=== PATIENT | male | born 1950 | race Caucasian/White ===

== ENCOUNTER 2018-07-01 09:25 | Inpatient (IN) | payer OTHER, SELFPAY ==
[2018-07-01] VITALS (8 sets, daily range): BP systolic 112–159; BP diastolic 58–98; PULSE 52–82; RESP 4–20; TEMP 36.4–38.1; O2SAT 89–98
--- NOTE | 2018-07-01 09:55 | W.ED.GENAD ---
Discharge Plan Disposition Patient Disposition: [facility] INPATIENT Condition: Stable Discharge Details Chief Complaint: Orthopedic Clinical Impression: Closed intertrochanteric fracture of right hip Reason For Visit: HIP FRACTURE Admit Date/Time: 07/01/18 13:22 Admit Provider: Rina Albrecht Attending Provider: Rina Albrecht Primary Care Provider: [facility] Provider: Lupe Barnett Discharge Data Discharge Date/Time-TO BE ENTERED AT DEPARTURE: 07/01/18 13:16 Medical Decision Making 67-year-old male with history of anxiety and depression, COPD, hyperlipidemia PTSD who presents with right hip pain status post slip and fall on ice and right aid parking lot prior to arrival. Patient ate at 7 AM Denies head injury or any other injuries. Blood pressure mildly hypertensive. Right leg shortening and external rotation. Neurovascularly intact. Will send for right hip and pelvis x-ray. Will give a dose of morphine. 1030 -- xray noted r hip fracture. Will obtain screening labs and cxr. 1045 -- discussed with orthopedics -will likely take to surgery tomorrow morning, but will consider this afternoon. Will discuss with anesthesia. 1050 -- discussed with hospitalist - accepts pt for admission. 1055 -- d/w ortho - pt can eat today - will go to [place] 8am tomorrow morning. Medical Records Medical records reviewed: Yes I reviewed the patient's medical records. Imaging Data Radiologic Study: Radiologist's impression: XR Right Hip with Pelvis when Performed, 2 or 3 Views FINDINGS: Bones/joints: Osteopenia Displaced intertrochanteric right hip fracture with fractured greater trochanter. Osteopenia Soft tissues: Normal. IMPRESSION: Displaced intertrochanteric right hip fracture with fractured greater trochanter. XR Chest, 1 View FINDINGS: Lungs: Unremarkable. No consolidation. Pleural space: Unremarkable. No pleural effusion. No pneumothorax. Heart/Mediastinum: Unremarkable. No cardiomegaly. Bones/joints: Unremarkable. IMPRESSION: No acute findings. Lab Data Lab results reviewed: Yes I reviewed the patient's lab results. HPI General Mode of arrival: ambulatory. Date/Time Provider Initiated Documentation: 07/01/18 09:45. Limitations to Documentation: no limitations. Information obtained by: patient. HPI Narrative: Patient is a 67-year-old male with a history of anxiety, depression, COPD, hyperlipidemia, PTSD who presents with right hip pain status post slip and fall on ice. Patient states he was walking and right a parking lot when he slipped and fell onto his right hip. Patient denies head injury, chest injury, abdominal injury, neck or back pain. He denies any other extremity injury. Patient had refused any pain meds per EMS but states he would like some pain medication now. Patient has a history of lumbar spine disc surgery in 1990 but denies any history of hip surgery. Related Data Home Medications Medication Instructions Recorded Confirmed aspirin 325 mg PO PRN 03/15/14 07/01/18 aspirin [Aspirin Low-Strength] 81 mg PO DAILY AM 03/15/14 08/01/17 atorvastatin [Lipitor] 10 mg PO DAILY AM 03/15/14 07/01/18 cyclobenzaprine 10 mg PO PRN PRN 03/15/14 07/01/18 fluticasone [Flonase] 1 spray INTRANASAL PRN PRN 03/15/14 07/01/18 omeprazole 20 mg PO DAILY AM 03/15/14 07/01/18 sertraline [Zoloft] 50 mg PO DAILY 03/15/14 07/01/18 Spiriva with HandiHaler 1 puff INHALATION DAILY 11/16/14 07/01/18 coenzyme Q10 [CoQ-10] 100 mg PO DAILY 11/16/14 07/01/18 nicotine 21 mg TRANSDERMAL DAILY PRN PRN 12/07/16 07/01/18 patch pantoprazole [Protonix] 40 mg PO DAILY #30 tablet. 08/01/17 07/01/18 Previous Rx's Medication Instructions Recorded nicotine 21 mg TRANSDERMAL DAILY PRN PRN 12/07/16 patch pantoprazole [Protonix] 40 mg PO DAILY #30 tablet. 08/01/17 Allergies Allergy/AdvReac Type Severity Reaction Status Date / Time No Known Allergies Allergy Unverified 08/01/17 11:30 General Stated Complaint: Orthopedic MARYAN: 3 Review of Systems Review of Systems All systems reviewed & are unremarkable except as noted in HPI and below Constitutional Reports as per HPI, Denies chills and Denies fever(s) Eyes Denies blurry vision ENT Denies dizziness, Denies sore throat and Denies throat swelling Cardiovascular Denies chest pain and Denies dyspnea Respiratory Denies cough and Denies dyspnea Gastrointestinal Denies abdominal pain, Denies diarrhea and Denies vomiting Genitourinary Denies hematuria and Denies dysuria Musculoskeletal Denies back pain and Denies numbness Integumentary/Breasts Denies lesions and Denies rash Neurologic Denies dizziness, Denies focal weakness and Denies numbness Allergic/Immunologic Denies throat swelling COUNTS INCLUDE 234 BEDS AT THE [facility] Medical History Hyperlipemia (Acute) PTSD (post-traumatic stress disorder) (Acute) Anxiety (Chronic) Depression (Chronic) Surgical History History of back surgery (Acute) Social History Smoking/Tobacco Use Status: Current every day alcohol intake: never substance use type: does not use Exam Const General: cooperative, healthy appearing and no acute distress HENMT Head: normal to inspection Face and sinus: normal facial exam Eyes General: appearance normal, both eyes and all related structures EOM: EOM intact bilaterally Neck Neck: normal visual inspection and No submandibular swelling Lymphatic: no lymphadenopathy noted Chest Chest: normal inspection of the chest and no tenderness Resp Effort & Inspection: normal respiratory effort and able to speak in complete sentences Auscultation: clear to auscultation bilaterally Cardio Rate: regular rate Rhythm: regular rhythm GI Inspection: normal to inspection Palpation: soft, not firm, not rigid and nontender Auscultation: normal bowel sounds Male General Exam: Yes normal external exam Scrotum: scrotum normal Testes: normal Back/Spine/Pelvis Cervical Spine: No cervical spinal tenderness Skin General skin exam: no rashes or lesions noted Neuro General: alert, awake and oriented x3 Cognition: normal cognition Speech: speech normal Motor: muscle tone normal throughout Sensory Exam: no sensory deficits noted Extrem Right upper extremity: full ROM Left upper extremity: full ROM Other: Right lower extremity shortened and externally rotated. No tenderness to palpation of bilateral hips. Normal range of motion and no pain left lower extremity. Bilateral DP/PT pulses intact. Psych Appearance: grossly normal Mental Status: mental status grossly normal Speech and Movement: speech and movement normal Affect: normal affect Course Vital Signs Temperature 98.1 F 07/01/18 09:32 Pulse 58 L 07/01/18 09:32 Respiratory Rate 20 07/01/18 09:32 Blood Pressure 159/84 H 07/01/18 09:32 Pulse Oximetry 98 07/01/18 09:32 Temperature 98.1 F 07/01/18 09:32 Temperature Source Temporal Artery Scan 07/01/18 09:32 Pulse 58 L 07/01/18 09:32 Respiratory Rate 20 07/01/18 09:32 Respiratory Effort 07/01/18 09:37 Blood Pressure 159/84 H 07/01/18 09:32 Blood Pressure Position Supine 07/01/18 09:32 Pulse Oximetry 98 07/01/18 09:32 Oxygen Delivery Method Room Air 07/01/18 09:32 Oxygen Flow Rate 0 07/01/18 09:32 Pain Level 5 07/01/18 09:32
[2018-07-01] MEDS: MORPHine 10 MG/ML VIAL 4 MG IVP (10:05)
[2018-07-01] MEDS: Normal Saline Flush 10 ML SYR IVP ×2 (10:07→13:28)
--- NOTE | 2018-07-01 10:38 | DI.RAD_ITS ---
SYMPTOM/DIAGNOSIS: HIP FRACTURE, R/O ACUTE DISEASE, PRE OP AP SUPINE CHEST: Comparison is made with 01 August 2017. The heart size is normal. The aorta shows some calcification, normal in diameter. The lungs are well inflated and clear. No infiltrate, effusion, pneumothorax or rib fractures seen. IMPRESSION: Negative chest x-ray
--- NOTE | 2018-07-01 10:45 | DI.RAD_ITS ---
SYMPTOM/DIAGNOSIS: S/P SLIP AND FALL, R/O ACUTE FX PELVIS AND LEFT HIP: There is an intertrochanteric fracture of the left femur. There is mild varus angulation, mild displacement. No additional fractures are seen. The hip joint space is well maintained. IMPRESSION: Intertrochanteric fracture of the right femur.
--- NOTE | 2018-07-01 10:51 | DI.VRAD_ITS ---
EXAM: XR Right Hip with Pelvis when Performed, 2 or 3 Views EXAM DATE/TIME: 07/01/2018 9:55 AM CLINICAL HISTORY: 67 years old, male; Pain; Hip pain; Right hip; Patient HX: Fall on ice today. Right hip pain. TECHNIQUE: XR Right hip with pelvis when performed, 2 or 3 views COMPARISON: No relevant prior studies available. FINDINGS: Bones/joints: Osteopenia Displaced intertrochanteric right hip fracture with fractured greater trochanter. Osteopenia Soft tissues: Normal. IMPRESSION: Displaced intertrochanteric right hip fracture with fractured greater trochanter. Dictated and Authenticated by: Emory Means MD. Ordering:GIULIANA Andrade MD
--- NOTE | 2018-07-01 10:52 | DI.VRAD_ITS ---
EXAM: XR Chest, 1 View EXAM DATE/TIME: 07/01/2018 10:38 AM CLINICAL HISTORY: 67 years old, male; Signs and symptoms; Other: Trauma patient TECHNIQUE: XR of the chest, 1 view. COMPARISON: CR CHEST 2 VIEWS PA,LAT 08/01/2017 11:30 AM FINDINGS: Lungs: Unremarkable. No consolidation. Pleural space: Unremarkable. No pleural effusion. No pneumothorax. Heart/Mediastinum: Unremarkable. No cardiomegaly. Bones/joints: Unremarkable. IMPRESSION: No acute findings. Dictated and Authenticated by: Emory Means MD. Ordering:GIULIANA Andrade MD
[2018-07-01 12:50] LABS: Abs Immature Grans 0.02 k/cumm (0.0-0.09); Absolute Basophil Count 0.01 k/cumm (0.0-0.2); Absolute Eosinophil Count 0.02 k/cumm (0.0-0.7); Absolute Lymphocyte Count 1.17 k/cumm (1.2-3.4); Absolute Monocyte Count 0.45 k/cumm (0.11-0.7); Absolute Neutrophil Count 6.58 k/cumm (1.2-6.7); Basophils % 0.1; Eosinophils % 0.2; HCT 38.7 % (40.0-50.0); HGB 13.4 g/dL (13.5-17.5); Immature Grans % 0.2; Lymphocytes % 14.2; Mean Corp. HGB Concentration 34.6 g/dL (32.0-36.0); Mean Corpuscular Hemoglobin 32.6 pg (27.0-33.0); Mean Corpuscular Volume 94.2 fL (80-95); Monocytes % 5.5; Neutrophils % 79.8; Platelet Count 236 x1000/uL (130-400); RBC 4.11 m/cumm (4.50-6.00); RBC Distribution Width 12.2 % (11.8-14.1); White Blood Cell Count 8.25 k/cumm (4.4-10.8)
[2018-07-01 13:08] LABS: ALT 28 U/L (12-78); AST 29 U/L (15-37); Albumin 3.4 g/dL (3.4-5.0); Alkaline Phosphatase 76 U/L (46-116); Anion Gap 7.5 mmol/L (3-11); BUN 7 mg/dL (7-18); Bilirubin, Total 0.3 mg/dL (0.2-1.0); CO2 28.5 mmol/L (21.0-32.0); CREATININE 0.84 mg/dL (0.70-1.30); Calcium 8.7 mg/dL (8.5-10.1); Chloride 100 mmol/L (98-107); Glucose 102 mg/dL (70-100); Magnesium 1.5 mg/dL (1.8-2.4); Sodium 136 mmol/L (136-145); Total Protein 6.7 g/dL (6.4-8.2); Troponin I < 0.02 ng/mL (0.00-0.06)
--- NOTE | 2018-07-01 13:14 | W.PM.HP.N ---
Date of service: 07/01/18 Time of Service: 13:15 Assessment and Plan (1) Hip fracture, right: Start date: 07/01/18 Start time: 13:47 Current visit: Yes Status: Acute Ortho met with patient plan on surgery either this evening or tomorrow morning. (2) COPD (chronic obstructive pulmonary disease): Start date: 07/01/18 Start time: 13:47 Current visit: Yes Status: Chronic Not exacerbated at this time, pt takes albuterol,and sprivia at home will continue current home treatment. (3) Tobacco abuse: Start date: 07/01/18 Start time: 13:48 Current visit: Yes Status: Acute counseled on smoking cessation, not interested at this time. Will continue to assess readiness to quite. I have ordered nicoderm 21 mg patch if patient decides he wants it (4) Hyperlipidemia: Start date: 07/01/18 Start time: 13:49 Current visit: Yes Status: Acute currently taking atorvastatin, will continue his home regimen (5) DVT prophylaxis: Start date: 07/01/18 Start time: 13:50 Current visit: Yes Status: Acute At this time while waiting surgery SCDs and TEDs for prophylaxis. (6) GERD (gastroesophageal reflux disease): Start date: 07/01/18 Start time: 13:50 Current visit: Yes Status: Chronic Currently taking protonix po daily, I have ordered that as IVP while NPO (7) Discharge planning issues: Start date: 07/01/18 Start time: 13:51 Current visit: Yes Status: Acute Possible home with PT/OT or rehab, will start to evaluate after surgery and when patient works with PT/OT for where appropriate placement will be. History of Present Illness Chief Complaint: Hip Fracture Narrative: Mr. Tom is a 67 y.o M who was at [employer] this am and fell in the parking lot on ice. After falling he proceded to get up and could not so he called [address] Emergency Department. He has hx of COPD and 2 pack per day smoker, hx of positional vertigo, gastric ulcers, various skin cancers, PTSD and hyperlipidemia. He has been seen by ortho for a right hip fracture, plan for possible surgery tonight, if not tonight then in the morning. He will be admitted to m/s for hip surgery and medical managment. We will plan on PT/OT working with him post operatively. Teds and SCD for anticoagulation until after surgery. Bedrest until after surgery, NPO until after surgery. IVF and morphine for pain managment. Protonix IV while NPO, I will start his home regimen for COPD . He expresses no desire to quit smoking at this time. He states he only smokes half the cigarette because that is what a doctor told him to do because all the bad stuff is in the end of the cigarette. I have ordered nicoderm patches if he needs them, though he states he wants to do this without anything. Review of Systems Review of Systems All systems reviewed & are unremarkable except as noted in HPI and below Constitutional Reports system reviewed and no additional complaints, except as docu Eyes Reports system reviewed and no additional complaints, except as docu ENT Reports system reviewed and no additional complaints, except as docu Cardiovascular Reports system reviewed and no additional complaints, except as docu Respiratory Reports system reviewed and no additional complaints, except as docu Gastrointestinal Reports system reviewed and no additional complaints, except as docu Genitourinary Reports system reviewed and no additional complaints, except as docu Musculoskeletal Comments: pain to right leg when touched Integumentary/Breasts Reports system reviewed and no additional complaints, except as docu Neurologic Reports system reviewed and no additional complaints, except as docu Psychiatric Reports as per HPI [facility] Medical History Hyperlipemia (Acute) PTSD (post-traumatic stress disorder) (Acute) Anxiety (Chronic) Depression (Chronic) Surgical History History of back surgery (Acute) Social History Smoking/Tobacco Use Status: Current every day alcohol intake: never substance use type: does not use Meds Home Medications Medication Instructions Recorded Confirmed Type aspirin 325 mg PO PRN 03/15/14 08/01/17 History aspirin [Aspirin Low-Strength] 81 mg PO DAILY AM 03/15/14 08/01/17 History atorvastatin [Lipitor] 10 mg PO DAILY AM 03/15/14 08/01/17 History cyclobenzaprine 10 mg PO PRN PRN 03/15/14 08/01/17 History fluticasone [Flonase] 1 spray INTRANASAL PRN PRN 03/15/14 08/01/17 History omeprazole 20 mg PO DAILY AM 03/15/14 08/01/17 History sertraline [Zoloft] 50 mg PO DAILY 03/15/14 08/01/17 History coenzyme Q10 [CoQ-10] 100 mg PO DAILY 11/16/14 08/01/17 History tiotropium bromide [Spiriva with 1 puff INHALATION DAILY 11/16/14 08/01/17 History HandiHaler] nicotine 21 mg TRANSDERMAL DAILY PRN PRN 12/07/16 08/01/17 Rx patch pantoprazole [Protonix] 40 mg PO DAILY #30 tablet. 08/01/17 Rx Allergies Allergy/AdvReac Type Severity Reaction Status Date / Time No Known Allergies Allergy Unverified 08/01/17 11:30 Exam Narrative Exam Narrative: Male sitting on stretcher calm and pleasant Const General: cooperative, healthy appearing and no acute distress HENMT Head: normal to inspection Eyes General: appearance normal, both eyes and all related structures Neck Lymphatic: no lymphadenopathy noted and no lymphedema noted Chest Chest: normal inspection of the chest Resp Effort & Inspection: normal respiratory effort and able to speak in complete sentences Cardio Rate: regular rate Rhythm: regular rhythm Heart Sounds: S1 normal and S2 normal GI Inspection: normal to inspection Skin General skin exam: no rashes or lesions noted Neuro General: alert, awake and oriented x3 Extrem Other: RLE is shortened and externally rotated Results Labs : 07/01/18 12:39 07/01/18 12:39 Laboratory Results - last 24 hr 07/01/18 07/01/18 07/01/18 12:39 12:39 12:39 WBC 8.25 RBC 4.11 L Hgb 13.4 L Hct 38.7 L MCV 94.2 MCH 32.6 MCHC 34.6 RDW 12.2 Plt Count 236 MPV 9.0 Immature Gran % 0.2 Neutrophils % 79.8 Lymphocytes % 14.2 Monocytes % 5.5 Eosinophils % 0.2 Basophils % 0.1 Absolute Neutrophils 6.58 Absolute Lymphocytes 1.17 L Absolute Monocytes 0.45 Absolute Eosinophils 0.02 Absolute Basophils 0.01 Sodium 136 Potassium 4.0 Chloride 100 Carbon Dioxide 28.5 Anion Gap 7.5 BUN 7 Creatinine 0.84 Estimated GFR/1.73 m2 >= 60.00 Glucose 102 H Calcium 8.7 Magnesium 1.5 L Total Bilirubin 0.3 AST 29 ALT 28 Alkaline Phosphatase 76 Troponin I < 0.02 Total Protein 6.7 Albumin 3.4 Patient ABO/Rh A Positive Last Vital Signs Temp 36.4 C L 07/01/18 11:49 Pulse 58 L 07/01/18 12:08 Resp 18 07/01/18 12:08 BP 119/61 07/01/18 12:08 Pulse Ox 89 L 07/01/18 12:08
[2018-07-01] MEDS: Normal Saline 1,000 ML 125 ML IV ×2 (14:46→22:24)
[2018-07-01] MEDS: MAGNESIUM SULFATE 2 GM/50 ML BAG IV ×2 (18:42→21:53)
--- NOTE | 2018-07-01 19:43 | W.ORTHOCONSU ---
Date of service: 07/01/18 Time of Service: 14:43 History of Present Illness Chief Complaint: Right Hip Pain Narrative: Felipe is a 67-year-old who prior to arrival in the emergency department fell in the parking lot. He was walking and slipped on some ice landing on the right side. He tried to get up but was unable to. He called the emergency services and was brought to the [facility] ED. He was diagnosed with a hip fracture on the right side. He reports pain about the right hip. No pain in the knee. No premorbid hip pain. No numbness or tingling. He has otherwise been in the normal state of health. No head trauma, loss of consciousness, chest pain, palpitation, shortness of breath. Consult Reason Right hip fracture Assessment and Plan (1) Hip fracture, right: Start date: 07/01/18 Start time: 08:00 Current visit: Yes Status: Acute Felipe is a 67-year-old with a right intertrochanteric hip fracture which is displaced. I had a long discussion with Felipe about treatment options and he agrees to operative fixation. I treated his for hip fracture a year or 2 ago and she has done quite well. I reviewed the difficulties nonoperative treatment and recommended intervention nail fixation due to the comminution of the greater trochanter. He did eat this morning. Therefore, we will plan to do the case first thing tomorrow morning. I reviewed the risk of the procedure to include bleeding, infection, pain, stiffness, damage to nerves and vessels, damage to muscle tendons, hardware prominence, heart failure, malunion, nonunion, leg length inequality. There is also risk of blood clot. Despite these risks, he elects to proceed. Qualifiers: Encounter type: initial encounter Fracture type: closed Qualified Code(s): S72.001A - Fracture of unspecified part of neck of right femur, initial encounter for closed fracture Review of Systems Review of Systems All systems reviewed & are unremarkable except as noted in HPI and below [facility] Medical History Hyperlipemia (Acute) PTSD (post-traumatic stress disorder) (Acute) Anxiety (Chronic) Depression (Chronic) Surgical History History of back surgery (Acute) Social History Smoking/Tobacco Use Status: Current every day alcohol intake: never substance use type: does not use Exam Narrative Exam Narrative: Felipe is resting comfortably in the hospital bed. Head is normocephalic and atraumatic. His right leg is shortened and externally rotated. He is in no acute distress. He is alert oriented x3. He has intact ankle dorsiflexion, plantarflexion, EHL, FHL. Sensation intact light touch of the deep and superficial peroneal nerve and tibial nerve. The foot is warm and well perfused with a palpable DP and PT pulse. Results Last Vital Signs Temp 38.1 C H 07/01/18 15:52 Pulse 78 07/01/18 15:52 Resp 20 07/01/18 15:52 BP 117/58 L 07/01/18 15:52 Pulse Ox 93 L 07/01/18 15:52 Labs : 07/01/18 12:39 07/01/18 12:39 Laboratory Results - last 24 hr 07/01/18 07/01/18 07/01/18 12:39 12:39 12:39 WBC 8.25 RBC 4.11 L Hgb 13.4 L Hct 38.7 L MCV 94.2 MCH 32.6 MCHC 34.6 RDW 12.2 Plt Count 236 MPV 9.0 Immature Gran % 0.2 Neutrophils % 79.8 Lymphocytes % 14.2 Monocytes % 5.5 Eosinophils % 0.2 Basophils % 0.1 Absolute Neutrophils 6.58 Absolute Lymphocytes 1.17 L Absolute Monocytes 0.45 Absolute Eosinophils 0.02 Absolute Basophils 0.01 Sodium 136 Potassium 4.0 Chloride 100 Carbon Dioxide 28.5 Anion Gap 7.5 BUN 7 Creatinine 0.84 Estimated GFR/1.73 m2 >= 60.00 Glucose 102 H Calcium 8.7 Magnesium 1.5 L Total Bilirubin 0.3 AST 29 ALT 28 Alkaline Phosphatase 76 Troponin I < 0.02 Total Protein 6.7 Albumin 3.4 Patient ABO/Rh A Positive Antibody Screen Negative Imaging Imaging Studies: X-ray of the right hip and pelvis demonstrates an intertrochanteric hip fracture. There is some mild comminution of the greater trochanter and there is also displacement of the fracture with shortening and external rotation of the distal component. No significant arthritis.
--- NOTE | 2018-07-01 19:49 | OCONE_ITS ---
Date of service: 07/01/18 Time of Service: 14:43 History of Present Illness Chief Complaint: Right Hip Pain Narrative: Felipe is a 67-year-old who prior to arrival in the emergency department fell in the parking lot. He was walking and slipped on some ice landing on the right side. He tried to get up but was unable to. He called the emergency services and was brought to the [facility] ED. He was diagnosed with a hip fracture on the right side. He reports pain about the right hip. No pain in the knee. No premorbid hip pain. No numbness or tingling. He has otherwise been in the normal state of health. No head trauma, loss of consciousness, chest pain, palpitation, shortness of breath. Consult Reason Right hip fracture Assessment and Plan (1) Hip fracture, right: Start date: 07/01/18 Start time: 08:00 Current visit: Yes Status: Acute Felipe is a 67-year-old with a right intertrochanteric hip fracture which is displaced. I had a long discussion with Felipe about treatment options and he agrees to operative fixation. I treated his for hip fracture a year or 2 ago and she has done quite well. I reviewed the difficulties nonoperative treatment and recommended intervention nail fixation due to the comminution of the greater trochanter. He did eat this morning. Therefore, we will plan to do the case first thing tomorrow morning. I reviewed the risk of the procedure to include bleeding, infection, pain, stiffness, damage to nerves and vessels, dam age to muscle tendons, hardware prominence, heart failure, malunion, nonunion, leg length inequality. There is also risk of blood clot. Despite these risks, he elects to proceed. Qualifiers: Encounter type: initial encounter Fracture type: closed Qualified Co de(s): S72.001A - Fracture of unspecified part of neck of right femur, initial encounter for closed fracture Review of Systems Review of Systems All systems reviewed & are unremarkable except as noted in HPI and below PFSH Medical History Hyperlipemia (Acute) PTSD (post-traumatic stress disorder) (Acute) Anxiety (Chronic) Depression (Chronic) Surgical History History of back surgery (Acute) Social History Smoking/Tobacco Use Status: Current every day alcohol intake: never substance use type: does not use Exam Narrative Exam Narrative: Felipe is resting comfortably in the hospital bed. Head is normocephalic and atraumatic. His right leg is shortened and externally rotated. He is in no acute distress. He is alert oriented x3. He has intact ankle dorsiflexion, plantarflexion, EHL, FHL. Sensation intact light touch of the deep and superficial peroneal nerve and tibial nerve. The foot is warm and well perfused with a palpable DP and PT pulse. Results Last Vital Signs Temp 38.1 C H 07/01/18 15:52 Pulse 78 07/01/18 15:52 Resp 20 07/01/18 15:52 BP 117/58 L 07/01/18 15:52 Pulse Ox 93 L 07/01/18 15:52 Labs : 07/01/18 12:39 07/01/18 12:39 Laboratory Results - last 24 hr 07/01/18 07/01/18 07/01/18 12:39 12:39 12:39 WBC 8.25 RBC 4.11 L Hgb 13.4 L Hct 38.7 L MCV 94.2 MCH 32.6 MCHC 34.6 RDW 12.2 Plt Count 236 MPV 9.0 Immature Gran % 0.2 Neutrophils % 79.8 Lymphocytes % 14.2 Monocytes % 5.5 Eosinophils % 0.2 Basophils % 0.1 Absolute Neutrophils 6.58 Absolute Lymphocytes 1.17 L Absolute Monocytes 0.45 Absolute Eosinophils 0.02 Absolute Basophils 0.01 Sodium 136 Potassium 4.0 Chloride 100 Carbon Dioxide 28.5 Anion Gap 7.5 BUN 7 Creatinine 0.84 Estimated GFR/1.73 m2 >= 60.00 Glucose 102 H Calcium 8.7 Magnesium 1.5 L Total Bilirubin 0.3 AST 29 ALT 28 Alkaline Phosphatase 76 Troponin I < 0.02 Total Protein 6.7 Albumin 3.4 Patient ABO/Rh A Positive Antibody Screen Negative Imaging Imaging Studies: X-ray of the right hip and pelvis demonstrates an intertrochanteric hip fracture. There is some mild comminution of the greater trochanter and there is also displacement of the fracture with shortening and external rotation of the distal component. No significant arthritis.
[2018-07-01] MEDS: Albuterol/Ipratropium 3 ML UPD VIAL UPD (20:23)
[2018-07-01] MEDS: Atorvastatin 10 MG TAB PO (20:24)
[2018-07-01] MEDS: Acetaminophen 325 MG TAB 650 MG PO (20:24)
[2018-07-01] MEDS: Heparin 5,000 UNITS/ML VIAL 5000 UNITS SC (21:36)
[2018-07-02] VITALS (10 sets, daily range): BP systolic 103–152; BP diastolic 61–94; PULSE 60–94; RESP 4–22; TEMP 35.4–37; O2SAT 92–96
[2018-07-02] MEDS: Normal Saline 1,000 ML 125 ML IV ×3 (04:46→18:18)
--- NOTE | 2018-07-02 07:09 | W.PM.PROGNOT ---
Date of Service Date of service: 07/02/18 Time of Service: 07:09 Assessment and Plan (1) Hip fracture, right: Current visit: Yes Status: Acute Felipe is a 67-year-old with a right hip fracture. This intertrochanteric hip fracture is planned for intramedullary nail fixation today due to trochanteric comminution. I once again reviewed the technical details with Felipe. I reviewed the risk of the surgery to include bleeding, infection, pain, stiffness, damage to nerves and vessels, damage to muscle tendons, malunion, nonunion, hardware failure, hardware prominence, blood clot. Despite these risks, he desires to proceed. A consent was signed the patient in the right side, hip, was marked as the correct side. Qualifiers: Encounter type: initial encounter Fracture type: closed Open fracture type: Fracture healing: Qualified Code(s): S72.001A - Fracture of unspecified part of neck of right femur, initial encounter for closed fracture Subjective Patient reports: no new complaints Interval history since last seen: Felipe has been relatively comfortable overnight and less he tries to move. His pain is over the right hip. He denies any chest pain, shortness of breath, fever, chills. He denies any new numbness or tingling. All labs were performed yesterday without any significant abnormality. Hospitalist has given clearance to proceed with surgery. Exam Narrative Exam Narrative: No acute distress. Alert and oriented x3. Resting in a semi-seated position within the bed. Right leg is externally rotated and shortened. No overlying skin changes, abrasions, lacerations, and no ecchymosis. Intact ankle dorsiflexion, ankle plantarflexion, EHL, FHL. The foot is warm well perfused with minimal edema. Objective Objective Clinical Data: Abnormal lab results 07/01/18 07/01/18 Range/Units 12:39 12:39 RBC 4.11 L (4.50-6.00) m/cumm Hgb 13.4 L (13.5-17.5) g/dL Hct 38.7 L (40.0-50.0) % Absolute Lymphocytes 1.17 L (1.2-3.4) k/cumm Glucose 102 H (70-100) mg/dL Magnesium 1.5 L (1.8-2.4) mg/dL Vital Signs Temperature 36.6 C 07/02/18 03:19 Temperature Source Skin 07/02/18 03:19 Pulse 60 07/02/18 03:19 Pulse Rhythm Regular 07/01/18 23:55 Respiratory Rate 16 07/02/18 03:19 Respiratory Effort Non-Labored 07/01/18 23:55 Respiratory Depth Normal 07/01/18 23:55 Respiratory Pattern Normal 07/01/18 23:55 Blood Pressure 139/70 07/02/18 03:19 Blood Pressure Position Supine 07/01/18 09:32 Pulse Oximetry 92 L 07/02/18 03:19 Oxygen Delivery Method Nasal Cannula 07/02/18 03:19 Oxygen Flow Rate 2 07/02/18 03:19 Pain Level 5 07/02/18 03:00 Comment 07/02/18 03:19 Intake & Output 07/01/18 07/01/18 07/02/18 11:59 23:59 11:59 Intake Total 993.959 / 993.959 945 / 945 Output Total 300 / 300 1300 / 1300 Balance 693.959 / 693.959 -355 / -355 Weight 83.915 kg 83.915 kg 84.5 kg Intake: IV 993.959 / 993.959 945 / 945 Output: Urine 300 / 300 1300 / 1300 Other: Urine Color Yellow Yellow Urine Appearance Clear Urine Odor Normal Voiding Methods Urinal Urinal Laboratory Results WBC 8.25 k/cumm (4.4-10.8) 07/01/18 12:39 RBC 4.11 m/cumm (4.50-6.00) L 07/01/18 12:39 Hgb 13.4 g/dL (13.5-17.5) L 07/01/18 12:39 Hct 38.7 % (40.0-50.0) L 07/01/18 12:39 MCV 94.2 fL (80-95) 07/01/18 12:39 MCH 32.6 pg (27.0-33.0) 07/01/18 12:39 MCHC 34.6 g/dL (32.0-36.0) 07/01/18 12:39 RDW 12.2 % (11.8-14.1) 07/01/18 12:39 Plt Count 236 x1000/uL (130-400) 07/01/18 12:39 MPV 9.0 fL (8.0-11.0) 07/01/18 12:39 Immature Gran % 0.2 07/01/18 12:39 Neutrophils % 79.8 07/01/18 12:39 Lymphocytes % 14.2 07/01/18 12:39 Monocytes % 5.5 07/01/18 12:39 Eosinophils % 0.2 07/01/18 12:39 Basophils % 0.1 07/01/18 12:39 Absolute Neutrophils 6.58 k/cumm (1.2-6.7) 07/01/18 12:39 Absolute Lymphocytes 1.17 k/cumm (1.2-3.4) L 07/01/18 12:39 Absolute Monocytes 0.45 k/cumm (0.11-0.7) 07/01/18 12:39 Absolute Eosinophils 0.02 k/cumm (0.0-0.7) 07/01/18 12:39 Absolute Basophils 0.01 k/cumm (0.0-0.2) 07/01/18 12:39 Sodium 136 mmol/L (136-145) 07/01/18 12:39 Potassium 4.0 mmol/L (3.5-5.1) 07/01/18 12:39 Chloride 100 mmol/L (98-107) 07/01/18 12:39 Carbon Dioxide 28.5 mmol/L (21.0-32.0) 07/01/18 12:39 Anion Gap 7.5 mmol/L (3-11) 07/01/18 12:39 BUN 7 mg/dL (7-18) 07/01/18 12:39 Creatinine 0.84 mg/dL (0.70-1.30) 07/01/18 12:39 Estimated GFR/1.73 m2 >= 60.00 (mL/min/1.73m2) 07/01/18 12:39 Glucose 102 mg/dL (70-100) H 07/01/18 12:39 Calcium 8.7 mg/dL (8.5-10.1) 07/01/18 12:39 Magnesium 1.5 mg/dL (1.8-2.4) L 07/01/18 12:39 Total Bilirubin 0.3 mg/dL (0.2-1.0) 07/01/18 12:39 AST 29 U/L (15-37) 07/01/18 12:39 ALT 28 U/L (12-78) 07/01/18 12:39 Alkaline Phosphatase 76 U/L (46-116) 07/01/18 12:39 Troponin I < 0.02 ng/mL (0.00-0.06) 07/01/18 12:39 Total Protein 6.7 g/dL (6.4-8.2) 07/01/18 12:39 Albumin 3.4 g/dL (3.4-5.0) 07/01/18 12:39 Patient ABO/Rh A Positive 07/01/18 12:39 Antibody Screen Negative 07/01/18 12:39
--- NOTE | 2018-07-02 07:13 | DI.RAD_ITS ---
SYMPTOM/DIAGNOSIS: FRACTURED RIGHT HIP C-ARM FLUOROSCOPY RIGHT HIP: Fluoroscopy Time: 52.9 SEC Fluoroscopy was provided in the O.R. for Dr. Hooper. Hard copy images show placement of an intramedullary krystian and compression screw in the femur for fixation of the previously noted intertrochanteric fracture. The alignment appears anatomic.
[2018-07-02 07:14] LABS: HCT 36.4 % (40.0-50.0); HGB 12.3 g/dL (13.5-17.5); Mean Corp. HGB Concentration 33.8 g/dL (32.0-36.0); Mean Corpuscular Hemoglobin 32.3 pg (27.0-33.0); Mean Corpuscular Volume 95.5 fL (80-95); Mean Platelet Volume 9.3 fL (8.0-11.0); Platelet Count 217 x1000/uL (130-400); RBC 3.81 m/cumm (4.50-6.00); RBC Distribution Width 12.5 % (11.8-14.1); White Blood Cell Count 6.86 k/cumm (4.4-10.8)
[2018-07-02] MEDS: Normal Saline Flush 10 ML SYR IVP ×3 (07:18→20:11)
[2018-07-02 07:27] LABS: INR 1.1 (0.9-1.1); Prothrombin Time 10.7 sec (9.3-11.0)
[2018-07-02 07:31] LABS: Anion Gap 5.3 mmol/L (3-11); BUN 12 mg/dL (7-18); CO2 28.7 mmol/L (21.0-32.0); CREATININE 0.93 mg/dL (0.70-1.30); Calcium 8.4 mg/dL (8.5-10.1); Chloride 103 mmol/L (98-107); Glucose 98 mg/dL (70-100); Potassium 4.2 mmol/L (3.5-5.1); Sodium 137 mmol/L (136-145)
[2018-07-02] MEDS: Bupivacaine LIPOSOME/PF 133 MG/10 ML VIAL IJ (09:05)
[2018-07-02] MEDS: Bupivacaine 0.25% Pres-Free 30 ML VIAL (09:05)
[2018-07-02] MEDS: Pantoprazole 40 MG VIAL IVP (10:15)
--- NOTE | 2018-07-02 11:18 | PHARADMIT ---
Addendum entered by Sallie Chaudhari 07/04/18 16:10: Pharmacy Note Subjective pt calvin had a BM yet per morning report; has bm meds ordered Objective VS-okay mag-1.5 Assessment IV mag replacement ordered morphine discontinued Plan discharge when cleared by ortho Original Note: Admission Pharmacy Clinical Review HIP FRACTURE Code Status Full Code Current Weight Wgt- 84.5 kg Renally Cleared and Narrow Therapeutic Index Meds CrCl~70 mL/min Meds-OK QTc Value / Action Taken none current BP Control, Fever BP- 130/733 Tmax- 37.6C Electrolytes reviewed Na- 137 K+4.2 Mag-2.0 DVT Prophylaxis Lovenox Opiate Usage / Scheduled Bowel Regimen Ordered Yes Yes Plt/SCr for Heparin / Enoxaparin Plts-217 SCr-0.93 INR for Warfarin inr-1.1 H/H stable, WBC/Bands H&H- 12.3/36.4 WBC-6.86 Antibiotic appropriateness Ancef Cultures and Sensitivities na Surgical ABX d/c within 24 hr Yes DM control / Insulin Dosing BG- 98 Heart Failure (Check EF%) (AGUSTINA's, B-Block, Diuretics) none IV to PO Switch No Home Meds Reviewed Yes Home Meds Not Ordered ASA, CoEnzymeQ, Flexeril, Flonase Comments
--- NOTE | 2018-07-02 11:34 | PDOC.CMIN ---
- If Service Date Differs Date of service: 07/02/18 Time of Service: 11:34 Care Management Initial Assess REASON FOR HOSPITALIZATION:: Right hip fracture related to fall. Repaired 07/02/18 PAST MEDICAL HISTORY/PAST SURGICAL HISTORY:: GERD, Tobacco use, hyperlipidemia, COPD, PTSD, skin cancer PREVIOUS FUNCTIONAL STATUS/SOCIAL/FAMILY SUPPORTS:: Patient is a 66 year old male who lives with his , Charlette in [facility]. They have a total of 5 children. 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 Independent at baseline and does not use any assistive equipment. Patient walks around town and considers himself physically active. CURRENT FUNCTIONAL STATUS:: Felipe is lying in bed, he is engaged with CM during assessment. He states he fell in front of [place] aid in [facility] on the ice. He states he will be going home at time of discharge she has a supportive spouse. He will need to work on stairs he has a couple to get into his apartment. ADVANCE DIRECTIVES:: On file at [facility] Has patient been provided with information about the portal?: Yes Did the patient sign up for the portal?: No CODE STATUS:: Full Code INSURANCE COVERAGE / FINANCIAL ISSUES:: [place] Felipe is 30% service connected through the [place] CURRENT HOME/COMMUNITY SERVICES/EQUIPMENT:: Felipe has a walker, no other services at this time. PRIMARY CARE PHYSICIAN:: [facility] and [place]. POTENTIAL DISCHARGE NEEDS:: Follow-up appointment with primary care provider, orthopedic provider, home health versus outpatient PT. PATIENT/FAMILY EDUCATION NEEDS:: Discharge education, limitations, follow-up plan of care, self-management and asked me 3. ANTICIPATED BARRIERS TO DISCHARGE:: None identified at this time. TRANSPORTATION:: Via spouse private car at time of discharge. PLAN:: Felipe is postop, he will remain acute until ready for discharge per provider. Anticipate he will be discharged home possibly with home health services for PT. He has his own walker. CM to continue to provide support discharge planning and disposition.
--- NOTE | 2018-07-02 11:46 | INITIAL_ITS ---
- If Service Date Differs Date of service: 07/02/18 Time of Service: 11:34 Care Management Initial Assess REASON FOR HOSPITALIZATION:: Right hip fracture related to fall. Repaired 07/02/18 PAST MEDICAL HISTORY/PAST SURGICAL HISTORY:: GERD, Tobacco use, hyperlipidemia, COPD, PTSD, skin cancer PREVIOUS FUNCTIONAL STATUS/SOCIAL/FAMILY SUPPORTS:: Patient is a 66 year old male who lives with his , Charlette in [facility]. They have a total of 5 children. 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 Independent at baseline and does not use any assistive equipment. Patient walks around town and considers himself physically active. CURRENT FUNCTIONAL STATUS:: Felipe is lying in bed, he is engaged with CM during assessment. He states he fell in front of right aid in [facility] on the ice. He states he will be going home at time of discharge she has a supportive spouse. He will need to work on stairs he has a couple to get into his apartment. ADVANCE DIRECTIVES:: On file at [facility] Has patient been provided with information about the portal?: Yes Did the patient sign up for the portal?: No CODE STATUS:: Full Code INSURANCE COVERAGE / FINANCIAL ISSUES:: [place], [place] Felipe is 30% service connected through the [place] CURRENT HOME/COMMUNITY SERVICES/EQUIPMENT:: Felipe has a walker, no other services at this time. PRIMARY CARE PHYSICIAN:: [facility] and [place]. POTENTIAL DISCHARGE NEEDS:: Follow-up appointment with primary care provider, orthopedic provider, home health versus outpatient PT. PATIENT/FAMILY EDUCATION NEEDS:: Discharge education, limitations, follow-up plan of care, self-management and asked me 3. ANTICIPATED BARRIERS TO DISCHARGE:: None identified at this time. TRANSPORTATION:: Via spouse private car at time of discharge. PLAN:: Felipe is postop, he will remain acute until ready for discharge per provider. Anticipate he will be discharged home possibly with home health services for PT. He has his own walker. CM to continue to provide support discharge planning and disposition.
--- NOTE | 2018-07-02 12:03 | PT.INIE ---
Date of service: 07/02/18 Time of Service: 11:30 PT Notes Inpatient Physical Therapy Evaluation Date: 07/02/18 Referring Doctor: Andrez Hooper MD PT Orders: PT CONSULT: S/P IMN of R IT hip frx, WBAT with assistive device Precautions: WBAT R LE Patient Profile/Admitting Diagnosis: Patient fell on ice in [employer] parking lot, 07/01/18, suffering displaced R intertrochanteric hip fracture. Received surgical intervention of IMN of R IT this morning, and is now WBAT. PMHX: Anxiety, depression, PTSD, COPD, hyperlipidemia, smoker Social History/Home Situation: Lives in a private home with his . 5 steps, with two rails, to enter. Otherwise, house is on one level. Has a step over tub, low toilet. Retired. Premorbid level of function: I, WNL Current Functional Limitations: CG with bed mobility and transfers, dependent on walker, unable to tolerate household distance ambulation. Will be dependent on others for some self care, driving, ADL's. Equipment Owned/DME: Walker Subjective: No pain, just appreciates some stiffness in the groin and anterior hip with attempt of movement. Reports his R toe always turned out, due to an old knee injury. Overall, feel very good - better then presurgical state. Objective: General Observation: Recline in HOB, at 45* angle. IV. NC of 2L02. Good color. Pleasant man. Bleeding R superior incision, with RN managing. Mental Status: A & O x 3 Pain: 1/10, post transfer. Otherwise, 0/10 prior to start. Vital Signs: BP 116/70, HR 107, O2 sat 91 on 2L. ROM: Right Upper Extremity: WNl Left Upper Extremity: WNL Right Lower Extremity: Knee, ankle WNL. Oberve at least 90* hip flex, and active ability to rotate at least 40 degrees ER, 10 degrees IR in hooklying and standing. Left Lower Extremity: WNL Strength: Right Upper Extremity: Grossly WNL Left Upper Extremity: Grossly WNL Right Lower Extremity: Grossly 4/5 R knee flexion and extension, being cautious not to provice too much resistance. Ankl grossly 5/5. Hip flexion 4/5, no pain. Otherwise, didn't further assess hip. B EHL 5/5 Left Lower Extremity: Grossly WNL Sensation: Intact B LE's Bed Mobility/Transfers: Bed mobility - SBA Reclined to sit at EOB - SBA Sit to stand, at walker - CG Stand to sit, Min A - due to unsteadiness. Gait: 5 steps with walker, WBAT R LE. Balance: Static Sitting: Good Dynamic Sitting: Good Static Standing: Fair Dynamic Standing: Fair Special Tests: Mobility Limitations Standardized Measure [facility] AM-PAC 6 clicks Basic Mobility Inpatient Short Form: Raw Score: 21 Standardized Score: CMS Score: 29% disability CMS Modifier: Informed Consent/Education: Patient instructed in purpose of PT consult and plan of care. Assessment: Patient is a 67 year old male referred to physical therapy services with the diagnosis of S/P R IT hip fracture ORIF 07/01/18. Patient presents with clinical signs and symptoms consistent with post op condition, as demonstrated by the following impairment level findings: Limited R hip ROM, gross LE strength deficits, poor weight bearing tolerance . Impairments are contributing to the following functional limitations: Need for superivison and CG assist with transfers, poor tolerance to lengthy weightberaing, and dependance on walker. AMPA score 29% disabiltiy. Requires skilled inpatient care to imporve tolerance to transfers and higher distance ambulation, stair management, and imporved confidence on impaired R LE with functional activities for safe return home, and transfer to oupatient rehabilitation as appropriate. Patient is assessed as a xLow 04023 Moderate 40821 High 54212 complexity based on the following: History: See comorbidities Examination: See above impairments and functional limitations Presentation: Stable and predictable Decision Making: Easy Goals: Goals X1 week 1. Supine-Sit I 2. Sit-Supine I 3. Sit-Stand I 4. Stand-Sit I 5. Bed-Chair I 6. Chair-Bed I 7. Gait 50 ft, RW, close supervision 8. Stairs 5, with bilateral rails, close supervision 9. Independent with home exercise program I 10. Balance Good with standing activities Plan of Care/Treatment Plan: 1-2x/day, 7 days/week x 1 week. Plan of care has been reviewed with the COUNTY COMMISSIONER providing the service under Physical Therapy direction. Initiate Physical Therapy intervention for strengthening, bed mobility, transfers, gait, stairs, balance training, use of assistive device. DISCHARGE RECOMMENDATIONS: Home with , outpatient rehabilitation if appropriate per ortho recommendations. TREATMENT CODE/TIME: 30 minutes, [id number]
--- NOTE | 2018-07-02 12:07 | IN_ITS ---
Date of service: 07/02/18 Time of Service: 11:30 PT Notes Inpatient Physical Therapy Evaluation Date: 07/02/18 Referring Doctor: Andrez Hooper MD PT Orders: PT CONSULT: S/P IMN of R IT hip frx, WBAT with assistive device Precautions: WBAT R LE Patient Profile/Admitting Diagnosis: Patient fell on ice in [employer] parking lot, 07/01/18, suffering displaced R intertrochanteric hip fracture. Received surgical intervention of IMN of R IT this morning, and is now WBAT. PMHX: Anxiety, depression, PTSD, COPD, hyperlipidemia, smoker Social History/Home Situation: Lives in a private home with his . 5 steps, with two rails, to enter. Otherwise, house is on one level. Has a step over tub, low toilet. Retired. Premorbid level of function: I, WNL Current Functional Limitations: CG with bed mobility and transfers, dependent on walker, unable to tolerate household distance ambulation. Will be dependent on others for some self care, driving, ADL's. Equipment Owned/DME: Walker Subjective: No pain, just appreciates some stiffness in the groin and anterior hip with attempt of movement. Reports his R toe always turned out, due to an old knee injury. Overall, feel very good - better then presurgical state. Objective: General Observation: Recline in HOB, at 45* angle. IV. NC of 2L02. Good color. Pleasant man. Bleeding R superior incision, with RN managing. Mental Status: A & O x 3 Pain: 1/10, post transfer. Otherwise, 0/10 prior to start. Vital Signs: BP 116/70, HR 107, O2 sat 91 on 2L. ROM: Right Upper Extremity: WNl Left Upper Extremity: WNL Right Lower Extremity: Knee, ankle WNL. Oberve at least 90* hip flex, and active ability to rotate at least 40 degrees ER, 10 degrees IR in hooklying and standing. Left Lower Extremity: WNL Strength: Right Upper Extremity: Grossly WNL Left Upper Extremity: Grossly WNL Right Lower Extremity: Grossly 4/5 R knee flexion and extension, being cautious not to provice too much resistance. Ankl grossly 5/5. Hip flexion 4/5, no pain. Otherwise, didn't further assess hip. B EHL 5/5 Left Lower Extremity: Grossly WNL Sensation: Intact B LE's Bed Mobility/Transfers: Bed mobility - SBA Reclined to sit at EOB - SBA Sit to stand, at walker - CG Stand to sit, Min A - due to unsteadiness. Gait: 5 steps with walker, WBAT R LE. Balance: Static Sitting: Good Dynamic Sitting: Good Static Standing: Fair Dynamic Standing: Fair Special Tests: Mobility Limitations Standardized Measure [facility] AM-PAC 6 clicks Basic Mobility Inpatient Short Form: Raw Score: 21 Standardized Score: CMS Score: 29% disability CMS Modifier: Informed Consent/Education: Patient instructed in purpose of PT consult and plan of care. Assessment: Patient is a 67 year old male referred to physical therapy services with the diagnosis of S/P R IT hip fracture ORIF 07/01/18. Patient presents with clinical signs and symptoms consistent with post op condition, as demonstrated by the following impairment level findings: Limited R hip ROM, gross LE strength deficits, poor weight bearing tolerance . Impairments are contributing to the following functional limitations: Need for superivison and CG assist with transfers, poor tolerance to lengthy weightberaing, and dependance on walker. AMPA score 29% disabiltiy. Requires skilled inpatient care to imporve tolerance to transfers and higher distance ambulation, stair management, and imporved confidence on impaired R LE with functional activities for safe return home, and transfer to oupatient rehabilitation as appropriate. Patient is assessed as a xLow 54197 Moderate 95366 High 87094 complexity based on the following: History: See comorbidities Examination: See above impairments and functional limitations Presentation: Stable and predictable Decision Making: Easy Goals: Goals X1 week 1. Supine-Sit I 2. Sit-Supine I 3. Sit-Stand I 4. Stand-Sit I 5. Bed-Chair I 6. Chair-Bed I 7. Gait 50 ft, RW, close supervision 8. Stairs 5, with bilateral rails, close supervision 9. Independent with home exercise program I 10. Balance Good with standing activities Plan of Care/Treatment Plan: 1-2x/day, 7 days/week x 1 week. Plan of care has been reviewed with the GEOSPATIAL TECHNOLOGIST providing the service under Physical Therapy direction. Initiate Physical Therapy intervention for strengthening, bed mobility, transfers, gait, stairs, balance training, use of assistive device. DISCHARGE RECOMMENDATIONS: Home with , outpatient rehabilitation if appro priate per ortho recommendations. TREATMENT CODE/TIME: 30 minutes, [id number]
[2018-07-02] MEDS: Ketorolac 15 MG/ML VIAL IVP ×2 (13:14→20:08)
--- NOTE | 2018-07-02 14:39 | W.PM.PROGNOT ---
Documented by User: Rina Albrecht NP 07/02/18 15:03 Date of Service Date of service: 07/02/18 Time of Service: 14:50 Assessment and Plan (1) Hip fracture, right: Start date: 07/02/18 Start time: 14:39 Current visit: Yes Status: Acute Surgery this am, recovering well. States right leg feels better, he can move it. PT/OT today, discussed hip precautions with patient. Qualifiers: Encounter type: initial encounter Fracture healing: Fracture type: closed Open fracture type: Qualified Code(s): S72.001A - Fracture of unspecified part of neck of right femur, initial encounter for closed fracture (2) COPD (chronic obstructive pulmonary disease): Start date: 07/02/18 Start time: 14:40 Current visit: Yes Status: Chronic Not exacerbated at this time, ICS given, home regimen started on admission (3) Tobacco abuse: Start date: 07/02/18 Start time: 14:41 Current visit: Yes Status: Acute not interested at this time, will continue to school counsellor (4) Hyperlipidemia: Start date: 07/02/18 Start time: 14:41 Current visit: Yes Status: Acute currently taking atorvastatin, will continue his home regimen (5) DVT prophylaxis: Start date: 07/02/18 Start time: 14:46 Current visit: Yes Status: Acute SCDs and TEDs Will start lovenox 40 mg in am. (6) GERD (gastroesophageal reflux disease): Start date: 07/02/18 Start time: 14:46 Current visit: Yes Status: Chronic Currently taking protonix po daily, (7) Discharge planning issues: Current visit: Yes Status: Acute PT recommends d/c home with outpatient rehabilitation with ortho recommendation Subjective Patient reports: no new complaints and feels better Interval history since last seen: 67 y.o Male that fell at [employer] yesterday and fractured right hip. S/P ORIF this am. Doing well. Pain is minimal. He states I feel great, I can move my leg. Oozing to dressing site, pressure bandage applied to site by nursing will monitor H/H. Tolerating PO intake, Denies, NV, CP, SOB, dizziness, numbness and tingling. Breathing is better per patient then when he arrived. Continue home regimen for COPD. Exam Const General: cooperative, healthy appearing and no acute distress HENMT Head: normal to inspection Eyes General: appearance normal, both eyes and all related structures Neck Lymphatic: no lymphadenopathy noted and no lymphedema noted Chest Chest: normal inspection of the chest Resp Effort & Inspection: normal respiratory effort and able to speak in complete sentences Cardio Rate: regular rate Rhythm: regular rhythm Heart Sounds: S1 normal and S2 normal GI Inspection: normal to inspection Skin Other: surgical wound to right hip with 2 dressings Neuro General: alert, awake and oriented x3 Extrem Right lower extremity: hip/thigh (wound s/p surgery to R Hip) Objective Objective Clinical Data: Abnormal lab results 07/02/18 07/02/18 Range/Units 06:40 06:40 RBC 3.81 L (4.50-6.00) m/cumm Hgb 12.3 L (13.5-17.5) g/dL Hct 36.4 L (40.0-50.0) % MCV 95.5 H (80-95) fL Calcium 8.4 L (8.5-10.1) mg/dL Vital Signs Temperature 36.7 C 07/02/18 12:06 Temperature Source Tympanic 07/02/18 12:06 Pulse 94 H 07/02/18 12:06 Pulse Rhythm Regular 07/02/18 07:38 Respiratory Rate 16 07/02/18 12:06 Respiratory Effort Non-Labored 07/02/18 07:38 Respiratory Depth Normal 07/02/18 07:38 Respiratory Pattern Normal 07/02/18 07:38 Blood Pressure 115/73 07/02/18 12:06 Blood Pressure Position Supine 07/01/18 09:32 Pulse Oximetry 95 07/02/18 12:06 Respiratory End-tidal CO2 39 07/02/18 09:43 Oxygen Delivery Method Nasal Cannula 07/02/18 12:06 Oxygen Flow Rate 2 07/02/18 12:06 Pain Level 1 07/02/18 13:14 Comment 07/02/18 03:19 Intake & Output 07/01/18 07/02/18 07/02/18 23:59 11:59 23:59 Intake Total 993.959 / 078.390 7431.5 / 1722.5 240 / 1722.5 Output Total 300 / 300 1620 / 1620 Balance 693.959 / 693.959 -137.5 / 102.5 240 / 102.5 Weight 83.915 kg 84.5 kg Intake: IV 993.959 / 155.679 1183.5 / 1482.5 Oral 240 / 240 Output: Urine 300 / 300 1600 / 1600 Estimated Blood Loss Other: Urine Color Yellow Pale Urine Appearance Sediment Urine Odor Normal Voiding Methods Urinal Urinal Laboratory Results WBC 6.86 k/cumm (4.4-10.8) 07/02/18 06:40 RBC 3.81 m/cumm (4.50-6.00) L 07/02/18 06:40 Hgb 12.3 g/dL (13.5-17.5) L 07/02/18 06:40 Hct 36.4 % (40.0-50.0) L 07/02/18 06:40 MCV 95.5 fL (80-95) H 07/02/18 06:40 MCH 32.3 pg (27.0-33.0) 07/02/18 06:40 MCHC 33.8 g/dL (32.0-36.0) 07/02/18 06:40 RDW 12.5 % (11.8-14.1) 07/02/18 06:40 Plt Count 217 x1000/uL (130-400) 07/02/18 06:40 MPV 9.3 fL (8.0-11.0) 07/02/18 06:40 Immature Gran % 0.2 07/01/18 12:39 Neutrophils % 79.8 07/01/18 12:39 Lymphocytes % 14.2 07/01/18 12:39 Monocytes % 5.5 07/01/18 12:39 Eosinophils % 0.2 07/01/18 12:39 Basophils % 0.1 07/01/18 12:39 Absolute Neutrophils 6.58 k/cumm (1.2-6.7) 07/01/18 12:39 Absolute Lymphocytes 1.17 k/cumm (1.2-3.4) L 07/01/18 12:39 Absolute Monocytes 0.45 k/cumm (0.11-0.7) 07/01/18 12:39 Absolute Eosinophils 0.02 k/cumm (0.0-0.7) 07/01/18 12:39 Absolute Basophils 0.01 k/cumm (0.0-0.2) 07/01/18 12:39 PT 10.7 sec (9.3-11.0) 07/02/18 06:40 INR 1.1 (0.9-1.1) 07/02/18 06:40 Sodium 137 mmol/L (136-145) 07/02/18 06:40 Potassium 4.2 mmol/L (3.5-5.1) 07/02/18 06:40 Chloride 103 mmol/L (98-107) 07/02/18 06:40 Carbon Dioxide 28.7 mmol/L (21.0-32.0) 07/02/18 06:40 Anion Gap 5.3 mmol/L (3-11) 07/02/18 06:40 BUN 12 mg/dL (7-18) 07/02/18 06:40 Creatinine 0.93 mg/dL (0.70-1.30) 07/02/18 06:40 Estimated GFR/1.73 m2 >= 60.00 (mL/min/1.73m2) 07/02/18 06:40 Glucose 98 mg/dL (70-100) 07/02/18 06:40 Calcium 8.4 mg/dL (8.5-10.1) L 07/02/18 06:40 Magnesium 2.0 mg/dL (1.8-2.4) 07/02/18 06:40 Total Bilirubin 0.3 mg/dL (0.2-1.0) 07/01/18 12:39 AST 29 U/L (15-37) 07/01/18 12:39 ALT 28 U/L (12-78) 07/01/18 12:39 Alkaline Phosphatase 76 U/L (46-116) 07/01/18 12:39 Troponin I < 0.02 ng/mL (0.00-0.06) 07/01/18 12:39 Total Protein 6.7 g/dL (6.4-8.2) 07/01/18 12:39 Albumin 3.4 g/dL (3.4-5.0) 07/01/18 12:39 Patient ABO/Rh A Positive 07/01/18 12:39 Antibody Screen Negative 07/01/18 12:39 Documented by User: Fanny Cummings MD 07/03/18 15:15
--- NOTE | 2018-07-02 19:20 | NUR.NOTE ---
Nursing Note: Report received from off going nurse, patient is currently in stable condition, currently resting in bed, reports pain 0/10 at this time, bed is in the low and locked position, side rails up x2, call light within reach.
[2018-07-02] MEDS: Atorvastatin 10 MG TAB PO (20:08)
[2018-07-02] MEDS: Albuterol/Ipratropium 3 ML UPD VIAL UPD (20:14)
[2018-07-03] MEDS: Ketorolac 15 MG/ML VIAL IVP ×4 (01:32→19:24)
[2018-07-03] MEDS: oxyCODONE 5 MG TAB PO ×2 (01:32→11:18)
[2018-07-03] MEDS: Normal Saline 1,000 ML 125 ML IV (01:35)
[2018-07-03 07:15] LABS: HCT 30.5 % (40.0-50.0); HGB 10.1 g/dL (13.5-17.5); Mean Corp. HGB Concentration 33.1 g/dL (32.0-36.0); Mean Corpuscular Hemoglobin 32.1 pg (27.0-33.0); Mean Corpuscular Volume 96.8 fL (80-95); Mean Platelet Volume 9.4 fL (8.0-11.0); Platelet Count 168 x1000/uL (130-400); RBC 3.15 m/cumm (4.50-6.00); RBC Distribution Width 12.3 % (11.8-14.1); White Blood Cell Count 6.15 k/cumm (4.4-10.8)
[2018-07-03 07:23] LABS: INR 1.1 (0.9-1.1); Prothrombin Time 10.8 sec (9.3-11.0)
[2018-07-03 07:25] LABS: Anion Gap 7.4 mmol/L (3-11); BUN 13 mg/dL (7-18); CO2 25.6 mmol/L (21.0-32.0); CREATININE 0.93 mg/dL (0.70-1.30); Calcium 7.8 mg/dL (8.5-10.1); Chloride 106 mmol/L (98-107); Glucose 98 mg/dL (70-100); Magnesium 1.7 mg/dL (1.8-2.4); Potassium 4.3 mmol/L (3.5-5.1); Sodium 139 mmol/L (136-145)
[2018-07-03 07:40] VITALS: BP 146/70; PULSE 56; RESP 20; TEMP 35.7; O2SAT 94
[2018-07-03] MEDS: Pantoprazole 40 MG TABCR PO (07:43)
[2018-07-03] MEDS: Enoxaparin 40 MG/0.4 ML SYR SC (07:43)
[2018-07-03 08:10] VITALS: O2SAT 94
--- NOTE | 2018-07-03 09:50 | ROE_ITS ---
REPORT OF OPERATIVE PROCEDURE DATE OF SURGERY July 02, 2018 PREOPERATIVE DIAGNOSIS Right intertrochanteric hip fracture POSTOPERATIVE DIAGNOSIS Right intertrochanteric hip fracture SURGERY Intramedullary nail fixation of right hip fracture. SURGEON Andrez Hooper M.D. ROUTE VENDING MACHINE SERVICER Tameka Moctezuma PA-C FINDINGS There was a displaced intertrochanteric hip fracture of the right hip, which was reduced with closed means and transfixed with intramedullary nail. ANESTHESIA Spinal with fascia iliaca block. ESTIMATED BLOOD LOSS 50 cc COMPLICATIONS None. DISPOSITION The patient was awakened from anesthesia and taken to the PACU in stable condition. INDICATIONS FOR PROCEDURE Felipe is a 67-year-old, who slipped and fell Tuesday. He had direct trauma to the right hip. He had immediate pain and was unable to bear weight. He was diagnosed with an intertrochanteric hip fracture of the right side. I was consulted for management. He had notable shortening internal rotation. Give n this fracture pattern, I did recommend fixation. I reviewed the technical details with him. I revie wed the risks of the procedure to include bleeding, infection, pain, stiffness, damage to nerves and vessels, damage to muscles and tendons, malunion, nonunion, need for repeat procedures, blood clot, l eg length inequality, leg malrotation. Despite these risks, he elected to procedure. PROCEDURE DESCRIPTION Sami was greeted in the preoperative holding area. His identity was confirmed, the correct site was i dentified and marked on the floor, as was the consent reviewed and signed on the floor prior to arriv al in the Operating Room. The history and physical was updated. He was taken back to the PACU where a fascia iliaca block was performed. After successful delivery of the fascia iliaca regional anestheti c, he was brought back to the Operating Room and placed in the side lying position and given a spinal anesthetic. After the administration of the spinal, he was transferred to the fracture table in the supine position. The right arm was placed across the chest and well padded. All bony prominences wer e well padded. A Farfan catheter was placed. He was slid down to the perineal post. The nonoperative s iain, left leg, was wrapped within a pillow against the boom. The right leg was placed in the traction boot and it was well padded. A closed reduction was performed of traction, elevation, and internal r otation of the foot. X-ray was brought in to confirm appropriate positioning, which showed anatomic r eduction of the fracture site. The right leg was then prepped with ChloraPrep and draped in a standar d fashion. Prophylactic antibiotics in the form of cefazolin were given. A timeout was performed for safe surgery. Using fluoroscopy, a starting point was incised just proximal to the tip of the great trochanter. Thi s was taken down sharply through the skin, the gluteus fascia and abductor muscles. The muscles were bluntly and a guide pin was placed through the musculature on the tip of the greater trocha nter. This was just medial to the tip of the greater trochanter. It was advanced into the proximal fe mur. The tissue protector slid down on top of this and the opening reamer was inserted into the proxi mal femur. Once this was placed, a ball-tipped guidewire was fit down into the femur down to the dist al aspect. X-ray was used to confirmed appropriate location and a 400-mm nail was selected. The 11 x 400 - mm nail was then brought to the back table. I reamed the canal starting with an 11-mm reamer up to a 13-mm reamer. I then advanced the 11 x 300 mm [employer] TFNA nail down into the right femu r. This was done with light mallet blows. Once it was in appropriate position the skin was incised in the lateral aspect of the femur for the helical blade insertion. The Triple C was inserted all the w ay down to the lateral border of the femur. Guidewire was placed through the lateral femur into the f emoral head. This was thinner on the femoral head. A lateral was also taken, which showed that it was in the central portion of the femoral head. This was measured as a size 105-mm helical blade. The la teral cortex was opened and the tapered reamer was used for the length of the helical blade. The 105- mm helical blade was then inserted with light mallet blows. The flexible screwdriver was used to tigh ten the sliding bolt down, but allow for some sliding mechanism. The screwdriver was removed. Final x -rays were taken of both the hip and the knee both AP and lateral to make sure the nail was in approp riate position and the fracture was still reduced. There was some minor gapping on the lateral view a nteriorly, but otherwise well reduced. Nearly anatomic on the AP and the tip of the screw was well w ithin the 25 millimeters on both the AP and lateral. The targeting jig was removed. The wounds were t horoughly irrigated. The distal screw was not placed given the stable nature of the fracture. The wo unds were thoroughly irrigated. The deep tissues were closed with #0- Vicryl. The subcutaneous layers were closed with #2-0 Vicryl. The skin was closed with abida. The wounds were injected with a mixt ure of 10 cc of Exparel with 30 cc of 0.25% bupivacaine. At the end of the case all counts were corre ct. He was awakened from his light sedation and taken back to the PACU in stable condition.
--- NOTE | 2018-07-03 10:02 | OT.INIE ---
Occupational Therapy Notes Inpatient Occupational Therapy Evaluation Date: 07/03/18 Referring Doctor: Rina Albrecht NP OT Orders: hip surgery Precautions: WBAT (R) LE PATIENT PROFILE/ADMITTING DIAGNOSIS: Pt is a 67 year old male who was admitted through the ER on 07/01 s/p a slip and fall in the [employer] parking lot. He underwent surgery performed by Dr. Hooper for a R IT hip fracture ORIF 07/01/18. Past Medical History: Anxiety, depression, PTSD, COPD, hyperlipidemia, smoker Social History/Home Situation: Lives in a private home with his . 5 steps, with two rails to enter. Otherwise, house is on one level. Has a step over tub, low toilet and would like a raised toilet seat to increase (I) in ADLs/IADLs. He refers to himself as retired. he was previously (I) with all ADLs/IADLs. Equipment owned/DME: Shower chair, grab bars in bathroom, removable shower head. SUBJECTIVE: Pt was sitting in bed when OT arrived. Pt transferred to chair via PT assist. He was agreeable to OT consult. OBJECTIVE: General Observation: Farfan, IV (L) UE Mental Status: A&Ox3 Pain: no c/o pain ROM: RUE AROM WNL L UE AROM WNL STRENGTH: RUE 5/5 throughout LUE 5/5 throughout FUNCTIONAL MOBILITY/ADLS: BATHING Sitting in chair with assist for set up. Bathing UE (I), max (A) back Bathing LE (I) (B) LE with min vc DRESSING In sitting position Dressing UE (I) [facility] gown., Dressing LE Max (A) (B) socks at todays session GROOMING Denies at todays session. TOILETING Farfan still in place EATING (I) BALANCE: Static sitting Normal Dynamic Sitting Normal SPECIAL TESTS: Daily Activity Limitations Standardized Measure [facility] AM -PAC ?6 clicks? Daily Activity Inpatient Short Form: Raw score: 21 Standardized score: 44.27 CMS score: 32.79% CMS modifier: CJ INFORMED CONSENT/EDUCATION: Pt instructed in purpose of OT Consult and plan of care. ASSESSMENT: Patient is a 67-year-old male referred to occupational therapy services with diagnosis of s/p R IT hip fracture ORIF 07/01/18. Patient presents with clinical signs and symptoms consistent with dx, as demonstrated by the following impairment level findings: decreased (I) in ADL/IADL routine, decreased LE functional activity tolerance, decreased functional (I), decreased (R) LE strength, use of FWW for functional mobility for functional activities. Impairments are contributing to the following functional limitations: Decreased ability to perform functional activities in standing position without FWW at this time, decreased (I) in functional mobility, decreased (I) in functional ADLs. Pt would benefit from skilled OT services for progression of (I) in ADLs/IADLs to return to premorbid level of function. Recommends that pt get a raised toilet seat to increase (I) in ADL routine and to return home when medically cleared per MD. AMPAC score 21, CMS score 32.79% Patient is assessed as a Low 90178 complexity based on the following: History: See Above Examination: See Above Presentation: Evolving Decision Making: AMPAC score 21, CMS score 32.79% GOALS Goals x1 week in hospital setting 1. Transfers S, FWW 2. Dressing- In sitting position pt will be able to don and doff (B) LE socks and LE dressing (I). 3. Bathing- Pt will be (I) in showering routine sitting in shower. 4. Toileting- Pt will be (I) in toileting routine on toilet PLAN OF CARE/TREATMENT PLAN: 1x/day, 5 days/ week x 1week Initiate Occupational Therapy Services for bathing, dressing, grooming, toileting, eating, transfer training. DISCHARGE RECOMMENDATIONS Home when medically cleared per MD OT recommends that pt have a raised toilet seat to increase (I) in toileting routine. TREATMENT TIME/MINUTES/CODES 54817, [id number] (45 minutes) G Codes in the area of self- : washing oneself, toileting, dressing, eating and drinking, current status GO [id number] CJ projected status GO [id number]. Discharge status (if discharging) GO [id number] Noemi De OTR/L [facility]
--- NOTE | 2018-07-03 10:19 | OTIE_ITS ---
Occupational Therapy Notes Inpatient Occupational Therapy Evaluation Date: 07/03/18 Referring Doctor: Rina Albrecht NP OT Orders: hip surgery Precautions: WBAT (R) LE PATIENT PROFILE/ADMITTING DIAGNOSIS: Pt is a 67 year old male who was admitted through the ER on 07/01 s/p a slip and fall in the [employer] parking lot. He underwent surgery performed by Dr. Hooper for a R IT hip fracture ORIF 07/01/18. Past Medical History: Anxiety, depression, PTSD, COPD, hyperlipidemia, smoker Social History/Home Situation: Lives in a private home with his . 5 steps, with two rails to enter. Otherwise, house is on one level. Has a step over tub, low toilet and would like a raised toilet seat to increase (I) in ADLs/IADLs. He refers to himself as retired. he was previously (I) with all ADLs/IADLs. Equipment owned/DME: Shower chair, grab bars in bathroom, removable shower head. SUBJECTIVE: Pt was sitting in bed when OT arrived. Pt transferred to chair via PT assist. He was agreeable to OT consult. OBJECTIVE: General Observation: Farfan, IV (L) UE Mental Status: A&Ox3 Pain: no c/o pain ROM: RUE AROM WNL L UE AROM WNL STRENGTH: RUE 5/5 throughout LUE 5/5 throughout FUNCTIONAL MOBILITY/ADLS: BATHING Sitting in chair with assist for set up. Bathing UE (I), max (A) back Bathing LE (I) (B) LE with min vc DRESSING In sitting position Dressing UE (I) [facility] gown., Dressing LE Max (A) (B) socks at todays session GROOMING Denies at todays session. TOILETING Farfan still in place EATING (I) BALANCE: Static sitting Normal Dynamic Sitting Normal SPECIAL TESTS: Daily Activity Limitations Standardized Measure [facility] AM -PAC ?6 clicks? Daily Activity Inpatient Short Form: Raw score: 21 Standardized score: 44.27 CMS score: 32.79% CMS modifier: CJ INFORMED CONSENT/EDUCATION: Pt instructed in purpose of OT Consult and plan of care. ASSESSMENT: Patient is a 67-year-old male referred to occupational therapy services with diagnosis of s/p R IT hip fracture ORIF 07/01/18. Patient presents with clinical signs and symptoms consistent with dx, as demonstrated by the following impairment level findings: decreased (I) in ADL/IADL routine, decreased LE functional activity tolerance, decreased functional (I), decreased (R) LE strength, use of FWW for functional mobility for functional activities. Impairments are contributing to the following functional limitations: Decreased ability to perform functional activities in standing position without FWW at this time, decreased (I) in functional mobility, decreased (I) in functional ADLs. Pt would benefit from skilled OT services for progression of (I) in ADLs/IADLs to return to premorbid level of function. Recommends that pt get a raised toilet seat to increase (I) in ADL routine and to return home when medically cleared per MD. AMPAC score 21, CMS score 32.79% Patient is assessed as a Low 08576 complexity based on the following: History: See Above Examination: See Above Presentation: Evolving Decision Making: AMPAC score 21, CMS score 32.79% GOALS Goals x1 week in hospital setting 1. Transfers S, FWW 2. Dressing- In sitting position pt will be able to don and doff (B) LE socks and LE dressing (I). 3. Bathing- Pt will be (I) in showering routine sitting in shower. 4. Toileting- Pt will be (I) in toileting routine on toilet PLAN OF CARE/TREATMENT PLAN: 1x/day, 5 days/ week x 1week Initiate Occupational Therapy Services for bathing, dressing, grooming, toileting, eating, transfer training. DISCHARGE RECOMMENDATIONS Home when medically cleared per MD OT recommends that pt have a raised toilet seat to increase (I) in toileting routine. TREATMENT TIME/MINUTES/CODES 19552, [id number] (45 minutes) G Codes in the area of self- : washing oneself, toileting, dressing, eating and drinking, current status GO [id number] CJ projected status GO [id number]. Discharge status (if discharging) GO [id number] Noemi De OTR/L [facility]
[2018-07-03] MEDS: MAGNESIUM SULFATE 2 GM/50 ML BAG IVPB (10:43)
[2018-07-03] MEDS: Budesonide/Formoterol 160/4.5 6 GM 60 PUFF INH IH ×2 (11:09→19:23)
--- NOTE | 2018-07-03 11:38 | PDOC.CMPRO ---
- If Service Date Differs Date of service: 07/03/18 Time of Service: 11:38 Care Management Progress Note S/O: Felipe is sitting up in the chair his spouse Charlette is present during CM assessment. He states that his pain is well managed. He would like home health PT and OT he will need a face to face completed for services. Felipe has SAS in the community and will work with [employer] to obtain a raised toilet seat, he has FWW at home. CM contacted home health to notify of referral anticipate he will discharged home in the next 48 hours A: Felipe is a 67 year old male admitted for a fx right hip that was repaired on 07/02/18 P: Felipe is postop day 1, he will remain acute until ready for discharge per provider. Anticipate he will be discharged home with home health services for PT and OT. He has his own FWW and will obtain a raised toilet seat through [facility]. to continue to provide support discharge planning and disposition.
[2018-07-03 11:41] VITALS: BP 125/71; PULSE 67; RESP 20; TEMP 36.7; O2SAT 95
--- NOTE | 2018-07-03 11:46 | CMPROGNOTE_ITS ---
- If Service Date Differs Date of service: 07/03/18 Time of Service: 11:38 Care Management Progress Note S/O: Felipe is sitting up in the chair his spouse Charlette is present during CM assessment. He states that his pain is well managed. He would like home health PT and OT he will need a face to face completed for services. Felipe has SAS in the community and will work with [employer] to obtain a raised toilet seat, he has FWW at home. CM contacted home health to notify of referral anticipate he will discharged home in the next 48 hours A: Felipe is a 67 year old male admitted for a fx right hip that was repaired on 07/02/18 P: Felipe is postop day 1, he will remain acute until ready for discharge per provider. Anticipate he will be discharged home with home health services for PT and OT. He has his own FWW and will obtain a raised toilet seat through [facility]. to continue to provide support discharge planning and disposition.
[2018-07-03] MEDS: Normal Saline Flush 10 ML SYR IVP ×2 (13:50→19:27)
--- NOTE | 2018-07-03 15:08 | PT.INTREAT ---
Date of service: 07/03/18 Time of Service: 15:08 PT Notes Inpatient Physical Therapy Treatment Note [facility] Date: 07/03/18 PRECAUTIONS: WBAT R SUBJECTIVE: Felipe is agreeable to participating in PT. Felipe states that it feels good to get up and move, as he was starting to feel little stiff in right lower extremity. OBJECTIVE: PAIN: Patient complained of pain in R LE with transfers and weight bearing BED MOBILITY/TRANSFERS: Completed leg insole cementer training for improved ability to perform sit<> supine. Supine-sit: SBA Sit-supine: Min A of R LE with HOB flat with use of leg insole cementer Sit-stand: SBA Stand-sit: Min A of R LE GAIT Assistive Device: FWW Weight bearing: WBAT R Assist: CGA Distance: 25' in a.m.; 40' in p.m. Deviation: Cueing for technique in both a.m. and p.m. THEREX: Patient completed a lower extremity strengthening and stabilization program, in both seated and standing positions, as per flow sheet. STAIRS: Up/down 3x4 and 2x6 using B rails and a step to pattern with SBA ASSESSMENT: Patient tolerated sessions with complaints of right lower extremity pain with weight bearing and transfers. Patient was able to tolerate a slight progression in his gait distance with FWW support. Patient requires cueing for gait sequence as well as FWW mechanics for safety. He would benefit from continued gait and transfer training for improved mobility and ability to perform daily functional tasks. PLAN: Continue with PTs POC TREATMENT CODE/TIME: Session 1: 30 minutes; 41411, 56331 Session 2: 30 minutes; 38972 x2
--- NOTE | 2018-07-03 15:12 | PTTR_ITS ---
Date of service: 07/03/18 Time of Service: 15:08 PT Notes Inpatient Physical Therapy Treatment Note [facility] Date: 07/03/18 PRECAUTIONS: WBAT R SUBJECTIVE: Felipe is agreeable to participating in PT. Felipe states that it feels good to get up and move, as he was starting to feel little stiff in right lower extremity. OBJECTIVE: PAIN: Patient complained of pain in R LE with transfers and weight bearing BED MOBILITY/TRANSFERS: Completed leg tennis professional training for improved ability to perform sit<> supine. Supine-sit: SBA Sit-supine: Min A of R LE with HOB flat with use of leg tennis professional Sit-stand: SBA Stand-sit: Min A of R LE GAIT Assistive Device: FWW Weight bearing: WBAT R Assist: CGA Distance: 25' in a.m.; 40' in p.m. Deviation: Cueing for technique in both a.m. and p.m. THEREX: Patient completed a lower extremity strengthening and stabilization program, in both seated and standing positions, as per flow sheet. STAIRS: Up/down 3x4 and 2x6 using B rails and a step to pattern with SBA ASSESSMENT: Patient tolerated sessions with complaints of right lower extremity pain with weight bearing and transfers. Patient was able to tolerate a slight progression in his gait distance with FWW support. Patient requires cueing for gait sequence as well as FWW mechanics for safety. He would benefit from continued gait and transfer training for improved mobility and ability to perform daily functional tasks. PLAN: Continue with PTs POC TREATMENT CODE/TIME: Session 1: 30 minutes; 36644, 99446 Session 2: 30 minutes; 04113 x2
--- NOTE | 2018-07-03 15:17 | PGE_ITS ---
Date of Service Date of service: 07/03/18 Time of Service: 15:16 Assessment and Plan (1) Hip fracture, right: Current visit: Yes Status: Acute s/p IM nail on 07/02/[address] oHoper - doing well. Farfan d/c'ed - voiding trial today. Pain control with PO meds - d/c morphine tomorrow if not used. Intensify bowel regimen. Encourage IS. Qualifiers: Encounter type: initial encounter Fracture type: closed Open fracture type: Fracture healing: Qualified Code(s): S72.001A - Fracture of unspecified part of neck of right femur, initial encounter for closed fracture (2) COPD (chronic obstructive pulmonary disease): Current visit: Yes Status: Chronic AT baseline. Not requiring O2. Home symbicort ordered. (3) GERD (gastroesophageal reflux disease): Current visit: Yes Status: Chronic Continue PPI (4) Hyperlipidemia: Current visit: Yes Status: Acute Continue statin (5) Tobacco abuse: Current visit: Yes Status: Acute Smoking cessation advised (6) Constipation: Current visit: Yes Status: Acute Intensify bowel regimen (7) Discharge planning issues: Current visit: Yes Status: Acute Full code Awaiting clearance from PT/Orthopedic stand point for d/c planning - suspect will happen in the next 48 hours. (8) DVT prophylaxis: Current visit: Yes Status: Acute Lovenox Subjective Interval history since last seen: Complains of 5/10 muscular pain in his right hip. Denies dizziness, chest pain, shortness of breath (my breathing is great today!), nausea, vomiting. Does report constipation - it's been 3 days since his last BM. Willing to accept medications to help him go. Farfan catheter d/c'ed today - undergoing voiding trial. Worked with PT - able to walk up to 40 feet Exam Narrative Exam Narrative: General: A&Ox3, NAD, sitting comfortably in a chair HEENT: EOMI, MMM Heart: RRR, no m/r/g Lungs: CTAB GI: abdomen is soft, nontender, nondistended Extremities: R hip wound is dressed - c/d/i; no edema, clubbing or cyanosis of B LE's Objective Objective Clinical Data: Abnormal lab results 07/03/18 07/03/18 Range/Units 06:30 06:30 RBC 3.15 L (4.50-6.00) m/cumm Hgb 10.1 L D (13.5-17.5) g/dL Hct 30.5 L (40.0-50.0) % MCV 96.8 H (80-95) fL Calcium 7.8 L (8.5-10.1) mg/dL Magnesium 1.7 L (1.8-2.4) mg/dL Vital Signs Temperature 36.7 C 07/03/18 11:41 Temperature Source Tympanic 07/03/18 11:41 Pulse 67 07/03/18 11:41 Pulse Rhythm Regular 07/03/18 09:41 Respiratory Rate 20 07/03/18 11:41 Respiratory Effort Non-Labored 07/03/18 09:41 Respiratory Depth Normal 07/03/18 09:41 Respiratory Pattern Normal 07/03/18 09:41 Blood Pressure 125/71 07/03/18 11:41 Blood Pressure Position Supine 07/01/18 09:32 Pulse Oximetry 95 07/03/18 11:41 Respiratory End-tidal CO2 39 07/02/18 09:43 Oxygen Delivery Method Room Air 07/03/18 11:41 Oxygen Flow Rate 0 07/03/18 11:41 Pain Level 4 07/03/18 13:51 Comment 07/03/18 08:10 Intake & Output 07/02/18 07/03/18 07/03/18 23:59 11:59 23:59 Intake Total 1680.000 / 3162.500 2250.417 / 2490.417 240 / 2490.417 Output Total 280 / 1900 500 / 700 200 / 700 Balance 1400.000 / 0026.009 2626.417 / 1790.417 40 / 1790.417 Weight 89.1 kg Intake: IV 1200.000 / 2682.500 2010.417 / 2010.417 Oral 480 / 480 240 / 480 240 / 480 Output: Urine 280 / 1880 500 / 700 200 / 700 Other: Urine Color Light Mariia Yellow Yellow Urine Appearance Clear Clear Clear Voiding Methods Urinal Laboratory Results WBC 6.15 k/cumm (4.4-10.8) 07/03/18 06:30 RBC 3.15 m/cumm (4.50-6.00) L 07/03/18 06:30 Hgb 10.1 g/dL (13.5-17.5) L D 07/03/18 06:30 Hct 30.5 % (40.0-50.0) L 07/03/18 06:30 MCV 96.8 fL (80-95) H 07/03/18 06:30 MCH 32.1 pg (27.0-33.0) 07/03/18 06:30 MCHC 33.1 g/dL (32.0-36.0) 07/03/18 06:30 RDW 12.3 % (11.8-14.1) 07/03/18 06:30 Plt Count 168 x1000/uL (130-400) 07/03/18 06:30 MPV 9.4 fL (8.0-11.0) 07/03/18 06:30 Immature Gran % 0.2 07/01/18 12:39 Neutrophils % 79.8 07/01/18 12:39 Lymphocytes % 14.2 07/01/18 12:39 Monocytes % 5.5 07/01/18 12:39 Eosinophils % 0.2 07/01/18 12:39 Basophils % 0.1 07/01/18 12:39 Absolute Neutrophils 6.58 k/cumm (1.2-6.7) 07/01/18 12:39 Absolute Lymphocytes 1.17 k/cumm (1.2-3.4) L 07/01/18 12:39 Absolute Monocytes 0.45 k/cumm (0.11-0.7) 07/01/18 12:39 Absolute Eosinophils 0.02 k/cumm (0.0-0.7) 07/01/18 12:39 Absolute Basophils 0.01 k/cumm (0.0-0.2) 07/01/18 12:39 PT 10.8 sec (9.3-11.0) 07/03/18 06:30 INR 1.1 (0.9-1.1) 07/03/18 06:30 Sodium 139 mmol/L (136-145) 07/03/18 06:30 Potassium 4.3 mmol/L (3.5-5.1) 07/03/18 06:30 Chloride 106 mmol/L (98-107) 07/03/18 06:30 Carbon Dioxide 25.6 mmol/L (21.0-32.0) 07/03/18 06:30 Anion Gap 7.4 mmol/L (3-11) 07/03/18 06:30 BUN 13 mg/dL (7-18) 07/03/18 06:30 Creatinine 0.93 mg/dL (0.70-1.30) 07/03/18 06:30 Estimated GFR/1.73 m2 >= 60.00 (mL/min/1.73m2) 07/03/18 06:30 Glucose 98 mg/dL (70-100) 07/03/18 06:30 Calcium 7.8 mg/dL (8.5-10.1) L 07/03/18 06:30 Magnesium 1.7 mg/dL (1.8-2.4) L 07/03/18 06:30 Total Bilirubin 0.3 mg/dL (0.2-1.0) 07/01/18 12:39 AST 29 U/L (15-37) 07/01/18 12:39 ALT 28 U/L (12-78) 07/01/18 12:39 Alkaline Phosphatase 76 U/L (46-116) 07/01/18 12:39 Troponin I < 0.02 ng/mL (0.00-0.06) 07/01/18 12:39 Total Protein 6.7 g/dL (6.4-8.2) 07/01/18 12:39 Albumin 3.4 g/dL (3.4-5.0) 07/01/18 12:39 Patient ABO/Rh A Positive 07/01/18 12:39 Antibody Screen Negative 07/01/18 12:39
[2018-07-03] MEDS: Bisacodyl 5 MG TABEC PO (15:32)
[2018-07-03] MEDS: Docusate Sodium 100 MG CAP PO ×2 (15:32→19:24)
[2018-07-03] MEDS: Senna TAB 1 TAB PO ×2 (15:32→19:24)
[2018-07-03 15:47] VITALS: BP 114/64; PULSE 70; RESP 18; TEMP 36; O2SAT 94
--- NOTE | 2018-07-03 18:13 | W.PM.PROGNOT ---
Date of Service Date of service: 07/03/18 Time of Service: 08:13 Assessment and Plan (1) Hip fracture, right: Current visit: Yes Status: Acute Felipe is making good progress. His pain is relatively well controlled. He has no major complaints. He was able to get out of the bed yesterday. He will continue work with physical therapy, weightbearing as tolerated with assistive devices. His hemoglobin did have a drop as to be expected, acute postoperative blood loss anemia. We will start anti-correlation with Lovenox today. Qualifiers: Encounter type: initial encounter Fracture type: closed Open fracture type: Fracture healing: Qualified Code(s): S72.001A - Fracture of unspecified part of neck of right femur, initial encounter for closed fracture Subjective Interval history since last seen: Felipe reports be doing well. He does have some soreness about the right leg but the sharp pain is much better. He was able to sit up in a chair last night. He denies any chest pain or shortness of breath. No fevers or chills or lightheadedness. Exam Narrative Exam Narrative: No acute distress. Alert and oriented x3. Evaluation the right leg shows some swelling. No significant ecchymosis. No breakthrough drainage on the reinforce pressure dressings. He tolerates some internal and external rotation of the hip without difficulty. He has intact ankle dorsiflexion, plantarflexion, EHL, FHL. Sensation intact light touch over the deep insufficient peroneal nerve and tibial nerve. Objective Objective Clinical Data: Abnormal lab results 07/03/18 07/03/18 Range/Units 06:30 06:30 RBC 3.15 L (4.50-6.00) m/cumm Hgb 10.1 L D (13.5-17.5) g/dL Hct 30.5 L (40.0-50.0) % MCV 96.8 H (80-95) fL Calcium 7.8 L (8.5-10.1) mg/dL Magnesium 1.7 L (1.8-2.4) mg/dL Vital Signs Temperature 36 C L 07/03/18 15:47 Temperature Source Temporal Artery Scan 07/03/18 15:47 Pulse 70 07/03/18 15:47 Pulse Rhythm Regular 07/03/18 09:41 Respiratory Rate 18 07/03/18 15:47 Respiratory Effort Non-Labored 07/03/18 09:41 Respiratory Depth Normal 07/03/18 09:41 Respiratory Pattern Normal 07/03/18 09:41 Blood Pressure 114/64 07/03/18 15:47 Blood Pressure Position Supine 07/01/18 09:32 Pulse Oximetry 94 L 07/03/18 15:47 Respiratory End-tidal CO2 39 07/02/18 09:43 Oxygen Delivery Method Room Air 07/03/18 15:47 Oxygen Flow Rate 0 07/03/18 15:47 Pain Level 0 07/03/18 15:47 Comment 07/03/18 08:10 Intake & Output 07/02/18 07/03/18 07/03/18 23:59 11:59 23:59 Intake Total 1680.000 / 3162.500 2250.417 / 2490.417 240 / 2490.417 Output Total 280 / 1900 500 / 800 300 / 800 Balance 1400.000 / 5520.340 5365.417 / 1690.417 -60 / 1690.417 Weight 89.1 kg Intake: IV 1200.000 / 2682.500 2010.417 / 2010.417 Oral 480 / 480 240 / 480 240 / 480 Output: Urine 280 / 1880 500 / 800 300 / 800 Other: Urine Color Light Mariia Yellow Yellow Urine Appearance Clear Clear Clear Comment no issues Voiding Methods Urinal Laboratory Results WBC 6.15 k/cumm (4.4-10.8) 07/03/18 06:30 RBC 3.15 m/cumm (4.50-6.00) L 07/03/18 06:30 Hgb 10.1 g/dL (13.5-17.5) L D 07/03/18 06:30 Hct 30.5 % (40.0-50.0) L 07/03/18 06:30 MCV 96.8 fL (80-95) H 07/03/18 06:30 MCH 32.1 pg (27.0-33.0) 07/03/18 06:30 MCHC 33.1 g/dL (32.0-36.0) 07/03/18 06:30 RDW 12.3 % (11.8-14.1) 07/03/18 06:30 Plt Count 168 x1000/uL (130-400) 07/03/18 06:30 MPV 9.4 fL (8.0-11.0) 07/03/18 06:30 Immature Gran % 0.2 07/01/18 12:39 Neutrophils % 79.8 07/01/18 12:39 Lymphocytes % 14.2 07/01/18 12:39 Monocytes % 5.5 07/01/18 12:39 Eosinophils % 0.2 07/01/18 12:39 Basophils % 0.1 07/01/18 12:39 Absolute Neutrophils 6.58 k/cumm (1.2-6.7) 07/01/18 12:39 Absolute Lymphocytes 1.17 k/cumm (1.2-3.4) L 07/01/18 12:39 Absolute Monocytes 0.45 k/cumm (0.11-0.7) 07/01/18 12:39 Absolute Eosinophils 0.02 k/cumm (0.0-0.7) 07/01/18 12:39 Absolute Basophils 0.01 k/cumm (0.0-0.2) 07/01/18 12:39 PT 10.8 sec (9.3-11.0) 07/03/18 06:30 INR 1.1 (0.9-1.1) 07/03/18 06:30 Sodium 139 mmol/L (136-145) 07/03/18 06:30 Potassium 4.3 mmol/L (3.5-5.1) 07/03/18 06:30 Chloride 106 mmol/L (98-107) 07/03/18 06:30 Carbon Dioxide 25.6 mmol/L (21.0-32.0) 07/03/18 06:30 Anion Gap 7.4 mmol/L (3-11) 07/03/18 06:30 BUN 13 mg/dL (7-18) 07/03/18 06:30 Creatinine 0.93 mg/dL (0.70-1.30) 07/03/18 06:30 Estimated GFR/1.73 m2 >= 60.00 (mL/min/1.73m2) 07/03/18 06:30 Glucose 98 mg/dL (70-100) 07/03/18 06:30 Calcium 7.8 mg/dL (8.5-10.1) L 07/03/18 06:30 Magnesium 1.7 mg/dL (1.8-2.4) L 07/03/18 06:30 Total Bilirubin 0.3 mg/dL (0.2-1.0) 07/01/18 12:39 AST 29 U/L (15-37) 07/01/18 12:39 ALT 28 U/L (12-78) 07/01/18 12:39 Alkaline Phosphatase 76 U/L (46-116) 07/01/18 12:39 Troponin I < 0.02 ng/mL (0.00-0.06) 07/01/18 12:39 Total Protein 6.7 g/dL (6.4-8.2) 07/01/18 12:39 Albumin 3.4 g/dL (3.4-5.0) 07/01/18 12:39 Patient ABO/Rh A Positive 07/01/18 12:39 Antibody Screen Negative 07/01/18 12:39
[2018-07-03] MEDS: Atorvastatin 10 MG TAB PO (19:24)
--- NOTE | 2018-07-03 19:50 | NUR.NOTE ---
Nursing Note: Report received from HORTENCIA Sapp. Patient is currently in stable condition, resting in bed with no report of pain or discomfort at this time, the bed is in the low and locked position, side rails up x2, call light within reach.
[2018-07-04] MEDS: oxyCODONE 5 MG TAB PO ×2 (00:11→17:11)
[2018-07-04] MEDS: Ketorolac 15 MG/ML VIAL IVP ×4 (01:43→19:06)
[2018-07-04 02:00] VITALS: BP 118/68; PULSE 68; RESP 18; TEMP 36.5; O2SAT 96
[2018-07-04] MEDS: Pantoprazole 40 MG TABCR PO (06:38)
[2018-07-04 07:20] LABS: HCT 31.3 % (40.0-50.0); HGB 10.5 g/dL (13.5-17.5); Mean Corp. HGB Concentration 33.5 g/dL (32.0-36.0); Mean Corpuscular Volume 95.4 fL (80-95); Mean Platelet Volume 9.6 fL (8.0-11.0); Platelet Count 201 x1000/uL (130-400); RBC 3.28 m/cumm (4.50-6.00); RBC Distribution Width 12.2 % (11.8-14.1); White Blood Cell Count 7.02 k/cumm (4.4-10.8)
[2018-07-04 07:45] LABS: Anion Gap 7.6 mmol/L (3-11); BUN 14 mg/dL (7-18); CO2 26.4 mmol/L (21.0-32.0); CREATININE 0.89 mg/dL (0.70-1.30); Calcium 8.3 mg/dL (8.5-10.1); Chloride 104 mmol/L (98-107); Glucose 96 mg/dL (70-100); Magnesium 1.5 mg/dL (1.8-2.4); Potassium 4.2 mmol/L (3.5-5.1); Sodium 138 mmol/L (136-145)
[2018-07-04 08:00] VITALS: BP 128/67; PULSE 63; RESP 19; TEMP 36.6; O2SAT 89
[2018-07-04] MEDS: Enoxaparin 40 MG/0.4 ML SYR SC (08:37)
[2018-07-04] MEDS: Magnesium Oxide 400 MG TAB PO (08:37)
[2018-07-04] MEDS: Docusate Sodium 100 MG CAP PO ×2 (08:37→19:07)
[2018-07-04] MEDS: Normal Saline Flush 10 ML SYR IVP ×3 (08:37→19:06)
[2018-07-04] MEDS: Senna TAB 1 TAB PO ×2 (08:37→19:07)
[2018-07-04] MEDS: Sertraline 50 MG TAB PO (08:55)
[2018-07-04] MEDS: Budesonide/Formoterol 160/4.5 6 GM 60 PUFF INH IH ×2 (09:17→19:06)
[2018-07-04] MEDS: MAGNESIUM SULFATE 4 GM/100 ML BAG IVPB (11:12)
--- NOTE | 2018-07-04 11:12 | OT.INTREAT ---
Date of service: 07/04/18 Time of Service: 09:50 Occupational Therapy Notes Occupational Therapy Inpatient Treatment Note Date: 07/04/18 PRECAUTIONS: WBAT (R) LE SUBJECTIVE: Pt was sitting in chair when OT arrived. Pt was agreeable to OT session he had just started washing up per FLIGHT DISPATCHER. OBJECTIVE: PAIN:no c/o pain FUNCTIONAL MOBILITY Sit-stand: S, FWW Stand-sit: S, FWW BATHING: Sitting in chair with (A) with set up Upper Body: (I) washing face, (B) UE, abdomen Lower Body: (I) LE (B) legs, pt did not want to wash (B) feet at todays session. DRESSING: Sitting in chair Upper Extremity: (I) [facility] Lower Extremity: max (A) (B) socks which pts was performing, pt denies putting on socks (I) at this time. GROOMING: Sitting in chair (I) brushing dentures TOILETING:Pt reports that he is currently utilizing the urinal. ASSESSMENT: Pt is demonstrating increased (I) in ADLs at this time. He is able to (I) perform functional activities but is limited with walking depending on how much walking he has done previously. Pt would benefit from skilled OT intervention for progression of (I) of dressing with street clothes. PLAN: Progression of (I) in dressing routine with street clothing TREATMENT CODES/TIME: 28207, 10 minutes [facility]
--- NOTE | 2018-07-04 11:19 | OTTR_ITS ---
Date of service: 07/04/18 Time of Service: 09:50 Occupational Therapy Notes Occupational Therapy Inpatient Treatment Note Date: 07/04/18 PRECAUTIONS: WBAT (R) LE SUBJECTIVE: Pt was sitting in chair when OT arrived. Pt was agreeable to OT session he had just started washing up per MANDATE RETAIL SERVICE MERCHANDISER. OBJECTIVE: PAIN:no c/o pain FUNCTIONAL MOBILITY Sit-stand: S, FWW Stand-sit: S, FWW BATHING: Sitting in chair with (A) with set up Upper Body: (I) washing face, (B) UE, abdomen Lower Body: (I) LE (B) legs, pt did not want to wash (B) feet at todays session. DRESSING: Sitting in chair Upper Extremity: (I) [facility] Lower Extremity: max (A) (B) socks which pts was performing, pt denies putting on socks (I) at this time. GROOMING: Sitting in chair (I) brushing dentures TOILETING:Pt reports that he is currently utilizing the urinal. ASSESSMENT: Pt is demonstrating increased (I) in ADLs at this time. He is able to (I) perform functional activities but is limited with walking depending on how much walking he has done previously. Pt would benefit from skilled OT intervention for progression of (I) of dressing with street clothes. PLAN: Progression of (I) in dressing routine with street clothing TREATMENT CODES/TIME: 34511, 10 minutes [facility]
--- NOTE | 2018-07-04 12:03 | W.PM.PROGNOT ---
Date of Service Date of service: 07/04/18 Time of Service: 12:03 Assessment and Plan (1) Hip fracture, right: Current visit: Yes Status: Acute s/p IM nail on 07/02/[address] Hooper - doing well postoperatively. Farfan was discontinued yesterday, he is voiding well. His pain is well controlled with oral pain medication. Morphine discontinued. Will discharge home when cleared by orthopedics. Qualifiers: Encounter type: initial encounter Fracture type: closed Open fracture type: Fracture healing: Qualified Code(s): S72.001A - Fracture of unspecified part of neck of right femur, initial encounter for closed fracture (2) COPD (chronic obstructive pulmonary disease): Current visit: Yes Status: Chronic Appears quiescent. Continue home symbicort. (3) GERD (gastroesophageal reflux disease): Current visit: Yes Status: Chronic Continue PPI. (4) Hyperlipidemia: Current visit: Yes Status: Acute Continue statin. (5) Tobacco abuse: Current visit: Yes Status: Acute Continue to encourage smoking cessation. As needed nicotine patch ordered. (6) Constipation: Current visit: Yes Status: Acute Continue bowel regimen, intensify as needed. Continue to encourage ambulation and oral hydration. (7) DVT prophylaxis: Current visit: Yes Status: Acute Subcutaneous Lovenox. (8) Discharge planning issues: Current visit: Yes Status: Acute He is a full code. We will discharge home when cleared by orthopedics, potentially in the next 24 hours. He will likely need home health physical therapy. Care management is working on disposition. This case was discussed with Dr. Cummings who is in agreement. Subjective Interval history since last seen: Felipe Tom is a 67-year-old man with a past medical history significant for COPD, tobacco abuse, GERD, hyperlipidemia who fell and suffered a traumatic hip fracture. He went on to have an ORIF by Dr. Hooper on 07/02/2018. Is doing well postoperatively. He reports his pain is 4/10, the pain is primarily muscular, in his right thigh. He also reports some numbness to the anterior aspect of his right thigh, he reported this to or so. The patient states that Ortho suggested that this is related to the block and advised him to give it some time. He has been working with physical therapy. He has not yet had a bowel movement, however, he feels that he will today. He does have mild shortness of breath with exertion, this is baseline for him. He does not feel wheezy, no coughing, no chest pain/pressure, palpitations, he is eating and drinking, no nausea or vomiting. Exam Narrative Exam Narrative: General: He is A&Ox3, sitting up in the chair in NAD. HEENT: pupils equal and round, EOMI, MMM Heart: Heart has regular rate and rhythm, no murmur appreciated. Lungs: Respirations even and unlabored, few scattered wheezes noted on left, otherwise clear. GI: normoactive bowel sounds throughout, abdomen is soft, nontender on palpation, nondistended Extremities: R hip wound is dressed - changed this morning by Ortho; scant bloody drainage on distal dressing. No significant edema, clubbing or cyanosis of BLE's. Bilateral pedal pulses faint but palpable. Objective Objective Clinical Data: Abnormal lab results 07/04/18 07/04/18 Range/Units 06:45 06:45 RBC 3.28 L (4.50-6.00) m/cumm Hgb 10.5 L (13.5-17.5) g/dL Hct 31.3 L (40.0-50.0) % MCV 95.4 H (80-95) fL Calcium 8.3 L (8.5-10.1) mg/dL Magnesium 1.5 L (1.8-2.4) mg/dL Vital Signs Temperature 36.6 C 07/04/18 08:00 Temperature Source Tympanic 07/04/18 08:00 Pulse 63 07/04/18 08:00 Pulse Rhythm Regular 07/04/18 09:11 Respiratory Rate 19 07/04/18 08:00 Respiratory Effort Non-Labored 07/04/18 09:11 Respiratory Depth Normal 07/04/18 09:11 Respiratory Pattern Normal 07/04/18 09:11 Blood Pressure 128/67 07/04/18 08:00 Blood Pressure Position Supine 07/01/18 09:32 Pulse Oximetry 89 L 07/04/18 08:00 Respiratory End-tidal CO2 39 07/02/18 09:43 Oxygen Delivery Method Room Air 07/04/18 08:00 Oxygen Flow Rate 0 07/04/18 08:00 Pain Level 1 07/04/18 08:36 Comment 07/04/18 08:00 Intake & Output 07/03/18 07/04/18 07/04/18 23:59 11:59 23:59 Intake Total 490 / 2740.417 120 / 120 Output Total 300 / 800 900 / 900 Balance 190 / 1940.417 -780 / -780 Weight 89.2 kg Intake: Oral 490 / 730 120 / 120 Output: Urine 300 / 800 900 / 900 Other: Urine Color Yellow Yellow Urine Appearance Clear Clear Urine Odor None Comment no issues Voiding Methods Urinal Urinal Laboratory Results WBC 7.02 k/cumm (4.4-10.8) 07/04/18 06:45 RBC 3.28 m/cumm (4.50-6.00) L 07/04/18 06:45 Hgb 10.5 g/dL (13.5-17.5) L 07/04/18 06:45 Hct 31.3 % (40.0-50.0) L 07/04/18 06:45 MCV 95.4 fL (80-95) H 07/04/18 06:45 MCH 32.0 pg (27.0-33.0) 07/04/18 06:45 MCHC 33.5 g/dL (32.0-36.0) 07/04/18 06:45 RDW 12.2 % (11.8-14.1) 07/04/18 06:45 Plt Count 201 x1000/uL (130-400) 07/04/18 06:45 MPV 9.6 fL (8.0-11.0) 07/04/18 06:45 Immature Gran % 0.2 07/01/18 12:39 Neutrophils % 79.8 07/01/18 12:39 Lymphocytes % 14.2 07/01/18 12:39 Monocytes % 5.5 07/01/18 12:39 Eosinophils % 0.2 07/01/18 12:39 Basophils % 0.1 07/01/18 12:39 Absolute Neutrophils 6.58 k/cumm (1.2-6.7) 07/01/18 12:39 Absolute Lymphocytes 1.17 k/cumm (1.2-3.4) L 07/01/18 12:39 Absolute Monocytes 0.45 k/cumm (0.11-0.7) 07/01/18 12:39 Absolute Eosinophils 0.02 k/cumm (0.0-0.7) 07/01/18 12:39 Absolute Basophils 0.01 k/cumm (0.0-0.2) 07/01/18 12:39 PT 10.8 sec (9.3-11.0) 07/03/18 06:30 INR 1.1 (0.9-1.1) 07/03/18 06:30 Sodium 138 mmol/L (136-145) 07/04/18 06:45 Potassium 4.2 mmol/L (3.5-5.1) 07/04/18 06:45 Chloride 104 mmol/L (98-107) 07/04/18 06:45 Carbon Dioxide 26.4 mmol/L (21.0-32.0) 07/04/18 06:45 Anion Gap 7.6 mmol/L (3-11) 07/04/18 06:45 BUN 14 mg/dL (7-18) 07/04/18 06:45 Creatinine 0.89 mg/dL (0.70-1.30) 07/04/18 06:45 Estimated GFR/1.73 m2 >= 60.00 (mL/min/1.73m2) 07/04/18 06:45 Glucose 96 mg/dL (70-100) 07/04/18 06:45 Calcium 8.3 mg/dL (8.5-10.1) L 07/04/18 06:45 Magnesium 1.5 mg/dL (1.8-2.4) L 07/04/18 06:45 Total Bilirubin 0.3 mg/dL (0.2-1.0) 07/01/18 12:39 AST 29 U/L (15-37) 07/01/18 12:39 ALT 28 U/L (12-78) 07/01/18 12:39 Alkaline Phosphatase 76 U/L (46-116) 07/01/18 12:39 Troponin I < 0.02 ng/mL (0.00-0.06) 07/01/18 12:39 Total Protein 6.7 g/dL (6.4-8.2) 07/01/18 12:39 Albumin 3.4 g/dL (3.4-5.0) 07/01/18 12:39 Patient ABO/Rh A Positive 07/01/18 12:39 Antibody Screen Negative 07/01/18 12:39
--- NOTE | 2018-07-04 12:25 | PT.INTREAT ---
Date of service: 07/04/18 Time of Service: 12:29 PT Notes Inpatient Physical Therapy Treatment Note [facility] Date: 07/04/18 PRECAUTIONS: WBAT on R LE SUBJECTIVE: Felipe states that he is feeling much better today, that he got good rest last night. OBJECTIVE: PAIN: Patient c/o R LE discomfort with weight bearing specifically throughout lateral thigh. BED MOBILITY/TRANSFERS Supine-sit: S with leg plant facilities technician Sit-supine: S with leg plant facilities technician Sit-stand: SBA Stand-sit: SBA GAIT Assistive Device: FWW Weight bearing: WBAT on R Assist: SBA Distance: 30' x2 in a.m.; 50' x2 in p.m. Deviation: Minimal cueing in a.m. for gait pattern; step-through pattern utilized in p.m. THEREX: Patient completed a LE strengthening and stabilization program in a supine position in a.m. and standing position in p.m., as per flow sheet. He was able to tolerate a slight progression in ther ex today, modification made to reps are noted on flow sheet. STAIRS: Up/down 3x4 and 2x6 using B rails and a step-to pattern with SBA ASSESSMENT: Patient tolerated session well with minimal c/o discomfort in R LE. He was able to tolerate a progression in gait training with FWW support, as well as a progression in ther ex. He demonstrates a steadier gait today, versus yesterday, requiring less cueing for technique. PLAN: Continue with PT's POC TREATMENT CODE/TIME: Session 1: 30 minutes; 70235, 07884 Session 2: 30 minutes; [id number], [id number]
--- NOTE | 2018-07-04 12:33 | PTTR_ITS ---
Date of service: 07/04/18 Time of Service: 12:29 PT Notes Inpatient Physical Therapy Treatment Note [facility] Date: 07/04/18 PRECAUTIONS: WBAT on R LE SUBJECTIVE: Felipe states that he is feeling much better today, that he got good rest last night. OBJECTIVE: PAIN: Patient c/o R LE discomfort with weight bearing specifically throughout lateral thigh. BED MOBILITY/TRANSFERS Supine-sit: S with leg armoured car escort Sit-supine: S with leg armoured car escort Sit-stand: SBA Stand-sit: SBA GAIT Assistive Device: FWW Weight bearing: WBAT on R Assist: SBA Distance: 30' x2 in a.m.; 50' x2 in p.m. Deviation: Minimal cueing in a.m. for gait pattern; step-through pattern utilized in p.m. THEREX: Patient completed a LE strengthening and stabilization program in a supine position in a.m. and standing position in p.m., as per flow sheet. He was able to tolerate a slight progression in ther ex today, modification made to reps are noted on flow sheet. STAIRS: Up/down 3x4 and 2x6 using B rails and a step-to pattern with SBA ASSESSMENT: Patient tolerated session well with minimal c/o discomfort in R LE. He was able to tolerate a progression in gait training with FWW support, as well as a progression in ther ex. He demonstrates a steadier gait today, versus yesterday, requiring less cueing for technique. PLAN: Continue with PT's POC TREATMENT CODE/TIME: Session 1: 30 minutes; 56413, 24398 Session 2: 30 minutes; 00088, 47786
[2018-07-04 12:47] VITALS: PULSE 63; O2SAT 95
--- NOTE | 2018-07-04 18:55 | NUR.NOTE ---
Nursing Note: Report received from HORTENCIA Sapp. Patient is in stable condition, currently resting in bed with family at bedside, no report of pain or discomfort at this time, the bed is in the low and locked position side rails up x2, call light within reach.
--- NOTE | 2018-07-04 18:55 | PDOC.CMPRO ---
- If Service Date Differs Date of service: 07/04/18 Time of Service: 18:55 Care Management Progress Note S/O: Felipe is doing well today is sitting up in the chair, PT reports that he is working on the stairs and is making good progress. Anticipate he will be discharged home on Tuesday. [facility] to provide a raised toilet seat. Spouse to transport home at time of discharge. Felipe will have new home health services PT and OT and will need a [id number]. A: Felipe is a 67 year old male admitted for a fx right hip that was repaired on 07/02/18 P: Felipe is postop day 1, he will remain acute until ready for discharge per provider. Anticipate he will be discharged home with home health services for PT and OT. He has his own FWW and will obtain a raised toilet seat through [facility]. to continue to provide support discharge planning and disposition.
[2018-07-04] MEDS: Atorvastatin 10 MG TAB PO (19:06)
[2018-07-04 23:50] VITALS: BP 126/65; PULSE 68; RESP 18; TEMP 36.8; O2SAT 90
[2018-07-05] MEDS: Ketorolac 15 MG/ML VIAL IVP ×2 (01:23→08:02)
[2018-07-05 04:00] VITALS: BP 168/74; PULSE 93; RESP 18; TEMP 37.3; O2SAT 87
[2018-07-05 04:29] VITALS: BP 132/64; PULSE 70; RESP 18; TEMP 36.8; O2SAT 90
--- NOTE | 2018-07-05 04:30 | NUR.NOTE ---
Nursing Note: Called to bedside by HARRY, patient O2 saturation reading at 87% on RA. I rechecked this and also got readings in the mid 80s. Patient placed on 2L O2 NC and immediately came up to 90-92%. Patient reporting no discomfort at this time. Will notify clinical coordinator and continue to monitor patient.
--- NOTE | 2018-07-05 05:57 | NUR.NOTE ---
Nursing Note: Dressing to right hip incision changed due to saturation.
[2018-07-05 07:50] VITALS: BP 146/70; PULSE 65; RESP 20; TEMP 37.2; O2SAT 89
[2018-07-05] MEDS: Normal Saline Flush 10 ML SYR IVP (08:00)
[2018-07-05] MEDS: Enoxaparin 40 MG/0.4 ML SYR SC (08:01)
[2018-07-05] MEDS: Magnesium Oxide 400 MG TAB PO (08:02)
[2018-07-05] MEDS: Sertraline 50 MG TAB PO (08:02)
[2018-07-05] MEDS: Pantoprazole 40 MG TABCR PO (08:02)
[2018-07-05] MEDS: Senna TAB 1 TAB PO (08:03)
[2018-07-05] MEDS: Docusate Sodium 100 MG CAP PO (08:03)
[2018-07-05] MEDS: oxyCODONE 5 MG TAB PO ×2 (08:04→14:18)
[2018-07-05] MEDS: Budesonide/Formoterol 160/4.5 6 GM 60 PUFF INH IH (09:51)
--- NOTE | 2018-07-05 10:13 | OT.INDS ---
Date of service: 07/05/18 Time of Service: 08:35 Occupational Therapy Notes Occupational Therapy Inpatient Discharge Summary Dates of Service: 07/03/18-07/05/18 Date: 07/05/18 Referring Doctor: Rina Albrecht NP OT Orders: hip surgery Precautions: WBAT (R) LE PATIENT PROFILE/ADMITTING DIAGNOSIS: Pt is a 67 year old male who was admitted through the ER on 07/01 s/p a slip and fall in the [place] parking lot. He underwent surgery performed by Dr. Hooper for a R IT hip fracture ORIF 07/01/18. Past Medical History: Anxiety, depression, PTSD, COPD, hyperlipidemia, smoker Social History/Home Situation: Lives in a private home with his . 5 steps, with two rails to enter. Otherwise, house is on one level. Has a step over tub, low toilet and would like a raised toilet seat to increase (I) in ADLs/IADLs. He refers to himself as retired. he was previously (I) with all ADLs/IADLs. Equipment owned/DME: Shower chair, grab bars in bathroom, removable shower head. SUBJECTIVE: Pt was sitting in chair he reports that he thinks he is returning home today. OBJECTIVE: General Observation: IV (L) UE not connected Mental Status: A&Ox3 Pain: no c/o pain ROM: RUE AROM WNL L UE AROM WNL STRENGTH: RUE 5/5 throughout LUE 5/5 throughout FUNCTIONAL MOBILITY/ADLS: BATHING Sitting in chair Bathing UE (I), max (A) back Bathing LE (I) with min vc DRESSING In sitting position Dressing UE (I) [facility] gown, (I) don street clothing Dressing LE Max (A) (B) socks pt reports that his will (A) with this, (I) don pants with ideal technique. GROOMING (I) brushing teeth in the sitting position. TOILETING Per pt report he is performing this on toilet (I). EATING (I) BALANCE: Static sitting Normal Dynamic Sitting Normal SPECIAL TESTS: Daily Activity Limitations Standardized Measure [facility] AM -PAC ?6 clicks? Daily Activity Inpatient Short Form: Raw score: 21 Standardized score: 44.27 CMS score: 32.79% CMS modifier: CJ INFORMED CONSENT/EDUCATION: Pt instructed in purpose of OT Consult and plan of care. ASSESSMENT: Patient is a 67-year-old male referred to occupational therapy services with diagnosis of s/p R IT hip fracture ORIF 07/01/18. Patient presents with clinical signs and symptoms consistent with dx. Pt was seen for 3 OT sessions over 3 days. He has presented with increased (I) in ADLs at this time. He is able to (I) don and doff street clothes and his is there to assist as needed. OT recommends that pt return home with home OT services. distribution warehouse manager reports that they are getting pt a raised toilet seat. Patient is assessed as a Low 72055 complexity based on the following: History: See Above Examination: See Above Presentation: Evolving Decision Making: AMPAC score 21, CMS score 32.79% GOALS Goals x1 week in hospital setting 1. Transfers S, FWW (MET) 2. Dressing- In sitting position pt will be able to don and doff (B) LE socks and LE dressing (I). (PARTIALLY MET) 3. Bathing- Pt will be (I) in showering routine sitting in shower. (NOT MET) 4. Toileting- Pt will be (I) in toileting routine on toilet (MET) PLAN OF CARE/TREATMENT PLAN: Discharge from skilled OT services at this time. DISCHARGE RECOMMENDATIONS Home when medically cleared per MD with home OT. TREATMENT TIME/MINUTES/CODES 85057, 13 minutes (08:35) G Codes in the area of self- : washing oneself, toileting, dressing, eating and drinking, current status GO [id number] projected status GO [id number]. Discharge status (if discharging) GO [id number] Noemi De OTR/L [facility]
--- NOTE | 2018-07-05 10:21 | OTDS_ITS ---
Date of service: 07/05/18 Time of Service: 08:35 Occupational Therapy Notes Occupational Therapy Inpatient Discharge Summary Dates of Service: 07/03/18-07/05/18 Date: 07/05/18 Referring Doctor: Rina Albrecht NP OT Orders: hip surgery Precautions: WBAT (R) LE PATIENT PROFILE/ADMITTING DIAGNOSIS: Pt is a 67 year old male who was admitted through the ER on 07/01 s/p a slip and fall in the [employer] parking lot. He underwent surgery performed by Dr. Hooper for a R IT hip fracture ORIF 07/01/18. Past Medical History: Anxiety, depression, PTSD, COPD, hyperlipidemia, smoker Social History/Home Situation: Lives in a private home with his . 5 steps, with two rails to enter. Otherwise, house is on one level. Has a step over tub, low toilet and would like a raised toilet seat to increase (I) in ADLs/IADLs. He refers to himself as retired. he was previously (I) with all ADLs/IADLs. Equipment owned/DME: Shower chair, grab bars in bathroom, removable shower head. SUBJECTIVE: Pt was sitting in chair he reports that he thinks he is returning home today. OBJECTIVE: General Observation: IV (L) UE not connected Mental Status: A&Ox3 Pain: no c/o pain ROM: RUE AROM WNL L UE AROM WNL STRENGTH: RUE 5/5 throughout LUE 5/5 throughout FUNCTIONAL MOBILITY/ADLS: BATHING Sitting in chair Bathing UE (I), max (A) back Bathing LE (I) with min vc DRESSING In sitting position Dressing UE (I) [facility] gown, (I) don street clothing Dressing LE Max (A) (B) socks pt reports that his will (A) with this, (I) don pants with ideal technique. GROOMING (I) brushing teeth in the sitting position. TOILETING Per pt report he is performing this on toilet (I). EATING (I) BALANCE: Static sitting Normal Dynamic Sitting Normal SPECIAL TESTS: Daily Activity Limitations Standardized Measure [facility] AM -PAC ?6 clicks? Daily Activity Inpatient Short Form: Raw score: 21 Standardized score: 44.27 CMS score: 32.79% CMS modifier: CJ INFORMED CONSENT/EDUCATION: Pt instructed in purpose of OT Consult and plan of care. ASSESSMENT: Patient is a 67-year-old male referred to occupational therapy services with diagnosis of s/p R IT hip fracture ORIF 07/01/18. Patient presents with clinical signs and symptoms consistent with dx. Pt was seen for 3 OT sessions over 3 days. He has presented with increased (I) in ADLs at this time. He is able to (I) don and doff street clothes and his is there to assist as needed. OT recommends that pt return home with home OT services. clubhouse manager reports that they are getting pt a raised toilet seat. Patient is assessed as a Low 73204 complexity based on the following: History: See Above Examination: See Above Presentation: Evolving Decision Making: AMPAC score 21, CMS score 32.79% GOALS Goals x1 week in hospital setting 1. Transfers S, FWW (MET) 2. Dressing- In sitting position pt will be able to don and doff (B) LE socks and LE dressing (I). (PARTIALLY MET) 3. Bathing- Pt will be (I) in showering routine sitting in shower. (NOT MET) 4. Toileting- Pt will be (I) in toileting routine on toilet (MET) PLAN OF CARE/TREATMENT PLAN: Discharge from skilled OT services at this time. DISCHARGE RECOMMENDATIONS Home when medically cleared per MD with home OT. TREATMENT TIME/MINUTES/CODES 13755, 13 minutes (08:35) G Codes in the area of self- : washing oneself, toileting, dressing, eating and drinking, current status GO [id number] projected status GO [id number]. Discharge status (if discharging) GO [id number] Noemi De OTR/L [facility]
--- NOTE | 2018-07-05 10:21 | W.PM.PROGNOT ---
Date of Service Date of service: 07/05/18 Time of Service: 10:21 Assessment and Plan (1) Hip fracture, right: Current visit: Yes Status: Acute Felipe is a 67-year-old status post intramedullary fixation of a right intratrochanteric fracture. He is making good progress he does have maximal swelling today which is to be expected. I do not see any negative concerns for bleeding. His hemoglobin has been stable. He should continue to ambulate as tolerated. I think he will be ready for discharge home either later today or tomorrow. He did request that his Symbicort and Spiriva be administered earlier as he does at home, I made a change those orders. He should continue to be weightbearing as tolerated with assistive device. He will continue Lovenox here in house but may be switched over to aspirin on discharge, minimum of 81 mg twice daily. I will see him back in 2 weeks of discharge. Qualifiers: Encounter type: initial encounter Fracture type: closed Open fracture type: Fracture healing: Qualified Code(s): S72.001A - Fracture of unspecified part of neck of right femur, initial encounter for closed fracture Subjective Interval history since last seen: Felipe reports be doing well. He feels like he is more tight, full, and sore this morning. He did ambulate a lot yesterday ending up some stairs. He denies any chest pain or shortness of breath. The faint numbness of the medial thigh seems to be improving. He does have some fullness about the right thigh which also caused some bleeding onto his dressings yesterday. He has been able to ambulate and is currently sitting in a chair. Exam Narrative Exam Narrative: Felipe is in no acute distress. Alert and oriented 3. Sitting in a chair. Evaluation of the right thigh shows significant swelling and ecchymosis about the right thigh. There is some mild serosanguineous drainage on the dressings. There is no active bleeding. He tolerates internal rotation, external rotation, and flexion of the hip without any significant pain. He is able to extend the knee. He has intact ankle dorsiflexion, plantarflexion, EHL, FHL. Sensation intact light touch of the femoral and sciatic nerve distributions. Objective Objective Clinical Data: Vital Signs Temperature 37.2 C 07/05/18 07:50 Temperature Source Tympanic 07/05/18 07:50 Pulse 65 07/05/18 07:50 Pulse Rhythm Regular 07/05/18 08:13 Respiratory Rate 20 07/05/18 07:50 Respiratory Effort 07/05/18 08:13 Respiratory Depth Normal 07/05/18 08:13 Respiratory Pattern Normal 07/05/18 08:13 Blood Pressure 146/70 H 07/05/18 07:50 Blood Pressure Position Supine 07/01/18 09:32 Pulse Oximetry 89 L 07/05/18 07:50 Respiratory End-tidal CO2 39 07/02/18 09:43 Oxygen Delivery Method Nasal Cannula 07/05/18 07:50 Oxygen Flow Rate 0 07/05/18 07:50 Pain Level 7 07/05/18 08:04 Comment 07/05/18 04:00 Intake & Output 07/04/18 07/04/18 07/05/18 11:59 23:59 11:59 Intake Total 120 / 610 490 / 610 500 / 500 Output Total 900 / 1200 300 / 1200 250 / 250 Balance -780 / -590 190 / -590 250 / 250 Weight 89.2 kg 90 kg Intake: Oral 120 / 610 490 / 610 500 / 500 Output: Urine 900 / 1200 300 / 1200 250 / 250 Other: Urine Color Yellow Yellow Yellow Urine Appearance Clear Clear Clear Urine Odor None Normal Stool Size Moderate Moderate Stool Characteristics Formed Soft Brown Formed Brown Voiding Methods Urinal Urinal Urinal Laboratory Results WBC 7.02 k/cumm (4.4-10.8) 07/04/18 06:45 RBC 3.28 m/cumm (4.50-6.00) L 07/04/18 06:45 Hgb 10.5 g/dL (13.5-17.5) L 07/04/18 06:45 Hct 31.3 % (40.0-50.0) L 07/04/18 06:45 MCV 95.4 fL (80-95) H 07/04/18 06:45 MCH 32.0 pg (27.0-33.0) 07/04/18 06:45 MCHC 33.5 g/dL (32.0-36.0) 07/04/18 06:45 RDW 12.2 % (11.8-14.1) 07/04/18 06:45 Plt Count 201 x1000/uL (130-400) 07/04/18 06:45 MPV 9.6 fL (8.0-11.0) 07/04/18 06:45 Immature Gran % 0.2 07/01/18 12:39 Neutrophils % 79.8 07/01/18 12:39 Lymphocytes % 14.2 07/01/18 12:39 Monocytes % 5.5 07/01/18 12:39 Eosinophils % 0.2 07/01/18 12:39 Basophils % 0.1 07/01/18 12:39 Absolute Neutrophils 6.58 k/cumm (1.2-6.7) 07/01/18 12:39 Absolute Lymphocytes 1.17 k/cumm (1.2-3.4) L 07/01/18 12:39 Absolute Monocytes 0.45 k/cumm (0.11-0.7) 07/01/18 12:39 Absolute Eosinophils 0.02 k/cumm (0.0-0.7) 07/01/18 12:39 Absolute Basophils 0.01 k/cumm (0.0-0.2) 07/01/18 12:39 PT 10.8 sec (9.3-11.0) 07/03/18 06:30 INR 1.1 (0.9-1.1) 07/03/18 06:30 Sodium 138 mmol/L (136-145) 07/04/18 06:45 Potassium 4.2 mmol/L (3.5-5.1) 07/04/18 06:45 Chloride 104 mmol/L (98-107) 07/04/18 06:45 Carbon Dioxide 26.4 mmol/L (21.0-32.0) 07/04/18 06:45 Anion Gap 7.6 mmol/L (3-11) 07/04/18 06:45 BUN 14 mg/dL (7-18) 07/04/18 06:45 Creatinine 0.89 mg/dL (0.70-1.30) 07/04/18 06:45 Estimated GFR/1.73 m2 >= 60.00 (mL/min/1.73m2) 07/04/18 06:45 Glucose 96 mg/dL (70-100) 07/04/18 06:45 Calcium 8.3 mg/dL (8.5-10.1) L 07/04/18 06:45 Magnesium 1.5 mg/dL (1.8-2.4) L 07/04/18 06:45 Total Bilirubin 0.3 mg/dL (0.2-1.0) 07/01/18 12:39 AST 29 U/L (15-37) 07/01/18 12:39 ALT 28 U/L (12-78) 07/01/18 12:39 Alkaline Phosphatase 76 U/L (46-116) 07/01/18 12:39 Troponin I < 0.02 ng/mL (0.00-0.06) 07/01/18 12:39 Total Protein 6.7 g/dL (6.4-8.2) 07/01/18 12:39 Albumin 3.4 g/dL (3.4-5.0) 07/01/18 12:39 Patient ABO/Rh A Positive 07/01/18 12:39 Antibody Screen Negative 07/01/18 12:39
[2018-07-05 11:31] LABS: Magnesium 1.9 mg/dL (1.8-2.4)
--- NOTE | 2018-07-05 12:35 | DSE_ITS ---
Date of service: 07/05/18 Time of Service: 12:34 DS: Diagnosis Discharge Diagnosis (1) Hip fracture, right: Status: Acute Discharge Plan Disposition Patient Disposition: HOME W/HOME HEALTH SERVICE Condition: Stable Discharge Details Reason For Visit: HIP FRACTURE Admit Date/Time: 07/01/18 12:02 Admit Provider: Rina Albrecht Attending Provider: Rina Albrecht Primary Care Provider: [facility] Hospital Course Hospital Course: Mr. Tom is a pleasant 67 year old man with a past medical history significant for GERD, PTSD, hyperlipidemia, COPD, current smoker who fell on the ice in a store parking lot on 07/01/18 and was unable to get up. He was transported to the ED by EMS. In the ED he had an x-ray of his right hip which showed an intertrochanteric fracture of the right femur. He was seen by ortho. Dr. Hooper who took him to the OR on 07/02/18 for intramedullary fixation of a right intratrochanteric fracture. He has done well postoperatively. He has been working with PT. His pain has been well controlled with oral pain medication. He has been cleared by Dr. Hooper for discharge. He will be discharged home with home health services to include Physical therapy and occupational therapy. He will transition to aspirin 81 mg BID for DVT prophylaxis. He was noted to have oxygen saturations in the low 90s and upper 80s at times. He is a chronic smoker, 2 ppd, and has COPD. He denies shortness of breath, coughing, wheezing. He had a few scattered wheezes throughout his lungs, no rales or rhonchi. He is encouraged to continue to use his IS at home as well as ambulate frequently. He will follow up with Orhtopedics in 2 weeks. He will follow up with his PCP as scheduled. Smoking cessation was encouraged, he is not currently interested in quitting smoking. Home Meds and New Rx's Prescriptions: New acetaminophen [Tylenol] 325 mg Tablet 650 mg PO Q4H PRN PRNQty: 0 RF: 0 docusate sodium [Colace] 100 mg Capsule 100 mg PO BID Qty: 60 RF: 0 oxycodone 5 mg Tablet 5 mg PO Q6H PRN PRNQty: 10 RF: 0 sennosides [Senokot] 8.6 mg Tablet 1 tab PO BID Qty: 60 RF: 0 aspirin 81 mg tablet,chewable 81 mg PO DAILY Qty: 60 RF: 0 Continued cyclobenzaprine 10 MG tablet 10 mg PO PRN PRNRF: 0 atorvastatin [Lipitor] 20 MG tablet 10 mg PO DAILY AM RF: 0 sertraline [Zoloft] 25 MG tablet 50 mg PO DAILY RF: 0 fluticasone [Flonase] 16 GM spray,suspension 1 spray Intranasal PRN PRNRF: 0 coenzyme Q10 [CoQ-10] 100 MG capsule 100 mg PO DAILY RF: 0 Spiriva with HandiHaler 1 PUFF capsule, w/inhalation device 1 puff Inhalation DAILY RF: 0 pantoprazole [Protonix] 40 MG tablet,delayed release (DR/EC) 40 mg PO DAILY Qty: 30 RF: 0 magnesium 250 mg Tablet 500 mg PO DAILY RF: 0 albuterol sulfate 90 mcg/actuation Hfa Aerosol Inhaler 2 mcg Inhalation PRN PRNRF: 0 Symbicort 160-4.5 mcg/actuation Hfa Aerosol Inhaler 2 mcg Inhalation BID RF: 0 nicotine 21 MG/24 HR patch 24 hour 21 mg Transdermal DAILY PRN PRNRF: 0 Discontinued aspirin 325 MG tablet 325 mg PO PRN RF: 0 omeprazole 20 MG capsule,delayed release(DR/EC) 20 mg PO DAILY AM RF: 0 aspirin [Aspirin Low-Strength] 81 MG tablet,chewable 81 mg PO DAILY AM RF: 0 Discharge Instructions Instructions: ORIF of Hip Fracture (DC) Additional Instructions: Take Aspirin 81mg two times daily for 30 days. Follow up with Dr. Hooper and your PCP as scheduled. Take pain medicine only as needed. Continue to take stool softeners as needed while taking pain medications. You should have a sleep study as an outpatient. Continue to use Incentive Spirometer. Continue to work on quitting smoking. Take care! Care Plan Goals: Discharge home with new home health services for PT and OT, will need a [id number]. Stand Alone Forms: Nursing Discharge Form Referrals: Andrez Hooper MD [ [facility] STAFF PHYSICIAN] - 07/19/18 2:30 pm Alvarez Alvarez [ NON-[facility] STAFF PHYSICIAN] - 07/18/18 11:00 am Activity:: Activity as Tolerated Equipment/Supplies:: No Equipment Needed Diet:: As Tolerated Discharge Orders Discharge Orders: Discharge Order (Routine); Ordered 07/05/18 Ordered By: Shonad Collado Other Ambulatory Orders: Complete Blood Count No Diff (Routine) Timeframe: 1 Week Facility: [facility] - Location: Laboratory Outpatient Ordered By: Shonda Collado Exam Narrative Exam Narrative: General: He is A&Ox3, sitting up in the chair in NAD. HEENT: pupils equal and round, EOMI, MMM Heart: Heart has regular rate and rhythm, no murmur appreciated. Lungs: Respirations even and unlabored, few scattered wheezes noted on left, otherwise clear. GI: normoactive bowel sounds throughout, abdomen is soft, nontender on palpation, nondistended Extremities: R hip wound is dressed - Proximal dressing saturated with serosang drainage, scant bloody drainage to distal dressing. Edema noted to right thigh. No clubbing or cyanosis of BLE's. Bilateral pedal pulses faint but palpable. DS: Data Vitals/I&O Vitals and I&O: Vital Signs Temperature 37.2 C 07/05/18 07:50 Temperature Source Tympanic 07/05/18 07:50 Pulse 65 07/05/18 07:50 Pulse Rhythm Regular 07/05/18 08:13 Respiratory Rate 20 07/05/18 07:50 Respiratory Effort 07/05/18 08:13 Respiratory Depth Normal 07/05/18 08:13 Respiratory Pattern Normal 07/05/18 08:13 Blood Pressure 146/70 H 07/05/18 07:50 Blood Pressure Position Supine 07/01/18 09:32 Pulse Oximetry 89 L 07/05/18 07:50 Respiratory End-tidal CO2 39 07/02/18 09:43 Oxygen Delivery Method Nasal Cannula 07/05/18 07:50 Oxygen Flow Rate 0 07/05/18 07:50 Pain Level 7 07/05/18 08:04 Comment 07/05/18 04:00 Intake & Output 07/04/18 07/05/18 07/05/18 23:59 11:59 23:59 Intake Total 490 / 610 860 / 860 Output Total 300 / 1200 250 / 250 Balance 190 / -590 610 / 610 Weight 90 kg Intake: Oral 490 / 610 860 / 860 Output: Urine 300 / 1200 250 / 250 Other: Urine Color Yellow Yellow Urine Appearance Clear Clear Urine Odor Normal Comment voiding w/o difficulty Stool Size Moderate Moderate Stool Characteristics Formed Soft Brown Formed Brown Voiding Methods Urinal Urinal Completed studies during hospitalization [Text1]: 07/01/2018: AP SUPINE CHEST: Comparison is made with 01 August 2017. The heart size is normal. The aorta shows some calcification, normal in diameter. The lungs are well inflated and clear. No infiltrate, effusion, pneumothorax or rib fractures seen. IMPRESSION: Negative chest x-ray PELVIS AND RIGHT HIP: There is an intertrochanteric fracture of the RIGHT femur. There is mild varus angulation, mild displacement. No additional fractures are seen. The hip joint space is well maintained. IMPRESSION: Intertrochanteric fracture of the right femur. Labs on day of discharge: Labs from last 24 hours 07/05/18 11:13 Magnesium 1.9 [facility] Medical History GERD (gastroesophageal reflux disease) (Chronic) COPD (chronic obstructive pulmonary disease) (Chronic) Hyperlipemia (Acute) PTSD (post-traumatic stress disorder) (Acute) Anxiety (Chronic) Depression (Chronic) Surgical History History of back surgery (Acute) Social History Smoking/Tobacco Use Status: Current every day alcohol intake: never substance use type: does not use
--- NOTE | 2018-07-05 13:20 | PDOC.HHF2F ---
1. Encounter Date and Reason I certify that LYLE FERNÁNDEZ was seen by Shonda Collado on 07/05/18 and that I had a [id number] encounter with this patient that meets the physician face to face encounter requirements. 2. Clinical Findings Supporting Skilled Need and Homebound Status I certify that home health services are medically necessary, include either intermittent nursing home and/or physical/speech therapy, and that this patient is homebound in that absences from the home require considerable and taxing effort and are infrequent or of short duration, or are attributable to the need to receive medical care. [X] (a) Attached documentation from encounter provides clinical findings supporting skilled need and homebound status (including what assistance patient requires to leave the home). The encounter with the patient was in whole, or in part, for the following medical condition, which is the primary reason for home health care: HIP FRACTURE Jail: Physical Therapy: Needed to continue working on strength and endurance after hospitalization for right hip fracture with repair. OT: Needed to evaluate/assess home environment and make recommendations as needed. Speech Therapy: Homebound: Unable to leave home without assistance. 3. Certification and Authentication I certify that I composed the above information based on my clinical judgement relating to this patient's medical condition and, if applicable, clinical findings communicated to me by the NPP or inpatient physician who performed the Home Health Referral. All [facility] through [facility] - PCP)
--- NOTE | 2018-07-05 13:53 | INDS_ITS ---
Date of service: 07/05/18 Time of Service: 10:00 PT Notes PHYSICAL THERAPY DISCHARGE SUMMARY Date: 07/05/18 Referring Doctor: Andrez Hooper MD PT Orders: PT CONSULT: S/P IMN of R IT hip frx, WBAT with assistive device Precautions: WBAT R LE Treatment Dates: 07/02/18 - 07/05/18 Patient Profile/Admitting Diagnosis: Patient fell on ice in [employer] parking lot, 07/01/18, suffering displaced R intertrochanteric hip fracture. Received surgical intervention of IMN of R IT 07/02/18. He is participated in PT in tervention 1-2 times per day for the past 4 days, with a total of 6 sessions during that time. PMHX: Anxiety, depression, PTSD, COPD, hyperlipidemia, smoker Social History/Home Situation: Lives in a private home with his . 5 steps, with two rails, to enter. Otherwise, house is on one level. Has a step over tub, low toilet. Retired. Premorbid level of function: I, WNL Current Functional Limitations: CG with bed mobility and transfers, dependent on walker, unable to tolerate household distance ambulation. Will be dependent on others for some self care, driving, ADL's. Equipment Owned/DME: Walker Subjective: Felipe states that he is feeling well. He had some soreness this morning, although has been icing his hip and taking pain medication; states that he is feeling much better at this time. He is hoping to go home today, and has questions about what exercises to perform. Objective: General Observation: Sitting in chair at initiation of session, no lines. Mental Status: A & O x 3 Bed Mobility/Transfers: Bed mobility: Supervision with a leg finished goods stock clerk Sit to stand: SBA Stand to sit: SBA Gait: Patient ambulates 75 feet x2 with FW W, WBAT right lower extremity, SBA. During ambulation he desaturates to 88% on room air, although quickly desaturated to the 90s with pursed lip breathing. Stairs: Patient is able to ascend and descend therapeutic stairs (4 inches x3, 6 inches x2) with bilateral rails and supervision only Balance: Static Sitting: Normal Dynamic Sitting: Normal Static Standing: Fair Dynamic Standing: Fair Treatment: Today's session consisted of reevaluation, followed by instruction in a therapeutic exercise program, as noted on flowsheet. Patient was instructed in a home exercise program, consisting of glutes sets, L AQ, standing hip PREs (right only), and ankle pumps. He also received gait training activities, and reviewed stair technique, with patient demonstrate an excellent carryover. Assessment: Patient is a 67 year old male referred to physical therapy services with the diagnosis of S/P R IT hip fracture ORIF 07/01/18. He has participated in 6 PT sessions over the past 4 days, with significant improvements in mobility and activity tolerance. At this point all rehab goals have been met, and patient is appropriate for transfer home with continued assistance from his . Goals: Goals X1 week 1. Supine-Sit I (MET) 2. Sit-Supine I (MET) 3. Sit-Stand I (MET) 4. Stand-Sit I (MET) 5. Bed-Chair I (MET) 6. Chair-Bed I (MET) 7. Gait 50 ft, RW, close supervision (MET) 8. Stairs 5, with bilateral rails, close supervision (MET) 9. Independent with home exercise program I (MET) 10. Balance Good with standing activities (Progressing toward, with continued need for UE support to WW during standing activities) Plan of Care/Treatment Plan: Discharge from PT in acute care setting DISCHARGE RECOMMENDATIONS: Home TREATMENT CODE/TIME: 30 minutes (89000, [id number])
[2018-07-05] MEDS: Acetaminophen 325 MG TAB 650 MG PO (14:18)
--- NOTE | 2018-07-05 18:02 | CMDISCH_ITS ---
- If Service Date Differs Date of service: 07/05/18 Time of Service: 18:00 LACE Index Scoring Tool - Questions: Length of Stay (in days): 4 - 6 Acuity (Admit via E.D.?): Yes Comorbidities: Chronic Pulmonary Disease E.D. Visits: 3 - Answers: Total Score: 12 Risk of Readmission: High Risk Care Management Discharge Reason for Hospitalization: Right hip fracture related to fall. Repaired 07/02/18 Discharge Plan: Felipe is being discharged home today, CM coordinated home health services, contacted his the rehabilitation institute coordinator. [facility] coordinator to obtain a raised toilet seat and delivered to the home in the morning. Patient and his spouse have been in contact with the rehabilitation institute coordinator and she will do a home visit. Home health PT and OT notified of discharge and [id number] was completed. No other services at time of discharge Felipe feels ready to return home. Spouse to transport at time of discharge. Patient/Family Education Needs: Discharge education, follow-up plan of care, limitations ask me 3 and self-management. Services Needed at Discharge: Home Health Care Services, Occupational Therapy, Physical Therapy
== END 2018-07-05 14:46 | disposition home health service (06) | DRG 482 ==
LOC: ER 12:38 → MS 13:27
PROVIDERS: Nurse Practitioner; Student in an Organized Health Care Education/Training Program; Admitting Provider Nurse Practitioner Family; Emergency Provider Physician Assistant; Visit Provider Internal Medicine
PROC: 0QS606Z Reposition Right Upper Femur with Intramedullary Internal Fixation Device, Open Approach (ICD-10-PCS; CPT 27245; principal; 2018-07-02 08:00)
DX: S72.141A Displaced intertrochanteric fracture of right femur, initial encounter for closed fracture (principal); W00.0XXA Fall on same level due to ice and snow, initial encounter; Y92.481 Parking lot as the place of occurrence of the external cause; R09.02 Hypoxemia; K21.9 Gastro-esophageal reflux disease without esophagitis; F43.10 Post-traumatic stress disorder, unspecified; E78.5 Hyperlipidemia, unspecified; J44.9 Chronic obstructive pulmonary disease, unspecified; F17.210 Nicotine dependence, cigarettes, uncomplicated; F41.8 Other specified anxiety disorders
CPT/HCPCS: 27245; 36415; 76942; 80048; 80053; 85027; 86850; 86900; 86901; 94640; 96374; 97110; 97161; 97165; 97530; 97535; 99223; 99232; 99233; 99239; 99253; 99285; J1650; NC; 71045; 73501; 73502; 83735; 84484; 85025; 85610; J1644; J1885; J2250; J2270; J3475; J7620

== ENCOUNTER 2018-07-17 09:47 | Outpatient (CLI) | payer OTHER, SELFPAY ==
[2018-07-17 10:34] LABS: HCT 35.7 % (40.0-50.0); HGB 11.5 g/dL (13.5-17.5); Mean Corp. HGB Concentration 32.2 g/dL (32.0-36.0); Mean Corpuscular Hemoglobin 31.9 pg (27.0-33.0); Mean Corpuscular Volume 99.2 fL (80-95); Mean Platelet Volume 8.7 fL (8.0-11.0); Platelet Count 587 x1000/uL (130-400); RBC Distribution Width 13.9 % (11.8-14.1); White Blood Cell Count 6.42 k/cumm (4.4-10.8)
== END 2018-07-17 10:07 ==
PROVIDERS: Visit Provider Nurse Practitioner
DX: S72.001A Fracture of unspecified part of neck of right femur, initial encounter for closed fracture (principal)
CPT/HCPCS: 36415; 85027

== ENCOUNTER 2018-07-19 15:01 | Outpatient (CLI) | payer SELFPAY ==
--- NOTE | 2018-07-19 14:48 | DI.RAD_ITS ---
SYMPTOM/DIAGNOSIS: S/O INTRAMEDULLARY FIXATION, F/U RIGHT FEMUR: Four views. Comparison is made with 07/02/18. There is again seen an intramedullary krystian transfixing the proximal right femoral fracture. The orthopedic hardware appears stable. No evidence of hardware failure is seen. The fracture appears stable in alignment. No new fractures or dislocations are present.
== END 2018-07-19 15:21 ==
PROVIDERS: Visit Provider Physician Assistant
DX: S72.141D Displaced intertrochanteric fracture of right femur, subsequent encounter for closed fracture with routine healing (principal)
CPT/HCPCS: 73552

== ENCOUNTER 2018-08-16 11:01 | Outpatient (CLI) | payer OTHER, SELFPAY ==
--- NOTE | 2018-08-16 10:52 | DI.RAD_ITS ---
SYMPTOMS/DIAGNOSIS: INTERTROCHANTERIC FRACTURE RT HIP RIGHT FEMUR: Multiple views. Comparison 07/19/18. There is again seen an intramedullary krystian and nail transfixing the intertrochanteric fracture of the proximal right femur. No change in alignment of the orthopedic hardware or fracture components is seen. The soft tissues are unremarkable.
== END 2018-08-16 11:21 ==
PROVIDERS: Visit Provider Physician Assistant
DX: S72.141D Displaced intertrochanteric fracture of right femur, subsequent encounter for closed fracture with routine healing (principal)
CPT/HCPCS: 73552

== ENCOUNTER 2019-03-12 16:16 | Emergency (ER) | payer OTHER, SELFPAY ==
[2019-03-12 16:22] VITALS: BP 163/86; PULSE 70; RESP 16; TEMP 36.7; O2SAT 93
--- NOTE | 2019-03-12 16:38 | W.ED.GENAD ---
Discharge Plan Disposition Patient Disposition: HOME Condition: Good Discharge Details Chief Complaint: AnimalBite Clinical Impression: Cat scratch Primary Care Provider: [facility],[place] ED Provider: Abbi Cavazos Home Meds and New Rx's Prescriptions: New amoxicillin-pot clavulanate [Augmentin] 875-125 mg tablet 1 tab PO BID Qty: 14 RF: 0 Continued cyclobenzaprine 10 MG tablet 10 mg PO PRN PRNRF: 0 atorvastatin [Lipitor] 20 MG tablet 10 mg PO DAILY AM RF: 0 sertraline [Zoloft] 25 MG tablet 50 mg PO DAILY RF: 0 fluticasone propionate [Flonase] 16 GM spray,suspension 1 spray Intranasal PRN PRNRF: 0 coenzyme Q10 [CoQ-10] 100 MG capsule 100 mg PO DAILY RF: 0 Spiriva with HandiHaler 1 PUFF capsule, w/inhalation device 1 puff Inhalation DAILY RF: 0 pantoprazole [Protonix] 40 MG tablet,delayed release (DR/EC) 40 mg PO DAILY Qty: 30 RF: 0 magnesium 250 mg Tablet 500 mg PO DAILY RF: 0 albuterol sulfate 90 mcg/actuation Hfa Aerosol Inhaler 2 mcg Inhalation PRN PRNRF: 0 Symbicort 160-4.5 mcg/actuation Hfa Aerosol Inhaler 2 mcg Inhalation BID RF: 0 acetaminophen [Tylenol] 325 mg Tablet 650 mg PO Q4H PRN PRNQty: 0 RF: 0 docusate sodium [Colace] 100 mg Capsule 100 mg PO BID Qty: 60 RF: 0 oxycodone 5 mg Tablet 5 mg PO Q6H PRN PRNQty: 10 RF: 0 sennosides [Senokot] 8.6 mg Tablet 1 tab PO BID Qty: 60 RF: 0 aspirin 81 mg tablet,chewable 81 mg PO BID Qty: 60 RF: 0 nicotine 21 MG/24 HR patch 24 hour 21 mg Transdermal DAILY PRN PRNRF: 0 Discharge Instructions Instructions: Animal Bite (ED) Additional Instructions: Monitor wound for signs of infection including redness, warmth, drainage, increased pain. If you develop these or other new/worsening symptoms please seek care urgently once again. [facility] recommends monitoring the cat for the next 10 days. No rabies vaccines are necessary unless the cat develops neurologic symptoms or dyes. They advised that this is appropriate to wait 10 days. Please take the Augmentin as prescribed to help prevent infection. Please follow-up with your primary care this week for reevaluation. [facility] - Discharge Data Discharge Date/Time-TO BE ENTERED AT DEPARTURE: 03/12/19 17:39 Medical Decision Making Patient is a [id number] 68-year-old male presents today with chief complaint of cat scratch. He reports he is been taking care of a stray cat but he estimates to be 1-year-old and states has been neutered, on his deck. States that the cat got angry with another animal and scratched his hand. It was not bitten by the cat. Has a cat scratch to the dorsal right hand. Reports that he is not up-to-date on tetanus. 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 Patient has superficial abrasions irregularly-shaped on the dorsal aspect of the right hand consistent with his history. Patient will need antibiotics is 1 of them it does appear to be a puncture wound. However, I am unclear as to what will need to occur for rabies prophylaxis as he has had this historically. We will contact [facility] for guidance. I was able to consult with a physician through the [facility]. They advised that in a patient who has had previous vaccination series, only 3 shots are necessary and that no immunoglobulin is needed. However, they advised this patient is incredibly low risk as this is a known cat and it was only a scratch. They advised monitoring the cat for 10 days instead. The patient does have a cat and a cat carrier. Advised monitoring for neurologic symptoms or . If this is occurs, the patient will need to undergo the 3 shot series. I discussed this recommendation with the patient. He agrees with watchful waiting and monitoring the cat. We will update his tetanus. Patient will prophylactically placed on Augmentin. He was given strict return precautions. We discussed how to monitor the cat. I advised that he follow-up with his primary care this week for reevaluation. The wound is fairly superficial does not require any closure. He does not have one area of superficial flap that appears more to be a skin tear. We will leave this in place with the bandage. I advised this likely nonviable and will come off the time. He reports he said multiple would like this historically. All of his questions and concerns were addressed and he is in agreement with this plan. HPI General Mode of arrival: ambulatory. Date/Time Provider Initiated Documentation: 03/12/19 16:38. Limitations to Documentation: no limitations. Information obtained by: patient and RN notes reviewed. History of Present Illness 68 year old M presents to the emergency department with the chief complaint of cat scratch, described as mild (no pain at this time), and is localized to the right and upper extremity (hand). Patient reports no radiation. Patient started experiencing this minute(s) Patient notes no other symptoms.. Patient did receive the following treatments prior to arrival, other (washed wound) Related Data Home Medications Medication Instructions Recorded Confirmed atorvastatin [Lipitor] 10 mg PO DAILY AM 03/15/14 03/12/19 cyclobenzaprine 10 mg PO PRN PRN 03/15/14 03/12/19 fluticasone propionate [Flonase] 1 spray INTRANASAL PRN PRN 03/15/14 03/12/19 sertraline [Zoloft] 50 mg PO DAILY 03/15/14 03/12/19 Spiriva with HandiHaler 1 puff INHALATION DAILY 11/16/14 03/12/19 coenzyme Q10 [CoQ-10] 100 mg PO DAILY 11/16/14 03/12/19 nicotine 21 mg TRANSDERMAL DAILY PRN PRN 12/07/16 03/12/19 patch pantoprazole [Protonix] 40 mg PO DAILY #30 tablet. 08/01/17 03/12/19 Symbicort 2 mcg INHALATION BID 07/03/18 03/12/19 albuterol sulfate 2 mcg INHALATION PRN PRN 07/03/18 03/12/19 magnesium 500 mg PO DAILY 07/03/18 03/12/19 acetaminophen [Tylenol] 650 mg PO Q4H PRN PRN #0 tab 07/05/18 03/12/19 aspirin 81 mg PO BID #60 tab 07/05/18 03/12/19 docusate sodium [Colace] 100 mg PO BID #60 cap 07/05/18 03/12/19 oxycodone 5 mg PO Q6H PRN PRN #10 tab 07/05/18 03/12/19 sennosides [Senokot] 1 tab PO BID #60 tab 07/05/18 03/12/19 amoxicillin-pot clavulanate 1 tab PO BID #14 tab 03/12/19 [Augmentin] Previous Rx's Medication Instructions Recorded nicotine 21 mg TRANSDERMAL DAILY PRN PRN 12/07/16 patch pantoprazole [Protonix] 40 mg PO DAILY #30 tablet. 08/01/17 acetaminophen [Tylenol] 650 mg PO Q4H PRN PRN #0 tab 07/05/18 aspirin 81 mg PO BID #60 tab 07/05/18 docusate sodium [Colace] 100 mg PO BID #60 cap 07/05/18 oxycodone 5 mg PO Q6H PRN PRN #10 tab 07/05/18 sennosides [Senokot] 1 tab PO BID #60 tab 07/05/18 amoxicillin-pot clavulanate 1 tab PO BID #14 tab 03/12/19 [Augmentin] Allergies Allergy/AdvReac Type Severity Reaction Status Date / Time No Known Allergies Allergy Unverified 03/12/19 16:23 General Stated Complaint: AnimalBite MARYAN: 4 Review of Systems Constitutional Constitutional: Reports as per HPI, Denies chills and Denies fever(s) Musculoskeletal Musculoskeletal: Reports as per HPI Integumentary/Breasts Skin/Breast: Reports as per HPI Neurologic Neurologic: Reports as per HPI, Denies sensory deficit and Denies paresthesias [facility] Medical History Anxiety (Chronic) COPD (chronic obstructive pulmonary disease) (Chronic) Depression (Chronic) GERD (gastroesophageal reflux disease) (Chronic) Hyperlipemia (Acute) PTSD (post-traumatic stress disorder) (Acute) Surgical History History of back surgery (Acute) Social History Smoking/Tobacco Use Status: Current every day Alcohol Intake: never Drug use: Never Substance use type: does not use Do you feel safe in your relationship?: Yes Exam Const General: cooperative, healthy appearing, comfortable, no acute distress and well developed Nutritional Appearance: average body habitus and well nourished Orientation: alert and awake Resp Effort & Inspection: normal respiratory effort, able to speak in complete sentences and no respiratory distress Cardio Rate: regular rate Rhythm: regular rhythm Skin Trauma: laceration (superficial irregular dorsal right hand) Neuro General: alert and awake Cognition: normal cognition Speech: speech normal Gait: normal gait Sensory Exam: no sensory deficits noted Extrem Right upper extremity: full ROM, normal capillary refill, no joint enlargement and hand Details: normal capillary refill, neuromotor exam normal, neurosensory exam normal, normal ROM of fingers, laceration and puncture wound (one stand alone puncture wound 4mm in length); abnormal to inspection (scratches as above), no tenderness, no ecchymosis and no crepitus; abnormal to inspection (superficial abrasion with skin tear dorsal hand) Psych Appearance: grossly normal and well kempt Mental Status: mental status grossly normal Speech and Movement: speech and movement normal Course Vital Signs Vital signs: Vital Signs Temperature 36.7 C 03/12/19 16:22 Pulse 70 03/12/19 16:22 Respiratory Rate 16 03/12/19 16:22 Blood Pressure 163/86 H 03/12/19 16:22 Pulse Oximetry 93 L 03/12/19 16:22 Temperature 36.7 C 03/12/19 16:22 Temperature Source Skin 03/12/19 16:22 Pulse 70 03/12/19 16:22 Respiratory Rate 16 03/12/19 16:22 Respiratory Effort Non-Labored 03/12/19 16:22 Blood Pressure 163/86 H 03/12/19 16:22 Blood Pressure Position Sitting 03/12/19 16:22 Pulse Oximetry 93 L 03/12/19 16:22 Oxygen Delivery Method Room Air 03/12/19 16:22 Oxygen Flow Rate 0 03/12/19 16:22 Pain Level 0 03/12/19 16:22
--- NOTE | 2019-03-12 17:36 | NUR.NOTE ---
Addendum entered by Umu Bridges 03/13/19 13:15: Spoke with Santana Taveras, today. He is aware of the animal bite report and will be following up with the patient. Umu Bridges. Original Note: Nursing Note: Animal Bite report form faxed to [facility] dispatch for follow up by Santana Taveras who is the health officer. Umu Bridges. Fax [phone].
[2019-03-12] MEDS: Amoxicillin 875/Clav. 125 TAB PO (17:38)
== END 2019-03-12 17:39 | disposition home or self-care (01) ==
PROVIDERS: Emergency Provider Physician Assistant
DX: S61.431A Puncture wound without foreign body of right hand, initial encounter (principal); W55.03XA Scratched by cat, initial encounter; J44.9 Chronic obstructive pulmonary disease, unspecified; F17.210 Nicotine dependence, cigarettes, uncomplicated
CPT/HCPCS: 90471; 99283

== ENCOUNTER 2021-01-13 03:36 | Emergency (ER) | payer OTHER, SELFPAY ==
[2021-01-13] VITALS (28 sets, daily range): BP systolic 119–167; BP diastolic 58–112; PULSE 65–96; RESP 4–26; TEMP 36.5; O2SAT 86–98
--- NOTE | 2021-01-13 03:30 | DI.RAD_ITS ---
Exam(s) XR PORTABLE CHEST AP EXAM: XR PORTABLE CHEST AP CLINICAL HISTORY: chest pain. TECHNIQUE: 2D digital imaging was performed. COMPARISON: CR XR CHEST 1V IN DI DEPT from 07/01/2018 FINDINGS: LUNGS: Clear. No pleural abnormality seen. HEART: Normal. MEDIASTINUM: Normal. OTHER FINDINGS: None. IMPRESSION: No acute pulmonary findings. DATA REPOSITORY: RADIATION DOSE DELIVERED: Total DLP
--- NOTE | 2021-01-13 03:30 | RT.EKG_ITS ---
APPROVED REPORT Exam: Resting ECG Reason for Exam: chest pain Patient Location: E HR:78 bpm ECG Measurements Heart Rate 78 AXIS IA 190 P 75 QRSd 117 QRS -85 QT 382 T 61 QTc 435 Conclusion Sinus rhythm...normal P axis, V-rate 60- 99 Multiform ventricular premature complexes...short R-R, variable morphology Left anterior fascicular block...axis(240,-40), init forces inf Physician: Rate 78, sinus rhythm, multiform ventricular premature complexes, no significant ST elevat ion or depression. No STEMI.
--- NOTE | 2021-01-13 03:41 | ED.GENADUL_ITS ---
Discharge Plan Disposition Patient Disposition: HOME Condition: Good Discharge Details Clinical Impression: COPD (chronic obstructive pulmonary disease), Chest pain Primary Care Provider: [facility] ED Provider: James Lee Home Meds and New Rx's Prescriptions: New prednisone 50 MG tablet 50 mg PO DAILY Qty: 5 RF: 0 Continued atorvastatin [Lipitor] 20 MG tablet 10 mg PO DAILY AM RF: 0 sertraline [Zoloft] 25 MG tablet 50 mg PO DAILY RF: 0 fluticasone propionate [Flonase] 16 GM spray,suspension 1 spray Intranasal PRN PRNRF: 0 coenzyme Q10 [CoQ-10] 100 MG capsule 100 mg PO DAILY RF: 0 Spiriva with HandiHaler 1 PUFF capsule, w/inhalation device 1 puff Inhalation DAILY RF: 0 pantoprazole [Protonix] 40 MG tablet,delayed release (DR/EC) 40 mg PO DAILY Qty: 30 RF: 0 magnesium 250 mg Tablet 500 mg PO DAILY RF: 0 albuterol sulfate 90 mcg/actuation Hfa Aerosol Inhaler 2 mcg Inhalation PRN PRNRF: 0 budesonide-formoterol [Symbicort] 160-4.5 mcg/actuation Hfa Aerosol Inhaler 2 mcg Inhalation BID RF: 0 acetaminophen [Tylenol] 325 mg Tablet 650 mg PO Q4H PRN PRNQty: 0 RF: 0 garlic 500 mg Tablet 500 mg PO DAILY RF: 0 omega-3 fatty acids-vitamin E 1,000 mg Capsule 1 cap PO DAILY RF: 0 aspirin 81 mg tablet,chewable 81 mg PO DAILY RF: 0 Discharge Instructions Instructions: Chest Pain (ED), COPD (Chronic Obstructive Pulmonary Disease) (ED) Additional Instructions: At this time your work-up shows no evidence of heart attack, pneumonia, rib fracture, large blood clot. I do feel that a component of your symptoms are secondary to your COPD being exacerbated. Please continue to use your home inhaler, albuterol 2 puffs every 4-6 hours for the next few days. A steroid prescription has been sent to your local pharmacy on file, please take this as directed. If you notice any worsening of your symptoms, or any new symptoms such as vomiting, diarrhea, fever, chills, shortness of breath, chest pain, numbness, weakness, or fainting , please return immediately to the emergency department for reevaluation. Please follow up with your primary care provider as soon as possible for reassessment and reevaluation. As always, it was a pleasure participating in your medical care today. [facility] - Medical Decision Making 70-year-old male with a past medical history of COPD, anxiety, GERD, high cholesterol, PTSD, who presents today for evaluation of chest pain. Patient states that he has had a mild cough for the last few days, tonight while he was coughing after a notably pronounced episode of coughing he had sudden onset left-sided chest pain that went from the front straight to the back. He denies any tearing or ripping sensation. He denies any nausea or vomiting. Pain is made worse with breathing and cough. Improved by nothing. He did take aspirin prior to arrival and this did not change his symptoms. He denies any blood in his sputum. He denies any numbness or tingling. No other complaints at this time. Symptoms are made worse with movement and palpation of the left chest. Improved by nothing. Physical exam demonstrates wheezes in the lungs, mildly reduced breath sounds throughout. No evidence of trauma. EKG shows notable PVCs, no evidence of STEMI. Differential includes cardiac etiology, less likely pneumothorax especially in the setting of an ultrasound showing normal lung slide which was present on exam. Pneumonia, intercostal spasm. Pulses equal throughout, no evidence of neurovascular compromise. Dissection is on the differential but less likely. We'll monitor the patient closely, evaluate for life-threatening etiologies and reassess. 5:45 AM Patient's imaging studies including CTA study demonstrates no acute process, no significant pneumonia, rib fracture, pulmonary embolism or dissection. Laboratory work-up shows no white count, bandemia. Electrolytes normal, renal function normal, troponin normal, proBNP is normal suggesting no evidence of right heart strain at this time. Covid test is negative. Patient feels much better, symptoms nearly completely resolved. I did speak with his and discussed the case with her. At this time will perform repeat troponin, and if this is normal I feel the patient is safe for discharge. Symptoms appear more consistent with mild acute COPD exacerbation. Inconsistent with ACS at this time. 7 AM Repeat troponin and EKG are unchanged and stable. No evidence of significant abnormality. Symptoms at this time are clinically consistent with COPD exacerbation, and subsequently he likely developed an intercostal strain from the cough. Recommended steroids continue to albuterol. Lidoderm patch was notably beneficial to the patient for the pain. Discussed red flags which to return. I have extensively reviewed the treatment plan and discharge instructions with the patient. I have addressed all patient concerns at this time. The patient was made aware of what symptoms to monitor for that would warrant a return to the emergency department. Discussed the plan with the patient, they demonstrate verbal understanding and agreement with our assessment and plan at this time. The documentation in this chart was dictated using [employer] dictation software. Please excuse any dictation errors. EKG 3: 40 Rate 78, sinus rhythm, multiform ventricular premature complexes, no significant ST elevation or depression. No STEMI. FINDINGS: Lungs: Unremarkable. No consolidation. Pleural spaces: Unremarkable. No pleural effusion. No pneumothorax. Heart/Mediastinum: Unremarkable. No cardiomegaly. Bones/joints: Unremarkable. IMPRESSION: No acute findings. Thank you for allowing us to participate in the care of your patient. Dictated and Authenticated by: Alvarez Martinez MD 01/13/2021 4:47 AM Eastern Time ([place]) FINDINGS: Pulmonary arteries: Normal. No pulmonary emboli. Aorta: Unremarkable. No aortic aneurysm. No aortic dissection. Lungs: Centrilobular pulmonary emphysema. No acute pulmonary infiltrate. Minimal left lower lobe parenchymal opacity felt to likely represent post infectious/inflammatory scarring. Pleural spaces: Unremarkable. No pneumothorax. No pleural effusion. Heart: Unremarkable. No cardiomegaly. No pericardial effusion. Lymph nodes: Unremarkable. No enlarged lymph nodes. Bones/joints: Unremarkable. No acute fracture. Soft tissues: Unremarkable. IMPRESSION: No acute finding. Thank you for allowing us to participate in the care of your patient. Dictated and Authenticated by: Alvarez Martinez MD 01/13/2021 5:23 AM Eastern Time ([place] & [place]) HPI General Date/Time Provider Initiated Documentation: 01/13/21 03:40 . HPI Narrative: 70-year-old male with a past medical history of COPD, anxiety, GERD, high cholesterol, PTSD, who presents today for evaluation of chest pain. Patient states that he has had a mild cough for the last few days, tonight while he was coughing after a notably pronounced episode of coughing he had sudden onset left-sided chest pain that went from the front straight to the back. He denies any tearing or ripping sensation. He denies any nausea or vomiting. Pain is made worse with breathing and cough. Improved by nothing. He did take aspirin prior to arrival and this did not change his symptoms. He denies any blood in his sputum. He denies any numbness or tingling. No other complaints at this time. Symptoms are made worse with movement and palpation of the left chest. Improved by nothing. Related Data Home Medications Medication Instructions Recorded Confirmed atorvastatin [Lipitor] 10 mg PO DAILY AM 03/15/14 01/13/21 fluticasone propionate [Flonase] 1 spray INTRANASAL PRN PRN 03/15/14 01/13/21 sertraline [Zoloft] 50 mg PO DAILY 03/15/14 01/13/21 Spiriva with HandiHaler 1 puff INHALATION DAILY 11/16/14 01/13/21 coenzyme Q10 [CoQ-10] 100 mg PO DAILY 11/16/14 01/13/21 pantoprazole [Protonix] 40 mg PO DAILY #30 tablet. 08/01/17 01/13/21 albuterol sulfate 2 mcg INHALATION PRN PRN 07/03/18 01/13/21 budesonide-formoterol [Symbicort] 2 mcg INHALATION BID 07/03/18 01/13/21 magnesium 500 mg PO DAILY 07/03/18 01/13/21 acetaminophen [Tylenol] 650 mg PO Q4H PRN PRN #0 tab 07/05/18 03/12/19 aspirin 81 mg PO DAILY 01/13/21 garlic 500 mg PO DAILY 01/13/21 01/13/21 omega-3 fatty acids-vitamin E 1 cap PO DAILY 01/13/21 01/13/21 prednisone 50 mg PO DAILY #5 tab 01/13/21 Previous Rx's Medication Instructions Recorded pantoprazole [Protonix] 40 mg PO DAILY #30 tablet. 08/01/17 acetaminophen [Tylenol] 650 mg PO Q4H PRN PRN #0 tab 07/05/18 prednisone 50 mg PO DAILY #5 tab 01/13/21 Allergies Allergy/AdvReac Type Severity Reaction Status Date / Time No Known Allergies Allergy Unverified 01/13/21 03:47 General MARYAN: 4 Review of Systems All systems reviewed & are unremarkable except as noted in HPI and below [facility] Medical History (Updated 01/13/21 @ 05:48 by James Lee DO) Anxiety COPD (chronic obstructive pulmonary disease) Depression GERD (gastroesophageal reflux disease) Hyperlipemia PTSD (post-traumatic stress disorder) Surgical History History of back surgery Social History Smoking/Tobacco Use Status: Current every day Smoking risk assessment performed?: Yes Alcohol Intake: never Drug use: Never Substance use type: does not use Do you feel safe at home: Yes Do you feel safe in your relationship?: Yes Exam Narrative Exam Narrative: 1.Const: Well-nourished, Well-developed, appearing stated age 2.Eyes: PERRL, no conjunctival injection, and symmetrical lids. 3.ENT: Atraumatic external nose and ears. Moist MM. Neck: Symmetric, trachea midline, No thyromegaly. 4.CVS: +S1/S2, No murmurs or gallops. Peripheral pulses 2+ and equal in all extremities. Brisk capillary refill in all extremities. 5.RESP: Unlabored respiratory effort. Wheezes throughout, no rhonchi. No rales. Slightly diminished breath sounds throughout, but no asymmetry bedside ult rasound shows good lung sliding bilaterally. No reproducible chest.. 6.GI: Soft, Nontender/Nondistended, No hepatosplenomegaly. No guarding or rebound. 7.MSK: Normocephalic/Atraumatic, Extremities w/o deformity or ttp No cyanosis or clubbing, Normal movement of all extremities 8.Skin: Warm, Dry. No rashes or lesions. 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 Sensation grossly intact, no focal n eurologic deficits. 10.Psych: (AAO) x3. Appropriate mood and affect
[2021-01-13 03:55] LABS: Abs Immature Grans 0.04 10^3/uL (0.0-0.06); Absolute Basophil Count 0.04 10^3/uL (0.0-0.2); Absolute Eosinophil Count 0.06 10^3/uL (0.0-0.7); Absolute Lymphocyte Count 1.19 10^3/uL (1.2-3.4); Absolute Monocyte Count 0.98 10^3/uL (0.1-0.8); Absolute Neutrophil Count 8.44 10^3/uL (1.2-6.7); Basophils % 0.4; Eosinophils % 0.6; HGB 13.4 g/dL (13.5-17.5); Immature Grans % 0.4; Lymphocytes % 11.1; MCH 31.2 pg (27.0-33.0); MCHC 32.7 % (32.0-36.0); MCV 95.3 fL (80-95); MPV 8.7 fL (8.0-11.0); Monocytes % 9.1; Neutrophils % 78.4; Nucleated RBC 0 %; Platelet Count 267 10^3/uL (130-400); RDW 12.3 % (11.8-14.1); RDW-SD 43.1 fL; WBC 10.75 10^3/uL (4.4-10.8)
[2021-01-13] MEDS: Albuterol/Ipratropium 3 ML UPD VIAL 9 ML UPD (03:56)
[2021-01-13] MEDS: methylPREDNISolone SUCC 125 MG VIAL IVP (03:56)
[2021-01-13] MEDS: MORPHine 4 MG/ML SYR IVP (03:56)
--- NOTE | 2021-01-13 04:00 | DI.CT_ITS ---
Exam(s) CT THORAX CTA EXAM: CT THORAX CTA CLINICAL HISTORY: ripping chest pain. TECHNIQUE: Imaging Protocol: Axial CT angiography was performed with multi-slice acquisition and mu lti-planar and/or 3D reconstructions. CONTRAST MATERIAL: Intravenous: Omnipaque 350 Contrast volume:structured data in ml COMPARISON: CR XR CHEST 1V IN DI DEPT from 07/01/2018 CR,XR XR PORTABLE CHEST AP from 01/13/2021 CR,XR XR PORTABLE CHEST AP from 01/13/2021 FINDINGS: CT angiography of the chest was performed with intravenous infusion of 100 cc of Omnipaque 350. There is severe central lobular pulmonary emphysema. There are areas of linear scarring in the lung bases. Additionally there is a peripheral area of pulmonary opacity which has a somewhat consolidati ve or masslike appearance seen peripherally in the left lung base. Possibility of pneumonia or neopl astic disease not excluded.. No pleural effusion. Tracheobronchial tree appears intact. No evidence of pulmonary embolic disease. Thoracic aorta is mildly ectatic at 40 millimeters, no thor acic aortic aneurysm or dissection, major branch vessels appear intact. No mediastinal or hilar adenopathy. Images obtained through the upper abdomen show unremarkable appearance of the visualized portions of the liver, spleen, pancreas, adrenals, and kidneys, with an incidental right renal cyst noted.. IMPRESSION: Left peripheral basilar radiodensities, consolidation or mass may be present. Please correlate regar ding possibility of pneumonitis. Follow-up chest CT recommended in 3-4 weeks, these findings were no t evident on today's chest radiograph. No evidence of pulmonary embolic disease. RADIATION DOSE DELIVERED: 482.38mGy.cm Total DLP 482.38mGy.cm Total DLP 11.46mGy CTDIvol DATA REPOSITORY: All CT scans at this facility are submitted to the National Radiology Data Registry (NRDR) Dose Index Registry (DIR) with the [employer] (ACR). RADIATION OPTIMIZATION: All CT scans at this facility use at least one of these dose optimization te chniques: automated exposure control; mA and/or kV adjustment per patient size (includes targeted exa ms where dose is matched to clinical indication); or iterative reconstruction.
[2021-01-13 04:16] LABS: ALT 23 U/L (16-63); AST 15 U/L (15-37); Albumin 3.6 g/dL (3.4-5.0); Alkaline Phosphatase 80 U/L (46-116); Anion Gap 5.7 mmol/L (3-11); BUN 9 mg/dL (7-18); Bilirubin, Total 0.6 mg/dL (0.2-1.0); CO2 30.3 mmol/L (21.0-32.0); CREATININE 0.8 mg/dL (0.70-1.30); Chloride 100 mmol/L (98-107); Glucose 104 mg/dL (74-106); Lipase 74 U/L (73-393); NT-proBNP 186 pg/mL (<300); Potassium 4.3 mmol/L (3.5-5.1); Sodium 136 mmol/L (136-145); Total Protein 7.3 g/dL (6.4-8.2); Troponin I < 0.05 ng/mL (<0.06)
--- NOTE | 2021-01-13 04:47 | DI.VRAD_ITS ---
PROCEDURE INFORMATION: Exam: XR Chest Exam date and time: 01/13/2021 3:39 AM Age: 70 years old Clinical indication: Radiating; Patient HX: Chest pain TECHNIQUE: Imaging protocol: XR of the chest. Views: 1 view. COMPARISON: SC XR CHEST 1V IN DI DEPT 07/01/2018 10:39 AM FINDINGS: Lungs: Unremarkable. No consolidation. Pleural spaces: Unremarkable. No pleural effusion. No pneumothorax. Heart/Mediastinum: Unremarkable. No cardiomegaly. Bones/joints: Unremarkable. IMPRESSION: No acute findings. Dictated and Authenticated by: Alvarez Martinez MD. Ordering:ADRIAN Ramirez MD
[2021-01-13 04:50] LABS: COVID-19 PCR Negative (Negative)
[2021-01-13] MEDS: Omnipaque 350 MG/ML 100 ML BTL IJ (05:15)
[2021-01-13] MEDS: Normal Saline - Diluent 50 ML VIAL IV (05:16)
[2021-01-13] MEDS: Normal Saline Flush 10 ML SYR IVP (05:17)
--- NOTE | 2021-01-13 05:24 | DI.VRAD_ITS ---
PROCEDURE INFORMATION: Exam: CTA Chest With Contrast Exam date and time: 01/13/2021 4:12 AM Age: 70 years old Clinical indication: Other: Ripping chest pain TECHNIQUE: Imaging protocol: Computed tomographic angiography of the chest with contrast. 3D rendering (Not supervised by radiologist): MIP and/or 3D reconstructed images were created by the technologist. Radiation optimization: All CT scans at this facility use at least one of these dose optimization techniques: automated exposure control; mA and/or kV adjustment per patient size (includes targeted exams where dose is matched to clinical indication); or iterative reconstruction. Contrast material: OMNIPAQUE 350; Contrast volume: 100 ml; Contrast route: INTRAVENOUS (IV); COMPARISON: CR XR PORTABLE CHEST AP 01/13/2021 3:41 AM FINDINGS: Pulmonary arteries: Normal. No pulmonary emboli. Aorta: Unremarkable. No aortic aneurysm. No aortic dissection. Lungs: Centrilobular pulmonary emphysema. No acute pulmonary infiltrate. Minimal left lower lobe parenchymal opacity felt to likely represent post infectious/inflammatory scarring. Pleural spaces: Unremarkable. No pneumothorax. No pleural effusion. Heart: Unremarkable. No cardiomegaly. No pericardial effusion. Lymph nodes: Unremarkable. No enlarged lymph nodes. Bones/joints: Unremarkable. No acute fracture. Soft tissues: Unremarkable. IMPRESSION: No acute finding. Dictated and Authenticated by: Alvarez Martinez MD. Ordering:ADRIAN Ramirez MD
[2021-01-13] MEDS: Lidocaine 5% Patch 1 PATCH TP (06:22)
--- NOTE | 2021-01-13 06:30 | RT.EKG_ITS ---
APPROVED REPORT Exam: Resting ECG Reason for Exam: chest pain Patient Location: E HR:73 bpm ECG Measurements Heart Rate 73 AXIS MN 193 P 63 QRSd 117 QRS -87 QT 415 T 32 QTc 459 Conclusion Sinus rhythm...normal P axis, V-rate 60- 99 Multiform ventricular premature complexes...short R-R, variable morphology Left anterior fascicular block...axis(240,-40), init forces inf Physician: no stemi, unchanged
[2021-01-13 06:57] LABS: Troponin I < 0.05 ng/mL (<0.06)
--- NOTE | 2021-01-13 08:33 | ED.FU.B_ITS ---
Follow Up Plan: Patient's ct showed a consolidation vs mass per Dr. Barron. I called and spoke with the patient. He is feeling significantly better and has no symptoms now. Discussed results with him and he feels fine and doesn't want to return to the ED. I did send a prescription to [facility] for levofloxacin 750mg daily for 7 days and he was advised he needs to see his pcp and have a folllow up cat scan in 4 weeks or so which he understood. Also advised to return to the ED if he worsens in any way
--- NOTE | 2021-01-13 08:38 | NUR.NOTE ---
Addendum entered by Umu Bridges 01/13/21 09:46: At the patient's request the prescription for prednisone and Levofloxacin was faxed to the [facility]. Umu Bridges Addendum entered by Umu Bridges 01/13/21 08:47: Referral faxed to [place], [place] for follow up of ?lung mass from CT of this visit, in 3 to 4 weeks. Also faxed to [place], [place] was the entire ED visit information for the follow up. Umu Bridges F [phone] Original Note: Nursing Note: Per Dr. Gatica, [facility], Levofloxacin, 750mg 1 a day for 7 days. Umu Bridges
== END 2021-01-13 07:13 | disposition home or self-care (01) ==
PROVIDERS: Emergency Provider Student in an Organized Health Care Education/Training Program
DX: R07.82 Intercostal pain (principal); J44.1 Chronic obstructive pulmonary disease with (acute) exacerbation; F17.210 Nicotine dependence, cigarettes, uncomplicated; Z20.822 Contact with and (suspected) exposure to COVID-19; Z03.818 Encounter for observation for suspected exposure to other biological agents ruled out
CPT/HCPCS: 36415; 71275; 80053; 83690; 87635; 93005; 94640; 96374; 96375; 99285; 71045; 83880; 84484; 85025; 93010; J2270; J2930; J3490; J7620

== ENCOUNTER 2021-02-01 22:50 | Emergency (ER) | payer OTHER, SELFPAY ==
--- NOTE | 2021-02-01 22:45 | DI.RAD_ITS ---
Exam(s) XR PORTABLE CHEST AP EXAM: XR PORTABLE CHEST AP CLINICAL HISTORY: cough, r/o pneumonia TECHNIQUE: 2D digital imaging was performed. COMPARISON: CT CT THORAX CTA from 01/13/2021 CR,XR XR PORTABLE CHEST AP from 01/13/2021 CR,XR XR PORTABLE CHEST AP from 01/13/2021 FINDINGS: LUNGS: Stable chronic interstitial changes. No pleural abnormality seen. HEART: Normal. MEDIASTINUM: Normal. BONES: Unremarkable for age.. IMPRESSION: No acute pulmonary findings. DATA REPOSITORY: RADIATION DOSE DELIVERED:
--- NOTE | 2021-02-01 22:50 | ED.GENADUL_ITS ---
Discharge Plan Disposition Patient Disposition: HOME Condition: Good Discharge Details Clinical Impression: COPD (chronic obstructive pulmonary disease), Post-nasal drip Primary Care Provider: [facility] ED Provider: James Lee Home Meds and New Rx's Prescriptions: New loratadine 10 mg capsule 10 mg PO DAILY Qty: 10 RF: 0 benzonatate [Tessalon Perles] 100 mg capsule 100 mg PO TID Qty: 30 RF: 0 prednisone 50 MG tablet 50 mg PO DAILY Qty: 5 RF: 0 Continued atorvastatin [Lipitor] 20 MG tablet 10 mg PO DAILY AM RF: 0 sertraline [Zoloft] 25 MG tablet 50 mg PO DAILY RF: 0 coenzyme Q10 [CoQ-10] 100 MG capsule 100 mg PO DAILY RF: 0 Spiriva with HandiHaler 1 PUFF capsule, w/inhalation device 1 puff Inhalation DAILY RF: 0 pantoprazole [Protonix] 40 MG tablet,delayed release (DR/EC) 40 mg PO DAILY Qty: 30 RF: 0 magnesium 250 mg Tablet 500 mg PO DAILY RF: 0 albuterol sulfate 90 mcg/actuation Hfa Aerosol Inhaler 2 mcg Inhalation PRN PRNRF: 0 budesonide-formoterol [Symbicort] 160-4.5 mcg/actuation Hfa Aerosol Inhaler 2 mcg Inhalation BID RF: 0 acetaminophen [Tylenol] 325 mg Tablet 650 mg PO Q4H PRN PRNQty: 0 RF: 0 garlic 500 mg Tablet 500 mg PO DAILY RF: 0 omega-3 fatty acids-vitamin E 1,000 mg Capsule 1 cap PO DAILY RF: 0 aspirin 81 mg tablet,chewable 81 mg PO DAILY RF: 0 Discharge Instructions Instructions: COPD (Chronic Obstructive Pulmonary Disease) (ED), Postnasal Drip (DC) Additional Instructions: At this time your chest x-ray shows no evidence of pneumonia. I suspect your symptoms are secondary to a mild COPD exacerbation as well as your postnasal drip that you are describing. Your Covid test was negative. Please take the Tessalon Perles as directed to help with cough. Please take the loratadine to help with your postnasal drip, and please take the prednisone to help with your COPD exacerbation. All 3 of these medications have been sent to your [facility] pharmacy on file. Please continue to use your breathing treatments at home, Please use your albuterol inhaler every 4-6 hours to help while you are taking the prednisone. Please follow-up closely with your doctor [facility] for reassessment and potential repeat imaging of your lungs after the small nodules were noted on your CAT scan during your last visit. If you notice any worsening of your symptoms, or any new symptoms such as vomiting, diarrhea, fever, chills, shortness of breath, chest pain, numbness, weakness, or fainting , please return immediately to the emergency department for reevaluation. Please follow up with your primary care provider as soon as possible for reassessment and reevaluation. As always, it was a pleasure participating in your medical care today. [facility]errals: [facility] [Primary Care Provider] - Medical Decision Making 70-year-old male with a past medical history of COPD, anxiety, GERD, high cholesterol, PTSD, presents today for evaluation of cough. Patient states that since he received his first Covid vaccine 3 weeks ago he developed a continued cough. He denies any chest pain, but does have a small amount of irritation when he coughs. He states that when he coughs he gets congestion in his nose and feels a continued tickle in the back of his throat. He admits to mild postnasal drip. He denies any history of PE or blood clots. He denies any long surgeries, long trips, recent procedures. He denies any hemoptysis. He did start Mucinex, and this has made his cough slightly more productive with clear sputum. He denies fever or chills. Of note he did have CT imaging a month and a half ago which did show questionable mass versus consolidation at that time, the patient otherwise felt well and did not need or want treatment at that time. Patient has no other complaints at this time. No other modifying factors. He does note that he has had difficulty sleeping because of his continued cough, and does state that this is one of the reasons for coming tonight as he cannot get any sleep with the cough. Of note the patient does state that he was taking breathing treatments at home with his inhaler, and these did help his symptoms. Physical exam demonstrates mild wheeze in the left lower lung field, no intercostal retractions or difficulty breathing otherwise. Oxygenation is around 94% stable. Patient shows no evidence of shortness of breath clinically at this time. Posterior oropharynx is unremarkable. With mild wheeze I do suspect that he has a mild COPD exacerbation, pneumonia is on the differential with a continued cough though. Symptoms appearing consistent with PE. No tachycardia, no history of clots. Symptoms are clinically inconsistent with cardiac ACS. Will give DuoNeb's, prednisone, get a chest x-ray, test for Covid, monitor closely and reassess. 12:55 AM Chest x-ray results are negative per virtual radiology with no evidence of pneumothorax, pneumonia, large lesions, or consolidation. Patient feeling much better after breathing treatments. Oxygenation remains stable. Covid test is negative. Prednisone was given here. Patient did have mild persistent cough but no hypoxemia associated with this. Nebulized lidocaine was given the patient had notable improvement with this. Tessalon Perle was also given and he had improvement with this. Patient will be discharged home with Tessalon Perles, prednisone, recommendations for continued inhaler use at home. With no clinical evidence of pneumonia with no fever, chills, and negative chest x-ray I do feel that the patient is stable for discharge and did not show indication for admission at this time or antibiotics. Will recommend that the patient does follow-up closely with his PCP [facility] for reassessment and potential reimaging and reCAT scan for reassessment of the small nodules noted before. Patient does have an established visit coming up already with his primary care provider and I have encouraged him to continue with this. Discussed red flags which to return. I have extensively reviewed the treatment plan and discharge instructions with the patient. I have addressed all patient concerns at this time. The patient was made aware of what symptoms to monitor for that would warrant a return to the emergency department. Discussed the plan with the patient, they demonstrate verbal understanding and agreement with our assessment and plan at this time. The documentation in this chart was dictated using [employer] dictation software. Please excuse any dictation errors. FINDINGS: Lungs: Mild diffuse interstitial prominence is unchanged. No focal airspace consolidation. Pleural spaces: Unremarkable. No pleural effusion. No pneumothorax. Heart/Mediastinum: Unremarkable. No cardiomegaly. Bones/joints: Unremarkable. IMPRESSION: No acute cardiopulmonary abnormality. Thank you for allowing us to participate in the care of your patient. Dictated and Authenticated by: Felipe Garcia MD 02/01/2021 11:20 PM Eastern Time ([place] & [place]) HPI General Date/Time Provider Initiated Documentation: 02/01/21 22:56 . HPI Narrative: 70-year-old male with a past medical history of COPD, anxiety, GERD, high cholesterol, PTSD, presents today for evaluation of cough. Patient states that since he received his first Covid vaccine 3 weeks ago he developed a continued cough. He denies any chest pain, but does have a small amount of irritation when he coughs. He states that when he coughs he gets congestion in his nose and feels a continued tickle in the back of his throat. He admits to mild postnasal drip. He denies any history of PE or blood clots. He denies any long surgeries, long trips, recent procedures. He denies any hemoptysis. He did start Mucinex, and this has made his cough slightly more productive with clear sputum. He denies fever or chills. Of note he did have CT imaging a month and a half ago which did show questionable mass versus consolidation at that time, the patient otherwise felt well and did not need or want treatment at that time. Patient has no other complaints at this time. No other modifying factors. He does note that he has had difficulty sleeping because of his continued cough, and does state that this is one of the reasons for coming tonight as he cannot get any sleep with the cough. Related Data Home Medications Medication Instructions Recorded Confirmed atorvastatin [Lipitor] 10 mg PO DAILY AM 03/15/14 02/01/21 sertraline [Zoloft] 50 mg PO DAILY 03/15/14 02/01/21 Spiriva with HandiHaler 1 puff INHALATION DAILY 11/16/14 02/01/21 coenzyme Q10 [CoQ-10] 100 mg PO DAILY 11/16/14 02/01/21 pantoprazole [Protonix] 40 mg PO DAILY #30 tablet. 08/01/17 02/01/21 albuterol sulfate 2 mcg INHALATION PRN PRN 07/03/18 02/01/21 budesonide-formoterol [Symbicort] 2 mcg INHALATION BID 07/03/18 02/01/21 magnesium 500 mg PO DAILY 07/03/18 02/01/21 acetaminophen [Tylenol] 650 mg PO Q4H PRN PRN #0 tab 07/05/18 02/01/21 aspirin 81 mg PO DAILY 01/13/21 02/01/21 garlic 500 mg PO DAILY 01/13/21 02/01/21 omega-3 fatty acids-vitamin E 1 cap PO DAILY 01/13/21 02/01/21 benzonatate [Tessalon Perles] 100 mg PO TID #30 cap 02/02/21 loratadine 10 mg PO DAILY #10 cap 02/02/21 prednisone 50 mg PO DAILY #5 tab 02/02/21 Previous Rx's Medication Instructions Recorded pantoprazole [Protonix] 40 mg PO DAILY #30 tablet. 08/01/17 acetaminophen [Tylenol] 650 mg PO Q4H PRN PRN #0 tab 07/05/18 benzonatate [Tessalon Perles] 100 mg PO TID #30 cap 02/02/21 loratadine 10 mg PO DAILY #10 cap 02/02/21 prednisone 50 mg PO DAILY #5 tab 02/02/21 Allergies Allergy/AdvReac Type Severity Reaction Status Date / Time No Known Allergies Allergy Unverified 02/01/21 23:10 General MARYAN: 2 Review of Systems All systems reviewed & are unremarkable except as noted in HPI and below PFSH Medical History (Updated 02/02/21 @ 00:57 by James Lee DO) Anxiety COPD (chronic obstructive pulmonary disease) Depression GERD (gastroesophageal reflux disease) Hyperlipemia PTSD (post-traumatic stress disorder) Surgical History History of back surgery Social History Smoking/Tobacco Use Status: Current every day Tobacco Type: cigarettes Smoking risk assessment performed?: Yes Alcohol Intake: never Drug use: Never Substance use type: does not use Do you feel safe at home: Yes Do you feel safe in your relationship?: Yes Exam Narrative Exam Narrative: 1.Const: Well-nourished, Well-developed, appearing stated age 2.Eyes: PERRL, no conjunctival injection, and symmetrical lids. 3.ENT: Atraumatic external nose and ears. Moist MM. Neck: Symmetric, trachea midline, No thyromegaly. 4.CVS: +S1/S2, No murmurs or gallops. Peripheral pulses 2+ and equal in all extremities. Brisk capillary refill in all extremities. 5.RESP: Unlabored respiratory effort. Minimal wheeze in the left lower lung mike. No rhonchi. No rales. No intercostal retractions. 6.GI: Soft, Nontender/Nondistended, No hepatosplenomegaly. No guarding or rebound. 7.MSK: Normocephalic/Atraumatic, Extremities w/o deformity or ttp No cyanosis or clubbing, Normal movement of all extremities 8.Skin: Warm, Dry. No rashes or lesions. 9.Neuro: support associate II-XII grossly intact. Sensation grossly intact, no focal neurologic deficits. 10.Psych: (AAO) x3. Appropriate mood and affect
[2021-02-01 23:00] VITALS: BP 127/75; PULSE 67; RESP 20; TEMP 36.5; O2SAT 93
[2021-02-01] MEDS: predniSONE 20 MG TAB 60 MG PO (23:16)
[2021-02-01] MEDS: Loratidine 10 MG TAB PO (23:17)
[2021-02-01 23:18] VITALS: PULSE 63; RESP 1; RESP 20; RESP 8; O2SAT 93
[2021-02-01] MEDS: Albuterol/Ipratropium 3 ML UPD VIAL 9 ML UPD (23:18)
--- NOTE | 2021-02-01 23:21 | DI.VRAD_ITS ---
PROCEDURE INFORMATION: Exam: XR Chest Exam date and time: 02/01/2021 10:50 PM Age: 70 years old Clinical indication: Patient HX: Cough, R/O pneumonia TECHNIQUE: Imaging protocol: XR of the chest. Views: 1 view. COMPARISON: CR XR PORTABLE CHEST AP 01/13/2021 3:41 AM FINDINGS: Lungs: Mild diffuse interstitial prominence is unchanged. No focal airspace consolidation. Pleural spaces: Unremarkable. No pleural effusion. No pneumothorax. Heart/Mediastinum: Unremarkable. No cardiomegaly. Bones/joints: Unremarkable. IMPRESSION: No acute cardiopulmonary abnormality. Dictated and Authenticated by: Felipe Garcia MD. Ordering:ADRIAN Ramirez MD
[2021-02-01 23:22] VITALS: RESP 20
[2021-02-01 23:30] VITALS: BP 117/66; PULSE 67; RESP 20; O2SAT 99
[2021-02-01 23:48] VITALS: RESP 1; RESP 8
[2021-02-02] VITALS: BP 122/82; PULSE 127; RESP 20; O2SAT 91
[2021-02-02 00:21] LABS: COVID-19 PCR Negative (Negative)
[2021-02-02 00:30] VITALS: BP 124/61; PULSE 105; RESP 20; O2SAT 94
[2021-02-02] MEDS: Benzonatate 100 MG CAP PO (00:52)
[2021-02-02] MEDS: Sodium Chloride 0.9% for Inhalation 15 ML VIAL (00:54)
[2021-02-02 01:00] VITALS: BP 124/72; PULSE 103; RESP 20; O2SAT 94
[2021-02-02] MEDS: Benzonatate 100 MG CAP 300 MG PO (01:34)
[2021-02-02] MEDS: predniSONE 20 MG TAB 60 MG PO (01:35)
== END 2021-02-02 01:28 | disposition home or self-care (01) ==
PROVIDERS: Emergency Provider Student in an Organized Health Care Education/Training Program
DX: J44.9 Chronic obstructive pulmonary disease, unspecified (principal); R09.82 Postnasal drip; F17.210 Nicotine dependence, cigarettes, uncomplicated; Z20.822 Contact with and (suspected) exposure to COVID-19; Z03.818 Encounter for observation for suspected exposure to other biological agents ruled out
CPT/HCPCS: 87635; 94640; 99283; 71045; 99284; J7512; J7620

== ENCOUNTER 2021-09-05 06:14 | Emergency (ER) | payer OTHER, SELFPAY ==
[2021-09-05 06:19] VITALS: BP 126/87; PULSE 85; RESP 18; TEMP 36.7; O2SAT 95
[2021-09-05] MEDS: Erythromycin Ophth Oint 3.5 GM TUBE (06:27)
[2021-09-05] MEDS: Fluorescein STRIPS 100/BOX 1 MG (06:28)
[2021-09-05] MEDS: Tetracaine 0.5% 4 ML BTL (06:28)
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
== END 2021-09-05 06:47 | disposition home or self-care (01) ==
PROVIDERS: Emergency Provider Student in an Organized Health Care Education/Training Program; PCP Internal Medicine
DX: S05.01XA Injury of conjunctiva and corneal abrasion without foreign body, right eye, initial encounter (principal); X58.XXXA Exposure to other specified factors, initial encounter
CPT/HCPCS: 99283

== ENCOUNTER 2021-10-02 07:43 | Inpatient (IN) | payer OTHER, SELFPAY ==
[2021-10-02] VITALS (47 sets, daily range): BP systolic 107–151; BP diastolic 56–127; PULSE 52–149; RESP 4–31; TEMP 36–36.5; O2SAT 86–97
--- NOTE | 2021-10-02 07:30 | RT.EKG_ITS ---
APPROVED REPORT Exam: Resting ECG Reason for Exam: SOB Patient Location: E HR:93 bpm ECG Measurements Heart Rate 93 AXIS IA 178 P 77 QRSd 122 QRS -98 QT 351 T 62 QTc 439 Conclusion Sinus rhythm. RBBB and LAFB. Nonspecific ST changes inferior
--- NOTE | 2021-10-02 07:30 | DI.RAD_ITS ---
Exam(s) XR PORTABLE CHEST AP EXAM: XR PORTABLE CHEST AP CLINICAL HISTORY: COPD, SOB. TECHNIQUE: 2D digital imaging was performed. COMPARISON: CR,XR XR PORTABLE CHEST AP from 02/01/2021 FINDINGS: Single AP portable view. Heart size is upper normal. The mediastinum is not widened. No obvious new infiltrates nor pleural effusions. No pulmonary edema. No pneumothorax. IMPRESSION: No new significant pulmonary findings on this single AP portable view of the chest. DATA REPOSITORY: RADIATION DOSE DELIVERED: All CT scans at this facility use at least one of these dose optimization techniques: automated exposure control; mA and/or kV adjustment per patient size (includes targeted e xams where dose is matched to clinical indication); or iterative reconstruction.
--- NOTE | 2021-10-02 08:05 | ED.GENADUL_ITS ---
Discharge Plan Disposition Patient Disposition: [facility] INPATIENT Condition: Improving Discharge Details Chief Complaint: SOB Clinical Impression: COVID-19, Acute exacerbation of chronic obstructive pulmonary disease Primary Care Provider: Alvarez Alvarez ED Provider: Rajan Still Home Meds and New Rx's Prescriptions: No Action atorvastatin [Lipitor] 20 MG tablet 10 mg PO DAILY AM 0RF sertraline [Zoloft] 25 MG tablet 50 mg PO DAILY 0RF coenzyme Q10 [CoQ-10] 100 MG capsule 100 mg PO DAILY 0RF Spiriva with HandiHaler 1 PUFF capsule, w/inhalation device 1 puff Inhalation DAILY 0RF pantoprazole [Protonix] 40 MG tablet,delayed release (DR/EC) 40 mg PO DAILY Qty: 30 0RF Rx Instructions: 1 po QD magnesium 250 mg Tablet 500 mg PO DAILY 0RF albuterol sulfate 90 mcg/actuation Hfa Aerosol Inhaler 2 mcg Inhalation PRN PRN0RF budesonide-formoterol [Symbicort] 160-4.5 mcg/actuation Hfa Aerosol Inhaler 2 mcg Inhalation BID 0RF acetaminophen [Tylenol] 325 mg Tablet 650 mg PO Q4H PRN PRNQty: 0 0RF ascorbic acid (vitamin C) [Vitamin C] 1,000 mg Tablet 1,000 mg PO DAILY 0RF Black Elderberry 1 tab PO DAILY 0RF garlic 500 mg Tablet 500 mg PO DAILY 0RF omega-3 fatty acids-vitamin E 1,000 mg Capsule 1 cap PO DAILY 0RF aspirin 81 mg tablet,chewable 81 mg PO DAILY 0RF loratadine 10 mg capsule 10 mg PO DAILY Qty: 10 0RF benzonatate [Tessalon Perles] 100 mg capsule 100 mg PO TID Qty: 30 0RF Medical Decision Making 71-year-old male with a history of COPD, continues to smoke. Reports 4 days of cough, congestion, shortness of breath and wheeze. The shortness of breath is worsened with exertion. He had a fever last night. Immunized against COVID. Evaluated by EMS with room air hypoxia to the mid 80s, placed on oxygen, given DuoNeb and transferred to ER where he arrives with approximately 86% sat on room air. He is pleasant alert and in no acute distress. His lung sounds are diminished throughout with end expiratory wheezes present. Differential diagnosis includes viral syndrome, pneumonia, bronchitis with bronchospasm. Patient IV access established, given parenteral steroids, acetaminophen, main tenance fluids initiated. He is referred for viral testing, portable chest x- ray, screening EKG and basic laboratories. Patient's chest x-ray is reassuring without evidence of focal infiltrate. See the formal report. Laboratories note unremarkable CBC, reassuring chemistries, magnesium that low at 1.6 and supplemented in the emergency department. Troponin was negative. SARS-CoV-2 PCR positive. Patient with ongoing mild hypoxemia and supplemental oxygen requirement. Dexamethasone and remdesivir started in the emergency department and patient to be admitted to the hospitalist service HPI General Mode of arrival: EMS . Date/Time Provider Initiated Documentation: 10/02/21 08:42 . Limitations to Documentation: no limitations . Information obtained by: patient and EMS . History of Present Illness 71 year old M presents to the emergency department with the chief complaint of 4 days of cough and shortness of breath, fever last night, described as moderate, and is localized to the chest. Patient reports no radiation. Patient started experiencing this day(s) and it has been intermittent. improves with No relieving factors improve symptom(s), Movement worsens symptoms . Patient notes cough, fever/chills and shortness of breath; denies chest pain and syncope. Patient did receive the following treatments prior to arrival, other (Beta agonist) Related Data Home Medications Medication Instructions Recorded Confirmed atorvastatin 20 mg tablet (Lipitor) 10 mg PO DAILY AM 03/15/14 10/02/21 sertraline 25 mg tablet (Zoloft) 50 mg PO DAILY 03/15/14 10/02/21 coenzyme Q10 100 mg capsule 100 mg PO DAILY 11/16/14 10/02/21 (CoQ-10) tiotropium bromide 18 mcg capsule 1 puff INHALATION DAILY 11/16/14 10/02/21 with inhalation device (Spiriva with HandiHaler) pantoprazole 40 mg tablet,delayed 40 mg PO DAILY #30 tablet. 08/01/17 10/02/21 release (Protonix) albuterol sulfate 90 mcg/actuation 2 mcg INHALATION PRN PRN 07/03/18 10/02/21 aerosol inhaler budesonide-formoterol HFA 160 2 mcg INHALATION BID 07/03/18 10/02/21 mcg-4.5 mcg/actuation aerosol inhaler (Symbicort) magnesium 250 mg tablet 500 mg PO DAILY 07/03/18 10/02/21 acetaminophen 325 mg tablet 650 mg PO Q4H PRN PRN #0 tab 07/05/18 10/02/21 (Tylenol) aspirin 81 mg chewable tablet 81 mg PO DAILY 01/13/21 10/02/21 garlic 500 mg tablet 500 mg PO DAILY 01/13/21 10/02/21 omega-3 fatty acids-vitamin E 1 cap PO DAILY 01/13/21 10/02/21 1,000 mg capsule benzonatate 100 mg capsule 100 mg PO TID #30 cap 02/02/21 10/02/21 (Kolton Yanes) loratadine 10 mg capsule 10 mg PO DAILY #10 cap 02/02/21 10/02/21 Black Elderberry 1 tab PO DAILY 10/02/21 ascorbic acid (vitamin C) 1,000 mg 1,000 mg PO DAILY 10/02/21 10/02/21 tablet (Vitamin C) Previous Rx's Medication Instructions Recorded pantoprazole 40 mg tablet,delayed 40 mg PO DAILY #30 tablet. 08/01/17 release (Protonix) acetaminophen 325 mg tablet 650 mg PO Q4H PRN PRN #0 tab 07/05/18 (Tylenol) benzonatate 100 mg capsule 100 mg PO TID #30 cap 02/02/21 (Jamisonon Joaquín) loratadine 10 mg capsule 10 mg PO DAILY #10 cap 02/02/21 Allergies Allergy/AdvReac Type Severity Reaction Status Date / Time No Known Allergies Allergy Unverified 10/02/21 07:54 General Stated Complaint: SOB MARYAN: 2 Review of Systems Narrative: Immunized against COVID-19, Pfizer x2. Worsening shortness of breath with ambulation particularly this morning. Persistent cough with production of white sputum. Denies to me chest pain. Notes fever last night, generalized body ache. 8 systems were reviewed and otherwise negative PFSH All Active Problems (Updated 10/02/21 @ 09:59 by Rajan Still MD) Chest pain (Acute) Post-nasal drip (Acute) Abrasion of cornea, right (Acute) COVID-19 (Acute) Acute exacerbation of chronic obstructive pulmonary disease (Acute) Intertrochanteric fracture of right hip (Acute) DOS: 07/01/18 Dr. Hooper Constipation (Acute) Discharge planning issues (Acute) GERD (gastroesophageal reflux disease) (Chronic) DVT prophylaxis (Acute) Hyperlipidemia (Acute) Tobacco abuse (Acute) COPD (chronic obstructive pulmonary disease) (Chronic) Medical History (Updated 10/02/21 @ 09:59 by Rajan Still MD) Anxiety Depression Hyperlipemia PTSD (post-traumatic stress disorder) Surgical History History of back surgery Social History Smoking/Tobacco Use Status: Current every day Tobacco Type: cigarettes Smoking risk assessment performed?: Yes Alcohol Intake: never Drug use: Never Substance use type: does not use Do you feel safe at home: Yes Do you feel safe in your relationship?: Yes Exam Narrative Exam Narrative: GEN: awake, alert, oriented 3. Pleasant, well groomed, interactive. HEAD: Normocephalic, atraumatic ENT: Mucous membranes moist, oropharynx unremarkable, External ear exam unremarkable EYES: PERRL, EOMI NECK: Full ROM, no GAVIN, no menigismus CHEST/RESP: Diminished throughout with end expiratory wheeze CARDIOVASCULAR: RRR, distant did not appreciate murmur. 2+ Rad pulse bilateral ABDOMEN: Soft, nontender, no mass. +Bowel sounds EXT: Full ROM, no edema, no rash Neuro: Grossly normal neurologic exam, conversant, interactive. Psych: Speech fluent, thoughts congruent, affect normal Course Vital Signs Vital signs: Vital Signs Temperature 36.5 C 10/02/21 07:44 Pulse 97 H 10/02/21 07:44 Respiratory Rate 26 H 10/02/21 07:44 Blood Pressure 133/80 10/02/21 07:44 Pulse Oximetry 86 L 10/02/21 07:44 Temperature 36.5 C 10/02/21 07:44 Temperature Source Temporal Artery Scan 10/02/21 07:44 Pulse 97 H 10/02/21 07:44 Respiratory Rate 26 H 10/02/21 07:44 Respiratory Effort 10/02/21 07:44 Blood Pressure 133/80 10/02/21 07:44 Blood Pressure Position Sitting 10/02/21 07:44 Pulse Oximetry 86 L 10/02/21 07:44 Oxygen Delivery Method Room Air 10/02/21 07:44 Oxygen Flow Rate 0 10/02/21 07:44 Pain Level 0 10/02/21 07:44
[2021-10-02 08:09] LABS: Abs Immature Grans 0.04 10^3/uL (0.0-0.06); Absolute Basophil Count 0.02 10^3/uL (0.0-0.2); Absolute Eosinophil Count 0.18 10^3/uL (0.0-0.7); Absolute Lymphocyte Count 0.67 10^3/uL (1.2-3.4); Absolute Monocyte Count 0.45 10^3/uL (0.1-0.8); Absolute Neutrophil Count 4.66 10^3/uL (1.2-6.7); Basophils % 0.3; HCT 44.6 % (40.0-50.0); HGB 14.6 g/dL (13.5-17.5); Immature Grans % 0.7; Lymphocytes % 11.1; MCH 31.4 pg (27.0-33.0); MCHC 32.7 % (32.0-36.0); MCV 96 fL (80-95); MPV 9.5 fL (8.0-11.0); Monocytes % 7.5; Neutrophils % 77.4; Platelet Count 153 10^3/uL (130-400); RBC 4.65 10^6/uL (4.36-5.78); RDW 12.6 % (11.8-14.1); RDW-SD 44.9 fL; WBC 6.02 10^3/uL (4.4-10.8)
[2021-10-02] MEDS: ACETAMINOPHEN 1,000 MG/100 ML BTL 400 MG IVPB (08:28)
[2021-10-02] MEDS: Normal Saline 1,000 ML 125 ML IV (08:29)
[2021-10-02] MEDS: Albuterol/Ipratropium 3 ML UPD VIAL UPD ×4 (08:29→21:08)
[2021-10-02] MEDS: methylPREDNISolone SUCC 125 MG VIAL IVP (08:29)
[2021-10-02 08:35] LABS: ALT 31 U/L (16-63); AST 28 U/L (15-37); Albumin 3.5 g/dL (3.4-5.0); Alkaline Phosphatase 77 U/L (46-116); Anion Gap 8.8 mmol/L (3-11); BUN 10 mg/dL (7-18); Bilirubin, Total 0.5 mg/dL (0.2-1.0); CO2 29.2 mmol/L (21.0-32.0); Calcium 8.3 mg/dL (8.5-10.1); Chloride 100 mmol/L (98-107); Glucose 99 mg/dL (74-106); Magnesium 1.6 mg/dL (1.8-2.4); NT-proBNP 276 pg/mL (<300); Sodium 138 mmol/L (136-145); Total Protein 7.2 g/dL (6.4-8.2); Troponin I < 50 ng/L (<or=60)
[2021-10-02] MEDS: MAGNESIUM SULFATE 2 GM/50 ML BAG IVPB (09:02)
[2021-10-02 09:12] LABS: Influenza A PCR Negative (Negative); Influenza B PCR Negative (Negative); RSV PCR Negative (Negative)
[2021-10-02 09:18] LABS: COVID-19 PCR Positive (Negative); Source Nasopharynx
[2021-10-02] MEDS: Dexamethasone 10 MG/ML VIAL IVP (09:57)
[2021-10-02] MEDS: REMDESIVIR 200 MG in Normal Saline 250 ML 250 MG IVPB (10:24)
[2021-10-02] MEDS: DOXYCYCLINE 100 MG in Normal Saline 100 ML IVPB ×2 (10:39→21:14)
[2021-10-02 11:54] LABS: C-Reactive Protein 8.28 mg/dL (0.0-0.3)
[2021-10-02 11:59] LABS: INR 1.1 (0.9-1.1); Prothrombin Time 11.1 sec (9.3-11.0)
[2021-10-02 12:00] LABS: Creatine Kinase 469 U/L (39-308); Troponin I < 50 ng/L (<or=60)
[2021-10-02 12:22] LABS: D-Dimer 1193 ng/mlFEU (<500); Procalcitonin 0.1 ng/mL
[2021-10-02] MEDS: Ascorbic Acid 500 MG TAB 1000 MG PO (12:24)
[2021-10-02] MEDS: Aspirin 81 MG CHEW PO (12:25)
[2021-10-02 12:26] LABS: Ferritin 182 ng/mL (26-388)
[2021-10-02] MEDS: cefTRIAXone 1 GM/50 ML BAG IVPB (12:26)
[2021-10-02] MEDS: Famotidine 20 MG TAB PO ×2 (12:27→21:07)
[2021-10-02] MEDS: Sertraline 50 MG TAB PO (12:28)
[2021-10-02] MEDS: Zinc Sulfate 220 MG TAB PO (12:28)
[2021-10-02] MEDS: Normal Saline Flush 10 ML SYR IVP (12:29)
[2021-10-02] MEDS: Enoxaparin 40 MG/0.4 ML SYR SC ×2 (12:29→17:05)
[2021-10-02 12:46] LABS: TSH (W/Ref FT4) 0.49 uIU/mL (0.36-3.74)
[2021-10-02] MEDS: Benzonatate 100 MG CAP PO ×2 (13:46→21:07)
--- NOTE | 2021-10-02 13:52 | W.PM.HP.N ---
Date of service: 10/02/21 Time of Service: 13:52 Assessment and Plan Assessment and plan (1) Acute exacerbation of chronic obstructive pulmonary disease: Status: Acute Assessment and plan: Treat COVID as below. Scheduled DuoNeb treatments along with his usual Spiriva and Symbicort. Rocephin and doxycycline empirically until we have a couple negative procalcitonin levels. I-S and Acapella for pulmonary toiletry. Early mobilization. Supplemental oxygen to maintain SPO2 greater than 90% (2) COVID-19: Status: Acute Assessment and plan: Remdesivir x5 days, baricitinib up to 14 days, Decadron x10 days or until discharged home. Vitamins C and D and zinc. Encourage cough and deep breathing and use of I-S acapella. Treat his COPD with bronchodilators. Supplemental oxygen per nasal cannula.Therapeutic dosing of Lovenox 1 mg/kg every 12 hours. Monitor daily inflammatory labs including ferritin LDH CK D-dimer CRP as well as CMP and CBC. (3) Tobacco abuse: Status: Acute Assessment and plan: Topical NicoDerm patch (4) DVT prophylaxis: Status: Acute Assessment and plan: Therapeutic Lovenox per NIH recommendations. (5) Discharge planning issues: Status: Acute Assessment and plan: Patient will be discharged home when medically stabilized from his COPD and his COVID-19. Patient is indicated that he has an advanced directive with the [facility] indicating that he is a DO NOT RESUSCITATE DO NOT INTUBATE. History of Present Illness History of Present Illness Chief Complaint: short of breath, cough, weak Narrative: 72 yr old male smoker, w/ COPD (not on oxygen), who is vaccinated against COVID-19, presents to the ED with 4 days of cough, congestion, shortness of breath and wheezing, dyspnea worse w/ exertion. this was preceded by symptoms of an URI w/ nasal congestion and drainage and stiffness in his upper back, neck, shoulders and arms. He had a fever last night. Workup in the ED included routine labs. PCR for SARS-COV2 which came back positive and CXR which did not show any infiltrates. He was mildly hypoxemic on arrival w/ SPO2 of 86% which corrected to 92% on 4 LPM NC. He was treated w/ iv fluids, given solumedrol then subsequently decadron upon learning that he has covid and was given remdesivir. He is admitted for COPD exacerbation and COVID-19 infection. Review of Systems Constitutional Constitutional: Reports body ache(s), Denies chills, Denies fever(s), Denies headache(s), Reports malaise and Reports weakness ENT Ears, Nose, Mouth, and Throat: Denies headache(s), Reports nasal congestion, Reports nasal discharge and Reports post nasal drip Cardiovascular Cardiovascular: Denies chest pain, Denies chest pain with activity, Denies syncope, Denies rapid heart rate, Denies leg edema, Reports dyspnea and Reports dyspnea on exertion Respiratory Respiratory: Denies change in phlegm color, Reports cough, Denies hemoptysis, Denies excessive phlegm production, Denies pain with cough, Reports dyspnea and Reports dyspnea on exertion Gastrointestinal Gastrointestinal: Reports system reviewed and no additional complaints, except as documented Genitourinary Genitourinary: Reports system reviewed and no additional complaints, except as documented Musculoskeletal Musculoskeletal: Reports muscle weakness and Reports stiffness Integumentary/Breasts Skin/Breast: Reports system reviewed and no additional complaints, except as documented Neurologic Neurologic: Denies confusion, Denies syncope, Denies headache(s) and Reports weakness Psychiatric Psychiatric: Denies confusion Endocrine Endocrine: Reports system reviewed and no additional complaints, except as documented Hematologic/Lymphatic Hematologic/Lymphatic: Reports system reviewed and no additional complaints, except as documented Allergic/Immunologic Allergic/Immunologic: Reports system reviewed and no additional complaints, except as documented PFSH All Active Problems (Updated 10/02/21 @ 19:24 by Nilo Kulkarni) COVID-19 (Acute) Acute exacerbation of chronic obstructive pulmonary disease (Acute) Intertrochanteric fracture of right hip (Acute) DOS: 07/01/18 Dr. Hooper Discharge planning issues (Acute) GERD (gastroesophageal reflux disease) (Chronic) DVT prophylaxis (Acute) Hyperlipidemia (Acute) Tobacco abuse (Acute) COPD (chronic obstructive pulmonary disease) (Chronic) Medical History (Updated 10/02/21 @ 19:24 by Nilo Kulkarni) Anxiety Depression Hyperlipemia PTSD (post-traumatic stress disorder) Surgical History (Updated 10/02/21 @ 19:01 by Nilo Kulkarni) H/O melanoma excision History of back surgery Lumbar discectomy Status post-operative repair of closed fracture of right hip Family History (Updated 10/02/21 @ 19:02 by Nilo Kulkarni) Mother , from an ID in her 70s Heart disease Social History (Updated 10/02/21 @ 19:03 by Nilo Kulkarni) Smoking/Tobacco Use Status: Current every day Tobacco Type: cigarettes Smoking packs per day: 0.5 Smoking cigarettes per day: 10.0 Tobacco: How many years used: 50 Smoking risk assessment performed?: Yes Alcohol Intake: never Drug use: Never Substance use type: does not use Household members: spouse and children Do you feel safe at home: Yes Do you feel safe in your relationship?: Yes Meds Allergies and Home Medications Allergies Allergy/AdvReac Type Severity Reaction Status Date / Time No Known Allergies Allergy Unverified 10/02/21 07:54 Home Medications Medication Instructions Recorded Confirmed Type atorvastatin 20 mg tablet (Lipitor) 10 mg PO DAILY AM 03/15/14 10/02/21 History sertraline 25 mg tablet (Zoloft) 50 mg PO DAILY 03/15/14 10/02/21 History coenzyme Q10 100 mg capsule 100 mg PO DAILY 11/16/14 10/02/21 History (CoQ-10) tiotropium bromide 18 mcg capsule 1 puff INHALATION DAILY 11/16/14 10/02/21 History with inhalation device (Spiriva with HandiHaler) pantoprazole 40 mg tablet,delayed 40 mg PO DAILY #30 tablet. 08/01/17 10/02/21 Rx release (Protonix) albuterol sulfate 90 mcg/actuation 2 mcg INHALATION PRN PRN 07/03/18 10/02/21 History aerosol inhaler budesonide-formoterol HFA 160 2 mcg INHALATION BID 07/03/18 10/02/21 History mcg-4.5 mcg/actuation aerosol inhaler (Symbicort) magnesium 250 mg tablet 500 mg PO DAILY 07/03/18 10/02/21 History acetaminophen 325 mg tablet 650 mg PO Q4H PRN PRN #0 tab 07/05/18 10/02/21 Rx (Tylenol) aspirin 81 mg chewable tablet 81 mg PO DAILY 01/13/21 10/02/21 History garlic 500 mg tablet 500 mg PO DAILY 01/13/21 10/02/21 History omega-3 fatty acids-vitamin E 1 cap PO DAILY 01/13/21 10/02/21 History 1,000 mg capsule benzonatate 100 mg capsule 100 mg PO TID #30 cap 02/02/21 10/02/21 Rx (Tessallauri Perlpravin) loratadine 10 mg capsule 10 mg PO DAILY #10 cap 02/02/21 10/02/21 Rx Black Elderberry 1 tab PO DAILY 10/02/21 History ascorbic acid (vitamin C) 1,000 mg 1,000 mg PO DAILY 10/02/21 10/02/21 History tablet (Vitamin C) Exam Const General: cooperative, healthy appearing, comfortable, no acute distress, well developed and well groomed Nutritional Appearance: average body habitus Orientation: alert, awake and oriented x3 HENMT Head: normal to inspection, no palpable skull fracture, normocephalic and atraumatic Ears: external ears normal General nose exam: external nose normal and nares normal Face and sinus: normal facial exam, sinuses nontender and face symmetric Mouth: oral mucosae normal, lip normal, tongue normal, oropharynx normal and moist mucous membranes Teeth and gingiva: dentures (Both upper and lower dentures present) Throat: posterior oropharynx normal and uvula midline Eyes General: appearance normal, both eyes and all related structures Alignment and Position: alignment normal and position normal Periorbital: periorbital findings normal Eyelids: eyelids normal Conjunctivae: conjunctivae normal Sclera: sclerae normal Cornea: corneas normal Pupils: PERRL EOM: EOM intact bilaterally Neck Neck: normal visual inspection, full ROM, no lymphadenopathy, trachea midline, supple and no JVD Thyroid: thyroid normal Carotids: normal carotid upstroke Lymphatic: no lymphadenopathy noted Chest Chest: normal inspection of the chest and other (Scar over right upper chest secondary to previous melanoma wide excision) Resp Effort & Inspection: normal respiratory effort, able to speak in complete sentences and prolonged expiratory phase Auscultation: clear to auscultation bilaterally Cardio Jugular venous pressure: no JVD Palpation: normal PMI Rate: regular rate Rhythm: regular rhythm Heart Sounds: S1 normal, S2 normal, normal, physiologic split S2, no gallops, no murmurs and no rubs Bruits: no abdominal aortic bruits and no carotid bruits Pulses: normal peripheral pulses GI Inspection: normal to inspection Palpation: soft, no hepatosplenomegaly and nontender Percussion: normal to percussion Auscultation: normal bowel sounds Rectal Exam: deferred General: No CVA tenderness Back/Spine/Pelvis Cervical Spine: normal cervical lordosis Thoracic/Lumbar Spine: thoraco-lumbar ROM limited (Secondary to previous lower back fusion) Skin General skin exam: no rashes or lesions noted, elasticity normal and turgor normal Neuro General: patient alert, patient awake, patient oriented x3, tone normal, moves all extremities, normal light touch, pain and propioception, no meningeal signs and no focal motor deficits Extrem General: normal to inspection, full ROM, capillary refill normal, no pedal edema and no calf tenderness Psych Appearance: grossly normal Mental Status: mental status grossly normal Speech and Movement: speech and movement normal Mood: congruent mood Affect: normal affect Attitude: cooperative Thought Process: normal Thought Content: normal Insight: insight good Judgment: judgment good Results Imaging Chest x-ray: report reviewed (FINDINGS: Single AP portable view. Heart size is upper normal. The mediastinum is not widened. No obvious new infiltrates nor pleural effusions. No pulmonary edema. No pneumothorax. IMPRESSION: No new significant pulmonary findings on this single AP portable view of the chest.) and image reviewed Labs Result diagrams: 10/02/21 07:50 10/02/21 07:50 Labs: Laboratory Results - last 24 hr 10/02/21 10/02/21 10/02/21 07:50 07:50 07:58 WBC 6.02 RBC 4.65 Hgb 14.6 Hct 44.6 MCV 96 H MCH 31.4 MCHC 32.7 RDW 12.6 Plt Count 153 MPV 9.5 Immature Gran % 0.7 Neutrophils % 77.4 Lymphocytes % 11.1 Monocytes % 7.5 Eosinophils % 3.0 Basophils % 0.3 Nucleated RBC % 0.0 Absolute Neutrophils 4.66 Absolute Lymphocytes 0.67 L Absolute Monocytes 0.45 Absolute Eosinophils 0.18 Absolute Basophils 0.02 PT INR D-Dimer Sodium 138 Potassium 4.0 Chloride 100 Carbon Dioxide 29.2 Anion Gap 8.8 BUN 10 Creatinine 1.0 Estimated GFR/1.73 m2 >= 60.00 Glucose 99 Calcium 8.3 L Magnesium 1.6 L Ferritin Total Bilirubin 0.5 AST 28 ALT 31 Alkaline Phosphatase 77 Creatine Kinase Troponin I < 50 C-Reactive Protein NT-Pro-B Natriuret Pep 276 Total Protein 7.2 Albumin 3.5 Procalcitonin TSH COVID-19 Source Nasopharynx SARS-CoV-2 (PCR) Positive A Influenza Type A (PCR) Negative Influenza Type B (PCR) Negative RSV (PCR) Negative Patient ABO/Rh 10/02/21 10/02/21 10/02/21 11:35 11:35 11:35 WBC RBC Hgb Hct MCV MCH MCHC RDW Plt Count MPV Immature Gran % Neutrophils % Lymphocytes % Monocytes % Eosinophils % Basophils % Nucleated RBC % Absolute Neutrophils Absolute Lymphocytes Absolute Monocytes Absolute Eosinophils Absolute Basophils PT INR D-Dimer Sodium Potassium Chloride Carbon Dioxide Anion Gap BUN Creatinine Estimated GFR/1.73 m2 Glucose Calcium Magnesium Ferritin 182 Total Bilirubin AST ALT Alkaline Phosphatase Creatine Kinase 469 H Troponin I < 50 C-Reactive Protein 8.28 H NT-Pro-B Natriuret Pep Total Protein Albumin Procalcitonin TSH COVID-19 Source SARS-CoV-2 (PCR) Influenza Type A (PCR) Influenza Type B (PCR) RSV (PCR) Patient ABO/Rh A Positive 10/02/21 10/02/21 10/02/21 11:35 11:35 11:35 WBC RBC Hgb Hct MCV MCH MCHC RDW Plt Count MPV Immature Gran % Neutrophils % Lymphocytes % Monocytes % Eosinophils % Basophils % Nucleated RBC % Absolute Neutrophils Absolute Lymphocytes Absolute Monocytes Absolute Eosinophils Absolute Basophils PT INR D-Dimer 1193 H Sodium Potassium Chloride Carbon Dioxide Anion Gap BUN Creatinine Estimated GFR/1.73 m2 Glucose Calcium Magnesium Ferritin Total Bilirubin AST ALT Alkaline Phosphatase Creatine Kinase Troponin I C-Reactive Protein NT-Pro-B Natriuret Pep Total Protein Albumin Procalcitonin 0.1 TSH 0.49 COVID-19 Source SARS-CoV-2 (PCR) Influenza Type A (PCR) Influenza Type B (PCR) RSV (PCR) Patient ABO/Rh 10/02/21 11:35 WBC RBC Hgb Hct MCV MCH MCHC RDW Plt Count MPV Immature Gran % Neutrophils % Lymphocytes % Monocytes % Eosinophils % Basophils % Nucleated RBC % Absolute Neutrophils Absolute Lymphocytes Absolute Monocytes Absolute Eosinophils Absolute Basophils PT 11.1 H INR 1.1 D-Dimer Sodium Potassium Chloride Carbon Dioxide Anion Gap BUN Creatinine Estimated GFR/1.73 m2 Glucose Calcium Magnesium Ferritin Total Bilirubin AST ALT Alkaline Phosphatase Creatine Kinase Troponin I C-Reactive Protein NT-Pro-B Natriuret Pep Total Protein Albumin Procalcitonin TSH COVID-19 Source SARS-CoV-2 (PCR) Influenza Type A (PCR) Influenza Type B (PCR) RSV (PCR) Patient ABO/Rh Last Vital Signs Temp 36.5 C 10/02/21 13:49 Pulse 57 L 10/02/21 13:49 Resp 18 10/02/21 13:49 BP 124/70 10/02/21 13:49 Pulse Ox 94 10/02/21 13:49
[2021-10-02 14:01] LABS: Bilirubin Negative (Negative); Blood Negative (Negative); Clarity Clear (Clear); Glucose Negative (Negative); Ketones Trace mg/dL (Negative); Leukocyte Esterase Negative (Negative); Nitrite Negative (Negative); Specific Gravity 1.015 (1.005-1.025); Urobilinogen 0.2 EU/dL (Up TO 0.2); pH 5.5 (5-8)
[2021-10-02 19:00] LABS: Troponin I < 50 ng/L (<or=60)
[2021-10-02] MEDS: Atorvastatin 40 MG TAB PO (21:07)
[2021-10-02] MEDS: Magnesium Oxide 400 MG TAB PO (21:07)
[2021-10-02] MEDS: Budesonide/Formoterol 160/4.5 6 GM 60 PUFF INH IH (21:14)
[2021-10-03] VITALS (12 sets, daily range): BP systolic 104–122; BP diastolic 62–66; PULSE 50–95; RESP 4–18; TEMP 35.6–36.2; O2SAT 91–95
[2021-10-03] MEDS: Enoxaparin 80 MG/0.8 ML SYR SC ×2 (04:16→15:30)
[2021-10-03 06:57] LABS: Abs Immature Grans 0.01 10^3/uL (0.0-0.06); Absolute Basophil Count 0.01 10^3/uL (0.0-0.2); Absolute Lymphocyte Count 0.74 10^3/uL (1.2-3.4); Absolute Neutrophil Count 5.18 10^3/uL (1.2-6.7); Basophils % 0.2; HCT 38.9 % (40.0-50.0); HGB 12.9 g/dL (13.5-17.5); Immature Grans % 0.2; Lymphocytes % 12.1; MCH 31.5 pg (27.0-33.0); MCHC 33.2 % (32.0-36.0); MCV 95 fL (80-95); MPV 10.8 fL (8.0-11.0); Monocytes % 3.3; Neutrophils % 84.2; Platelet Count 124 10^3/uL (130-400); RDW 12.4 % (11.8-14.1); RDW-SD 43.6 fL; WBC 6.14 10^3/uL (4.4-10.8)
[2021-10-03 07:06] LABS: ALT 27 U/L (16-63); AST 30 U/L (15-37); Albumin 2.8 g/dL (3.4-5.0); Alkaline Phosphatase 61 U/L (46-116); Anion Gap 8.1 mmol/L (3-11); BUN 19 mg/dL (7-18); Bilirubin, Total 0.3 mg/dL (0.2-1.0); C-Reactive Protein 12.74 mg/dL (0.0-0.3); CO2 26.9 mmol/L (21.0-32.0); CREATININE 0.9 mg/dL (0.70-1.30); Calcium 8.2 mg/dL (8.5-10.1); Chloride 103 mmol/L (98-107); Glucose 133 mg/dL (74-106); Magnesium 2.2 mg/dL (1.8-2.4); Potassium 3.9 mmol/L (3.5-5.1); Sodium 138 mmol/L (136-145); Total Protein 6.4 g/dL (6.4-8.2)
[2021-10-03 07:25] LABS: D-Dimer 754 ng/mlFEU (<500)
[2021-10-03 07:42] LABS: Ferritin 204 ng/mL (26-388)
[2021-10-03] MEDS: Albuterol/Ipratropium 3 ML UPD VIAL UPD ×4 (07:45→20:58)
[2021-10-03] MEDS: Aspirin 81 MG CHEW PO (07:47)
[2021-10-03] MEDS: Ascorbic Acid 500 MG TAB 1000 MG PO (07:47)
[2021-10-03] MEDS: Budesonide/Formoterol 160/4.5 6 GM 60 PUFF INH IH ×2 (07:49→20:57)
[2021-10-03] MEDS: Benzonatate 100 MG CAP PO ×3 (07:49→20:57)
[2021-10-03] MEDS: Dexamethasone 4 MG/ML VIAL 6 MG IVP (07:50)
[2021-10-03] MEDS: Cholecalciferol (Vitamin D3) 1,000 UNIT TAB 2000 UNITS PO (07:50)
[2021-10-03] MEDS: Famotidine 20 MG TAB PO ×2 (07:52→20:57)
[2021-10-03] MEDS: Loratidine 10 MG TAB PO (07:52)
[2021-10-03] MEDS: Magnesium Oxide 400 MG TAB PO ×2 (07:53→20:57)
[2021-10-03] MEDS: REMDESIVIR 100 MG in Normal Saline 250 ML 250 MG IVPB (07:53)
[2021-10-03] MEDS: Omega-3 Fatty Acids 1000 MG CAP PO (07:53)
[2021-10-03] MEDS: Zinc Sulfate 220 MG TAB PO (07:54)
[2021-10-03] MEDS: Sertraline 50 MG TAB PO (07:54)
[2021-10-03] MEDS: Tiotropium Bromide-Respimat 10 PUFF INH IH (07:54)
[2021-10-03] MEDS: Normal Saline Flush 10 ML SYR IVP (07:55)
[2021-10-03] MEDS: cefTRIAXone 1 GM/50 ML BAG IVPB (10:04)
[2021-10-03] MEDS: DOXYCYCLINE 100 MG in Normal Saline 100 ML IVPB (10:58)
--- NOTE | 2021-10-03 11:50 | PDOC.CMIN ---
- If Service Date Differs Date of service: 10/03/21 Time of Service: 11:51 Care Management Initial Assess REASON FOR HOSPITALIZATION:: Exacerbation of COPD, Covid PAST MEDICAL HISTORY/PAST SURGICAL HISTORY:: All Active Problems (Updated 10/02/21 @ 19:24 by Nilo Kulkarni). COVID-19 (Acute). Acute exacerbation of chronic obstructive pulmonary disease (Acute). Intertrochanteric fracture of right hip (Acute). DOS: 07/01/18. Dr. Hooper. Discharge planning issues (Acute). GERD (gastroesophageal reflux disease) (Chronic). DVT prophylaxis (Acute). Hyperlipidemia (Acute). Tobacco abuse (Acute). COPD (chronic obstructive pulmonary disease) (Chronic). Medical History (Updated 10/02/21 @ 19:24 by Nilo Kulkarni). Anxiety. Depression. Hyperlipemia. PTSD (post-traumatic stress disorder). Surgical History (Updated 10/02/21 @ 19:01 by Nilo Kulkarni). H/O melanoma excision. History of back surgery. Lumbar discectomy. Status post-operative repair of closed fracture of right hip PREVIOUS FUNCTIONAL STATUS/SOCIAL/FAMILY SUPPORTS:: Patient is a 66 year old male who lives with his , Charlette in [facility]. They have a total of 5 children. 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 Independent at baseline and does not use any assistive equipment. uri is a and [facility]. CURRENT FUNCTIONAL STATUS:: was unable to meet with Uri in person due to his Covid positive status, however was able to speak to his Charlette by phone. She indicated that she also has Covid as does their son who lives with them. Charlette shared that her son is a big help and does all of the housework and other chores and supports them as needed. Uri does not use oxygen at home but does have COPD and some difficulty breathing. Charlette stated that Uri used to be very active but has slowed down a lot due to his breathing. She also informed YAZ that he has vertigo and gets dizzy if he tries to sleep on his side or his back. ADVANCE DIRECTIVES:: none on file Has patient been provided with info about the portal/API?: Yes Did the patient sign up for the portal?: No CODE STATUS:: DNR/DNI INSURANCE COVERAGE / FINANCIAL ISSUES:: Medicare. [facility] CURRENT HOME/COMMUNITY SERVICES/EQUIPMENT:: none PRIMARY CARE PHYSICIAN:: Alvarez Alvarez POTENTIAL DISCHARGE NEEDS:: Follow up with PCP and [facility] providers PATIENT/FAMILY EDUCATION NEEDS:: Review of discharge instructions, limitations, follow up plan, activity, precautions, discuss [employer] TRANSPORTATION:: via private vehicle with family PLAN:: Anticipate Uri will discharge home with no new services. He will follow [facility] with [facility] providers [facility] the [facility] and transport with family. CM will follow and support Uri's discharge needs.
--- NOTE | 2021-10-03 17:36 | W.PM.PROGNOT ---
Date of Service Date of service: 10/03/21 Time of Service: 17:36 Assessment and Plan Assessment and plan (1) COVID-19: Status: Acute Assessment and plan: Continue remdesivir, dexamethasone, baricitinib. Supplement vitamins. Pulmonary toileting. Trial CPAP tonight. Encourage proning. (2) Acute exacerbation of chronic obstructive pulmonary disease: Status: Acute Assessment and plan: As above Ok to d/c abx given low procalcitonin. (3) Acute respiratory failure with hypoxia: Status: Acute Assessment and plan: Due to above - as above (4) Tobacco abuse: Status: Acute Assessment and plan: Continue nicotine replacement (5) DVT prophylaxis: Status: Acute Assessment and plan: Continue therapeutic lovenox (6) Discharge planning issues: Status: Acute Assessment and plan: DNR/DNI Subjective Subjective Interval history since last seen: Mr Tom states he is feeling much better today. He is down to 2L of O2 from 4L Of O2. He will try CPAP tonight. Cough nonproductive. Does have post-nasal drip. Exam Narrative Exam Narrative: General: Pleasant male who is sitting up in bed, A&Ox3, on 2L of O2, no dyspnea/tachypnea/cyanosis HEENT: EOMI, MMM Heart: RRR, no m/r/g Lungs: faint rhonchi on expiration B Abdomen: soft, nontender, nondistended Extremities: trace edema BLEs Objective Last Vital Signs Temp 36.2 C L 10/03/21 17:27 Pulse 81 10/03/21 17:27 Resp 12 10/03/21 17:27 BP 104/62 10/03/21 17:27 Pulse Ox 91 L 10/03/21 17:27 Laboratory Results - last 24 hr 10/02/21 10/02/21 10/03/21 13:22 14:40 05:37 WBC RBC Hgb Hct MCV MCH MCHC RDW Plt Count MPV Immature Gran % Neutrophils % Lymphocytes % Monocytes % Eosinophils % Basophils % Nucleated RBC % Absolute Neutrophils Absolute Lymphocytes Absolute Monocytes Absolute Eosinophils Absolute Basophils D-Dimer Sodium 138 Potassium 3.9 Chloride 103 Carbon Dioxide 26.9 Anion Gap 8.1 BUN 19 H Creatinine 0.9 Estimated GFR/1.73 m2 >= 60.00 Glucose 133 H Calcium 8.2 L Magnesium 2.2 Ferritin 204 Total Bilirubin 0.3 AST 30 ALT 27 Alkaline Phosphatase 61 Troponin I Cancelled < 50 C-Reactive Protein 12.74 H Total Protein 6.4 Albumin 2.8 L 10/03/21 10/03/21 05:37 05:37 WBC 6.14 RBC 4.10 L Hgb 12.9 L Hct 38.9 L MCV 95 MCH 31.5 MCHC 33.2 RDW 12.4 Plt Count 124 L MPV 10.8 Immature Gran % 0.2 Neutrophils % 84.2 Lymphocytes % 12.1 Monocytes % 3.3 Eosinophils % 0.0 Basophils % 0.2 Nucleated RBC % 0.0 Absolute Neutrophils 5.18 Absolute Lymphocytes 0.74 L Absolute Monocytes 0.20 Absolute Eosinophils 0.00 Absolute Basophils 0.01 D-Dimer 754 H Sodium Potassium Chloride Carbon Dioxide Anion Gap BUN Creatinine Estimated GFR/1.73 m2 Glucose Calcium Magnesium Ferritin Total Bilirubin AST ALT Alkaline Phosphatase Troponin I C-Reactive Protein Total Protein Albumin
[2021-10-03] MEDS: Atorvastatin 40 MG TAB PO (20:57)
[2021-10-04] VITALS (11 sets, daily range): BP systolic 119–142; BP diastolic 56–70; PULSE 59–101; RESP 2–21; TEMP 35.9–36.1; O2SAT 92–95
[2021-10-04] MEDS: Enoxaparin 80 MG/0.8 ML SYR SC ×2 (04:35→16:57)
[2021-10-04] MEDS: Albuterol/Ipratropium 3 ML UPD VIAL UPD ×4 (07:22→22:07)
[2021-10-04] MEDS: Tiotropium Bromide-Respimat 10 PUFF INH IH (07:23)
[2021-10-04 07:24] LABS: Abs Immature Grans 0.02 10^3/uL (0.0-0.06); Absolute Basophil Count 0.01 10^3/uL (0.0-0.2); Absolute Lymphocyte Count 0.67 10^3/uL (1.2-3.4); Absolute Monocyte Count 0.35 10^3/uL (0.1-0.8); Absolute Neutrophil Count 6.12 10^3/uL (1.2-6.7); Basophils % 0.1; HCT 37.7 % (40.0-50.0); HGB 12.6 g/dL (13.5-17.5); Immature Grans % 0.3; Lymphocytes % 9.3; MCH 31.5 pg (27.0-33.0); MCHC 33.4 % (32.0-36.0); MCV 94 fL (80-95); MPV 9.9 fL (8.0-11.0); Monocytes % 4.9; Neutrophils % 85.4; Platelet Count 141 10^3/uL (130-400); RDW 12.4 % (11.8-14.1); RDW-SD 43.1 fL; WBC 7.17 10^3/uL (4.4-10.8)
[2021-10-04] MEDS: Budesonide/Formoterol 160/4.5 6 GM 60 PUFF INH IH ×2 (07:24→22:00)
[2021-10-04 07:43] LABS: ALT 42 U/L (16-63); AST 60 U/L (15-37); Alkaline Phosphatase 61 U/L (46-116); Anion Gap 8.6 mmol/L (3-11); BUN 24 mg/dL (7-18); Bilirubin, Total 0.3 mg/dL (0.2-1.0); C-Reactive Protein 6.82 mg/dL (0.0-0.3); CO2 26.4 mmol/L (21.0-32.0); CREATININE 0.9 mg/dL (0.70-1.30); Calcium 8.5 mg/dL (8.5-10.1); Chloride 103 mmol/L (98-107); Glucose 105 mg/dL (74-106); Potassium 4.5 mmol/L (3.5-5.1); Sodium 138 mmol/L (136-145); Total Protein 6.5 g/dL (6.4-8.2)
[2021-10-04] MEDS: Ascorbic Acid 500 MG TAB 1000 MG PO (07:55)
[2021-10-04] MEDS: Famotidine 20 MG TAB PO ×2 (07:58→21:55)
[2021-10-04] MEDS: Magnesium Oxide 400 MG TAB PO ×2 (07:58→21:55)
[2021-10-04] MEDS: Benzonatate 100 MG CAP PO ×3 (07:58→21:55)
[2021-10-04] MEDS: Aspirin 81 MG CHEW PO (07:58)
[2021-10-04] MEDS: Cholecalciferol (Vitamin D3) 1,000 UNIT TAB 2000 UNITS PO (07:58)
[2021-10-04] MEDS: Loratidine 10 MG TAB PO (07:58)
[2021-10-04] MEDS: Omega-3 Fatty Acids 1000 MG CAP PO (07:59)
[2021-10-04] MEDS: Sertraline 50 MG TAB PO (08:00)
[2021-10-04] MEDS: Zinc Sulfate 220 MG TAB PO (08:00)
[2021-10-04] MEDS: REMDESIVIR 100 MG in Normal Saline 250 ML 250 MG IVPB (08:00)
[2021-10-04 08:07] LABS: Procalcitonin 0.1 ng/mL
[2021-10-04 08:08] LABS: D-Dimer 519 ng/mlFEU (<500)
[2021-10-04 08:12] LABS: Ferritin 273 ng/mL (26-388)
[2021-10-04] MEDS: Dexamethasone 4 MG/ML VIAL 6 MG IVP (08:50)
[2021-10-04] MEDS: Normal Saline Flush 10 ML SYR IVP ×2 (08:50→17:47)
[2021-10-04] MEDS: Furosemide 20 MG/2 ML VIAL IVP (17:48)
--- NOTE | 2021-10-04 18:56 | W.PM.PROGNOT ---
Date of Service Date of service: 10/04/21 Time of Service: 18:57 Assessment and Plan Assessment and plan (1) COVID-19: Status: Acute Assessment and plan: Continue remdesivir, dexamethasone, baricitinib. Will give 1 dose of lasix. Supplement vitamins. Pulmonary toileting. May require CPAP again tonight. Encourage proning. (2) Acute exacerbation of chronic obstructive pulmonary disease: Status: Acute Assessment and plan: As above (3) Acute respiratory failure with hypoxia: Status: Acute Assessment and plan: Due to above - as above Additionallyk, trial lasix for a fluid overload component (4) Tobacco abuse: Status: Acute Assessment and plan: Continue nicotine replacement (5) DVT prophylaxis: Status: Acute Assessment and plan: Continue therapeutic lovenox (6) Discharge planning issues: Status: Acute Assessment and plan: DNR/DNI Anticipate discharge home in 24-48 hrs. Subjective Subjective Interval history since last seen: Feels much better. Denies headache, muscle aches, shortness of breath, nausea, and energy level is better. Down to 1L of O2. Exam Narrative Exam Narrative: General: Pleasant male who is sitting up in bed, A&Ox3, on 2L of O2, no dyspnea/tachypnea/cyanosis HEENT: EOMI, MMM Heart: RRR, no m/r/g Lungs: faint rhonchi on expiration B with rales at B bases Abdomen: soft, nontender, nondistended Extremities: trace edema BLEs Objective Last Vital Signs Temp 36.1 C L 10/04/21 17:46 Pulse 73 10/04/21 17:46 Resp 20 10/04/21 17:46 BP 119/67 10/04/21 17:46 Pulse Ox 92 10/04/21 17:46 Laboratory Results - last 24 hr 10/04/21 10/04/21 10/04/21 06:55 06:55 06:55 WBC 7.17 RBC 4.00 L Hgb 12.6 L Hct 37.7 L MCV 94 MCH 31.5 MCHC 33.4 RDW 12.4 Plt Count 141 MPV 9.9 Immature Gran % 0.3 Neutrophils % 85.4 Lymphocytes % 9.3 Monocytes % 4.9 Eosinophils % 0.0 Basophils % 0.1 Nucleated RBC % 0.0 Absolute Neutrophils 6.12 Absolute Lymphocytes 0.67 L Absolute Monocytes 0.35 Absolute Eosinophils 0.00 Absolute Basophils 0.01 D-Dimer Sodium 138 Potassium 4.5 Chloride 103 Carbon Dioxide 26.4 Anion Gap 8.6 BUN 24 H Creatinine 0.9 Estimated GFR/1.73 m2 >= 60.00 Glucose 105 Calcium 8.5 Ferritin 273 Total Bilirubin 0.3 AST 60 H ALT 42 Alkaline Phosphatase 61 C-Reactive Protein 6.82 H Total Protein 6.5 Albumin 3.0 L Procalcitonin 0.1 10/04/21 06:55 WBC RBC Hgb Hct MCV MCH MCHC RDW Plt Count MPV Immature Gran % Neutrophils % Lymphocytes % Monocytes % Eosinophils % Basophils % Nucleated RBC % Absolute Neutrophils Absolute Lymphocytes Absolute Monocytes Absolute Eosinophils Absolute Basophils D-Dimer 519 H Sodium Potassium Chloride Carbon Dioxide Anion Gap BUN Creatinine Estimated GFR/1.73 m2 Glucose Calcium Ferritin Total Bilirubin AST ALT Alkaline Phosphatase C-Reactive Protein Total Protein Albumin Procalcitonin
[2021-10-04] MEDS: Atorvastatin 40 MG TAB PO (21:55)
[2021-10-05] VITALS (12 sets, daily range): BP systolic 131–154; BP diastolic 67–77; PULSE 53–107; RESP 1–20; TEMP 36–36.9; O2SAT 84–94
[2021-10-05] MEDS: Enoxaparin 80 MG/0.8 ML SYR SC ×2 (03:57→15:51)
[2021-10-05 06:41] LABS: HCT 36.3 % (40.0-50.0); HGB 12.2 g/dL (13.5-17.5); Lymphocytes % 10.1; MCH 31.4 pg (27.0-33.0); MCHC 33.6 % (32.0-36.0); MCV 93 fL (80-95); MPV 10.7 fL (8.0-11.0); Monocytes % 6.7; Neutrophils % 82.8; Platelet Count 158 10^3/uL (130-400); RBC 3.89 10^6/uL (4.36-5.78); RDW 12.3 % (11.8-14.1); RDW-SD 42.4 fL; WBC 5.24 10^3/uL (4.4-10.8)
[2021-10-05 06:42] LABS: Abs Immature Grans 0.02 10^3/uL (0.0-0.06); Absolute Lymphocyte Count 0.53 10^3/uL (1.2-3.4); Absolute Monocyte Count 0.35 10^3/uL (0.1-0.8); Absolute Neutrophil Count 4.34 10^3/uL (1.2-6.7); Immature Grans % 0.4
[2021-10-05 07:02] LABS: ALT 66 U/L (16-63); AST 72 U/L (15-37); Albumin 2.9 g/dL (3.4-5.0); Alkaline Phosphatase 58 U/L (46-116); Anion Gap 5.7 mmol/L (3-11); BUN 24 mg/dL (7-18); Bilirubin, Total 0.3 mg/dL (0.2-1.0); C-Reactive Protein 3.42 mg/dL (0.0-0.3); CO2 28.3 mmol/L (21.0-32.0); CREATININE 0.9 mg/dL (0.70-1.30); Calcium 8.3 mg/dL (8.5-10.1); Chloride 103 mmol/L (98-107); Glucose 112 mg/dL (74-106); Potassium 4.2 mmol/L (3.5-5.1); Sodium 137 mmol/L (136-145); Total Protein 6.3 g/dL (6.4-8.2)
[2021-10-05 07:17] LABS: D-Dimer 350 ng/mlFEU (<500)
[2021-10-05 07:27] LABS: Ferritin 252 ng/mL (26-388)
[2021-10-05] MEDS: Budesonide/Formoterol 160/4.5 6 GM 60 PUFF INH IH ×2 (07:30→21:40)
[2021-10-05] MEDS: Dexamethasone 4 MG/ML VIAL 6 MG IVP (07:52)
[2021-10-05] MEDS: Aspirin 81 MG CHEW PO (07:59)
[2021-10-05] MEDS: Loratidine 10 MG TAB PO (08:00)
[2021-10-05] MEDS: Cholecalciferol (Vitamin D3) 1,000 UNIT TAB 2000 UNITS PO (08:00)
[2021-10-05] MEDS: Famotidine 20 MG TAB PO ×2 (08:00→21:39)
[2021-10-05] MEDS: Zinc Sulfate 220 MG TAB PO (08:00)
[2021-10-05] MEDS: REMDESIVIR 100 MG in Normal Saline 250 ML 250 MG IVPB (08:01)
[2021-10-05] MEDS: Magnesium Oxide 400 MG TAB PO ×2 (08:01→21:39)
[2021-10-05] MEDS: Sertraline 50 MG TAB PO (08:01)
[2021-10-05] MEDS: Ascorbic Acid 500 MG TAB 1000 MG PO (08:01)
[2021-10-05] MEDS: Omega-3 Fatty Acids 1000 MG CAP PO (08:02)
[2021-10-05] MEDS: Benzonatate 100 MG CAP PO ×3 (08:02→21:40)
[2021-10-05] MEDS: Normal Saline Flush 10 ML SYR IVP ×2 (08:03→21:39)
--- NOTE | 2021-10-05 09:02 | CMPROGNOTE_ITS ---
- If Service Date Differs Date of service: 10/05/21 Time of Service: 09:02 Care Management Progress Note S/O: Felipe is feeling much better and his respiratory status is continuously improving. RT did an exercise oxymetry today and supplemental home O2 is recommended on discharge. CM [facility] and they need documentation from our [facility] Department. CM communicated need to RT and Jorge will fax her documentation when it's available this evening. Plan is for Felipe to discharge home tomorrow with supplemental O2 through the [facility], if his repeat exercise oxymetry tomorrow morning indicates he still needs supplemental O2. CM will follow up with RT in the morning. A: 71 year old male admitted to [facility] on 09/30/21 for Exacerbation of COPD, Covid P: Anticipate Felipe will discharge home with [place] O[facility]. He will follow up with [facility] providers [facility] and transport with family. CM will follow and support Felipe's discharge needs.
[2021-10-05] MEDS: Tiotropium Bromide-Respimat 10 PUFF INH IH (10:57)
[2021-10-05] MEDS: Albuterol/Ipratropium 3 ML UPD VIAL UPD ×3 (14:21→21:35)
--- NOTE | 2021-10-05 18:27 | W.PM.PROGNOT ---
Date of Service Date of service: 10/05/21 Time of Service: 17:30 Assessment and Plan Assessment and plan (1) COVID-19: Status: Acute Assessment and plan: Continue remdesivir, dexamethasone, baricitinib. Supplement vitamins. Pulmonary toileting. Encourage proning. Anticipate discharge home tomorrow, with or without o2. (2) Acute exacerbation of chronic obstructive pulmonary disease: Status: Acute Assessment and plan: As above (3) Acute respiratory failure with hypoxia: Status: Acute Assessment and plan: Due to above - as above Will recheck ambulatory pulse ox tomorrow. (4) Tobacco abuse: Status: Acute Assessment and plan: Continue nicotine replacement (5) DVT prophylaxis: Status: Acute Assessment and plan: Continue therapeutic lovenox (6) Discharge planning issues: Status: Acute Assessment and plan: DNR/DNI Anticipate discharge home tomorrow. Subjective Subjective Interval history since last seen: Mr Tom is on room air at rest but does need 2L with activity, per ambulatory pulse ox testing. He feels well. denies dizziness, chest pain, shortness of breath, nausea. He is open to going home with oxygen as long as the [place] pays for it, and we could not arrange oxygen via the [facility] today. Exam Narrative Exam Narrative: General: Pleasant male who is sitting up in bed, A&Ox3, on RA, no dyspnea/tachypnea/cyanosis HEENT: EOMI, MMM Heart: RRR, no m/r/g Lungs: faint rhonchi on expiration B, no rales today Abdomen: soft, nontender, nondistended Extremities: no edema BLEs Objective Last Vital Signs Temp 36.0 C L 10/05/21 14:39 Pulse 94 H 10/05/21 16:01 Resp 14 10/05/21 14:39 BP 131/77 10/05/21 14:39 Pulse Ox 94 10/05/21 14:39 Laboratory Results - last 24 hr 10/05/21 10/05/21 10/05/21 05:15 05:15 05:15 WBC 5.24 RBC 3.89 L Hgb 12.2 L Hct 36.3 L MCV 93 MCH 31.4 MCHC 33.6 RDW 12.3 Plt Count 158 MPV 10.7 Immature Gran % 0.4 Neutrophils % 82.8 Lymphocytes % 10.1 Monocytes % 6.7 Eosinophils % 0.0 Basophils % 0.0 Nucleated RBC % 0.0 Absolute Neutrophils 4.34 Absolute Lymphocytes 0.53 L Absolute Monocytes 0.35 Absolute Eosinophils 0.00 Absolute Basophils 0.00 D-Dimer 350 Sodium 137 Potassium 4.2 Chloride 103 Carbon Dioxide 28.3 Anion Gap 5.7 BUN 24 H Creatinine 0.9 Estimated GFR/1.73 m2 >= 60.00 Glucose 112 H Calcium 8.3 L Ferritin 252 Total Bilirubin 0.3 AST 72 H ALT 66 H Alkaline Phosphatase 58 C-Reactive Protein 3.42 H Total Protein 6.3 L Albumin 2.9 L
[2021-10-05] MEDS: Atorvastatin 40 MG TAB PO (21:40)
[2021-10-06] VITALS (11 sets, daily range): BP systolic 113–130; BP diastolic 68–79; PULSE 53–98; RESP 1–19; TEMP 35.9–36.7; O2SAT 91–97
[2021-10-06] MEDS: Enoxaparin 80 MG/0.8 ML SYR SC ×2 (05:21→16:26)
[2021-10-06] MEDS: Budesonide/Formoterol 160/4.5 6 GM 60 PUFF INH IH ×2 (06:39→20:52)
[2021-10-06] MEDS: Tiotropium Bromide-Respimat 10 PUFF INH IH (06:40)
[2021-10-06] MEDS: Albuterol/Ipratropium 3 ML UPD VIAL UPD ×4 (07:45→20:52)
[2021-10-06] MEDS: Cholecalciferol (Vitamin D3) 1,000 UNIT TAB 2000 UNITS PO (08:04)
[2021-10-06] MEDS: Famotidine 20 MG TAB PO ×2 (08:04→20:51)
[2021-10-06] MEDS: Aspirin 81 MG CHEW PO (08:04)
[2021-10-06] MEDS: Omega-3 Fatty Acids 1000 MG CAP PO (08:04)
[2021-10-06] MEDS: Benzonatate 100 MG CAP PO ×3 (08:05→20:51)
[2021-10-06] MEDS: Magnesium Oxide 400 MG TAB PO ×2 (08:05→20:51)
[2021-10-06] MEDS: Zinc Sulfate 220 MG TAB PO (08:05)
[2021-10-06] MEDS: Loratidine 10 MG TAB PO (08:05)
[2021-10-06] MEDS: Sertraline 50 MG TAB PO (08:05)
[2021-10-06] MEDS: Ascorbic Acid 500 MG TAB 1000 MG PO (08:05)
[2021-10-06] MEDS: Normal Saline Flush 10 ML SYR IVP ×3 (08:06→21:09)
[2021-10-06] MEDS: Normal Saline 500 ML 30 ML IV (08:07)
[2021-10-06] MEDS: REMDESIVIR 100 MG in Normal Saline 250 ML 250 MG IVPB (08:07)
[2021-10-06] MEDS: Dexamethasone 4 MG/ML VIAL 6 MG IVP (08:22)
--- NOTE | 2021-10-06 13:59 | RESPIRATORY ---
Performed ambulatory pulse ox study on patient and was found that the patient required oxygen with ambulation, but did not require oxygen while at rest. Study was sent to [facility] and [facility] Gomezcy was informed by [facility] respiratory that the patient did not qualify for oxygen due to that patient currently smoking and patient having adequate SpO2 at rest. Referral for ambulatory oxygen has been sent to [facility] and patient is currently waiting extension associate from either parties. Patient did state to RT that he was concerned with forte of oxygen. This was relayed to Care Management.
--- NOTE | 2021-10-06 17:22 | W.PM.PROGNOT ---
Date of Service Date of service: 10/06/21 Time of Service: 17:00 Assessment and Plan Assessment and plan (1) COVID-19: Status: Acute Assessment and plan: Continue remdesivir, dexamethasone, baricitinib while in the hospital Supplement vitamins. Pulmonary toileting. The patient wants to see if his O2 requirement on ambulation resolves and is willing to stay until tomorrow. (2) Acute exacerbation of chronic obstructive pulmonary disease: Status: Acute Assessment and plan: As above (3) Acute respiratory failure with hypoxia: Status: Acute Assessment and plan: Due to above - as above Desaturates to 84% while ambulating on RA, requires 2 L of O2 on ambulation. The VA's standards for supplemental oxygen differ from traditional standards and only pays for oxygen if the O2 sats are below 81% on ambulation. The patient is also a smoker, which disqualifies him from getting oxygen paid by the VA, per pulmonology. At this point, the patient is improving. We will recheck his O2 sats tomorrow - he states that he will go home tomorrow no matter what. (4) Tobacco abuse: Status: Acute Assessment and plan: Continue nicotine replacement Patient is motivated to stay quit. (5) DVT prophylaxis: Status: Acute Assessment and plan: Continue therapeutic lovenox (6) Discharge planning issues: Status: Acute Assessment and plan: DNR/DNI Anticipate discharge home tomorrow. Subjective Subjective Interval history since last seen: Mr Tom desaturates down to 84% while walking on RA. By the VA standards, the patient does not qualify for oxygen because his O2 sat is not lower than 81% and also because he is a smoker. (This is not the case by medicaid/medicare standards). The [facility], per Dr Moulton of pulmonology, even had an ethics meeting about Mr Tom who had requested oxygen in the past - and then, too, the VA's decision was not to provide oxygen. The patient is feeling better today overall, but is very upset by the fact that the VA is not providing him with oxygen and for free. The patient stated that the fact that the VA is not providing him with oxygen is making him feel like he wants to kill himself. He feels like he is being punished for something that 70% of the population does (smoking). Denies dizziness, chest pain, nausea, feels less short of breath. Says the nebs help. He was willing to stay until tomorrow to see if his O2 sats gets better with ambulation tomorrow. Exam Narrative Exam Narrative: General: male who is sitting up in bed, upset, expressing himself loudly about his frustration with the [facility], no evidence of respiratory distress while speaking loudly, A&Ox3, on RA, no dyspnea/tachypnea/cyanosis HEENT: EOMI, MMM Heart: RRR, no m/r/g Lungs: CTAB today Abdomen: soft, nontender, nondistended Extremities: no edema BLEs Objective Last Vital Signs Temp 36.7 C 10/06/21 12:41 Pulse 98 H 10/06/21 15:44 Resp 18 10/06/21 12:41 BP 124/70 10/06/21 12:41 Pulse Ox 94 10/06/21 12:41
--- NOTE | 2021-10-06 17:34 | CMPROGNOTE_ITS ---
- If Service Date Differs Date of service: 10/06/21 Time of Service: 17:34 Care Management Progress Note S/O: CM and RT have been trying to get Home O2 through the VA X 2 days. Per VA guidelines Felipe does not qualify for home O2, even though has has covid and hypoxia. VA provider's are aware that Felipe de-sats to 84% on RA with ambulation, however their guidelines state he needs to desat to 81% on RA and not have smoked a cigarette in [address] Cummings spoke with [facility] pulmonology, with no resolve. CM contacted [facility] and Yee Weston from RT, also with no resolve. Jorge from RT sent supplemental O2 orders to [facility] [employer]. No response from [facility], however [facility] advises that Felipe has no coverage through Medicare since he doesn't have part B and he although he has VA insurance he has no coverage because they are not approving his need for supplemental home O2 therefor his out of pocket expense would be $454.[address] Cummings spoke with Felipe and he is upset and frustrated at the VA. He shared with her that he dedicated his life to the [facility] now he needs home O2 and they wont cover it. In conversation with Dr. Cummings, Felipe verbalized wanting to kill himself and also communicating killing himself to a family member earlier in the day via phone. CM contacted Nimisha from [facility] for a mental health screening. CM also updated pts Sejal, who is very happy with our care and concern for her , she is disappointed with the [facility]. A: 71 year old male admitted to [facility] on 09/30/21 for Exacerbation of COPD, Covid P: Anticipate, Felipe will discharge home with [place] O2, when medically ready and transport via private vehicle with family. Per VA Guidelines, Felipe does not meet criteria for home O2, therefor they will not cover. Self pay through [place] will be $454.25. Felipe will follow up with his PCP and pulmonolgist through the [facility] following discharge. CM will follow and support Felipe's discharge needs.
--- NOTE | 2021-10-06 19:16 | PDOC.MHCN ---
Date of service: 10/06/21 Time of Service: 19:16 Mental Health Crisis Note Presenting Issue How did you arrive at the ED and why did you come: Pt arrived on 10.02.2021 due to breathing issues and was diagnosed with COVID. Precipitating Factors Pt is denying SI, HI and NSSI. He admitted that he stated to his and son that he was going to walk until he dropped and stated that this was out of frustration because he needs oxygen and no one is getting him what he needs because he is a smoker. He reported that he is an intelligent man and would not use the oxygen while he is smoking and so feels he is being punished. Disposition BEHAVIOR: Pt is cooperative and engaged. He is showing good insight and judgment. His thoughts are clear and goal directed to go home and be with his and kids with or without oxygen. EYE CONTACT: Pt made consistent and appropriate eye contact. MOOD: Pt's mood appeared normal with frustrations of a system that is letting him down. He stated everything was good until Tuesday. AFFECT: Affect is full range and appropriate. APPETITE: Pt admits that his appetite is lousy because his does not like to cook anymore so they eat a lot of process foods. SLEEP(trouble falling/staying asleep: Pt reported normal and good sleep. Plan At this time the Pt does not meet criteria for an involuntary hold. He is not interested in inpatient treatment and knows how to and has in the past accessed resources in the past when he has struggled. Pt was informed also of [facility] [place] and [facility]. Signature Clinician's Name/Title: Nimisha Casiano MS, [facility] Emergency Services Clinician, [facility] [place]
[2021-10-06] MEDS: Atorvastatin 40 MG TAB PO (20:52)
[2021-10-07] VITALS (9 sets, daily range): BP systolic 115–130; BP diastolic 68–75; PULSE 56–99; RESP 8–21; TEMP 36.4–36.6; O2SAT 89–94
[2021-10-07] MEDS: Enoxaparin 80 MG/0.8 ML SYR SC (03:21)
[2021-10-07] MEDS: Benzonatate 100 MG CAP PO (07:56)
[2021-10-07] MEDS: Omega-3 Fatty Acids 1000 MG CAP PO (07:56)
[2021-10-07] MEDS: Ascorbic Acid 500 MG TAB 1000 MG PO (07:56)
[2021-10-07] MEDS: Sertraline 50 MG TAB PO (07:56)
[2021-10-07] MEDS: Famotidine 20 MG TAB PO (07:56)
[2021-10-07] MEDS: Magnesium Oxide 400 MG TAB PO (07:56)
[2021-10-07] MEDS: Zinc Sulfate 220 MG TAB PO (07:56)
[2021-10-07] MEDS: Loratidine 10 MG TAB PO (07:57)
[2021-10-07] MEDS: Cholecalciferol (Vitamin D3) 1,000 UNIT TAB 2000 UNITS PO (07:57)
[2021-10-07] MEDS: Budesonide/Formoterol 160/4.5 6 GM 60 PUFF INH IH (07:57)
[2021-10-07] MEDS: Aspirin 81 MG CHEW PO (07:57)
[2021-10-07] MEDS: Tiotropium Bromide-Respimat 10 PUFF INH IH (07:57)
[2021-10-07] MEDS: Albuterol/Ipratropium 3 ML UPD VIAL UPD ×2 (08:39→12:33)
[2021-10-07] MEDS: REMDESIVIR 100 MG in Normal Saline 250 ML 250 MG IVPB (08:45)
--- NOTE | 2021-10-07 09:14 | CMPROGNOTE_ITS ---
- If Service Date Differs Date of service: 10/07/21 Time of Service: 09:14 Care Management Progress Note S/O: A: 71 year old male admitted to [facility] on 09/30/21 for Exacerbation of COPD, Covid P: Anticipate, Felipe will discharge home with [place] O2, when medically ready and transport via private vehicle with family. Per [place] Guidelines, Felipe does not meet criteria for home O2, therefor they will not cover. Self pay through [facility] will be $454.25. Felipe will follow up with his PCP and pulmonolgist through the [facility] following discharge. CM will follow and support Felipe's discharge needs.
--- NOTE | 2021-10-07 11:30 | DSE_ITS ---
Date of service: 10/07/21 Time of Service: 11:30 DS: Diagnosis Discharge Diagnosis (1) COVID-19: Status: Acute (2) Acute exacerbation of chronic obstructive pulmonary disease: Status: Acute (3) Acute respiratory failure with hypoxia: Status: Resolved (4) Tobacco abuse: Status: Chronic Discharge Plan Disposition Patient Disposition: HOME Condition: Improving Discharge Details Reason For Visit: COPD exacerbation,+Covid 19 Admit Date/Time: 10/02/21 09:38 Admit Provider: Nilo Kulkarni Attending Provider: Nilo Kulkarni Primary Care Provider: Alvarez Alvarez Hospital Course Hospital Course: Mr Tom is a 71 year old male with PMHx of non-oxygen dependent COPD, GERD, tobacco abuse, anxiety, depression, and PTSD, who is vaccinated against COVID-19 who was a patient on [facility] hospitalist service from 10/02/21 until 10/07/21 for acute exacerbation of COPD and acute hypoxic respiratory failure due to COVID- 19. For 4 days prior, the patient had had symptoms of cough, congestion, shortness of breath, and wheezing as well as a fever. He was hypoxic to mid-80s on RA by EMS and required 4L of O2 to saturate >90%. The patient was treated with remdesivir, dexamethasone, baricitinib, scheduled and prn nebs, CPAP intermittently, vitamin C and D, and zinc supplementation, as well as therapeutic anticoagulation, per NIH guidelines (no evidence of actual VTE on this admission). The patient made marked improvements daily with his oxygen requirement and is now on room air at rest and with activity (brief 88% while ambulating on room air, quickly improving to the 90s), while yesterday he was still desaturating to 84% on ambulation on room air. Because the patient became upset when he found out that [facility] not [facility] unless O2 sats are 81% or less (as well as because he is a smoker), he verbalized suicidal ideation, for which he was evaluated by mental health. Mental health cleared the patient, however, and he is ready for discharge home today. He will need to complete a steroid taper and follow up with pulmonology as outpatient as soon as possible. Care for patient as well as completion of his discharge summary on day of discharge took 45 minutes. Home Meds and New Rx's Prescriptions: New ipratropium-albuterol 0.5 mg-3 mg(2.5 mg base)/3 mL Solution For Nebulization 3 ml UPD Q4H PRN PRNQty: 180 0RF nicotine 21 mg/24 hr Patch 24 Hour 21 mg transdermal DAILY PRN PRNQty: 30 0RF prednisone 10 mg tablet See Rx Instructions .ROUTE .COMPLEX Qty: 27 0RF Rx Instructions: 40 mg PO daily x 2 days, then 30 mg PO daily x 3 days, then 20 mg PO daily x 3 days, then 10 mg PO daily x 3 days, then 5 mg PO daily x 2 days, then stop. zinc sulfate [Zinc-220] 50 mg zinc (220 mg) Capsule 220 mg PO DAILY Qty: 7 0RF cholecalciferol (vitamin D3) 25 mcg (1,000 unit) Tablet 2,000 units PO DAILY Qty: 14 0RF Continued atorvastatin [Lipitor] 20 MG tablet 10 mg PO DAILY AM 0RF sertraline [Zoloft] 25 MG tablet 50 mg PO DAILY 0RF coenzyme Q10 [CoQ-10] 100 MG capsule 100 mg PO DAILY 0RF Spiriva with HandiHaler 1 PUFF capsule, w/inhalation device 1 puff Inhalation DAILY 0RF pantoprazole [Protonix] 40 MG tablet,delayed release (DR/EC) 40 mg PO DAILY Qty: 30 0RF Rx Instructions: 1 po QD magnesium 250 mg Tablet 500 mg PO DAILY 0RF albuterol sulfate 90 mcg/actuation Hfa Aerosol Inhaler 2 mcg Inhalation PRN PRN0RF budesonide-formoterol [Symbicort] 160-4.5 mcg/actuation Hfa Aerosol Inhaler 2 mcg Inhalation BID 0RF acetaminophen [Tylenol] 325 mg Tablet 650 mg PO Q4H PRN PRNQty: 0 0RF ascorbic acid (vitamin C) [Vitamin C] 1,000 mg Tablet 1,000 mg PO DAILY 0RF Black Elderberry 1 tab PO DAILY 0RF garlic 500 mg Tablet 500 mg PO DAILY 0RF omega-3 fatty acids-vitamin E 1,000 mg Capsule 1 cap PO DAILY 0RF aspirin 81 mg tablet,chewable 81 mg PO DAILY 0RF loratadine 10 mg capsule 10 mg PO DAILY Qty: 10 0RF benzonatate [Tessalon Perles] 100 mg capsule 100 mg PO TID Qty: 30 0RF Discharge Instructions Instructions: Prednisone (By mouth), How to Stop Smoking (DC), Cigarette Smoking and Your Health (GEN), COVID-19 (Coronavirus Disease 2019) (DC) Additional Instructions: Finish your steroid taper as prescribed. return to the hospital with any fever, bleeding, chest pain, shortness of breath that's worse. Follow up with your PCP and with pulmonology. You must stop smoking! Stand Alone Forms: Nursing Discharge Form Referrals: Lili Tijerina MD [ [facility] STAFF PHYSICIAN] - (Please see PCP for referral for pulmonology) Alvarez Alvarez [Primary Care Provider] - 10/20/21 11:30 am Activity:: Activity as Tolerated Equipment/Supplies:: No Equipment Needed Diet:: As Tolerated Discharge Orders Discharge Orders: Discharge Order (Routine); Ordered 10/07/21 Ordered By: Fanny Cummings Discharge Data Discharge Date/Time-TO BE ENTERED AT DEPARTURE: 10/07/21 12:55 DS: Summary Summary Time spent discussing smoking cessation with patient: 3 to 10 minutes Time Spent with Patient providing and/or coordinating discharge services: Greater than 30 minutes Status at Discharge Functional status at discharge: independent ambulation Overall status at discharge: patient is progressing back to baseline Mental Status: mental status grossly normal Speech and Movement: speech and movement normal Mood: congruent mood Affect: normal affect Exam Narrative Exam Narrative: Patient seen through the window in his door as he was being discharged. Nonlabored breathing. No difficulty walking. A&O, following commands, 5/5 strength throughout. Psych Mental Status: mental status grossly normal Speech and Movement: speech and movement normal Mood: congruent mood Affect: normal affect DS: Data Vitals/I&O Vitals and I&O: Vital Signs Temperature 36.6 C 10/07/21 08:03 Temperature Source Tympanic 10/07/21 08:03 Pulse 64 10/07/21 08:03 Pulse Rhythm Regular 10/07/21 08:52 Pulse 60 10/02/21 12:10 Respiratory Rate 16 10/07/21 08:39 Respiratory Effort Non-Labored 10/07/21 08:52 Respiratory Depth Normal 10/07/21 08:52 Respiratory Pattern Normal 10/07/21 08:52 Blood Pressure 124/68 10/07/21 08:03 Blood Pressure Mean 69 10/02/21 10:46 Blood Pressure Position Sitting 10/02/21 07:44 Pulse Oximetry 94 10/07/21 08:03 Oxygen Delivery Method Room Air 10/07/21 08:39 Oxygen Flow Rate 0 10/07/21 08:39 Fraction of Inspired Oxygen (FIO2) 30 10/03/21 16:25 Pain Level 0 10/07/21 08:03 Intake & Output 10/06/21 10/06/21 10/07/21 11:59 23:59 11:59 Intake Total 291.5 / 291.5 800 / 800 Output Total 500 / 500 1800 / 1800 Balance 291.5 / -208.5 -500 / -208.5 -1000 / -1000 Weight 81 kg Intake: IV 291.5 / 291.5 250 / 250 Oral 550 / 550 Output: Urine 500 / 500 1800 / 1800 Other: Urine Color Yellow Yellow Urine Appearance Clear Clear Clear Urine Odor Normal Normal Comment multiple voids Voiding Methods Toilet Toilet Data Completed and Pending Completed studies during hospitalization [Text1]: CXR: No new significant pulmonary findings on this single AP portable view of the chest. PFSH All Active Problems (Updated 10/07/21 @ 11:30 by Fanny Cummings MD) COVID-19 (Acute) Acute exacerbation of chronic obstructive pulmonary disease (Acute) Intertrochanteric fracture of right hip (Acute) DOS: 07/01/18 Dr. Hooper Discharge planning issues (Acute) GERD (gastroesophageal reflux disease) (Chronic) DVT prophylaxis (Acute) Hyperlipidemia (Acute) Tobacco abuse (Chronic) COPD (chronic obstructive pulmonary disease) (Chronic) Medical History (Updated 10/07/21 @ 11:30 by Fanny Cummings MD) Anxiety Depression Hyperlipemia PTSD (post-traumatic stress disorder) Surgical History (Updated 10/02/21 @ 19:01 by Nilo Kulkarni) H/O melanoma excision History of back surgery Lumbar discectomy Status post-operative repair of closed fracture of right hip Family History (Updated 10/02/21 @ 19:02 by Nilo Kulkarni) Mother , from an [place] in her 70s Heart disease Social History (Updated 10/02/21 @ 19:03 by Nilo Kulkarni) Smoking/Tobacco Use Status: Current every day Tobacco Type: cigarettes Smoking packs per day: 0.5 Smoking cigarettes per day: 10.0 Tobacco: How many years used: 50 Smoking risk assessment performed?: Yes Alcohol Intake: never Drug use: Never Substance use type: does not use Household members: spouse and children Do you feel safe at home: Yes Do you feel safe in your relationship?: Yes
--- NOTE | 2021-10-07 11:34 | CMDISCH_ITS ---
- If Service Date Differs Date of service: 10/07/21 Time of Service: 11:34 LACE Index Scoring Tool - Questions: Length of Stay (in days): 4 - 6 Acuity (Admit via E.D.?): Yes Comorbidities: Chronic Pulmonary Disease, Metastatic Solid Tumor E.D. Visits: 4 - Answers: Total Score: 16 Risk of Readmission: High Risk Care Management Discharge Reason for Hospitalization: Exacerbation of COPD, Covid Discharge Plan: Felipe will discharge home via private vehicle with . No [facility] services or supplimental O2 is required on discharge. Felipe will follow up with his PCP and [facility] Operations Coord[facility] and discharge plan of care as prescribed. Patient/Family Education Needs: Review discharge instructions, limitations, medications and plan to follow up with [facility] providers. ask me three.
[2021-10-07] MEDS: Dexamethasone 4 MG/ML VIAL 6 MG IVP (12:51)
[2021-10-07] MEDS: Normal Saline Flush 10 ML SYR IVP (12:51)
== END 2021-10-07 12:55 | disposition home or self-care (01) | DRG 177 ==
LOC: ER 09:59 → MS 10:50
PROVIDERS: Admitting Provider Internal Medicine; Emergency Provider Emergency Medicine; PCP Internal Medicine; Visit Provider Internal Medicine
DX: U07.1 COVID-19 (principal); J96.01 Acute respiratory failure with hypoxia; J44.1 Chronic obstructive pulmonary disease with (acute) exacerbation; K21.9 Gastro-esophageal reflux disease without esophagitis; K59.00 Constipation, unspecified; E78.5 Hyperlipidemia, unspecified; F17.210 Nicotine dependence, cigarettes, uncomplicated; F41.9 Anxiety disorder, unspecified; F32.A Depression, unspecified; F43.10 Post-traumatic stress disorder, unspecified; Z66 Do not resuscitate
CPT/HCPCS: 36415; 80053; 82550; 84145; 86900; 86901; 87637; 93005; 94618; 94640; 96361; 96365; 96366; 96367; 96375; 99285; J1650; 71045; 81003; 82728; 83735; 83880; 84443; 84484; 85025; 85379; 85610; 86140; 93010; 94667; 99223; 99232; 99233; 99239; J0131; J0248; J0696; J1100; J1941; J2930; J7620

== ENCOUNTER 2022-02-05 05:51 | Inpatient (IN) | payer OTHER, SELFPAY ==
[2022-02-05] VITALS (24 sets, daily range): BP systolic 104–161; BP diastolic 53–83; PULSE 50–132; RESP 3–30; TEMP 36.1–37.4; O2SAT 91–99
--- NOTE | 2022-02-05 05:45 | RT.EKG_ITS ---
APPROVED REPORT Exam: Resting ECG Reason for Exam: cheswt pain Patient Location: E HR:108 bpm ECG Measurements Heart Rate 108 AXIS NJ 57 P 0 QRSd 148 QRS 247 QT 350 T 28 QTc 469 Conclusion Sinus tachycardia...rate> 99 ST elevation secondary to IVCD...Multiple VCG criteria Physician: no stemi, unchanged from prior ekg on 10/02/21
--- NOTE | 2022-02-05 05:45 | DI.RAD_ITS ---
Exam(s) XR PORTABLE CHEST AP EXAM: XR PORTABLE CHEST AP CLINICAL HISTORY: sob, cough, fever, r/o pneumonia TECHNIQUE: 2D digital imaging was performed of the chest. Two images were obtained. AP views were obtained. COMPARISON: CR,XR XR PORTABLE CHEST AP from 02/01/2021 CR XR PORTABLE CHEST AP from 10/02/2021 FINDINGS: MEDIASTINUM: Normal. HEART: Normal. PULMONARY VASCULATURE: Normal. LUNGS: There are chronic interstitial infiltrates bilaterally, right greater than left. There may be slight increase in conspicuity of the interstitial infiltrates on the right. While this may be due to technique, a superimposed process cannot be excluded. No focal consolidating infiltrates are seen . PLEURAL SPACE: No pleural effusion or pneumothorax. BONE:Within normal limits for the patient's age. OTHER FINDINGS:Normal. IMPRESSION: Diffuse bilateral chronic interstitial opacities. Question of slight increase in the interstitial di sease on the right. Technique versus superimposed edema or infection. Please correlate clinically. DATA REPOSITORY: RADIATION DOSE DELIVERED:
[2022-02-05 06:05] LABS: Abs Immature Grans 0.02 10^3/uL (0.0-0.06); Absolute Basophil Count 0.05 10^3/uL (0.0-0.2); Absolute Eosinophil Count 0.04 10^3/uL (0.0-0.7); Absolute Lymphocyte Count 0.99 10^3/uL (1.2-3.4); Absolute Monocyte Count 1.12 10^3/uL (0.1-0.8); Absolute Neutrophil Count 6.44 10^3/uL (1.2-6.7); BE (Venous) 4 mmol/L (-2-3); Basophils % 0.6; Eosinophils % 0.5; HCO3 (Venous) 29 mmol/L (23-28); HCT 40.8 % (40.0-50.0); HGB 13.6 g/dL (13.5-17.5); Immature Grans % 0.2; Lymphocytes % 11.4; MCH 31.6 pg (27.0-33.0); MCHC 33.3 % (32.0-36.0); MCV 95 fL (80-95); MPV 9.5 fL (8.0-11.0); Monocytes % 12.9; Neutrophils % 74.4; O2 Sat (Venous) 68 %; Platelet Count 230 10^3/uL (130-400); RBC 4.31 10^6/uL (4.36-5.78); RDW 11.9 % (11.8-14.1); RDW-SD 41.6 fL; TCO2 (Venous) 26 mmol/L (24-29); WBC 8.66 10^3/uL (4.4-10.8); pCO2 (Venous) 50 mmHg (41-51); pH (Venous) 7.37 (7.31-7.41); pO2 (Venous) 36 mmHg
--- NOTE | 2022-02-05 06:11 | W.ED.GENAD ---
Discharge Plan Disposition Patient Disposition: [facility] INPATIENT Condition: Improving Discharge Details Clinical Impression: Acute exacerbation of chronic obstructive pulmonary disease, Pneumonia Primary Care Provider: Alvarez Alvarez ED Provider: James Lee Home Meds and New Rx's Prescriptions: No Action atorvastatin [Lipitor] 20 MG tablet 10 mg PO DAILY AM sertraline [Zoloft] 25 MG tablet 50 mg PO DAILY coenzyme Q10 [CoQ-10] 100 MG capsule 100 mg PO DAILY Spiriva with HandiHaler 1 PUFF capsule, w/inhalation device 1 puff Inhalation DAILY pantoprazole [Protonix] 40 MG tablet,delayed release (DR/EC) 40 mg PO DAILY Qty: 30 0RF Rx Instructions: 1 po QD magnesium 250 mg Tablet 500 mg PO DAILY albuterol sulfate 90 mcg/actuation Hfa Aerosol Inhaler 2 mcg Inhalation PRN PRN acetaminophen [Tylenol] 325 mg Tablet 650 mg PO Q4H PRN PRNQty: 0 0RF ascorbic acid (vitamin C) [Vitamin C] 1,000 mg Tablet 1,000 mg PO DAILY Black Elderberry 1 tab PO DAILY ipratropium-albuterol 0.5 mg-3 mg(2.5 mg base)/3 mL Solution For Nebulization 3 ml UPD Q4H PRN PRNQty: 180 0RF zinc sulfate [Zinc-220] 50 mg zinc (220 mg) Capsule 220 mg PO DAILY Qty: 7 0RF cholecalciferol (vitamin D3) 25 mcg (1,000 unit) Tablet 2,000 units PO DAILY Qty: 14 0RF garlic 500 mg Tablet 500 mg PO DAILY omega-3 fatty acids-vitamin E 1,000 mg Capsule 1 cap PO DAILY aspirin 81 mg tablet,chewable 81 mg PO DAILY loratadine 10 mg capsule 10 mg PO DAILY Qty: 10 0RF fluticasone propion-salmeterol [Wixela Inhub] 100-50 mcg/dose Blister With Device 2 inh INHALATION BID Medical Decision Making This is a 71-year-old male with a past medical history of tobacco abuse, COPD, GERD, high cholesterol, PTSD, who presents today via EMS for evaluation of shortness of breath. Patient states that for the last 2-1/2 to 3 days he has had cough, increased wheeze, slightly improved by his inhalers. However today he has had right-sided rib pain associated with his cough. He denies any tearing or ripping sensation. He is not on home oxygen. Yesterday he states he had a fever of 102. He denies any history of cardiac disease. Cough is slightly productive with white sputum. The patient did take a home COVID test yesterday and it was negative. He did have COVID-19 in September 2021. He did have hospitalization because of that. Patient denies any other complaints at this time. No other modifying factors. Exam demonstrates a stable male, moderate wheeze on the left, diminished lung sounds on the right. Bedside ultrasound shows good lung sliding bilaterally. No significant reproducible chest wall tenderness. Oxygenation is in the low 90s. He is not normally oxygen dependent. Differential is highest for COPD and pneumonia. We will treat with duo nebs, steroids, will get a chest x-ray test for viral etiologies, monitor closely and reassess. Symptoms appear inconsistent with cardiac etiology. Screening EKG shows evidence of interventricular conduction delay which appears to be unchanged from prior EKGs. No evidence of STEMI. 7:12 AM Patient subjectively feels much better after the breathing treatments, unfortunately his oxygen need is still present. He is in the mid to low 90s on 3 L right now. He still has some mild right-sided chest pain on the ribs themselves. We will apply Lidoderm patch. Troponin is negative. Chest x-ray has not been read yet, but I see no evidence of pneumothorax. He does have evidence of infiltrate though on the chest x-ray. Flu/COVID/RSV testing is negative. At this time symptoms appear consistent with COPD exacerbation in conjunction with bacterial pneumonia. Ceftriaxone and azithromycin have been administered. With his continued oxygen demand I do feel that he would benefit from admission with his age risk factors and current presentation. We will contact the hospitalist for admission. 7:[address] Cummings accepts the patient for admission. I have extensively reviewed the treatment plan with the patient. I have addressed all patient concerns at this time. I have also discussed the plan with the admitting physician and they agree with the current assessment and plan and have agreed to assume responsibility for the patient. All parties demonstrate verbal understanding and agreement with our assessment and plan at this time. The documentation in this chart was dictated using [employer] dictation software. Please excuse any dictation errors. HPI General Date/Time Provider Initiated Documentation: 02/05/22 05:56. HPI Narrative: This is a 71-year-old male with a past medical history of tobacco abuse, COPD, GERD, high cholesterol, PTSD, who presents today via EMS for evaluation of shortness of breath. Patient states that for the last 2-1/2 to 3 days he has had cough, increased wheeze, slightly improved by his inhalers. However today he has had right-sided rib pain associated with his cough. He denies any tearing or ripping sensation. He is not on home oxygen. Yesterday he states he had a fever of 102. He denies any history of cardiac disease. Cough is slightly productive with white sputum. The patient did take a home COVID test yesterday and it was negative. He did have COVID-19 in September 2021. He did have hospitalization because of that. Patient denies any other complaints at this time. No other modifying factors. Related Data Home Medications Medication Instructions Recorded Confirmed atorvastatin 20 mg tablet (Lipitor) 10 mg PO DAILY AM 03/15/14 02/05/22 sertraline 25 mg tablet (Zoloft) 50 mg PO DAILY 03/15/14 02/05/22 coenzyme Q10 100 mg capsule 100 mg PO DAILY 11/16/14 02/05/22 (CoQ-10) tiotropium bromide 18 mcg capsule 1 puff inhalation DAILY 11/16/14 02/05/22 with inhalation device (Spiriva with HandiHaler) pantoprazole 40 mg tablet,delayed 40 mg PO DAILY ##30 08/01/17 02/05/22 release (Protonix) albuterol sulfate 90 mcg/actuation 2 mcg inhalation PRN PRN 07/03/18 02/05/22 aerosol inhaler magnesium 250 mg tablet 500 mg PO DAILY 07/03/18 02/05/22 acetaminophen 325 mg tablet 650 mg PO Q4H PRN PRN #0 tabs 07/05/18 02/05/22 (Tylenol) aspirin 81 mg chewable tablet 81 mg PO DAILY 01/13/21 02/05/22 garlic 500 mg tablet 500 mg PO DAILY 01/13/21 02/05/22 omega-3 fatty acids-vitamin E 1 cap PO DAILY 01/13/21 02/05/22 1,000 mg capsule loratadine 10 mg capsule 10 mg PO DAILY #10 caps 02/02/21 02/05/22 Black Elderberry 1 tab PO DAILY 10/02/21 02/05/22 ascorbic acid (vitamin C) 1,000 mg 1,000 mg PO DAILY 10/02/21 02/05/22 tablet (Vitamin C) cholecalciferol (vitamin D3) 25 2,000 units PO DAILY #14 tabs 10/07/21 02/05/22 mcg (1,000 unit) tablet ipratropium 0.5 mg-albuterol 3 mg 3 ml UPD Q4H PRN PRN #180 mL 10/07/21 02/05/22 (2.5 mg base)/3 mL nebulization soln zinc sulfate 50 mg zinc (220 mg) 220 mg PO DAILY #7 caps 10/07/21 02/05/22 capsule (Zinc-220) fluticasone 100 mcg-salmeterol 50 2 inh inhalation BID 02/05/22 02/05/22 mcg/dose blistr powdr for inhalation (Wixela Inhub) Previous Rx's Medication Instructions Recorded pantoprazole 40 mg tablet,delayed 40 mg PO DAILY ##30 08/01/17 release (Protonix) acetaminophen 325 mg tablet 650 mg PO Q4H PRN PRN #0 tabs 07/05/18 (Tylenol) loratadine 10 mg capsule 10 mg PO DAILY #10 caps 02/02/21 cholecalciferol (vitamin D3) 25 2,000 units PO DAILY #14 tabs 10/07/21 mcg (1,000 unit) tablet ipratropium 0.5 mg-albuterol 3 mg 3 ml UPD Q4H PRN PRN #180 mL 10/07/21 (2.5 mg base)/3 mL nebulization soln zinc sulfate 50 mg zinc (220 mg) 220 mg PO DAILY #7 caps 10/07/21 capsule (Zinc-220) Allergies Allergy/AdvReac Type Severity Reaction Status Date / Time No Known Allergies Allergy Unverified 02/05/22 06:35 General MARYAN: 2 Review of Systems All systems reviewed & are unremarkable except as noted in HPI and below PFSH All Active Problems (Updated 02/05/22 @ 07:15 by James Lee DO) Pneumonia (Acute) COVID-19 (Acute) Acute exacerbation of chronic obstructive pulmonary disease (Acute) Intertrochanteric fracture of right hip (Acute) DOS: 07/01/18 Dr. Hooper GERD (gastroesophageal reflux disease) (Chronic) Hyperlipidemia (Acute) Tobacco abuse (Chronic) COPD (chronic obstructive pulmonary disease) (Chronic) Medical History Anxiety Depression Hyperlipemia PTSD (post-traumatic stress disorder) Surgical History H/O melanoma excision History of back surgery Lumbar discectomy Status post-operative repair of closed fracture of right hip Family History Mother , from an [place] in her 70s Heart disease Social History Smoking/Tobacco Use Status: Former Tobacco Use Tobacco: How many years used: 50 Smoking risk assessment performed?: Yes Alcohol Intake: never Drug use: Never Substance use type: does not use Household members: spouse and children Do you feel safe at home: Yes Do you feel safe in your relationship?: Yes Exam Narrative Exam Narrative: 1.Const: Well-nourished, Well-developed, appearing stated age 2.Eyes: PERRL, no conjunctival injection, and symmetrical lids. 3.ENT: Atraumatic external nose and ears. Moist MM. Neck: Symmetric, trachea midline, No thyromegaly. 4.CVS: +S1/S2, No murmurs or gallops. Peripheral pulses 2+ and equal in all extremities. Brisk capillary refill in all extremities. 5.RESP: Notable wheeze on the left with mild crackles. Diminished breath sounds on the right throughout. Minimal wheeze auscultated. 6.GI: Soft, Nontender/Nondistended, No hepatosplenomegaly. No guarding or rebound. 7.MSK: Normocephalic/Atraumatic, Extremities w/o deformity or ttp No cyanosis or clubbing, Normal movement of all extremities 8.Skin: Warm, Dry. No rashes or lesions. 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 Sensation grossly intact, no focal neurologic deficits. 10.Psych: (AAO) x3. Appropriate mood and affect Course Lab/Test Results Lab/Test Results: 02/05/22 05:57 Blood Blood Culture - Pending 02/05/22 05:57 Blood Blood Culture - Pending Laboratory Tests Range/Units 02/05/22 02/05/22 06:00 06:00 WBC (4.4-10.8) 10^3/uL 8.66 RBC (4.36-5.78) 10^6/uL 4.31 L Hgb (13.5-17.5) g/dL 13.6 Hct (40.0-50.0) % 40.8 MCV (80-95) fL 95 MCH (27.0-33.0) pg 31.6 MCHC (32.0-36.0) % 33.3 RDW (11.8-14.1) % 11.9 Plt Count (130-400) 10^3/uL 230 MPV (8.0-11.0) fL 9.5 Immature Gran % 0.2 Neutrophils % 74.4 Lymphocytes % 11.4 Monocytes % 12.9 Eosinophils % 0.5 Basophils % 0.6 Nucleated RBC % (0.0-0.3) % 0.0 Absolute Neutrophils (1.2-6.7) 10^3/uL 6.44 Absolute Lymphocytes (1.2-3.4) 10^3/uL 0.99 L Absolute Monocytes (0.1-0.8) 10^3/uL 1.12 H Absolute Eosinophils (0.0-0.7) 10^3/uL 0.04 Absolute Basophils (0.0-0.2) 10^3/uL 0.05 VBG pH (7.31-7.41) 7.37 VBG pCO2 (41-51) mmHg 50 VBG pO2 mmHg 36 VBG HCO3 (23-28) mmol/L 29 H VBG Total CO2 (24-29) mmol/L 26 VBG O2 Saturation % 68 VBG Base Excess (-2-3) mmol/L 4 H
[2022-02-05] MEDS: methylPREDNISolone SUCC 125 MG VIAL IVP (06:15)
[2022-02-05 06:25] LABS: ALT 25 U/L (16-63); AST 25 U/L (15-37); Albumin 3.2 g/dL (3.4-5.0); Alkaline Phosphatase 84 U/L (46-116); Anion Gap 7.4 mmol/L (3-11); BUN 16 mg/dL (7-18); Bilirubin, Total 0.5 mg/dL (0.2-1.0); CO2 29.6 mmol/L (21.0-32.0); Chloride 100 mmol/L (98-107); Estimated GFR 79.47 (mL/min/1.73m2); Glucose 101 mg/dL (74-106); Sodium 137 mmol/L (136-145); Total Protein 7.5 g/dL (6.4-8.2); Troponin I < 50 ng/L (<or=60)
[2022-02-05] MEDS: Albuterol/Ipratropium 3 ML UPD VIAL 9 ML UPD (06:29)
[2022-02-05] MEDS: cefTRIAXone 2 GM/50 ML BAG IVPB (06:35)
[2022-02-05 06:49] LABS: COVID-19 PCR Negative (Negative); Influenza A PCR Negative (Negative); Influenza B PCR Negative (Negative); RSV PCR Negative (Negative)
[2022-02-05] MEDS: AZITHROMYCIN 500 MG in Normal Saline 250 ML 250 MG IVPB (07:17)
[2022-02-05] MEDS: Lidocaine 5% Patch 1 PATCH TP (07:17)
[2022-02-05 08:19] LABS: Lab Add On Test DONE
--- NOTE | 2022-02-05 08:28 | DI.VRAD_ITS ---
PROCEDURE INFORMATION: Exam: XR Chest Exam date and time: 02/05/2022 5:50 AM Age: 71 years old Clinical indication: Cough and fever and shortness of breath; Prior surgery; Surgery date: 6+ months; Additional info: Cough, fever, SOB TECHNIQUE: Imaging protocol: Radiologic exam of the chest. Views: 1 view. COMPARISON: CR XR PORTABLE CHEST AP 10/02/2021 8:00 AM FINDINGS: Lungs: There are coarse interstitial opacities throughout both lungs. No mass or consolidation. Pleural spaces: No pleural effusion. No pneumothorax. Heart/Mediastinum: Heart size is normal for technique. Bones/joints: No acute bone abnormality. IMPRESSION: Chronic interstitial opacities. Dictated and Authenticated by: Yuridia Chahal MD. Ordering:ADRIAN Ramirez MD
[2022-02-05] MEDS: Albuterol/Ipratropium 3 ML UPD VIAL UPD ×3 (08:29→19:33)
--- NOTE | 2022-02-05 08:31 | RESPIRATORY ---
Pt states that he normally does not wear any O2 at home, uses Wixela and Spiriva at home daily, and uses 2 nebulizer treatments a day.
[2022-02-05 09:14] LABS: Procalcitonin 0.2 ng/mL
[2022-02-05] MEDS: Enoxaparin 40 MG/0.4 ML SYR SC (09:25)
[2022-02-05 09:32] LABS: Troponin I < 50 ng/L (<or=60)
--- NOTE | 2022-02-05 10:41 | INITIAL_ITS ---
- If Service Date Differs Date of service: 02/05/22 Time of Service: 10:41 Care Management Initial Assess REASON FOR HOSPITALIZATION:: Acute Exacerbation of COPD, CAP, Hypoxia PAST MEDICAL HISTORY/PAST SURGICAL HISTORY:: Anxiety, COPD, Depression, GERD, Hyperlipidemia, PTSD, H/O of melanoma excision, hx of back surgery, s/p operative repair of closed fracture of right hip PREVIOUS FUNCTIONAL STATUS/SOCIAL/FAMILY SUPPORTS:: Felipe resides with his , Charlette in [facility]. They have a total of 5 children. 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 Independent at baseline and does not use any assistive equipment. Felipe is a and does [facility]. CURRENT FUNCTIONAL STATUS:: On past admission, [facility] refused to provide Oxygen as Felipe's oxygen needs met [facility] eligibility but not [facility] eligiblity for O2 to be provided, per MD. Has patient been provided with info about the portal/API?: Yes Did the patient sign up for the portal?: No CODE STATUS:: DNR/DNI INSURANCE COVERAGE / FINANCIAL ISSUES:: Medicare. [facility] PRIMARY CARE PHYSICIAN:: Alvarez Alvarez POTENTIAL DISCHARGE NEEDS:: Follow up with PCP and [facility] providers PATIENT/FAMILY EDUCATION NEEDS:: Review of discharge instructions, limitations, follow up plan, activity, precautions, discuss Ask Me Three ANTICIPATED BARRIERS TO DISCHARGE:: None identified. TRANSPORTATION:: via private vehicle with family PLAN:: Anticipate Felipe will discharge home with no new services. He will follow up with his providers at the [facility] and transport with family. CM will follow and support Felipe's discharge needs.
[2022-02-05] MEDS: Normal Saline Flush 10 ML SYR IVP (14:52)
[2022-02-05] MEDS: Benzonatate 200 MG CAP PO (14:52)
--- NOTE | 2022-02-05 15:08 | W.PM.HP.N ---
Date of service: 02/05/22 Time of Service: 15:08 Assessment and Plan Assessment and plan (1) Acute respiratory failure with hypoxia: Status: Resolved Assessment and plan: Hypoxic and tachycardic in the emergency department, SPO2 > 94% after arrival on 3 LPM. Heart rate now in the 70's. Respiratory rate ~ 16-18, SPO2 95% on 1 lpm NC Lungs - exp wheeze upper left lobe - both lungs distant; speaking in full sentences - no cough Acapella, IS, Prednisone, Azithromycin and Ceftriaxone, nebulizers Blood cx pending; Sputum cx pending Repeat CBC, CMP, Mag in am We will wait 48 hours prior to repeating procalcitonin if needed at that point; I doubt he will be here passed tomorrow. (2) Acute exacerbation of chronic obstructive pulmonary disease: Status: Acute Assessment and plan: As above (3) GERD (gastroesophageal reflux disease): Status: Chronic Assessment and plan: Denies symptoms; continue home med Protonix 40 mg daily; mylanta prn (4) Hyperlipidemia: Status: Acute Assessment and plan: Will continue home med - atorvastatin 10 mg daily (5) PTSD (post-traumatic stress disorder): Assessment and plan: Stable - will continue home med - Sertraline 50 mg daily (6) DVT prophylaxis: Status: Acute Assessment and plan: Enoxaparin 40 mg daily (7) Discharge planning issues: Status: Acute Assessment and plan: Perhaps home tomorrow; he will not require any services. History of Present Illness History of Present Illness Chief Complaint: Shortness of breath Narrative: This is a 71-year-old male with a past medical history of tobacco abuse, COPD, GERD, high cholesterol, Covid 19 and PTSD, who presents to the [facility] emergency department today via EMS for evaluation of shortness of breath. The patient states that for the last 2-1/2 to 3 days, he has had a cough, increased wheeze, which was slightly improved by his inhalers. However, today he has had right-sided rib pain associated with his cough. He denies any tearing or ripping sensation. He is not on home oxygen. Yesterday he stated he had a fever of 102. He denied any history of cardiac disease. The cough is slightly productive with white sputum. The patient took a home COVID test yesterday, which was negative. He did have COVID-19 in September 2021 and was hospitalized. The patient denied any other complaints and had no other modifying factors. His exam in the emergency department demonstrated a moderate wheeze on the left and diminished lung sounds on the right. Bedside ultrasound showed good lung sliding bilaterally?no significant reproducible chest wall tenderness. Oxygenation was in the low 90s. He is not usually oxygen dependent. Labs: WBC 8.66; Procalcitonin 0.2. His vital signs are stable, no tachycardia, normotensive, afebrile. He was treated with duo nebs and steroids, a chest x-ray was performed. Screening EKG showed evidence of interventricular conduction delay, which appears to be unchanged from prior EKGs. No evidence of STEMI. The patient subjectively felt much better after the breathing treatments; however, he still had an oxygen requirement at rest, and his SPO2 was in the mid to low the 90s on 3 L. A Lidoderm patch was placed on his right lateral chest for intercostal pain from coughing. Troponin is negative. No evidence of pneumothorax. Flu/COVID/RSV testing is negative. Ceftriaxone and azithromycin were administered in the emergency department in case of pneumonia. He was diagnosed with exacerbation of COPD and considering his continued oxygen demand; he was placed on observation status in the medical unit. He reports to me clear sputum looks like spit. He states he had fever for ~ 24 hours relieved by Aspirin. He reports quitting smoking in September 2021 after having Covid 19 - he has 83 pack years. Review of Systems All systems reviewed & are unremarkable except as noted in HPI and below PFSH All Active Problems (Updated 02/05/22 @ 16:30 by Lorri Worthy NP) DVT prophylaxis (Acute) Discharge planning issues (Acute) Pneumonia (Acute) COVID-19 (Acute) Acute exacerbation of chronic obstructive pulmonary disease (Acute) Intertrochanteric fracture of right hip (Acute) DOS: 07/01/18 Dr. Hooper GERD (gastroesophageal reflux disease) (Chronic) Hyperlipidemia (Acute) Tobacco abuse (Chronic) COPD (chronic obstructive pulmonary disease) (Chronic) Medical History Anxiety Depression Hyperlipemia PTSD (post-traumatic stress disorder) Surgical History H/O melanoma excision History of back surgery Lumbar discectomy Status post-operative repair of closed fracture of right hip Family History Mother , from an [place] in her 70s Heart disease Social History Smoking/Tobacco Use Status: Former Tobacco Use Tobacco: How many years used: 50 Smoking risk assessment performed?: Yes Alcohol Intake: never Drug use: Never Substance use type: does not use Household members: spouse and children Do you feel safe at home: Yes Do you feel safe in your relationship?: Yes Meds Allergies and Home Medications Allergies Allergy/AdvReac Type Severity Reaction Status Date / Time No Known Allergies Allergy Unverified 02/05/22 06:35 Home Medications Medication Instructions Recorded Confirmed Type atorvastatin 20 mg tablet (Lipitor) 10 mg PO DAILY AM 03/15/14 02/05/22 History sertraline 25 mg tablet (Zoloft) 50 mg PO DAILY 03/15/14 02/05/22 History coenzyme Q10 100 mg capsule 100 mg PO DAILY 11/16/14 02/05/22 History (CoQ-10) tiotropium bromide 18 mcg capsule 1 puff inhalation DAILY 11/16/14 02/05/22 History with inhalation device (Spiriva with HandiHaler) pantoprazole 40 mg tablet,delayed 40 mg PO DAILY ##30 08/01/17 02/05/22 Rx release (Protonix) albuterol sulfate 90 mcg/actuation 2 mcg inhalation PRN PRN 07/03/18 02/05/22 History aerosol inhaler magnesium 250 mg tablet 500 mg PO DAILY 07/03/18 02/05/22 History acetaminophen 325 mg tablet 650 mg PO Q4H PRN PRN #0 tabs 07/05/18 02/05/22 Rx (Tylenol) aspirin 81 mg chewable tablet 81 mg PO DAILY 01/13/21 02/05/22 History garlic 500 mg tablet 500 mg PO DAILY 01/13/21 02/05/22 History omega-3 fatty acids-vitamin E 1 cap PO DAILY 01/13/21 02/05/22 History 1,000 mg capsule loratadine 10 mg capsule 10 mg PO DAILY #10 caps 02/02/21 02/05/22 Rx Black Elderberry 1 tab PO DAILY 10/02/21 02/05/22 History ascorbic acid (vitamin C) 1,000 mg 1,000 mg PO DAILY 10/02/21 02/05/22 History tablet (Vitamin C) cholecalciferol (vitamin D3) 25 2,000 units PO DAILY #14 tabs 10/07/21 02/05/22 Rx mcg (1,000 unit) tablet ipratropium 0.5 mg-albuterol 3 mg 3 ml UPD Q4H PRN PRN #180 mL 10/07/21 02/05/22 Rx (2.5 mg base)/3 mL nebulization soln zinc sulfate 50 mg zinc (220 mg) 220 mg PO DAILY #7 caps 10/07/21 02/05/22 Rx capsule (Zinc-220) fluticasone 100 mcg-salmeterol 50 2 inh inhalation BID 02/05/22 02/05/22 History mcg/dose blistr powdr for inhalation (Wixela Inhub) Exam Narrative Exam Narrative: Const General: no acute distress, awake, alert conversant sitting semi-fowlers on the bed. Nutritional Appearance: average body habitus [facility] Head: normocephalic Ears: external ears normal and no periauricular adenopathy General nose exam: nasal mucous membranes and turbinates normal Face and sinus: sinuses nontender Mouth: oropharynx normal and moist mucous membranes Teeth and gingiva: dentition normal Eyes General: appearance normal, both eyes and all related structures Pupils: PERRL Neck Neck: normal visual inspection and no lymphadenopathy Chest Chest: normal inspection of the chest Resp Effort & Inspection: normal respiratory effort Auscultation: no rales, no rhonchi - expiratory wheeze upper left lung, bilateral lungs diminished throughout Cardio Rate: regular Rhythm: regular Heart Sounds: S1 normal, S2 normal and no murmurs Pulses: radial pulses present bilaterally GI Inspection: normal to inspection Palpation: soft Skin General skin exam: no rashes or lesions noted Neuro General: patient alert, patient awake and patient oriented x3 Extrem General: no clubbing, cyanosis or edema Psych Mental Status: mental status grossly normal Affect: normal affect Attitude: cooperative Results Labs Result diagrams: 02/05/22 06:00 02/05/22 06:00 Labs: Laboratory Results - last 24 hr 02/05/22 02/05/22 02/05/22 06:00 06:00 06:00 WBC 8.66 RBC 4.31 L Hgb 13.6 Hct 40.8 MCV 95 MCH 31.6 MCHC 33.3 RDW 11.9 Plt Count 230 MPV 9.5 Immature Gran % 0.2 Neutrophils % 74.4 Lymphocytes % 11.4 Monocytes % 12.9 Eosinophils % 0.5 Basophils % 0.6 Nucleated RBC % 0.0 Absolute Neutrophils 6.44 Absolute Lymphocytes 0.99 L Absolute Monocytes 1.12 H Absolute Eosinophils 0.04 Absolute Basophils 0.05 VBG pH 7.37 VBG pCO2 50 VBG pO2 36 VBG HCO3 29 H VBG Total CO2 26 VBG O2 Saturation 68 VBG Base Excess 4 H Sodium 137 Potassium 4.0 Chloride 100 Carbon Dioxide 29.6 Anion Gap 7.4 BUN 16 Creatinine 1.0 Est GFR (CKD-EPI 2020) 79.47 Glucose 101 Calcium 9.0 Total Bilirubin 0.5 AST 25 ALT 25 Alkaline Phosphatase 84 Troponin I < 50 Total Protein 7.5 Albumin 3.2 L Procalcitonin COVID-19 Source SARS-CoV-2 (PCR) Influenza Type A (PCR) Influenza Type B (PCR) RSV (PCR) Add-On Test Request 02/05/22 02/05/22 02/05/22 06:02 08:12 08:12 WBC RBC Hgb Hct MCV MCH MCHC RDW Plt Count MPV Immature Gran % Neutrophils % Lymphocytes % Monocytes % Eosinophils % Basophils % Nucleated RBC % Absolute Neutrophils Absolute Lymphocytes Absolute Monocytes Absolute Eosinophils Absolute Basophils VBG pH VBG pCO2 VBG pO2 VBG HCO3 VBG Total CO2 VBG O2 Saturation VBG Base Excess Sodium Potassium Chloride Carbon Dioxide Anion Gap BUN Creatinine Est GFR (CKD-EPI 2020) Glucose Calcium Total Bilirubin AST ALT Alkaline Phosphatase Troponin I < 50 Total Protein Albumin Procalcitonin COVID-19 Source Not Applicable SARS-CoV-2 (PCR) Negative Influenza Type A (PCR) Negative Influenza Type B (PCR) Negative RSV (PCR) Negative Add-On Test Request DONE 02/05/22 08:12 WBC RBC Hgb Hct MCV MCH MCHC RDW Plt Count MPV Immature Gran % Neutrophils % Lymphocytes % Monocytes % Eosinophils % Basophils % Nucleated RBC % Absolute Neutrophils Absolute Lymphocytes Absolute Monocytes Absolute Eosinophils Absolute Basophils VBG pH VBG pCO2 VBG pO2 VBG HCO3 VBG Total CO2 VBG O2 Saturation VBG Base Excess Sodium Potassium Chloride Carbon Dioxide Anion Gap BUN Creatinine Est GFR (CKD-EPI 2020) Glucose Calcium Total Bilirubin AST ALT Alkaline Phosphatase Troponin I Total Protein Albumin Procalcitonin 0.2 COVID-19 Source SARS-CoV-2 (PCR) Influenza Type A (PCR) Influenza Type B (PCR) RSV (PCR) Add-On Test Request Last Vital Signs Temp 36.6 C 02/05/22 08:08 Pulse 76 02/05/22 13:50 Resp 17 02/05/22 13:50 BP 105/83 02/05/22 08:08 Pulse Ox 95 02/05/22 13:50
[2022-02-05] MEDS: Acetaminophen 325 MG TAB PO (18:24)
[2022-02-05] MEDS: Benzonatate 100 MG CAP PO (19:33)
[2022-02-05] MEDS: Budesonide/Formoterol 80/4.5 6.9 GM 60 PUFF INH IH (19:34)
[2022-02-06] VITALS (16 sets, daily range): BP systolic 109–120; BP diastolic 57–71; PULSE 65–94; RESP 4–19; TEMP 35.7–36.6; O2SAT 89–94
[2022-02-06] MEDS: Albuterol/Ipratropium 3 ML UPD VIAL UPD ×4 (02:16→20:43)
[2022-02-06 06:54] LABS: Abs Immature Grans 0.02 10^3/uL (0.0-0.06); Absolute Basophil Count 0.01 10^3/uL (0.0-0.2); Absolute Lymphocyte Count 0.43 10^3/uL (1.2-3.4); Absolute Monocyte Count 0.38 10^3/uL (0.1-0.8); Absolute Neutrophil Count 6.79 10^3/uL (1.2-6.7); Basophils % 0.1; HCT 33.9 % (40.0-50.0); HGB 11.6 g/dL (13.5-17.5); Immature Grans % 0.3; Lymphocytes % 5.6; MCH 31.5 pg (27.0-33.0); MCHC 34.2 % (32.0-36.0); MCV 92 fL (80-95); MPV 10.1 fL (8.0-11.0); Platelet Count 220 10^3/uL (130-400); RBC 3.68 10^6/uL (4.36-5.78); RDW 11.4 % (11.8-14.1); RDW-SD 39.2 fL; WBC 7.63 10^3/uL (4.4-10.8)
[2022-02-06 07:12] LABS: Anion Gap 10.4 mmol/L (3-11); BUN 27 mg/dL (7-18); CO2 26.6 mmol/L (21.0-32.0); CREATININE 1.1 mg/dL (0.70-1.30); Calcium 8.8 mg/dL (8.5-10.1); Chloride 100 mmol/L (98-107); Estimated GFR 70.88 (mL/min/1.73m2); Glucose 126 mg/dL (74-106); Magnesium 1.7 mg/dL (1.8-2.4); Sodium 137 mmol/L (136-145)
[2022-02-06] MEDS: Tiotropium Bromide-Respimat 10 PUFF INH 2 PUFF IH (07:49)
[2022-02-06] MEDS: Budesonide/Formoterol 80/4.5 6.9 GM 60 PUFF INH IH ×2 (07:49→20:43)
[2022-02-06] MEDS: cefTRIAXone 2 GM/50 ML BAG IVPB (08:50)
[2022-02-06] MEDS: Normal Saline Flush 10 ML SYR IVP (08:50)
[2022-02-06] MEDS: Sertraline 25 MG TAB 50 MG PO (08:50)
[2022-02-06] MEDS: Enoxaparin 40 MG/0.4 ML SYR SC (08:50)
[2022-02-06] MEDS: Benzonatate 100 MG CAP PO ×3 (08:51→20:42)
[2022-02-06] MEDS: predniSONE 20 MG TAB 40 MG PO (08:51)
[2022-02-06] MEDS: Aspirin 81 MG CHEW PO (08:51)
[2022-02-06] MEDS: Magnesium Gluconate 500 MG TAB PO (08:51)
[2022-02-06] MEDS: Atorvastatin 20 MG TAB 10 MG PO (08:51)
[2022-02-06] MEDS: Pantoprazole 40 MG TABCR PO (08:51)
[2022-02-06] MEDS: AZITHROMYCIN 500 MG in Normal Saline 250 ML 250 MG IVPB (10:11)
[2022-02-06] MEDS: Acetaminophen 325 MG TAB PO (11:57)
--- NOTE | 2022-02-06 15:53 | W.PM.PROGNOT ---
Date of Service Date of service: 02/06/22 Time of Service: 15:54 Assessment and Plan Assessment and plan (1) Acute respiratory failure with hypoxia: Status: Acute Assessment and plan: responding to current treatment Acapella, IS, Prednisone, Azithromycin and Ceftriaxone, nebulizers day 2/5 Blood cx pending; Sputum cx pending down to 1 liter/nc, continue weaning oxygen (2) Acute exacerbation of chronic obstructive pulmonary disease: Status: Acute Assessment and plan: As above (3) GERD (gastroesophageal reflux disease): Status: Chronic Assessment and plan: Denies symptoms; continue home med Protonix 40 mg daily; mylanta prn (4) Hyperlipidemia: Status: Acute Assessment and plan: Will continue home med - atorvastatin 10 mg daily (5) PTSD (post-traumatic stress disorder): Assessment and plan: Stable - will continue home med - Sertraline 50 mg daily (6) DVT prophylaxis: Status: Acute Assessment and plan: Enoxaparin 40 mg daily (7) Discharge planning issues: Status: Acute Assessment and plan: anticipate a discharge tomorrow if off oxygen no services anticipated discussed with DR Ram. Subjective Subjective Patient reports: no new complaints, feels better, tolerating liquids well, tolerating a regular diet, voiding w/o difficulty and afebrile; denies shortness of breath Exam Const General: cooperative, healthy appearing, comfortable and no acute distress Nutritional Appearance: average body habitus Orientation: alert, awake and oriented x3 HENMT Head: normal to inspection, normocephalic and atraumatic Mouth: oral mucosae normal Chest Chest: normal inspection of the chest Resp Effort & Inspection: normal respiratory effort, cough Quality of cough: dry and no respiratory distress Auscultation: diminished lung sounds, no rhonchi and no wheezes Cardio Rate: regular rate Rhythm: regular rhythm GI Inspection: normal to inspection Palpation: soft and nontender Skin General skin exam: no rashes or lesions noted Neuro General: patient alert, patient awake and patient oriented x3 Extrem General: normal to inspection and no pedal edema Objective Last Vital Signs Temp 36.3 C L 02/06/22 15:03 Pulse 93 H 02/06/22 15:03 Resp 19 02/06/22 15:03 BP 119/62 02/06/22 15:03 Pulse Ox 92 02/06/22 15:03 Laboratory Results - last 24 hr 02/06/22 02/06/22 06:09 06:09 WBC 7.63 RBC 3.68 L Hgb 11.6 L D Hct 33.9 L MCV 92 MCH 31.5 MCHC 34.2 RDW 11.4 L Plt Count 220 MPV 10.1 Immature Gran % 0.3 Neutrophils % 89.0 Lymphocytes % 5.6 Monocytes % 5.0 Eosinophils % 0.0 Basophils % 0.1 Nucleated RBC % 0.0 Absolute Neutrophils 6.79 H Absolute Lymphocytes 0.43 L Absolute Monocytes 0.38 Absolute Eosinophils 0.00 Absolute Basophils 0.01 Sodium 137 Potassium 4.0 Chloride 100 Carbon Dioxide 26.6 Anion Gap 10.4 BUN 27 H Creatinine 1.1 Est GFR (CKD-EPI 2020) 70.88 Glucose 126 H Calcium 8.8 Magnesium 1.7 L
[2022-02-07] VITALS (14 sets, daily range): BP systolic 117–158; BP diastolic 68–79; PULSE 58–113; RESP 4–21; TEMP 36.1–36.5; O2SAT 84–97
[2022-02-07] MEDS: Albuterol/Ipratropium 3 ML UPD VIAL UPD ×4 (01:52→20:02)
[2022-02-07] MEDS: Tiotropium Bromide-Respimat 10 PUFF INH 2 PUFF IH (07:52)
[2022-02-07] MEDS: Budesonide/Formoterol 80/4.5 6.9 GM 60 PUFF INH IH ×2 (07:52→20:03)
[2022-02-07] MEDS: Aspirin 81 MG CHEW PO (08:14)
[2022-02-07] MEDS: Sertraline 25 MG TAB 50 MG PO (08:14)
[2022-02-07] MEDS: Benzonatate 100 MG CAP PO ×3 (08:14→20:03)
[2022-02-07] MEDS: Magnesium Gluconate 500 MG TAB PO (08:14)
[2022-02-07] MEDS: Pantoprazole 40 MG TABCR PO (08:15)
[2022-02-07] MEDS: Atorvastatin 20 MG TAB 10 MG PO (08:15)
[2022-02-07] MEDS: predniSONE 20 MG TAB 40 MG PO (08:15)
[2022-02-07] MEDS: cefTRIAXone 2 GM/50 ML BAG IVPB (08:16)
[2022-02-07] MEDS: Enoxaparin 40 MG/0.4 ML SYR SC (08:17)
[2022-02-07] MEDS: Normal Saline Flush 10 ML SYR IVP (08:17)
[2022-02-07] MEDS: AZITHROMYCIN 500 MG in Normal Saline 250 ML 250 MG IVPB (09:37)
--- NOTE | 2022-02-07 16:41 | W.PM.PROGNOT ---
Date of Service Date of service: 02/07/22 Time of Service: 16:41 Assessment and Plan Assessment and plan (1) Acute respiratory failure with hypoxia: Status: Acute Assessment and plan: responding to current treatment Acapella, IS, Prednisone, Azithromycin and Ceftriaxone, nebulizers day 3/5 Blood cx no growth 48h; Sputum cx normal chivo down to 1 liter/nc, continue weaning oxygen (2) Acute exacerbation of chronic obstructive pulmonary disease: Status: Acute Assessment and plan: As above (3) GERD (gastroesophageal reflux disease): Status: Chronic Assessment and plan: Denies symptoms; continue home med Protonix 40 mg daily; mylanta prn (4) Hyperlipidemia: Status: Acute Assessment and plan: Will continue home med - atorvastatin 10 mg daily (5) PTSD (post-traumatic stress disorder): Assessment and plan: Stable - will continue home med - Sertraline 50 mg daily (6) DVT prophylaxis: Status: Acute Assessment and plan: Enoxaparin 40 mg daily (7) Discharge planning issues: Status: Acute Assessment and plan: anticipate a discharge tomorrow 02/08 if off oxygen - if he continues to have an oxygen requirement he will go home with O2 through the [place]; [facility] is working on getting it and report it might not be until 02/09 no services anticipated discussed with Dr Ram. Subjective Subjective Patient reports: no new complaints, feels better, tolerating a regular diet and afebrile; denies diarrhea, nausea, vomiting or shortness of breath Interval history since last seen: Felipe states he is feeling better, breathing well. However his oxygen saturation went down to 84% with walking. It took time and 2 LPM to recover >90%. He has quit smoking now for 16 weeks. Exam Const General: cooperative, healthy appearing, comfortable and no acute distress Nutritional Appearance: average body habitus Orientation: alert, awake and oriented x3 HENMT Head: normal to inspection, normocephalic and atraumatic Mouth: oral mucosae normal Chest Chest: normal inspection of the chest Resp Effort & Inspection: normal respiratory effort, cough Quality of cough: dry and no respiratory distress Auscultation: diminished lung sounds, no rales, no rhonchi and no wheezes Other: C/O continued pain to right ribs s/t coughing, no longer splinting, improving; acetaminophen Cardio Rate: regular rate Rhythm: regular rhythm GI Inspection: normal to inspection Palpation: soft and nontender Skin General skin exam: no rashes or lesions noted Neuro General: patient alert, patient awake and patient oriented x3 Extrem General: normal to inspection and no pedal edema Psych Appearance: grossly normal Mental Status: mental status grossly normal Speech and Movement: speech and movement normal Mood: congruent mood Objective Last Vital Signs Temp 36.5 C 02/07/22 15:00 Pulse 69 02/07/22 15:00 Resp 17 02/07/22 15:00 BP 143/71 H 02/07/22 15:00 Pulse Ox 92 02/07/22 15:00 Reviewed Pertinent PMH: Yes
--- NOTE | 2022-02-07 19:36 | NUR.NOTE ---
Nursing Note: At approximately 1900 this TIRE TRUCKER entered patient room to check vital signs. Patient appears upset and states he is feeling depressed. Patient states I am never going to be able to go home again, [facility] all [facility]. Patient states he has been working with care management for home O2 if needed. Patient is supposed to repeat the exercise oximetry test tomorrow. Patient states he was told that the [place] will not cover his home O2 because he is a former smoker, though he has not smoked for 16 weeks. Patient states he has lost all his children and grandkids as they will no longer talk to him or see him. Patient states he told his if he can't get home O2 covered he will divorce and separate from her while he goes to live at a [place] us[facility] so he can get oxygen. THen his will never have to see him again and she will not have to worry about housing if they are not together. Attempted to provide patient with PFA, remind him he is still going to repeat his oximetry test tomorrow and talk more with care management to figure out a plan.
[2022-02-08] VITALS (14 sets, daily range): BP systolic 115–134; BP diastolic 59–68; PULSE 55–69; RESP 4–18; TEMP 36.4–36.8; O2SAT 91–96
[2022-02-08] MEDS: Albuterol/Ipratropium 3 ML UPD VIAL UPD ×4 (02:25→20:49)
[2022-02-08 06:35] LABS: Abs Immature Grans 0.07 10^3/uL (0.0-0.06); Absolute Basophil Count 0.02 10^3/uL (0.0-0.2); Absolute Lymphocyte Count 1.59 10^3/uL (1.2-3.4); Absolute Monocyte Count 0.96 10^3/uL (0.1-0.8); Absolute Neutrophil Count 8.07 10^3/uL (1.2-6.7); Basophils % 0.2; HCT 32.8 % (40.0-50.0); HGB 11.5 g/dL (13.5-17.5); Immature Grans % 0.7; Lymphocytes % 14.8; MCH 32.1 pg (27.0-33.0); MCHC 35.1 % (32.0-36.0); MCV 92 fL (80-95); MPV 9.8 fL (8.0-11.0); Neutrophils % 75.3; Platelet Count 276 10^3/uL (130-400); RBC 3.58 10^6/uL (4.36-5.78); RDW 12.1 % (11.8-14.1); RDW-SD 40.8 fL; WBC 10.71 10^3/uL (4.4-10.8)
[2022-02-08 06:48] LABS: Anion Gap 7.2 mmol/L (3-11); BUN 21 mg/dL (7-18); CO2 29.8 mmol/L (21.0-32.0); CREATININE 0.8 mg/dL (0.70-1.30); Calcium 8.7 mg/dL (8.5-10.1); Chloride 105 mmol/L (98-107); Estimated GFR 93.45 (mL/min/1.73m2); Glucose 101 mg/dL (74-106); Magnesium 1.7 mg/dL (1.8-2.4); Potassium 4.1 mmol/L (3.5-5.1); Sodium 142 mmol/L (136-145)
[2022-02-08] MEDS: Tiotropium Bromide-Respimat 10 PUFF INH 2 PUFF IH (07:47)
[2022-02-08] MEDS: Budesonide/Formoterol 80/4.5 6.9 GM 60 PUFF INH IH ×2 (07:48→21:05)
[2022-02-08] MEDS: Sertraline 25 MG TAB 50 MG PO (08:35)
[2022-02-08] MEDS: Benzonatate 100 MG CAP PO ×3 (08:35→20:48)
[2022-02-08] MEDS: Magnesium Gluconate 500 MG TAB PO (08:36)
[2022-02-08] MEDS: Pantoprazole 40 MG TABCR PO (08:36)
[2022-02-08] MEDS: Enoxaparin 40 MG/0.4 ML SYR SC (08:36)
[2022-02-08] MEDS: predniSONE 20 MG TAB 40 MG PO (08:36)
[2022-02-08] MEDS: Aspirin 81 MG CHEW PO (08:36)
[2022-02-08] MEDS: Normal Saline 500 ML 50 ML IV (08:37)
[2022-02-08] MEDS: Normal Saline Flush 10 ML SYR IVP (08:38)
[2022-02-08] MEDS: cefTRIAXone 2 GM/50 ML BAG IVPB (08:38)
[2022-02-08] MEDS: Atorvastatin 20 MG TAB 10 MG PO (08:39)
[2022-02-08] MEDS: AZITHROMYCIN 500 MG in Normal Saline 250 ML 250 MG IVPB (09:36)
--- NOTE | 2022-02-08 10:03 | CMPROGNOTE_ITS ---
- If Service Date Differs Date of service: 02/08/22 Time of Service: 10:03 Care Management Progress Note S/O: CM left VM for MARCELO Del Angel at the [place] at 1000 to inquire additional process information for completed new O2 orders for home oxygen upon discharge. RN YAZ Ovalles called back to review process. Respiratory and MD report Felipe may now be able to wean of oxygen which is a change in plan at this time. CM continues to follow. A: 71 year old admitted to [facility] 02/05/22 for acute exacerbation of COPD, CAP, Hypoxia P: Felipe will likely return home when ready per MD, he will follow up with his PCP and plan of care as prescribed and transport with family. CM will follow and support Felipe's discharge needs.
--- NOTE | 2022-02-08 15:46 | W.PM.PROGNOT ---
Date of Service Date of service: 02/08/22 Time of Service: 15:47 Assessment and Plan Assessment and plan (1) Acute respiratory failure with hypoxia: Status: Acute Assessment and plan: responding to current treatment Acapella, IS, Prednisone, Azithromycin and Ceftriaxone, nebulizers day 4/5 Blood cx no growth 48h; Sputum cx normal chivo down to 1 liter/nc, continue weaning oxygen (2) Acute exacerbation of chronic obstructive pulmonary disease: Status: Acute Assessment and plan: As above (3) GERD (gastroesophageal reflux disease): Status: Chronic Assessment and plan: Denies symptoms; continue home med Protonix 40 mg daily; mylanta prn (4) Hyperlipidemia: Status: Acute Assessment and plan: Will continue home med - atorvastatin 10 mg daily (5) PTSD (post-traumatic stress disorder): Assessment and plan: Stable - will continue home med - Sertraline 50 mg daily (6) DVT prophylaxis: Status: Acute Assessment and plan: Enoxaparin 40 mg daily (7) Discharge planning issues: Status: Acute Assessment and plan: will discharge to home when stable- if he continues to have an oxygen requirement he will go home with O2 through the [place]; Care mgt is following no services anticipated discussed with Dr Ram. Subjective Subjective Patient reports: no new complaints, feels better, tolerating liquids well, tolerating a regular diet, shortness of breath (improving) and afebrile Interval history since last seen: continues to slowly improve. still requiring oxygen with activity and ambulation Exam Const General: cooperative, healthy appearing, comfortable and no acute distress Nutritional Appearance: average body habitus Orientation: alert, awake and oriented x3 HENHI Head: normal to inspection, normocephalic and atraumatic Mouth: oral mucosae normal Chest Chest: normal inspection of the chest Resp Effort & Inspection: normal respiratory effort, cough Quality of cough: dry and no respiratory distress Auscultation: diminished lung sounds, no rales, no rhonchi and no wheezes Cardio Rate: regular rate Rhythm: regular rhythm GI Inspection: normal to inspection Palpation: soft and nontender Skin General skin exam: no rashes or lesions noted Neuro General: patient alert, patient awake and patient oriented x3 Extrem General: normal to inspection and no pedal edema Psych Appearance: grossly normal Mental Status: mental status grossly normal Speech and Movement: speech and movement normal Mood: congruent mood Objective Last Vital Signs Temp 36.4 C L 02/08/22 15:32 Pulse 62 02/08/22 15:32 Resp 12 02/08/22 15:32 BP 134/59 L 02/08/22 15:32 Pulse Ox 92 02/08/22 15:32 Laboratory Results - last 24 hr 02/08/22 02/08/22 06:10 06:10 WBC 10.71 RBC 3.58 L Hgb 11.5 L Hct 32.8 L MCV 92 MCH 32.1 MCHC 35.1 RDW 12.1 Plt Count 276 MPV 9.8 Immature Gran % 0.7 Neutrophils % 75.3 Lymphocytes % 14.8 Monocytes % 9.0 Eosinophils % 0.0 Basophils % 0.2 Nucleated RBC % 0.0 Absolute Neutrophils 8.07 H Absolute Lymphocytes 1.59 Absolute Monocytes 0.96 H Absolute Eosinophils 0.00 Absolute Basophils 0.02 Sodium 142 Potassium 4.1 Chloride 105 Carbon Dioxide 29.8 Anion Gap 7.2 BUN 21 H Creatinine 0.8 Est GFR (CKD-EPI 2020) 93.45 Glucose 101 Calcium 8.7 Magnesium 1.7 L
[2022-02-09] VITALS (8 sets, daily range): BP systolic 110–142; BP diastolic 55–83; PULSE 54–69; RESP 8–18; TEMP 35.8–36.9; O2SAT 89–94
[2022-02-09] MEDS: Normal Saline Flush 10 ML SYR IVP ×2 (06:19→08:26)
[2022-02-09] MEDS: cefTRIAXone 2 GM/50 ML BAG IVPB (08:25)
[2022-02-09] MEDS: Atorvastatin 20 MG TAB 10 MG PO (08:26)
[2022-02-09] MEDS: Benzonatate 100 MG CAP PO ×3 (08:26→20:04)
[2022-02-09] MEDS: Pantoprazole 40 MG TABCR PO (08:27)
[2022-02-09] MEDS: Enoxaparin 40 MG/0.4 ML SYR SC (08:27)
[2022-02-09] MEDS: predniSONE 20 MG TAB 40 MG PO (08:28)
[2022-02-09] MEDS: Sertraline 25 MG TAB 50 MG PO (08:28)
[2022-02-09] MEDS: Magnesium Gluconate 500 MG TAB PO (08:28)
[2022-02-09] MEDS: Aspirin 81 MG CHEW PO (08:28)
[2022-02-09] MEDS: Budesonide/Formoterol 80/4.5 6.9 GM 60 PUFF INH IH ×2 (08:33→20:12)
[2022-02-09] MEDS: Albuterol/Ipratropium 3 ML UPD VIAL UPD ×3 (08:34→20:04)
[2022-02-09] MEDS: Tiotropium Bromide-Respimat 10 PUFF INH 2 PUFF IH (08:34)
[2022-02-09] MEDS: AZITHROMYCIN 500 MG in Normal Saline 250 ML 250 MG IVPB (09:13)
--- NOTE | 2022-02-09 11:28 | CMPROGNOTE_ITS ---
- If Service Date Differs Date of service: 02/09/22 Time of Service: 11:28 Care Management Progress Note S/O: Felipe continues to be weaned off oxygen, he was sitting up in his chair and pleasant in interaction when CM met with him. 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 He also expressed struggles with smoking cessation stating he has not smoked in sixteen weeks, after sixty years and is hoping for support with cravings. CM provided positive affirmations for quitting smoking and completed referral to [facility] for smoking cessation. Reviewed treatment plan; Felipe verbalized understanding of discharge readiness once he is no longer requiring oxygen. CM continues to follow. A: 71 year old admitted to [facility] 02/05/22 for acute exacerbation of COPD, CAP, Hypoxia P: Felipe will likely return home when ready per MD, he will follow up with his PCP and plan of care as prescribed and transport with family. Smoking cessation referral to [facility] completed. Felipe will transport via private vehicle with his , Charlette.
--- NOTE | 2022-02-09 16:02 | W.PM.PROGNOT ---
Date of Service Date of service: 02/09/22 Time of Service: 16:03 Assessment and Plan Assessment and plan (1) Acute respiratory failure with hypoxia: Status: Acute Assessment and plan: responding to current treatment Acapella, IS, Prednisone, Azithromycin and Ceftriaxone, nebulizers day 5/5 Blood cx no growth 48h; Sputum cx normal chivo down to 1 liter/nc, continue weaning oxygen (2) Acute exacerbation of chronic obstructive pulmonary disease: Status: Acute Assessment and plan: As above (3) GERD (gastroesophageal reflux disease): Status: Chronic Assessment and plan: Denies symptoms; continue home med Protonix 40 mg daily; mylanta prn (4) Hyperlipidemia: Status: Acute Assessment and plan: Will continue home med - atorvastatin 10 mg daily (5) PTSD (post-traumatic stress disorder): Assessment and plan: Stable - will continue home med - Sertraline 50 mg daily (6) DVT prophylaxis: Status: Acute Assessment and plan: Enoxaparin 40 mg daily (7) Discharge planning issues: Status: Acute Assessment and plan: will discharge to home when stable- if he continues to have an oxygen requirement he will go home with O2 through the [place]; Care mgt is following no services anticipated discussed with Dr Ram. Subjective Subjective Patient reports: no new complaints, feels better, tolerating liquids well, tolerating a regular diet, shortness of breath (continues to improve) and afebrile Exam Const General: cooperative, healthy appearing, comfortable and no acute distress Nutritional Appearance: average body habitus Orientation: alert, awake and oriented x3 HENMT Head: normal to inspection, normocephalic and atraumatic Mouth: oral mucosae normal Chest Chest: normal inspection of the chest Resp Effort & Inspection: normal respiratory effort, cough Quality of cough: dry and no respiratory distress Auscultation: diminished lung sounds and no wheezes Cardio Rate: regular rate Rhythm: regular rhythm GI Inspection: normal to inspection Palpation: soft and nontender Skin General skin exam: no rashes or lesions noted Neuro General: patient alert, patient awake and patient oriented x3 Extrem General: normal to inspection and no pedal edema Psych Appearance: grossly normal Mental Status: mental status grossly normal Speech and Movement: speech and movement normal Mood: congruent mood Objective Last Vital Signs Temp 36.6 C 02/09/22 15:48 Pulse 54 L 02/09/22 15:48 Resp 17 02/09/22 15:48 BP 110/55 L 02/09/22 15:48 Pulse Ox 92 02/09/22 15:48
[2022-02-09] MEDS: Nystatin 500000 UNITS/5 ML SUSP 5ML CUP PO ×2 (17:45→21:43)
[2022-02-10] VITALS (10 sets, daily range): BP systolic 96–130; BP diastolic 59–72; PULSE 61–97; RESP 8–102; TEMP 36.1–36.8; O2SAT 84–94
[2022-02-10] MEDS: Pantoprazole 40 MG TABCR PO (06:44)
[2022-02-10] MEDS: Nystatin 500000 UNITS/5 ML SUSP 5ML CUP PO ×5 (06:45→19:59)
[2022-02-10] MEDS: Albuterol 2.5 MG/3 ML INH SOLN VIAL UPD (06:46)
[2022-02-10] MEDS: Enoxaparin 40 MG/0.4 ML SYR SC (08:36)
[2022-02-10] MEDS: Aspirin 81 MG CHEW PO (08:37)
[2022-02-10] MEDS: Benzonatate 100 MG CAP PO ×3 (08:37→20:00)
[2022-02-10] MEDS: Magnesium Gluconate 500 MG TAB PO (08:37)
[2022-02-10] MEDS: predniSONE 20 MG TAB 40 MG PO (08:37)
[2022-02-10] MEDS: Sertraline 25 MG TAB 50 MG PO (08:38)
[2022-02-10] MEDS: Atorvastatin 20 MG TAB 10 MG PO (08:38)
[2022-02-10] MEDS: Tiotropium Bromide-Respimat 10 PUFF INH 2 PUFF IH (09:05)
[2022-02-10] MEDS: Budesonide/Formoterol 80/4.5 6.9 GM 60 PUFF INH IH ×2 (09:05→19:59)
[2022-02-10] MEDS: Albuterol/Ipratropium 3 ML UPD VIAL UPD ×2 (14:05→19:59)
--- NOTE | 2022-02-10 17:51 | CMPROGNOTE_ITS ---
- If Service Date Differs Date of service: 02/10/22 Time of Service: 17:51 Care Management Progress Note S/O: Felipe was unable to be successfully weaned off oxygen, orders faxed to [place] this morning. Felipe was able to connect with Martha of [facility] who reviewed options and provided information for smoking cessation. CM continues to follow. A: 71 year old admitted to [facility] 02/05/22 for acute exacerbation of COPD, CAP, Hypoxia P: Felipe will likely return home when ready per MD, he will follow up with his PCP and plan of care as prescribed and transport with family. Anticipate oxygen orders will be filled through the [place]. Smoking cessation referral to [facility] completed. Felipe will transport via private vehicle with his , Charlette.
--- NOTE | 2022-02-10 17:51 | PDOC.CMPRO ---
- If Service Date Differs Date of service: 02/10/22 Time of Service: 17:51 Care Management Progress Note S/O: Felipe was unable to be successfully weaned off oxygen, orders faxed to [place] this morning. Felipe was able to connect with Martha of [facility] who reviewed options and provided information for smoking cessation. CM continues to follow. A: 71 year old admitted to [facility] 02/05/22 for acute exacerbation of COPD, CAP, Hypoxia P: Felipe will likely return home when ready per MD, he will follow up with his PCP and plan of care as prescribed and transport with family. Anticipate oxygen orders will be filled through the [place]. Smoking cessation referral to [facility] completed. Felipe will transport via private vehicle with his , Charlette.
[2022-02-11] VITALS (10 sets, daily range): BP systolic 114–134; BP diastolic 60–72; PULSE 57–102; RESP 7–20; TEMP 35.7–36.2; O2SAT 84–95
[2022-02-11] MEDS: Albuterol/Ipratropium 3 ML UPD VIAL UPD ×2 (01:58→08:12)
[2022-02-11] MEDS: Nystatin 500000 UNITS/5 ML SUSP 5ML CUP PO ×3 (06:13→13:59)
[2022-02-11] MEDS: Pantoprazole 40 MG TABCR PO (06:13)
[2022-02-11 07:16] LABS: Platelet Count 407 10^3/uL (130-400)
[2022-02-11] MEDS: Tiotropium Bromide-Respimat 10 PUFF INH 2 PUFF IH (08:12)
[2022-02-11] MEDS: Budesonide/Formoterol 80/4.5 6.9 GM 60 PUFF INH IH (08:12)
[2022-02-11] MEDS: Benzonatate 100 MG CAP PO ×2 (08:57→14:00)
[2022-02-11] MEDS: Magnesium Gluconate 500 MG TAB PO (08:58)
[2022-02-11] MEDS: Sertraline 25 MG TAB 50 MG PO (08:58)
[2022-02-11] MEDS: Aspirin 81 MG CHEW PO (08:59)
[2022-02-11] MEDS: predniSONE 20 MG TAB 40 MG PO (08:59)
[2022-02-11] MEDS: Enoxaparin 40 MG/0.4 ML SYR SC (08:59)
[2022-02-11] MEDS: Atorvastatin 20 MG TAB 10 MG PO (08:59)
[2022-02-11] MEDS: Normal Saline Flush 10 ML SYR IVP (09:00)
--- NOTE | 2022-02-11 09:24 | PDOC.CMPRO ---
- If Service Date Differs Date of service: 02/11/22 Time of Service: 09:24 Care Management Progress Note S/O: Felipe was unable to be successfully weaned off oxygen, orders faxed to [place] yesterday and was approved this morning. [place] will deliver O2 here prior to pts discharge. In addition, Felipe has connected with Martha of [facility] to review info and options for smoking cessation. continues to follow. A: 71 year old admitted to [facility] 02/05/22 for acute exacerbation of COPD, CAP, Hypoxia P: Felipe will likely return home when ready per MD, he will follow up with his PCP and plan of care as prescribed and transport with family. Anticipate oxygen orders will be filled through the [place]. Smoking cessation referral to [facility] completed. Felipe will transport via private vehicle with his , Charlette.
--- NOTE | 2022-02-11 10:18 | W.PM.PROGNOT ---
Date of Service Date of service: 02/10/22 Time of Service: 10:18 Assessment and Plan Assessment and plan (1) Acute respiratory failure with hypoxia: Status: Acute Assessment and plan: responding to current treatment Acapella, IS, Prednisone, nebulizers day; abx completed Blood cx no growth 72h; Sputum cx normal chivo down to 1 liter/nc, unable to wean oxygen; waiting for MD to approve home O2 (2) Acute exacerbation of chronic obstructive pulmonary disease: Status: Acute Assessment and plan: As above (3) GERD (gastroesophageal reflux disease): Status: Chronic Assessment and plan: Denies symptoms; continue home med Protonix 40 mg daily; mylanta prn (4) Hyperlipidemia: Status: Acute Assessment and plan: Will continue home med - atorvastatin 10 mg daily (5) PTSD (post-traumatic stress disorder): Assessment and plan: Stable - will continue home med - Sertraline 50 mg daily (6) DVT prophylaxis: Status: Acute Assessment and plan: Enoxaparin 40 mg daily (7) Discharge planning issues: Status: Acute Assessment and plan: will discharge to home when stable- continues to have an oxygen requirement he [facility]; Care mgt is following no services anticipated discussed with Dr Ram. Subjective Subjective Patient reports: no new complaints, tolerating a regular diet, shortness of breath (with exertion, recovers quickly) and afebrile; denies diarrhea or vomiting Exam Const General: cooperative, healthy appearing, comfortable and no acute distress Nutritional Appearance: average body habitus Orientation: alert, awake and oriented x3 HENMT Head: normal to inspection, normocephalic and atraumatic Mouth: oral mucosae normal Chest Chest: normal inspection of the chest Resp Effort & Inspection: normal respiratory effort, cough Quality of cough: dry and no respiratory distress Auscultation: diminished lung sounds and no wheezes Cardio Rate: regular rate Rhythm: regular rhythm GI Inspection: normal to inspection Palpation: soft and nontender Skin General skin exam: no rashes or lesions noted Neuro General: patient alert, patient awake and patient oriented x3 Extrem General: normal to inspection and no pedal edema Psych Appearance: grossly normal Mental Status: mental status grossly normal Speech and Movement: speech and movement normal Mood: congruent mood Objective Last Vital Signs Temp 35.7 C L 02/11/22 07:44 Pulse 62 02/11/22 08:13 Resp 18 02/11/22 08:13 BP 129/60 02/11/22 07:44 Pulse Ox 95 02/11/22 08:13 Laboratory Results - last 24 hr 02/11/22 06:30 Plt Count 407 H
--- NOTE | 2022-02-11 10:18 | W.PM.PROGNOT ---
Date of Service Date of service: 02/11/22 Time of Service: 10:18 Objective Last Vital Signs Temp 35.7 C L 02/11/22 07:44 Pulse 62 02/11/22 08:13 Resp 18 02/11/22 08:13 BP 129/60 02/11/22 07:44 Pulse Ox 95 02/11/22 08:13 Laboratory Results - last 24 hr 02/11/22 06:30 Plt Count 407 H
[2022-02-11] MEDS: Acetaminophen 325 MG TAB PO (10:41)
--- NOTE | 2022-02-11 14:04 | W.PM.DS.N ---
Date of service: 02/11/22 Time of Service: 14:04 DS: Diagnosis Discharge Diagnosis (1) Acute respiratory failure with hypoxia: Status: Acute (2) Acute exacerbation of chronic obstructive pulmonary disease: Status: Acute (3) GERD (gastroesophageal reflux disease): Status: Chronic (4) Hyperlipidemia: Status: Acute (5) PTSD (post-traumatic stress disorder): Discharge Plan Disposition Patient Disposition: HOME Condition: Improving Discharge Details Reason For Visit: Acute Exacerbation of COPD, CAP, Hypoxia Admit Date/Time: 02/08/22 10:01 Admit Provider: Fanny Cummings Attending Provider: Fanny Cummings Primary Care Provider: lAvarez Alvarez Hospital Course Hospital Course: This is a 71-year-old male with a past medical history of tobacco abuse, COPD, GERD, high cholesterol, Covid 19 and PTSD, who presented to the [facility] emergency department via EMS for evaluation of shortness of breath. The patient stated that for 2-1/2 to 3 days he had a cough, increased wheeze, which he reported was slightly improved by his inhalers. He then began to have right-sided rib pain associated with his cough. He denied any tearing or ripping sensation. He denied being on home oxygen. He reported he had a fever of 102 at home. He denied any history of cardiac disease. The cough he stated was slightly productive with white sputum. The patient took a home COVID test which was negative. He did have COVID-19 in September 2021 and was hospitalized. The patient denied any other complaints and had no other modifying factors. His exam in the emergency department demonstrated a moderate wheeze on the left and diminished lung sounds on the right. Bedside ultrasound showed good lung sliding bilaterally?no significant reproducible chest wall tenderness. Oxygenation was in the low 90s. He is not usually oxygen dependent. Labs: WBC 8.66; Procalcitonin 0.2.? His vital signs were stable, no tachycardia, normotensive, afebrile. He was treated with duo nebs and steroids, a chest x-ray was performed. Screening EKG showed evidence of interventricular conduction delay, which appears to be unchanged from prior EKGs. No evidence of STEMI. The patient subjectively felt much better after the breathing treatments; however, he still had an oxygen requirement at rest, and his SPO2 was in the mid to low the 90s on 3 L. A Lidoderm patch was placed on his right lateral chest for intercostal pain from coughing. Troponin is negative. No evidence of pneumothorax. Flu/COVID/RSV testing was negative. Ceftriaxone and azithromycin were administered in the emergency department in case of pneumonia He was diagnosed with exacerbation of COPD and considering his continued oxygen demand; he was placed on observation status in the medical unit.?He reports quitting smoking in September 2021 after having Covid 19 - he has 83 pack years.? He was admitted to the medical unit.? He improved, however was unable to keep his oxygen level up with ambulation and requires home oxygen, he has not had this before.? [facility], it took some time for their approval and delivery of oxygen for him. Oxygen was delivered today.? He felt well, lab work was unremarkable, he had no fevers. Vital signs continued to be stable and he had no other complaints. He received 5 days of antibiotics IV while waiting for the [facility] to [facility] his home oxygen. He was discharged home with instruction to follow up with his PCP. He declined home health services and will discuss with the [facility] if he changes his mind. Discussed with Dr Kulkarni ? Home Meds and New Rx's Prescriptions: New prednisone 20 mg tablet 40 mg PO DAILY Qty: 6 0RF Continued atorvastatin [Lipitor] 20 MG tablet 10 mg PO DAILY AM sertraline [Zoloft] 25 MG tablet 50 mg PO DAILY coenzyme Q10 [CoQ-10] 100 MG capsule 100 mg PO DAILY Spiriva with HandiHaler 1 PUFF capsule, w/inhalation device 1 puff Inhalation DAILY pantoprazole [Protonix] 40 MG tablet,delayed release (DR/EC) 40 mg PO DAILY Qty: 30 0RF Rx Instructions: 1 po QD magnesium 250 mg Tablet 500 mg PO DAILY albuterol sulfate 90 mcg/actuation Hfa Aerosol Inhaler 2 mcg Inhalation PRN PRN ascorbic acid (vitamin C) [Vitamin C] 1,000 mg Tablet 1,000 mg PO DAILY Black Elderberry 1 tab PO DAILY ipratropium-albuterol 0.5 mg-3 mg(2.5 mg base)/3 mL Solution For Nebulization 3 ml UPD Q4H PRN PRNQty: 180 0RF zinc sulfate [Zinc-220] 50 mg zinc (220 mg) Capsule 220 mg PO DAILY Qty: 7 0RF cholecalciferol (vitamin D3) 25 mcg (1,000 unit) Tablet 2,000 units PO DAILY Qty: 14 0RF garlic 500 mg Tablet 500 mg PO DAILY omega-3 fatty acids-vitamin E 1,000 mg Capsule 1 cap PO DAILY aspirin 81 mg tablet,chewable 81 mg PO DAILY loratadine 10 mg capsule 10 mg PO DAILY Qty: 10 0RF fluticasone propion-salmeterol [Wixela Inhub] 100-50 mcg/dose Blister With Device 2 inh INHALATION BID No Action acetaminophen [Tylenol] 325 mg Tablet 650 mg PO Q4H PRN PRNQty: 0 0RF Discharge Instructions Instructions: Using Oxygen at Home (DC), Chronic Lung Disease and Infection Prevention (DC), Pulse Oximetry (DC) Additional Instructions: [facility] with the [facility]one Forms: Nursing Discharge Form Referrals: Alvarez Alvarez [Primary Care Provider] - (Please call the [place] to follow up in one to two weeks.) Activity:: Activity as Tolerated Equipment/Supplies:: Oxygen (L/min Below) Diet:: Low Sodium Discharge Orders Discharge Orders: Discharge Order (Routine); Ordered 02/11/22 Ordered By: Lorri Worthy Discharge Data Discharge Date/Time-TO BE ENTERED AT DEPARTURE: 02/11/22 15:10 DS: Summary Time Spent with Patient providing and/or coordinating discharge services: Greater than 30 minutes Status at Discharge Functional status at discharge: independent ambulation Overall status at discharge: patient is progressing back to baseline Mental Status: mental status grossly normal Speech and Movement: speech and movement normal Mood: congruent mood Affect: normal affect Exam Const General: cooperative, healthy appearing, comfortable and no acute distress Nutritional Appearance: average body habitus Orientation: alert, awake and oriented x3 HENMT Head: normal to inspection, normocephalic and atraumatic Mouth: oral mucosae normal Chest Chest: normal inspection of the chest Resp Effort & Inspection: normal respiratory effort, cough Quality of cough: dry and no respiratory distress Auscultation: diminished lung sounds and no wheezes Cardio Rate: regular rate Rhythm: regular rhythm GI Inspection: normal to inspection Palpation: soft and nontender Skin General skin exam: no rashes or lesions noted Neuro General: patient alert, patient awake and patient oriented x3 Extrem General: normal to inspection and no pedal edema Psych Appearance: grossly normal Mental Status: mental status grossly normal Speech and Movement: speech and movement normal Mood: congruent mood Affect: normal affect DS: Data Vitals/I&O Vitals and I&O: Vital Signs Temperature 35.7 C L 02/11/22 07:44 Temperature Source Tympanic 02/11/22 07:44 Pulse 62 02/11/22 08:13 Pulse Rhythm Regular 02/11/22 10:08 Pulse 132 H 02/05/22 06:50 Respiratory Rate 18 02/11/22 08:13 Respiratory Effort Non-Labored 02/11/22 10:08 Respiratory Depth Normal 02/11/22 10:08 Respiratory Pattern Normal 02/11/22 10:08 Blood Pressure 129/60 02/11/22 07:44 Blood Pressure Mean 74 02/05/22 06:30 Blood Pressure Position Supine 02/05/22 06:23 Pulse Oximetry 93 02/11/22 11:10 Oxygen Delivery Method Nasal Cannula 02/11/22 11:10 Oxygen Flow Rate 1 02/11/22 11:10 Pain Level 2 02/11/22 11:12 Comment 02/09/22 07:28 Intake & Output 02/10/22 02/11/22 02/11/22 23:59 11:59 23:59 Intake Total 840 / 1150 410 / 410 Output Total 801 / 2201 600 / 600 Balance 39 / -1051 -190 / -190 Weight 77.3 kg Intake: IV Oral 840 / 1140 400 / 400 Output: Urine 801 / 2201 600 / 600 Other: Urine Color Yellow Yellow Straw Urine Appearance Clear Clear Urine Odor None None Voiding Methods Toilet Toilet Data Completed and Pending Labs on day of discharge: Labs from last 24 hours 02/11/22 06:30 Plt Count 407 H PFSH All Active Problems (Updated 02/12/22 @ 00:06 by CLAUDE TONG) Pneumonia (Acute) Acute respiratory failure with hypoxia (Acute) COVID-19 (Acute) Acute exacerbation of chronic obstructive pulmonary disease (Acute) Intertrochanteric fracture of right hip (Acute) DOS: 07/01/18 Dr. Hooper GERD (gastroesophageal reflux disease) (Chronic) Hyperlipidemia (Acute) Tobacco abuse (Chronic) COPD (chronic obstructive pulmonary disease) (Chronic) Medical History Anxiety Depression Hyperlipemia PTSD (post-traumatic stress disorder) Surgical History H/O melanoma excision History of back surgery Lumbar discectomy Status post-operative repair of closed fracture of right hip Family History Mother , from an [place] in her 70s Heart disease Social History Smoking/Tobacco Use Status: Former Tobacco Use Tobacco: How many years used: 50 Smoking risk assessment performed?: Yes Alcohol Intake: never Drug use: Never Substance use type: does not use Household members: spouse and children Do you feel safe at home: Yes Do you feel safe in your relationship?: Yes
--- NOTE | 2022-02-11 14:21 | CHAPLAIN ---
Felipe said he was getting ready to be discharged. He easily engaged in a conversation. He has belonged to [employer], [employer] and [employer] and is now connected to the [facility]. He hasn't attended in person for a while, but is [facility] and thoroughly enjoys these visits and the conversation. Felipe shared some information about the [facility] with me, and what led him there. He believes strongly in his shnakar convictions.
--- NOTE | 2022-02-11 16:30 | CMDISCH_ITS ---
- If Service Date Differs Date of service: 02/11/22 Time of Service: 16:30 LACE Index Scoring Tool - Questions: Length of Stay (in days): 3 Acuity (Admit via E.D.?): Yes Comorbidities: Chronic Pulmonary Disease, Metastatic Solid Tumor E.D. Visits: 4 - Answers: Total Score: 15 Risk of Readmission: High Risk Care Management Discharge Reason for Hospitalization: Acute Exacerbation of COPD, CAP, Hypoxia Discharge Plan: Felipe is discharged home via private vehicle with his . New RX is transmitted to [facility]. Felipe will call the Office of Alvarez Alvarez (PCP) in the morning to schedule a follow up appointment within 2 weeks. Oxygen is ordered and approved by the [place]. [place] delivered O2, prior to discharge. There is no anticipated need for Home Health services, at the time of this discharge. Patient is independent and verbalizes understanding of O2 usage. Patient/Family Education Needs: Review discharge instructions, limitations, medications and plan to follow up with [facility] providers. Review supplimental O2 usage and safe handling. Review ask me three' Services Needed at Discharge: DME Agency ([place] provided Supplimental Oxygen, prior to discharge.)
== END 2022-02-11 15:10 | disposition home or self-care (01) | DRG 190 ==
LOC: ER 07:31 → MS 08:07
PROVIDERS: Nurse Practitioner Family; Admitting Provider Internal Medicine; Emergency Provider Student in an Organized Health Care Education/Training Program; PCP Internal Medicine; Visit Provider Internal Medicine
DX: J44.1 Chronic obstructive pulmonary disease with (acute) exacerbation (principal); J96.01 Acute respiratory failure with hypoxia; K21.9 Gastro-esophageal reflux disease without esophagitis; E78.5 Hyperlipidemia, unspecified; F43.10 Post-traumatic stress disorder, unspecified; Z86.16 Personal history of COVID-19; F41.9 Anxiety disorder, unspecified; F32.A Depression, unspecified; Z87.891 Personal history of nicotine dependence; Z79.899 Other long term (current) drug therapy
CPT/HCPCS: 36415; 80048; 80053; 82805; 84145; 87040; 87637; 93005; 94618; 94640; 96365; 96367; 96375; 99285; J1650; 71045; 83735; 84484; 85025; 85049; 87070; 87205; 93010; 94667; 99219; 99225; 99226; 99233; 99239; G0378; J0456; J2930; J7512; J7613; J7620

== ENCOUNTER 2024-02-24 05:48 | Emergency (ER) | payer OTHER, SELFPAY ==
[2024-02-24] VITALS (26 sets, daily range): BP systolic 147–172; BP diastolic 75–102; PULSE 59–99; RESP 11–23; TEMP 36.7; O2SAT 92–99
--- NOTE | 2024-02-24 05:45 | DI.RAD_ITS ---
Exam(s) XR CHEST 2V PA LATERAL EXAM: XR CHEST 2V PA LATERAL CLINICAL HISTORY: short of breath TECHNIQUE: 2D digital imaging was performed of the chest. Three images were obtained. PA and later al views were obtained. COMPARISON: CR,XR XR PORTABLE CHEST AP from 02/05/2022 FINDINGS: MEDIASTINUM: Normal. HEART: Normal. PULMONARY VASCULATURE: Normal. LUNGS: The lungs are hyperinflated consistent with underlying COPD. No focal consolidating infiltrat es. PLEURAL SPACE: No pleural effusion or pneumothorax. BONE:Within normal limits for the patient's age. OTHER FINDINGS:Normal. IMPRESSION: No acute pulmonary findings. DATA REPOSITORY: RADIATION DOSE DELIVERED:
--- NOTE | 2024-02-24 05:45 | RT.EKG_ITS ---
APPROVED REPORT Exam: Resting ECG Reason for Exam: short of breath Patient Location: E HR:85 bpm ECG Measurements Heart Rate 85 AXIS NH 206 P 97 QRSd 155 QRS -92 QT 395 T 59 QTc 471 Conclusion Sinus rhythm...normal P axis, V-rate 60- 99 RBBB and LAFB...QRSd >120mS, axis(-40,240) no ST segment or T wave abnormalities to suggest occlusive MT
--- NOTE | 2024-02-24 06:21 | ED.GENADUL_ITS ---
Discharge Plan Discharge Details Chief Complaint: RespSymp Primary Care Provider: Alvarez Alvarez ED Provider: Jeanie Wells Home Meds and New Rx's Prescriptions: No Action atorvastatin [Lipitor] 20 MG tablet 10 mg PO DAILY AM sertraline [Zoloft] 25 MG tablet 50 mg PO DAILY coenzyme Q10 [CoQ-10] 100 MG capsule 100 mg PO DAILY tiotropium bromide [Spiriva with HandiHaler] 1 PUFF capsule, w/inhalation device 1 puff Inhalation DAILY pantoprazole [Protonix] 40 MG tablet,delayed release (DR/EC) 40 mg PO DAILY Qty: 30 0RF Rx Instructions: 1 po QD magnesium 250 mg Tablet 500 mg PO DAILY albuterol sulfate 90 mcg/actuation Hfa Aerosol Inhaler 2 mcg Inhalation PRN PRN acetaminophen [Tylenol] 325 mg Tablet 650 mg PO Q4H PRN PRNQty: 0 0RF ascorbic acid (vitamin C) [Vitamin C] 1,000 mg Tablet 1,000 mg PO DAILY Black Elderberry 1 tab PO DAILY ipratropium-albuterol 0.5 mg-3 mg(2.5 mg base)/3 mL Solution For Nebulization 3 ml UPD Q4H PRN PRNQty: 180 0RF zinc sulfate [Zinc-220] 50 mg zinc (220 mg) Capsule 220 mg PO DAILY Qty: 7 0RF cholecalciferol (vitamin D3) 25 mcg (1,000 unit) Tablet 2,000 units PO DAILY Qty: 14 0RF omega-3 fatty acids-vitamin E 1,000 mg Capsule 1 cap PO DAILY aspirin 81 mg tablet,chewable 81 mg PO DAILY loratadine 10 mg capsule 10 mg PO DAILY Qty: 10 0RF fluticasone propion-salmeterol [Wixela Inhub] 100-50 mcg/dose Blister With Device 2 inh INHALATION BID HPI General Mode of arrival: EMS . Date/Time Provider Initiated Documentation: 02/24/24 05:48 . Limitations to Documentation: no limitations . Information obtained by: patient and EMS . HPI Narrative: 73yo M with hx COPD on baseline 1-2L O2 via [place] presenting via EMS for shortness of breath. Yesterday morning developed cough and nasal congestion. Using res cue inhaler at home every 4-6 hours. Cough was initially nonproductive. Difficulty sleeping overnight 2/t coughing which has become productive of yellowish sputum. [place] worsening shortness of breath this morning and so called EMS. Given duoneb x 1 en route. No chest pain or lightheadedness at any point. No fevers, chills, rash, nausea, or vomiting. Otherwise in his usual state of health. Multiple family members with URI symptoms. Related Data Home Medications ?Medication ?Instructions ?Recorded ?Confirmed atorvastatin 20 mg tablet (Lipitor) 10 mg PO DAILY AM 03/15/14 02/24/24 sertraline 25 mg tablet (Zoloft) 50 mg PO DAILY 03/15/14 02/24/24 coenzyme Q10 100 mg capsule 100 mg PO DAILY 11/16/14 02/24/24 (CoQ-10) tiotropium bromide 18 mcg capsule 1 puff inhalation DAILY 11/16/14 02/24/24 with inhalation device (Spiriva with HandiHaler) pantoprazole 40 mg tablet,delayed 40 mg PO DAILY ##30 08/01/17 02/24/24 release (Protonix) albuterol sulfate 90 mcg/actuation 2 mcg inhalation PRN PRN 07/03/18 02/24/24 aerosol inhaler magnesium 250 mg tablet 500 mg PO DAILY 07/03/18 02/24/24 acetaminophen 325 mg tablet 650 mg (2 x 325 mg) PO Q4H PRN PRN 07/05/18 02/24/24 (Tylenol) #0 tabs aspirin 81 mg chewable tablet 81 mg PO DAILY 01/13/21 02/24/24 omega-3 fatty acids-vitamin E 1 cap PO DAILY 01/13/21 02/24/24 1,000 mg capsule loratadine 10 mg capsule 10 mg PO DAILY #10 caps 02/02/21 02/24/24 Black Elderberry 1 tab PO DAILY 10/02/21 02/24/24 ascorbic acid (vitamin C) 1,000 mg 1,000 mg PO DAILY 10/02/21 02/24/24 tablet (Vitamin C) cholecalciferol (vitamin D3) 25 2,000 units PO DAILY #14 tabs 10/07/21 02/24/24 mcg (1,000 unit) tablet ipratropium 0.5 mg-albuterol 3 mg 3 ml UPD Q4H PRN PRN #180 mL 10/07/21 02/24/24 (2.5 mg base)/3 mL nebulization soln zinc sulfate 50 mg zinc (220 mg) 220 mg (4.4 x 50 mg zinc (220 mg)) 10/07/21 02/24/24 capsule (Zinc-220) PO DAILY #7 caps fluticasone 100 mcg-salmeterol 50 2 inh inhalation BID 02/05/22 02/24/24 mcg/dose blistr powdr for inhalation (Wixela Inhub) Previous Rx's ?Medication ?Instructions ?Recorded pantoprazole 40 mg tablet,delayed 40 mg PO DAILY ##30 08/01/17 release (Protonix) acetaminophen 325 mg tablet 650 mg (2 x 325 mg) PO Q4H PRN PRN 07/05/18 (Tylenol) #0 tabs loratadine 10 mg capsule 10 mg PO DAILY #10 caps 02/02/21 cholecalciferol (vitamin D3) 25 2,000 units PO DAILY #14 tabs 10/07/21 mcg (1,000 unit) tablet ipratropium 0.5 mg-albuterol 3 mg 3 ml UPD Q4H PRN PRN #180 mL 10/07/21 (2.5 mg base)/3 mL nebulization soln zinc sulfate 50 mg zinc (220 mg) 220 mg (4.4 x 50 mg zinc (220 mg)) 10/07/21 capsule (Zinc-220) PO DAILY #7 caps Allergies Allergy/AdvReac Type Severity Reaction Status Date / Time No Known Allergies Allergy Unverified 02/24/24 05:52 General Stated Complaint: RespSymp MARYAN: 3 Review of Systems Narrative: see HPI Exam Narrative Exam Narrative: General: Alert, well appearing, well nourished, in no acute distress. Head: Normocephalic, atraumatic Neck: Trachea midline, ?Neck supple. ENT: ?MMM.? No oropharygeal lesions or exudate. Cardiac: ?RRR, no murmurs appreciated Resp: No respiratory distress. Expiratory wheeze on the left. Abd: ?Soft, non-distended, nontender : ?No suprapubic tenderness. Extremities: ?No deformities.? No peripheral edema. Neurologic: GCS 15. ? Moves all extremities freely against gravity Course Vital Signs Vital signs: Vital Signs Temperature 36.7 C 02/24/24 05:48 Pulse 99 H 02/24/24 05:48 Respiratory Rate 18 02/24/24 05:48 Blood Pressure 169/89 H 02/24/24 05:48 Pulse Oximetry 96 02/24/24 05:48 Temperature 36.7 C 02/24/24 05:48 Pulse 99 H 02/24/24 05:48 Respiratory Rate 18 02/24/24 05:48 Respiratory Effort Normal 02/24/24 05:51 Respiratory Depth Normal 02/24/24 05:51 Blood Pressure 169/89 H 02/24/24 05:48 Blood Pressure Position Sitting 02/24/24 05:48 Pulse Oximetry 96 02/24/24 05:48 Oxygen Delivery Method Nasal Cannula 02/24/24 05:48 Oxygen Flow Rate 3 02/24/24 05:48 Pain Level 0 02/24/24 05:48 Medical Decision Making 73yo M with hx COPD on baseline 1-2L O2 via [place] presenting via EMS for shortness of breath. 2 days of URI symptoms, today with worsening shortness of breath and productive cough. No fevers. Hypertensive and slightly tachycardiac on arrival after transferring to ED stretcher, vital signs otherwise reassuring. HR during my exam in 80's, slight expiratory wheeze on the left with no increased work of breathing and O2 sat of 94+% on home settings. History and exam most consistent with COPD exacerbation in the setting of viral illness. Not septic. Unlikely pulmonary embolism; would not get dimer or CT imaging. Will give additional duoneb, prednisone, augmentin for presumed COPD exacerbation, workup for life-threatening causes/ACS/bacterial pneumonia with EKG/CXR/labs. -EKG on arrival SR, slightly prolonged MO, no ST segment or T wave abnormalities to suggest occlusive CT. -CXR independently reviewed, no focal pneumonia or pleural effusions on my view; radiology read pending. -Labs reviewed as below, CBC reassuring with mild anemia Hg at baseline and no leukocytosis, CMP with no actionable abnormalities, Mg slightly low at 1.6 (oral replacement ordered), lactate normal, initial troponin normal, BNP normal. -Respiratory viral swab pending. Will be signed out to oncoming physician, plan to followup 1 hour delta troponin, viral swab, CXR read, and reassess. If reassuring and symptomatically improved, would discharge home on course of steroids and abx for COPD exacerbation. Lab Data Lab results reviewed: Yes I reviewed the patient's lab results. Labs: Laboratory Tests Range/Units 02/24/24 06:02 WBC (4.4-10.8) 10^3/uL 6.75 RBC (4.36-5.78) 10^6/uL 4.01 L Hgb (13.5-17.5) g/dL 12.4 L Hct (40.0-50.0) % 38.7 L MCV (80-95) fL 97 H MCH (27.0-33.0) pg 30.9 MCHC (32.0-36.0) % 32.0 RDW (11.8-14.1) % 12.2 Plt Count (130-400) 10^3/uL 229 MPV (8.0-11.0) fL 9.6 Immature Gran % % 0.3 Neutrophils % % 66.2 Lymphocytes % % 22.4 Monocytes % % 8.9 Eosinophils % % 1.6 Basophils % % 0.6 Nucleated RBC % (0.0-0.3) % 0.0 Absolute Neutrophils (1.2-6.7) 10^3/uL 4.47 Absolute Lymphocytes (1.2-3.4) 10^3/uL 1.51 Absolute Monocytes (0.1-0.8) 10^3/uL 0.60 Absolute Eosinophils (0.0-0.7) 10^3/uL 0.11 Absolute Basophils (0.0-0.2) 10^3/uL 0.04 VBG Lactate (0.6-1.4) mmol/L 0.8 Sodium (136-145) mmol/L 140 Potassium (3.5-5.1) mmol/L 3.9 Chloride (98-107) mmol/L 101 Carbon Dioxide (21.0-32.0) mmol/L 34.2 H Anion Gap (3-11) mmol/L 4.8 BUN (7-18) mg/dL 8 Creatinine (0.70-1.30) mg/dL 0.8 Est GFR (CKD-EPI 2020) (mL/min/1.73m2) 92.29 Glucose (74-106) mg/dL 90 Calcium (8.5-10.1) mg/dL 9.3 Magnesium (1.8-2.4) mg/dL 1.6 L Total Bilirubin (0.2-1.0) mg/dL 0.51 AST (15-37) U/L 19 ALT (16-63) U/L 33 Alkaline Phosphatase (46-116) U/L 82 Troponin I (<or=76) ng/L 15 NT-Pro-B Natriuret Pep (<300) pg/mL 117 Total Protein (6.4-8.2) g/dL 7.1 Albumin (3.4-5.0) g/dL 3.7 Quality:SDDC Health Related Social Needs: No Data to Display PFSH All Active Problems (Updated 02/12/22 @ 00:06 by CLAUDE TONG) Pneumonia (Acute) Acute respiratory failure with hypoxia (Acute) COVID-19 (Acute) Acute exacerbation of chronic obstructive pulmonary disease (Acute) Intertrochanteric fracture of right hip (Acute) DOS: 07/01/18 Dr. Hooper GERD (gastroesophageal reflux disease) (Chronic) Hyperlipidemia (Acute) Tobacco abuse (Chronic) COPD (chronic obstructive pulmonary disease) (Chronic) Medical History Anxiety Depression Hyperlipemia PTSD (post-traumatic stress disorder) Surgical History H/O melanoma excision History of back surgery Lumbar discectomy Status post-operative repair of closed fracture of right hip Family History Mother , from an CT in her 70s Heart disease Social History Smoking/Tobacco Use Status: Former Tobacco Use Tobacco: How many years used: 50 Smoking risk assessment performed?: Yes Alcohol Intake: never Drug use: Never Substance use type: does not use Household members: spouse and children Do you feel safe at home: Yes Do you feel safe in your relationship?: Yes
[2024-02-24 06:22] LABS: Lactate 0.8 mmol/L (0.6-1.4)
[2024-02-24 06:23] LABS: Abs Immature Grans 0.02 10^3/uL (0.0-0.06); Absolute Basophil Count 0.04 10^3/uL (0.0-0.2); Absolute Eosinophil Count 0.11 10^3/uL (0.0-0.7); Absolute Lymphocyte Count 1.51 10^3/uL (1.2-3.4); Absolute Neutrophil Count 4.47 10^3/uL (1.2-6.7); Basophils % 0.6 %; Eosinophils % 1.6 %; HCT 38.7 % (40.0-50.0); HGB 12.4 g/dL (13.5-17.5); Immature Grans % 0.3 %; Lymphocytes % 22.4 %; MCH 30.9 pg (27.0-33.0); MCV 97 fL (80-95); MPV 9.6 fL (8.0-11.0); Monocytes % 8.9 %; Neutrophils % 66.2 %; Platelet Count 229 10^3/uL (130-400); RBC 4.01 10^6/uL (4.36-5.78); RDW 12.2 % (11.8-14.1); RDW-SD 43.1 fL; WBC 6.75 10^3/uL (4.4-10.8)
[2024-02-24] MEDS: Albuterol/Ipratropium 3 ML UPD VIAL UPD (06:29)
[2024-02-24] MEDS: Amoxicillin 875/Clav. 125 TAB PO (06:40)
[2024-02-24] MEDS: predniSONE 20 MG TAB 60 MG PO (06:40)
[2024-02-24 06:46] LABS: COVID-19 PCR Negative (Negative); Influenza A PCR Negative (Negative); Influenza B PCR Negative (Negative); RSV PCR Negative (Negative)
[2024-02-24 06:47] LABS: ALT 33 U/L (16-63); AST 19 U/L (15-37); Albumin 3.7 g/dL (3.4-5.0); Alkaline Phosphatase 82 U/L (46-116); Anion Gap 4.8 mmol/L (3-11); BUN 8 mg/dL (7-18); Bilirubin, Total 0.51 mg/dL (0.2-1.0); CO2 34.2 mmol/L (21.0-32.0); CREATININE 0.8 mg/dL (0.70-1.30); Calcium 9.3 mg/dL (8.5-10.1); Chloride 101 mmol/L (98-107); Estimated GFR 92.29 (mL/min/1.73m2); Glucose 90 mg/dL (74-106); Magnesium 1.6 mg/dL (1.8-2.4); NT-proBNP 117 pg/mL (<300); Potassium 3.9 mmol/L (3.5-5.1); Sodium 140 mmol/L (136-145); Total Protein 7.1 g/dL (6.4-8.2); Troponin I 15 ng/L (<or=76)
[2024-02-24 07:23] LABS: Source Nasopharynx
[2024-02-24 07:39] LABS: Troponin I 15 ng/L (<or=76)
--- NOTE | 2024-02-24 08:26 | DI.VRAD_ITS ---
PROCEDURE INFORMATION: Exam: XR Chest Exam date and time: 02/24/2024 6:21 AM Age: 73 years old Clinical indication: Shortness of breath; Additional info: Short of breath, on o2 at home TECHNIQUE: Imaging protocol: Radiologic exam of the chest. Views: 2 views. COMPARISON: CR XR PORTABLE CHEST AP 02/05/2022 5:50 AM FINDINGS: Lungs: Lucency and attenuation of the lung markings in the upper lung zones. No acute lung infiltrates. Pleural spaces: Trace blunting of the costophrenic sulci. No pneumothorax. Heart/Mediastinum: Unremarkable. No cardiomegaly. Bones/joints: Unremarkable. IMPRESSION: 1. Trace bilateral pleural effusions. 2. COPD. Dictated and Authenticated by: Bina Wheeler MD. Ordering:ZACHARY Ware MD
[2024-02-24] MEDS: Magnesium Gluconate 500 MG TAB PO (08:37)
--- NOTE | 2024-02-24 08:53 | W.EDPROG ---
Date of service: 02/24/24 Time of Service: 08:54 Medical Decision Making Care was signed out by Dr. Fitch at 7:45 AM. Plan at signout was to follow-up on interpretation of chest x-ray, Fluvid testing, delta troponin and reassess for disposition. Patient had received prednisone and Augmentin as well as DuoNeb. Labs reviewed: Negative flu, influenza and RSV. Delta troponin negative. Chest x-ray reviewed: The lungs are hyperinflated consistent with underlying COPD. No focal consolidating infiltrates. Nursing notes patient has been stable and saturating well on home O2. Plan to discharge with treatment for COPD exacerbation including Augmentin and, prednisone, continue DuoNebs and albuterol inhaler. Plan for follow-up with pulmonology and PCP. Usual customary discharge instructions were reviewed. Lab Data Lab results reviewed: Yes I reviewed the patient's lab results. Labs: Laboratory Tests Range/Units 02/24/24 02/24/24 02/24/24 06:02 07:15 09:18 WBC (4.4-10.8) 10^3/uL 6.75 RBC (4.36-5.78) 10^6/uL 4.01 L Hgb (13.5-17.5) g/dL 12.4 L Hct (40.0-50.0) % 38.7 L MCV (80-95) fL 97 H MCH (27.0-33.0) pg 30.9 MCHC (32.0-36.0) % 32.0 RDW (11.8-14.1) % 12.2 Plt Count (130-400) 10^3/uL 229 MPV (8.0-11.0) fL 9.6 Immature Gran % % 0.3 Neutrophils % % 66.2 Lymphocytes % % 22.4 Monocytes % % 8.9 Eosinophils % % 1.6 Basophils % % 0.6 Nucleated RBC % (0.0-0.3) % 0.0 Absolute Neutrophils (1.2-6.7) 10^3/uL 4.47 Absolute Lymphocytes (1.2-3.4) 10^3/uL 1.51 Absolute Monocytes (0.1-0.8) 10^3/uL 0.60 Absolute Eosinophils (0.0-0.7) 10^3/uL 0.11 Absolute Basophils (0.0-0.2) 10^3/uL 0.04 VBG Lactate (0.6-1.4) mmol/L 0.8 Sodium (136-145) mmol/L 140 Potassium (3.5-5.1) mmol/L 3.9 Chloride (98-107) mmol/L 101 Carbon Dioxide (21.0-32.0) mmol/L 34.2 H Anion Gap (3-11) mmol/L 4.8 BUN (7-18) mg/dL 8 Creatinine (0.70-1.30) mg/dL 0.8 Est GFR (CKD-EPI 2020) (mL/min/1.73m2) 92.29 Glucose (74-106) mg/dL 90 Calcium (8.5-10.1) mg/dL 9.3 Magnesium (1.8-2.4) mg/dL 1.6 L Total Bilirubin (0.2-1.0) mg/dL 0.51 AST (15-37) U/L 19 ALT (16-63) U/L 33 Alkaline Phosphatase (46-116) U/L 82 Troponin I (<or=76) ng/L 15 15 Cancelled NT-Pro-B Natriuret Pep (<300) pg/mL 117 Total Protein (6.4-8.2) g/dL 7.1 Albumin (3.4-5.0) g/dL 3.7 COVID-19 Source Nasopharynx SARS-CoV-2 (PCR) (Negative) Negative Influenza Type A (PCR) (Negative) Negative Influenza Type B (PCR) (Negative) Negative RSV (PCR) (Negative) Negative Quality:SDOH Health Related Social Needs: No Data to Display Sign Out Sign Out Data: Sign Out Comment: 73yo M COPD otherwise healthy, URI symptoms x 2 days, SOB this morning. Baseline 1-2L [place] O2. Has had duonebs x 2, augmenting, prednisone. Pending CXR read (no clear pneumonia on my view), delta troponin, viral swab. Anticipate discharge home if symptomatically improved. Last updated by Jeanie Wells MD at 02/24/24 07:24 Discharge Plan Disposition Patient Disposition: Home Condition: Stable Discharge Details Clinical Impression: Acute exacerbation of chronic obstructive pulmonary disease, Hypomagnesemia Primary Care Provider: Alvarez Alvarez ED Provider: Ranulfo Miller Home Meds and New Rx's Prescriptions: New amoxicillin-pot clavulanate 875-125 mg tablet 1 tab PO BID Qty: 10 0RF prednisone 20 mg tablet 40 mg PO DAILY Qty: 8 0RF Rx Instructions: start 02/25/24 Continued atorvastatin [Lipitor] 20 MG tablet 10 mg PO DAILY AM sertraline [Zoloft] 25 MG tablet 50 mg PO DAILY coenzyme Q10 [CoQ-10] 100 MG capsule 100 mg PO DAILY tiotropium bromide [Spiriva with HandiHaler] 1 PUFF capsule, w/inhalation device 1 puff Inhalation DAILY pantoprazole [Protonix] 40 MG tablet,delayed release (DR/EC) 40 mg PO DAILY Qty: 30 0RF Rx Instructions: 1 po QD magnesium 250 mg Tablet 500 mg PO DAILY albuterol sulfate 90 mcg/actuation Hfa Aerosol Inhaler 2 mcg Inhalation PRN PRN acetaminophen [Tylenol] 325 mg Tablet 650 mg PO Q4H PRN PRNQty: 0 0RF ascorbic acid (vitamin C) [Vitamin C] 1,000 mg Tablet 1,000 mg PO DAILY Black Elderberry 1 tab PO DAILY ipratropium-albuterol 0.5 mg-3 mg(2.5 mg base)/3 mL Solution For Nebulization 3 ml UPD Q4H PRN PRNQty: 180 0RF zinc sulfate [Zinc-220] 50 mg zinc (220 mg) Capsule 220 mg PO DAILY Qty: 7 0RF cholecalciferol (vitamin D3) 25 mcg (1,000 unit) Tablet 2,000 units PO DAILY Qty: 14 0RF omega-3 fatty acids-vitamin E 1,000 mg Capsule 1 cap PO DAILY aspirin 81 mg tablet,chewable 81 mg PO DAILY loratadine 10 mg capsule 10 mg PO DAILY Qty: 10 0RF fluticasone propion-salmeterol [Wixela Inhub] 100-50 mcg/dose Blister With Device 2 inh INHALATION BID Discharge Instructions Instructions: Low Magnesium Level, COPD Exacerbation, Adult ED Additional Instructions: Please take full course of antibiotic as prescribed. Your next dose is this evening. Please take course of prednisone as prescribed. Your next dose is tomorrow. Please use your inhalers and nebulizer as prescribed for wheezing and shortness of breath. Please follow-up with your primary care physician regarding low magnesium. Please follow-up with your stopper maker helper regarding your acute COPD exacerbation. Return to the emergency department immediately should you have any worsening or new concerning symptoms. Referrals: Yee Leon PA [[facility] [facility] MANAGER] - Alvarez Alvarez [Primary Care Provider] - Discharge Data Discharge Date/Time-TO BE ENTERED AT DEPARTURE: 02/24/24 09:27
== END 2024-02-24 09:27 | disposition home or self-care (01) ==
PROVIDERS: Student in an Organized Health Care Education/Training Program; Emergency Provider Student in an Organized Health Care Education/Training Program; PCP Internal Medicine
DX: J44.1 Chronic obstructive pulmonary disease with (acute) exacerbation (principal); E83.42 Hypomagnesemia
CPT/HCPCS: 00123; 36415; 80053; 87637; 93005; 94640; 99285; 71046; 83605; 83735; 83880; 84484; 85025; 93010; 99284; J7512; J7620

== ENCOUNTER 2024-03-13 04:58 | Emergency (ER) | payer OTHER, SELFPAY ==
[2024-03-13] VITALS (18 sets, daily range): BP systolic 122–137; BP diastolic 52–84; PULSE 76–110; RESP 14–24; TEMP 36.9; O2SAT 93–100
--- NOTE | 2024-03-13 04:45 | RT.EKG_ITS ---
APPROVED REPORT Exam: Resting ECG Reason for Exam: short of breath Patient Location: E HR:97 bpm ECG Measurements Heart Rate 97 AXIS WI 193 P 80 QRSd 154 QRS -92 QT 363 T 56 QTc 461 Conclusion Sinus rhythm...normal P axis, V-rate 60- 99 RBBB and LAFB...QRSd >120mS, axis(-40,240) no ST segment or T wave abnormalitites to suggest occlusive TN
--- NOTE | 2024-03-13 05:00 | DI.RAD_ITS ---
Exam(s) XR CHEST 2V PA LATERAL EXAM: XR CHEST 2V PA LATERAL CLINICAL HISTORY: SOB TECHNIQUE: 2D digital imaging was performed of the chest. Two images were obtained. PA and lateral views were obtained. COMPARISON: CR,XR XR CHEST 2V PA LATERAL from 02/24/2024 FINDINGS: MEDIASTINUM: Normal. HEART: Normal. PULMONARY VASCULATURE: Normal. LUNGS: There are no focal consolidations. The lungs are hyperinflated with flattened diaphragms sugg esting underlying COPD. There are chronic interstitial fibrotic changes predominantly in the right s iain again seen. PLEURAL SPACE: No pleural effusion or pneumothorax. BONE:Within normal limits for the patient's age. OTHER FINDINGS:Normal. IMPRESSION: No acute pulmonary findings. DATA REPOSITORY: RADIATION DOSE DELIVERED:
[2024-03-13 05:18] LABS: Abs Immature Grans 0.08 10^3/uL (0.0-0.06); Absolute Basophil Count 0.04 10^3/uL (0.0-0.2); Absolute Lymphocyte Count 1.65 10^3/uL (1.2-3.4); Absolute Monocyte Count 0.99 10^3/uL (0.1-0.8); Basophils % 0.3 %; Eosinophils % 0.1 %; HCT 38.4 % (40.0-50.0); HGB 12.3 g/dL (13.5-17.5); Immature Grans % 0.6 %; Lymphocytes % 11.8 %; MCH 31.1 pg (27.0-33.0); MCV 97 fL (80-95); MPV 9.5 fL (8.0-11.0); Monocytes % 7.1 %; Neutrophils % 80.1 %; Platelet Count 205 10^3/uL (130-400); RBC 3.95 10^6/uL (4.36-5.78); RDW 12.2 % (11.8-14.1); RDW-SD 44.1 fL; WBC 14.01 10^3/uL (4.4-10.8)
[2024-03-13 05:19] LABS: Absolute Eosinophil Count 0.01 10^3/uL (0.0-0.7); Absolute Neutrophil Count 11.22 10^3/uL (1.2-6.7)
[2024-03-13] MEDS: Albuterol/Ipratropium 3 ML UPD VIAL UPD ×2 (05:19)
[2024-03-13] MEDS: methylPREDNISolone SUCC 125 MG VIAL IVP (05:19)
[2024-03-13 05:49] LABS: ALT 27 U/L (16-63); AST 19 U/L (15-37); Albumin 3.6 g/dL (3.4-5.0); Alkaline Phosphatase 86 U/L (46-116); Anion Gap 5.3 mmol/L (3-11); BUN 11 mg/dL (7-18); Bilirubin, Total 0.81 mg/dL (0.2-1.0); CO2 34.7 mmol/L (21.0-32.0); CREATININE 0.8 mg/dL (0.70-1.30); Calcium 9.3 mg/dL (8.5-10.1); Chloride 101 mmol/L (98-107); Estimated GFR 92.29 (mL/min/1.73m2); Glucose 112 mg/dL (74-106); Magnesium 1.7 mg/dL (1.8-2.4); NT-proBNP 141 pg/mL (<300); Potassium 4.2 mmol/L (3.5-5.1); Sodium 141 mmol/L (136-145); Total Protein 7.4 g/dL (6.4-8.2); Troponin I 11 ng/L (<or=76)
--- NOTE | 2024-03-13 05:57 | DI.VRAD_ITS ---
PROCEDURE INFORMATION: Exam: XR Chest Exam date and time: 03/13/2024 5:44 AM Age: 73 years old Clinical indication: Shortness of breath; Patient HX: SOB TECHNIQUE: Imaging protocol: Radiologic exam of the chest. Views: 2 views. COMPARISON: CR XR CHEST 2V PA LATERAL 02/24/2024 6:21 AM FINDINGS: Lungs: Lungs are hyperinflated compatible with COPD. No focal airspace opacity. Pleural spaces: Unremarkable. No pleural effusion. No pneumothorax. Heart/Mediastinum: Unremarkable. No cardiomegaly. Bones/joints: Unremarkable. IMPRESSION: Lungs are hyperinflated compatible with COPD. No focal airspace opacity. Dictated and Authenticated by: Luc Mackay MD. Ordering:ZACHARY Ware MD
[2024-03-13 06:14] LABS: COVID-19 PCR Negative (Negative); Influenza A PCR Negative (Negative); Influenza B PCR Negative (Negative); RSV PCR Negative (Negative)
[2024-03-13 06:15] LABS: Source Nasopharynx
[2024-03-13 06:27] LABS: Troponin I 10 ng/L (<or=76)
--- NOTE | 2024-03-13 07:02 | ED.GENADUL_ITS ---
Discharge Plan Disposition Patient Disposition: Home Condition: Good Discharge Details Clinical Impression: Acute exacerbation of chronic obstructive pulmonary disease Primary Care Provider: Alvarze Alvarez ED Provider: Jeanie Wells Home Meds and New Rx's Prescriptions: New amoxicillin-pot clavulanate 875-125 mg tablet 1 tab PO Q12H Qty: 10 0RF prednisone 20 mg tablet 40 mg PO DAILY Qty: 8 0RF Continued atorvastatin [Lipitor] 20 MG tablet 10 mg PO DAILY AM sertraline [Zoloft] 25 MG tablet 50 mg PO DAILY coenzyme Q10 [CoQ-10] 100 MG capsule 100 mg PO DAILY tiotropium bromide [Spiriva with HandiHaler] 1 PUFF capsule, w/inhalation device 1 puff Inhalation DAILY pantoprazole [Protonix] 40 MG tablet,delayed release (DR/EC) 40 mg PO DAILY Qty: 30 0RF Rx Instructions: 1 po QD magnesium 250 mg Tablet 500 mg PO DAILY albuterol sulfate 90 mcg/actuation Hfa Aerosol Inhaler 2 mcg Inhalation PRN PRN ascorbic acid (vitamin C) [Vitamin C] 1,000 mg Tablet 1,000 mg PO DAILY Black Elderberry 1 tab PO DAILY ipratropium-albuterol 0.5 mg-3 mg(2.5 mg base)/3 mL Solution For Nebulization 3 ml UPD Q4H PRN PRNQty: 180 0RF zinc sulfate [Zinc-220] 50 mg zinc (220 mg) Capsule 220 mg PO DAILY Qty: 7 0RF cholecalciferol (vitamin D3) 25 mcg (1,000 unit) Tablet 2,000 units PO DAILY Qty: 14 0RF omega-3 fatty acids-vitamin E 1,000 mg Capsule 1 cap PO DAILY aspirin 81 mg tablet,chewable 81 mg PO DAILY loratadine 10 mg capsule 10 mg PO DAILY Qty: 10 0RF fluticasone propion-salmeterol [Wixela Inhub] 100-50 mcg/dose Blister With Device 2 inh INHALATION BID prednisone 20 mg tablet 40 mg PO DAILY Qty: 8 0RF Rx Instructions: start 02/25/24 Discontinued acetaminophen [Tylenol] 325 mg Tablet 650 mg PO Q4H PRN PRNQty: 0 0RF amoxicillin-pot clavulanate 875-125 mg tablet 1 tab PO BID Qty: 10 0RF Discharge Instructions Instructions: COPD Exacerbation, Adult ED Additional Instructions: Continue to use your breathing treatments at home as prescribed. Take the antibiotic we have prescribed twice a day for the next 5 days. Starting tomorrow, take 40mg of prednisone once a day for 4 days. Call your primary care doctor today to schedule an appointment for within the next 48 hours to follow up on your visit here. Return to the emergency department for new or worsening symptoms including if your breathing worsens, you develop chest pain, or if you have any other concerns. Referrals: Alvarez Alvarez [Primary Care Provider] - [facility] General Mode of arrival: EMS . Date/Time Provider Initiated Documentation: 03/13/24 05:01 . Limitations to Documentation: no limitations . Information obtained by: patient and EMS . HPI Narrative: 73yo M with hx COPD, PTSD, presenting via EMS for cough, shortness of breath, and increased sputum production. Has had symptoms for the past 2-3 days, tonight keeping him awake. No chest pain or lightheadedness. Using breathing treatments at home with some improvement. Baseline 2L NC at home. No fevers or chills. Otherwise in his usual state of health with no rash, nausea, vomiting, pain, lightheadedness, or other concerns. Related Data Home Medications ?Medication ?Instructions ?Recorded ?Confirmed atorvastatin 20 mg tablet (Lipitor) 10 mg PO DAILY AM 03/15/14 03/13/24 sertraline 25 mg tablet (Zoloft) 50 mg PO DAILY 03/15/14 03/13/24 coenzyme Q10 100 mg capsule 100 mg PO DAILY 11/16/14 03/13/24 (CoQ-10) tiotropium bromide 18 mcg capsule 1 puff inhalation DAILY 11/16/14 03/13/24 with inhalation device (Spiriva with HandiHaler) pantoprazole 40 mg tablet,delayed 40 mg PO DAILY ##30 08/01/17 03/13/24 release (Protonix) albuterol sulfate 90 mcg/actuation 2 mcg inhalation PRN PRN 07/03/18 03/13/24 aerosol inhaler magnesium 250 mg tablet 500 mg PO DAILY 07/03/18 03/13/24 aspirin 81 mg chewable tablet 81 mg PO DAILY 01/13/21 03/13/24 omega-3 fatty acids-vitamin E 1 cap PO DAILY 01/13/21 03/13/24 1,000 mg capsule loratadine 10 mg capsule 10 mg PO DAILY #10 caps 02/02/21 03/13/24 Black Elderberry 1 tab PO DAILY 10/02/21 03/13/24 ascorbic acid (vitamin C) 1,000 mg 1,000 mg PO DAILY 10/02/21 03/13/24 tablet (Vitamin C) cholecalciferol (vitamin D3) 25 2,000 units PO DAILY #14 tabs 10/07/21 03/13/24 mcg (1,000 unit) tablet ipratropium 0.5 mg-albuterol 3 mg 3 ml UPD Q4H PRN PRN #180 mL 10/07/21 03/13/24 (2.5 mg base)/3 mL nebulization soln zinc sulfate 50 mg zinc (220 mg) 220 mg (4.4 x 50 mg zinc (220 mg)) 10/07/21 03/13/24 capsule (Zinc-220) PO DAILY #7 caps fluticasone 100 mcg-salmeterol 50 2 inh inhalation BID 02/05/22 03/13/24 mcg/dose blistr powdr for inhalation (Wixela Inhub) prednisone 20 mg tablet 40 mg (2 x 20 mg) PO DAILY #8 tabs 02/24/24 03/13/24 amoxicillin 875 mg-potassium 1 tab PO Q12H #10 tabs 03/13/24 clavulanate 125 mg tablet prednisone 20 mg tablet 40 mg (2 x 20 mg) PO DAILY #8 tabs 03/13/24 Previous Rx's ?Medication ?Instructions ?Recorded pantoprazole 40 mg tablet,delayed 40 mg PO DAILY ##30 08/01/17 release (Protonix) loratadine 10 mg capsule 10 mg PO DAILY #10 caps 02/02/21 cholecalciferol (vitamin D3) 25 2,000 units PO DAILY #14 tabs 10/07/21 mcg (1,000 unit) tablet ipratropium 0.5 mg-albuterol 3 mg 3 ml UPD Q4H PRN PRN #180 mL 10/07/21 (2.5 mg base)/3 mL nebulization soln zinc sulfate 50 mg zinc (220 mg) 220 mg (4.4 x 50 mg zinc (220 mg)) 10/07/21 capsule (Zinc-220) PO DAILY #7 caps prednisone 20 mg tablet 40 mg (2 x 20 mg) PO DAILY #8 tabs 02/24/24 amoxicillin 875 mg-potassium 1 tab PO Q12H #10 tabs 03/13/24 clavulanate 125 mg tablet prednisone 20 mg tablet 40 mg (2 x 20 mg) PO DAILY #8 tabs 03/13/24 Allergies Allergy/AdvReac Type Severity Reaction Status Date / Time No Known Allergies Allergy Unverified 03/13/24 05:16 General Stated Complaint: SOB MARYAN: 3 Review of Systems Narrative: see HPI Exam Narrative Exam Narrative: General: Alert, well appearing, well nourished, in no acute distress. Head: Normocephalic, atraumatic Neck: Trachea midline, ?Neck supple. ENT: ?MMM.? No oropharygeal lesions or exudate. Cardiac: ?RRR, no murmurs appreciated Resp: Slight retractions. Scatterred rhonchi bilaterally. Abd: ?Soft, non-distended, nontender Extremities: ?No deformities.? No peripheral edema. Neurologic: GCS 15. ? Moves all extremities freely against gravity Course Vital Signs Vital signs: Vital Signs Temperature 36.9 C 03/13/24 04:59 Pulse 95 H 03/13/24 04:59 Respiratory Rate 18 03/13/24 04:59 Blood Pressure 128/69 03/13/24 04:59 Pulse Oximetry 94 03/13/24 04:59 Temperature 36.9 C 03/13/24 05:11 Temperature Source Temporal Artery Scan 03/13/24 05:11 Pulse 95 H 03/13/24 06:46 Pulse 84 03/13/24 06:50 Respiratory Rate 20 03/13/24 06:50 Respiratory Effort Short of Breath 03/13/24 05:14 Respiratory Depth Shallow 03/13/24 05:14 Respiratory Pattern Normal 03/13/24 05:14 Blood Pressure 137/57 L 03/13/24 06:46 Blood Pressure Mean 85 03/13/24 06:46 Blood Pressure Position Sitting 03/13/24 05:11 Pulse Oximetry 93 03/13/24 06:50 Oxygen Delivery Method Nasal Cannula 03/13/24 05:11 Oxygen Flow Rate 2 03/13/24 05:11 Pain Level 0 03/13/24 05:11 Lab/Test Results Lab/Test Results: Laboratory Tests Range/Units 03/13/24 03/13/2403/13/24 05:10 05:30 06:02 WBC (4.4-10.8) 10^3/uL 14.01 H RBC (4.36-5.78) 10^6/uL 3.95 L Hgb (13.5-17.5) g/dL 12.3 L Hct (40.0-50.0) % 38.4 L MCV (80-95) fL 97 H MCH (27.0-33.0) pg 31.1 MCHC (32.0-36.0) % 32.0 RDW (11.8-14.1) % 12.2 Plt Count (130-400) 10^3/uL 205 MPV (8.0-11.0) fL 9.5 Immature Gran % % 0.6 Neutrophils % % 80.1 Lymphocytes % % 11.8 Monocytes % % 7.1 Eosinophils % % 0.1 Basophils % % 0.3 Nucleated RBC % (0.0-0.3) % 0.0 Absolute Neutrophils (1.2-6.7) 10^3/uL 11.22 H Absolute Lymphocytes (1.2-3.4) 10^3/uL 1.65 Absolute Monocytes (0.1-0.8) 10^3/uL 0.99 H Absolute Eosinophils (0.0-0.7) 10^3/uL 0.01 Absolute Basophils (0.0-0.2) 10^3/uL 0.04 Sodium (136-145) mmol/L 141 Potassium (3.5-5.1) mmol/L 4.2 Chloride (98-107) mmol/L 101 Carbon Dioxide (21.0-32.0) mmol/L 34.7 H Anion Gap (3-11) mmol/L 5.3 BUN (7-18) mg/dL 11 Creatinine (0.70-1.30) mg/dL 0.8 Est GFR (CKD-EPI 2020) (mL/min/1.73m2) 92.29 Glucose (74-106) mg/dL 112 H Calcium (8.5-10.1) mg/dL 9.3 Magnesium (1.8-2.4) mg/dL 1.7 L Total Bilirubin (0.2-1.0) mg/dL 0.81 AST (15-37) U/L 19 ALT (16-63) U/L 27 Alkaline Phosphatase (46-116) U/L 86 Troponin I (<or=76) ng/L 11 10 NT-Pro-B Natriuret Pep (<300) pg/mL 141 Total Protein (6.4-8.2) g/dL 7.4 Albumin (3.4-5.0) g/dL 3.6 COVID-19 Source Nasopharynx SARS-CoV-2 (PCR) (Negative) Negative Influenza Type A (PCR) (Negative) Negative Influenza Type B (PCR) (Negative) Negative RSV (PCR) (Negative) Negative Medical Decision Making 73yo M with hx COPD, PTSD, presenting via EMS for cough, shortness of breath, and increased sputum production. Has had symptoms for the past 2-3 days, tonight keeping him awake. No chest pain or lightheadedness. Slightly tachycardiac at 95 on arrival, vital signs otherwise reassuring, satting 94% on home O2 settings. Does have some increased WOB and diffuse rhonchi on exam. History most consistent with COPD exacerbation; will treat with 2 stacked duonebs here, methylprednisolone, and evaluate for other life threatening causes with EKG/labs/CXR. History/exam not suggestive of pulmonary embolism; would not workup with dimer or CT imaging. EKG SR, IVD, no ST segment or T wave abnormalities to suggest occlusive SC, no concerning changes from prior 02/24/24. CXR independently reviewed; no focal pneumonia or pneumothorax on my view, agree with radiology read below. Labs reviewed as below, CBC with leukocytosis to 14 (non specific) and anemia with Hg at baseline on [facility] record review. CMP with no actionable abnormalities. BNP normal. Initial troponin 11, 1 hour repeat 10. Respiratory viral swab negative. On reassessment patient reports feeling much improved. No increased WOB on exam, lungs CTAB. Will treat for COPD exacerbation with short course of augmentin and prednisone. Patient is agreeable to this plan. Discharged home; discharge instructions and return precautions were reviewed with patient who verbalized understanding. All questions were answered and he is in full agreement with the plan. Imaging Data Radiologic Study: Imaging: X-Ray Radiologist's impression: IMPRESSION: Lungs are hyperinflated compatible with COPD. No focal airspace opacity Lab Data Lab results reviewed: Yes I reviewed the patient's lab results. Labs: Laboratory Tests Range/Units 03/13/24 03/13/24 03/13/24 05:10 05:30 06:02 WBC (4.4-10.8) 10^3/uL 14.01 H RBC (4.36-5.78) 10^6/uL 3.95 L Hgb (13.5-17.5) g/dL 12.3 L Hct (40.0-50.0) % 38.4 L MCV (80-95) fL 97 H MCH (27.0-33.0) pg 31.1 MCHC (32.0-36.0) % 32.0 RDW (11.8-14.1) % 12.2 Plt Count (130-400) 10^3/uL 205 MPV (8.0-11.0) fL 9.5 Immature Gran % % 0.6 Neutrophils % % 80.1 Lymphocytes % % 11.8 Monocytes % % 7.1 Eosinophils % % 0.1 Basophils % % 0.3 Nucleated RBC % (0.0-0.3) % 0.0 Absolute Neutrophils (1.2-6.7) 10^3/uL 11.22 H Absolute Lymphocytes (1.2-3.4) 10^3/uL 1.65 Absolute Monocytes (0.1-0.8) 10^3/uL 0.99 H Absolute Eosinophils (0.0-0.7) 10^3/uL 0.01 Absolute Basophils (0.0-0.2) 10^3/uL 0.04 Sodium (136-145) mmol/L 141 Potassium (3.5-5.1) mmol/L 4.2 Chloride (98-107) mmol/L 101 Carbon Dioxide (21.0-32.0) mmol/L 34.7 H Anion Gap (3-11) mmol/L 5.3 BUN (7-18) mg/dL 11 Creatinine (0.70-1.30) mg/dL 0.8 Est GFR (CKD-EPI 2020) (mL/min/1.73m2) 92.29 Glucose (74-106) mg/dL 112 H Calcium (8.5-10.1) mg/dL 9.3 Magnesium (1.8-2.4) mg/dL 1.7 L Total Bilirubin (0.2-1.0) mg/dL 0.81 AST (15-37) U/L 19 ALT (16-63) U/L 27 Alkaline Phosphatase (46-116) U/L 86 Troponin I (<or=76) ng/L 11 10 NT-Pro-B Natriuret Pep (<300) pg/mL 141 Total Protein (6.4-8.2) g/dL 7.4 Albumin (3.4-5.0) g/dL 3.6 COVID-19 Source Nasopharynx SARS-CoV-2 (PCR) (Negative) Negative Influenza Type A (PCR) (Negative) Negative Influenza Type B (PCR) (Negative) Negative RSV (PCR) (Negative) Negative Range/Units 03/13/24 08:01 WBC (4.4-10.8) 10^3/uL RBC (4.36-5.78) 10^6/uL Hgb (13.5-17.5) g/dL Hct (40.0-50.0) % MCV (80-95) fL MCH (27.0-33.0) pg MCHC (32.0-36.0) % RDW (11.8-14.1) % Plt Count (130-400) 10^3/uL MPV (8.0-11.0) fL Immature Gran % % Neutrophils % % Lymphocytes % % Monocytes % % Eosinophils % % Basophils % % Nucleated RBC % (0.0-0.3) % Absolute Neutrophils (1.2-6.7) 10^3/uL Absolute Lymphocytes (1.2-3.4) 10^3/uL Absolute Monocytes (0.1-0.8) 10^3/uL Absolute Eosinophils (0.0-0.7) 10^3/uL Absolute Basophils (0.0-0.2) 10^3/uL Sodium (136-145) mmol/L Potassium (3.5-5.1) mmol/L Chloride (98-107) mmol/L Carbon Dioxide (21.0-32.0) mmol/L Anion Gap (3-11) mmol/L BUN (7-18) mg/dL Creatinine (0.70-1.30) mg/dL Est GFR (CKD-EPI 2020) (mL/min/1.73m2) Glucose (74-106) mg/dL Calcium (8.5-10.1) mg/dL Magnesium (1.8-2.4) mg/dL Total Bilirubin (0.2-1.0) mg/dL AST (15-37) U/L ALT (16-63) U/L Alkaline Phosphatase (46-116) U/L Troponin I (<or=76) ng/L Cancelled NT-Pro-B Natriuret Pep (<300) pg/mL Total Protein (6.4-8.2) g/dL Albumin (3.4-5.0) g/dL COVID-19 Source SARS-CoV-2 (PCR) (Negative) Influenza Type A (PCR) (Negative) Influenza Type B (PCR) (Negative) RSV (PCR) (Negative) Quality:SDOH Health Related Social Needs: Health related social needs inadequate housing(Z59.1) PFSH All Active Problems (Updated 03/13/24 @ 07:06 by Jeanie Wells MD) Hypomagnesemia (Acute) Acute exacerbation of chronic obstructive pulmonary disease (Acute) Pneumonia (Acute) Acute respiratory failure with hypoxia (Acute) COVID-19 (Acute) Acute exacerbation of chronic obstructive pulmonary disease (Acute) Intertrochanteric fracture of right hip (Acute) DOS: 07/01/18 Dr. Hooper GERD (gastroesophageal reflux disease) (Chronic) Hyperlipidemia (Acute) Tobacco abuse (Chronic) COPD (chronic obstructive pulmonary disease) (Chronic) Medical History Anxiety Depression Hyperlipemia PTSD (post-traumatic stress disorder) Surgical History H/O melanoma excision History of back surgery Lumbar discectomy Status post-operative repair of closed fracture of right hip Family History Mother , from an [place] in her 70s Heart disease Social History Smoking/Tobacco Use Status: Former Tobacco Use Tobacco: How many years used: 50 Smoking risk assessment performed?: Yes Alcohol Intake: never Drug use: Never Substance use type: does not use Household members: spouse and children Housing: apartment Do you feel safe at home: Yes Do you feel safe in your relationship?: Yes
== END 2024-03-13 07:36 | disposition home or self-care (01) ==
PROVIDERS: Emergency Provider Student in an Organized Health Care Education/Training Program; PCP Internal Medicine
DX: J44.1 Chronic obstructive pulmonary disease with (acute) exacerbation; E78.5 Hyperlipidemia, unspecified; I45.2 Bifascicular block; Z79.82 Long term (current) use of aspirin; Z87.891 Personal history of nicotine dependence
CPT/HCPCS: 36415; 80053; 87637; 93005; 94640; 99285; 71046; 83735; 83880; 84484; 85025; 93010; 99284; J2919; J7620

== ENCOUNTER 2025-02-06 08:40 | Observation (INO) | payer OTHER, SELFPAY ==
[2025-02-06] VITALS (10 sets, daily range): BP systolic 129–160; BP diastolic 51–82; PULSE 66–91; RESP 18–22; TEMP 36.6–36.9; O2SAT 82–97
--- NOTE | 2025-02-06 08:45 | RT.EKG_ITS ---
APPROVED REPORT Exam: Resting ECG Reason for Exam: Chest pain Patient Location: E HR:70 bpm ECG Measurements Heart Rate 70 AXIS MO 181 P 97 QRSd 151 QRS -90 QT 408 T 44 QTc 441 Conclusion Sinus rhythm...normal P axis, V-rate 60- 99 RBBB and LAFB...QRSd >120mS, axis(-40,240) No STEMI
--- NOTE | 2025-02-06 08:45 | DI.RAD_ITS ---
Exam(s) XR PORTABLE CHEST AP EXAM: XR PORTABLE CHEST AP CLINICAL HISTORY: Chest pain TECHNIQUE: 2D digital imaging was performed. COMPARISON: CR,XR XR CHEST 2V PA LATERAL from 03/13/2024 FINDINGS: LUNGS: There are increased interstitial markings at the lung bases compared with the previous exam. There is some peribronchial thickening. Findings could represent pulmonary edema versus infiltrates. No pleural abnormality seen. HEART: Normal size. AORTA: Tortuous. BONES: Unremarkable for age. Soft tissues: Unremarkable. IMPRESSION: Lower lobe infiltrates versus pulmonary edema. Clinical correlation recommended. DATA REPOSITORY: RADIATION DOSE DELIVERED:
[2025-02-06 09:07] LABS: Abs Immature Grans 0.06 10^3/uL (0.0-0.06); HCT 34.8 % (40.0-50.0); HGB 11.2 g/dL (13.5-17.5); Immature Grans % 0.7 %; MCH 30.6 pg (27.0-33.0); MCHC 32.2 % (32.0-36.0); MCV 95 fL (80-95); MPV 9.4 fL (8.0-11.0); Platelet Count 191 10^3/uL (130-400); RBC 3.66 10^6/uL (4.36-5.78); RDW 12.3 % (11.8-14.1); RDW-SD 43.2 fL; WBC 8.79 10^3/uL (4.4-10.8)
[2025-02-06 09:40] LABS: ALT 29 U/L (16-63); AST 25 U/L (15-37); Albumin 3.3 g/dL (3.4-5.0); Alkaline Phosphatase 85 U/L (46-116); Anion Gap 4.0 mmol/L (3-11); BUN 8 mg/dL (7-18); Bilirubin, Total 0.6 mg/dL (0.2-1.0); CO2 34.0 mmol/L (21.0-32.0); Calcium 9.0 mg/dL (8.5-10.1); Chloride 99 mmol/L (98-107); Estimated GFR 95.49 (mL/min/1.73m2); Glucose 107 mg/dL (74-106); NT-proBNP 226 pg/mL (<300); Potassium 4.2 mmol/L (3.5-5.1); Sodium 137 mmol/L (136-145); Total Protein 6.8 g/dL (6.4-8.2); Troponin I 18 ng/L (<or=76)
[2025-02-06] MEDS: Albuterol/Ipratropium 3 ML UPD VIAL UPD ×2 (09:40→20:23)
[2025-02-06] MEDS: methylPREDNISolone SUCC 125 MG VIAL IVP (09:40)
[2025-02-06] MEDS: AZITHROMYCIN 500 MG in Normal Saline 250 ML 250 MG IVPB (09:40)
[2025-02-06 10:53] LABS: COVID-19 PCR Negative (Negative); RSV PCR Negative (Negative)
[2025-02-06] MEDS: cefTRIAXone 1 GM/50 ML BAG IVPB (11:10)
--- NOTE | 2025-02-06 11:16 | NUR.NOTE ---
Nursing Note: Road test performed with patient. Pt. on of for this road test which is his normal rate. Pulse ox at baseline was 90-92%, ambulated about 20 feet and patient reported getting short of breath, pulse dropped to 85% by the time we arrived back to the patient's room.
[2025-02-06 11:54] LABS: Troponin I 19 ng/L (<or=76)
--- NOTE | 2025-02-06 12:37 | W.PM.HP.N ---
Date of service: 02/06/25 Time of Service: 12:37 Assessment and Plan Assessment and plan (1) Sepsis: Status: Acute Assessment and plan: Sepsis criteria met with tachycardia HR 91 , tachypnea with RR at 22 no leukocytosis Source most likely respiratory as per CT report And as below (2) Acute on chronic hypoxic respiratory failure: Status: Acute Assessment and plan: Patient w/o chronic O2 requirement at 2l/min via nasal canula at home and presenting with saturation in the 80's% . Maintains sat at 88-92% on 3l/min of oxygen via nasal canula Pulmonary emboli ruled out as per symptomatology and response to Oxygen; EKG V1-3 with R wave dominance similar to previous, no St depression in inferior leads No pleural effusion Infiltrates as per imaging with increased interstitial markings and peribronchial thickening Wean Oxygen for saturation 88-92% Continue Azithromycin, ceftriaxone Blood cultures pending (3) Pneumonia: Status: Acute Assessment and plan: As per Chest XR findings And as above Consider further studies if not improving Labs in AM (4) Acute exacerbation of chronic obstructive pulmonary disease: Status: Acute Assessment and plan: Exacerbated d/t above - sat goals 88-92% on baseline oxygen of 2l/min Increased cough - secretion production color change Ongoing home therapy Scheduled and PRN nebs Acapella- cough and deep breathing Mucinex Tesmorgan parada (5) GERD (gastroesophageal reflux disease): Status: Chronic Assessment and plan: On home dose protonix (6) PTSD (post-traumatic stress disorder): Assessment and plan: On home dose zoloft (7) Hyperlipidemia: Status: Acute Assessment and plan: On home dose statin (8) Nicotine dependence: Status: Acute (9) On deep vein thrombosis (DVT) prophylaxis: Status: Acute Assessment and plan: Low molecular weight heparin Discussed with Dr. Brown History of Present Illness History of Present Illness Chief Complaint: SCHAEFFER Narrative: This 74-year-old male patient, living at home with spouse and son, with past medical history of past nicotine dependence, COPD, chronic hypoxia on home oxygen at 2 L, GERD, hyperlipidemia, PTSD presented to the ED for evaluation of dyspnea on exertion started over 2 weeks ago with increased activity intolerance On arrival to the emergency department, the patient was hypoxic around the low 80s on his oxygen at his 2 L/min baseline with requirement to 3 L to maintain sat 88-92%; also noted tachypnea with respiratory rate at 22 and tachycardia with heart rate at 91 without hypotension. Workup in the ED was significant for x-ray showing lower lobe infiltrates versus pulmonary edema with increased interstitial markings and peribronchial thickening, blood work was without findings of actionable items. ACS negative as per EKG and troponin. IV ceftriaxone and azithromycin initiated in the emergency department; IV methylprednisolone given x 1. The patient was admitted to the medical surgical floor by the hospitalist team for acute on chronic hypoxic respiratory failure, pneumonia, COPD exacerbation for ongoing evaluation and management. Code status: DNR/DNI Denies:Fevers, new nasal congestion,dizziness, chest pain, nausea, vomiting, constipation or dysuria Reports:Sick contact- son with URI symptoms, chills late yesterday and today, increased fatigue with activity, increased cough with increased sputum production, diarrhea Review of Systems All systems reviewed & are unremarkable except as noted in HPI and below PFSH All Active Problems (Updated 02/06/25 @ 14:30 by Suzanna Roberts APRN) On deep vein thrombosis (DVT) prophylaxis (Acute) Nicotine dependence (Acute) Sepsis (Acute) Acute on chronic hypoxic respiratory failure (Acute) Pneumonia (Acute) Acute respiratory failure with hypoxia (Acute) COVID-19 (Acute) Acute exacerbation of chronic obstructive pulmonary disease (Acute) Intertrochanteric fracture of right hip (Acute) DOS: 07/01/18 Dr. Hooper GERD (gastroesophageal reflux disease) (Chronic) Hyperlipidemia (Acute) Tobacco abuse (Chronic) COPD (chronic obstructive pulmonary disease) (Chronic) Medical History Anxiety Depression Hyperlipemia PTSD (post-traumatic stress disorder) Surgical History H/O melanoma excision History of back surgery Lumbar discectomy Status post-operative repair of closed fracture of right hip Family History Mother , from an [place] in her 70s Heart disease Social History Smoking/Tobacco Use Status: Former Tobacco Use Tobacco: How many years used: 50 Smoking risk assessment performed?: Yes Alcohol Intake: never Drug use: Never Substance use type: does not use Household members: spouse and children Housing: apartment Do you feel safe at home: Yes Do you feel safe in your relationship?: Yes Meds Allergies and Home Medications Allergies Allergy/AdvReac Type Severity Reaction Status Date / Time No Known Allergies Allergy Unverified 02/06/25 08:47 Home Medications ?Medication ?Instructions ?Recorded ?Confirmed ?Type atorvastatin 20 mg tablet (Lipitor) 10 mg PO DAILY AM 03/15/14 02/06/25 History sertraline 25 mg tablet (Zoloft) 25 mg PO DAILY 03/15/14 02/06/25 History coenzyme Q10 100 mg capsule 100 mg PO DAILY 11/16/14 02/06/25 History (CoQ-10) pantoprazole 40 mg tablet,delayed 40 mg PO DAILY ##30 08/01/17 02/06/25 Rx release (Protonix) albuterol sulfate 90 mcg/actuation 2 mcg inhalation PRN PRN 07/03/18 02/06/25 History aerosol inhaler magnesium 250 mg tablet 500 mg PO DAILY 07/03/18 02/06/25 History aspirin 81 mg chewable tablet 81 mg PO DAILY 01/13/21 02/06/25 History omega-3 fatty acids-vitamin E 1 cap PO DAILY 01/13/21 02/06/25 History 1,000 mg capsule loratadine 10 mg capsule 10 mg PO DAILY #10 caps 02/02/21 02/06/25 Rx Black Elderberry 1 tab PO DAILY 10/02/21 02/06/25 History ascorbic acid (vitamin C) 1,000 mg 1,000 mg PO DAILY 10/02/21 02/06/25 History tablet (Vitamin C) cholecalciferol (vitamin D3) 25 2,000 units PO DAILY #14 tabs 10/07/21 02/06/25 Rx mcg (1,000 unit) tablet ipratropium 0.5 mg-albuterol 3 mg 3 ml UPD Q4H PRN PRN #180 mL 10/07/21 02/06/25 Rx (2.5 mg base)/3 mL nebulization soln zinc sulfate 50 mg zinc (220 mg) 220 mg (4.4 x 50 mg zinc (220 mg)) 10/07/21 02/06/25 Rx capsule (Zinc-220) PO DAILY #7 caps budesonide 160 mcg-glycopyr 9 2 inh inhalation BID 02/06/25 02/06/25 History mcg-formot 4.8 mcg/actuation HFA inhaler ([employer]) saw wolfgang 250 mg capsule 500 mg PO DAILY 02/06/25 02/06/25 History Exam Narrative Exam Narrative: 84-year-old male without acute distress, alert oriented x 4, neurologically intact, nonicteric sclera, no JVD, dyspneic on minimal exertion, decreased bibasilar breath sounds, S1-S2 regular no murmur, no edema to the lower extremities, abdomen is nondistended soft nontender and muscles are present, no CVA tenderness, moves all 4 extremities Results Labs 02/06/25 09:00 02/06/25 09:00 Labs: Laboratory Results - last 24 hr 02/06/25 02/06/25 02/06/25 09:00 10:10 10:20 WBC 8.79 RBC 3.66 L Hgb 11.2 L Hct 34.8 L MCV 95 MCH 30.6 MCHC 32.2 RDW 12.3 Plt Count 191 MPV 9.4 Immature Gran % 0.7 Neutrophils % 81.4 Lymphocytes % 9.4 Monocytes % 8.2 Eosinophils % 0.1 Basophils % 0.2 Nucleated RBC % 0.0 Absolute Neutrophils 7.15 H Absolute Lymphocytes 0.83 L Absolute Monocytes 0.72 Absolute Eosinophils 0.01 Absolute Basophils 0.02 Sodium 137 Potassium 4.2 Chloride 99 Carbon Dioxide 34.0 H Anion Gap 4.0 BUN 8 Creatinine 0.7 Est GFR (CKD-EPI 2020) 95.49 Glucose 107 H Calcium 9.0 Total Bilirubin 0.6 AST 25 ALT 29 Alkaline Phosphatase 85 Troponin I 18 19 NT-Pro-B Natriuret Pep 226 Total Protein 6.8 Albumin 3.3 L COVID-19 Source Nasopharynx SARS-CoV-2 (PCR) Negative Influenza Type A (PCR) Negative Influenza Type B (PCR) Negative RSV (PCR) Negative Last Vital Signs Pulse 70 02/06/25 10:58 Resp 20 02/06/25 10:58 BP 129/51 L 02/06/25 10:58 Pulse Ox 93 02/06/25 10:58 Time Spent Time spent with Patient: >75 minutes Time was spent: preparing to see the patient(eg.review tests), obtaining and/or reviewing separately otained hiistory, ordering medications,tests, procedures, referring, communicating with other health resident care aid, indepentently interpreting results, counseling the patient, care coordination and other
[2025-02-06 13:10] LABS: Magnesium 1.8 mg/dL (1.8-2.4)
--- NOTE | 2025-02-06 13:26 | W.PC.ACHO ---
Registration Status: REG ER Primary Language: Preferred Language: Khmer ED Information & Data Chief Complaint SOB 02/06/25 10:13 Chief Complaint SOB 02/06/25 08:44 Triage Note h/o COPD, at baseline wears 02/06/25 08:44 2L/NC and uses albuterol inhaler Q1hr. Has noticed increased SOB w/exertion I just can't do anything. Given duoneb by EMS. Wet cough noted, had pneumonia around this time last year. Medical / Surgical History (Last Reviewed 02/05/22 @ 06:24 by James Lee DO) Anxiety Depression Hyperlipemia PTSD (post-traumatic stress disorder) (Last Reviewed 02/05/22 @ 06:24 by James eLe DO) H/O melanoma excision Status post-operative repair of closed fracture of right hip History of back surgery Most Recent Vital Signs Pulse 70 02/06/25 10:58 Respiratory Rate 20 02/06/25 10:58 Respiratory Effort Short of Breath 02/06/25 09:52 Respiratory Depth Shallow 02/06/25 09:52 Respiratory Pattern Normal 02/06/25 09:52 Blood Pressure 129/51 L 02/06/25 10:58 Blood Pressure Mean 77 02/06/25 10:58 Blood Pressure Position Sitting 02/06/25 08:44 Pulse Oximetry 93 02/06/25 10:58 Oxygen Delivery Method Nasal Cannula 02/06/25 10:58 Oxygen Flow Rate 2 02/06/25 10:58 Pain Level 0 02/06/25 08:44 Allergies No Known Allergies Allergy (Unverified 02/06/25 08:47) Precautions Isolation Standard precaution 02/06/25 10:13 IV IV Catheter Type [Right Wrist] Saline Lock IV Catheter Gauge [Right Wrist 20 ] Diagnostics 02/06/25 02/06/25 02/06/25 Range/Units 10:20 10:10 09:00 WBC 8.79 (4.4-10.8) 10^3/uL RBC 3.66 L (4.36-5.78) 10^6/uL Hgb 11.2 L (13.5-17.5) g/dL Hct 34.8 L (40.0-50.0) % MCV 95 (80-95) fL MCH 30.6 (27.0-33.0) pg MCHC 32.2 (32.0-36.0) % RDW 12.3 (11.8-14.1) % Plt Count 191 (130-400) 10^3/uL MPV 9.4 (8.0-11.0) fL Immature Gran % 0.7 % Neutrophils % 81.4 % Lymphocytes % 9.4 % Monocytes % 8.2 % Eosinophils % 0.1 % Basophils % 0.2 % Nucleated RBC % 0.0 (0.0-0.3) % Absolute Neutrophils 7.15 H (1.2-6.7) 10^3/uL Absolute Lymphocytes 0.83 L (1.2-3.4) 10^3/uL Absolute Monocytes 0.72 (0.1-0.8) 10^3/uL Absolute Eosinophils 0.01 (0.0-0.7) 10^3/uL Absolute Basophils 0.02 (0.0-0.2) 10^3/uL Sodium 137 (136-145) mmol/L Potassium 4.2 (3.5-5.1) mmol/L Chloride 99 (98-107) mmol/L Carbon Dioxide 34.0 H (21.0-32.0) mmol/L Anion Gap 4.0 (3-11) mmol/L BUN 8 (7-18) mg/dL Creatinine 0.7 (0.70-1.30) mg/dL Est GFR (CKD-EPI 2020) 95.49 (mL/min/1.73m2) Glucose 107 H (74-106) mg/dL Calcium 9.0 (8.5-10.1) mg/dL Magnesium 1.8 (1.8-2.4) mg/dL Total Bilirubin 0.6 (0.2-1.0) mg/dL AST 25 (15-37) U/L ALT 29 (16-63) U/L Alkaline Phosphatase 85 (46-116) U/L Troponin I 19 18 (<or=76) ng/L NT-Pro-B Natriuret Pep 226 (<300) pg/mL Total Protein 6.8 (6.4-8.2) g/dL Albumin 3.3 L (3.4-5.0) g/dL COVID-19 Source Nasopharynx SARS-CoV-2 (PCR) Negative (Negative) Influenza Type A (PCR) Negative (Negative) Influenza Type B (PCR) Negative (Negative) RSV (PCR) Negative (Negative) 02/06/25 10:20 Blood Culture - Pending Blood 02/06/25 10:20 Blood Culture - Pending Blood Intake and Output - 24 Hour Total 02/06/25 08:35 thru 02/06/25 09:01 Intake Total 10 Balance 10 Weight 174 lb Intake: IV 10 Falls Risk Assessment History of Falls No History 02/06/25 10:13 Contributing Factors No Factors 02/06/25 10:13 Ambulatory Aids Independent 02/06/25 10:13 Tubes/Lines W/no contributing factors 02/06/25 10:13 Gait Evaluation No gait disturbance 02/06/25 10:13 Fall Total Score 10 02/06/25 10:13 Level of Risk Standard/Low Risk 02/06/25 10:13 Notes 02/06/25 11:16 Nursing Notes by Jessica Shaw Nursing Note: Road test performed with patient. Pt. on 2L of [address] which is his normal rate. Pulse ox at baseline was 90-92%, ambulated about 20 feet and patient reported getting short of breath, pulse dropped to 85% by the time we arrived back to the patient's room. Initialized on 02/06/25 11:16 - END OF NOTE v v v v v v v v v Sending and/or Receiving Nurses: Please use comment section below to note any information pertinent to the patient hand-off not included above. Information / Comments: baseline 2L SOB at home, duenub in ambu given, 94% o2 sating after. Report received from: Jayla Amaya RN
[2025-02-06] MEDS: Normal Saline Flush 10 ML SYR IVP (19:33)
[2025-02-07] VITALS (9 sets, daily range): BP systolic 115–169; BP diastolic 61–74; PULSE 55–98; RESP 16–19; TEMP 36.5–36.9; O2SAT 91–94
[2025-02-07] MEDS: Albuterol/Ipratropium 3 ML UPD VIAL UPD ×4 (03:01→19:54)
[2025-02-07 06:23] LABS: Abs Immature Grans 0.03 10^3/uL (0.0-0.06); HCT 33.9 % (40.0-50.0); HGB 11.4 g/dL (13.5-17.5); Immature Grans % 0.3 %; MCH 31.6 pg (27.0-33.0); MCHC 33.6 % (32.0-36.0); MCV 94 fL (80-95); MPV 9.3 fL (8.0-11.0); Platelet Count 184 10^3/uL (130-400); RBC 3.61 10^6/uL (4.36-5.78); RDW 12.0 % (11.8-14.1); RDW-SD 41.8 fL; WBC 9.41 10^3/uL (4.4-10.8)
[2025-02-07 06:59] LABS: Anion Gap 3.3 mmol/L (3-11); BUN 20 mg/dL (7-18); CO2 33.7 mmol/L (21.0-32.0); Calcium 9.3 mg/dL (8.5-10.1); Chloride 101 mmol/L (98-107); Estimated GFR 91.72 (mL/min/1.73m2); Glucose 133 mg/dL (74-106); Potassium 4.3 mmol/L (3.5-5.1); Sodium 138 mmol/L (136-145)
[2025-02-07] MEDS: Pantoprazole 40 MG TABCR PO (07:31)
[2025-02-07] MEDS: Loratidine 10 MG TAB PO (07:31)
[2025-02-07] MEDS: Normal Saline Flush 10 ML SYR IVP ×2 (08:45→20:31)
[2025-02-07] MEDS: Cholecalciferol (Vitamin D3) 1,000 UNIT TAB 2000 UNITS PO (08:45)
[2025-02-07] MEDS: Enoxaparin 40 MG/0.4 ML SYR SC (08:45)
[2025-02-07] MEDS: AZITHROMYCIN 250 MG in Normal Saline 250 ML IVPB (08:45)
[2025-02-07] MEDS: guaiFENesin 600 MG TABCR PO ×2 (08:45→20:31)
[2025-02-07] MEDS: Sertraline 25 MG TAB PO (08:46)
[2025-02-07] MEDS: Magnesium Gluconate 500 MG TAB PO (08:46)
[2025-02-07] MEDS: Aspirin 81 MG CHEW PO (08:46)
[2025-02-07] MEDS: Atorvastatin 20 MG TAB 10 MG PO (08:46)
[2025-02-07] MEDS: predniSONE 20 MG TAB 40 MG PO (08:46)
[2025-02-07] MEDS: Omega-3 Fatty Acids 1000 MG CAP PO (08:46)
[2025-02-07] MEDS: Ascorbic Acid 500 MG TAB 1000 MG PO (08:47)
[2025-02-07] MEDS: Zinc Sulfate 220 MG TAB PO (08:47)
[2025-02-07] MEDS: Normal Saline 100 ML 30 ML (08:54)
--- NOTE | 2025-02-07 10:03 | IN_ITS ---
PT Notes Visit Reasons: acute on chronic resp failure pneumonia copd exace Physical Therapy Inpatient Initial Evaluation Date: 02/07/2025 Referring Doctor: Suzanna Roberts NP PT Orders: PT CONSULT: Eval for AD, Safety Consult for D/C Precautions: Standard, Oxygen continuous to keep sats 88-92% ( currently at 2 L/min) Patient Profile/Admitting Diagnosis: Pt is a 74 yo male presented to the ED on 02/06/2025with progressive increase in SCHAEFFER /SOB over 2 weeks. Pt CxR :(+) pneumonia. Pt also diagnosed with Sepsis, Acute on Chronic Hypoxic Respiratory Failure, COPD exacerbation. Pt treated with Nebs IV Antibiotics and Steroids. Pt admitted to the Med-Surg unit for further Medical management. PMHX: On deep vein thrombosis (DVT) prophylaxis (Acute) Nicotine dependence (Acute) Sepsis (Acute) Acute on chronic hypoxic respiratory failure (Acute) Pneumonia (Acute) Acute respiratory failure with hypoxia (Acute) COVID-19 (Acute) Acute exacerbation of chronic obstructive pulmonary disease (Acute) Intertrochanteric fracture of right hip (Acute) DOS: 07/01/18 Dr. Auguste (gastroesophageal reflux disease) (Chronic) Hyperlipidemia (Acute) Tobacco abuse (Chronic) COPD (chronic obstructive pulmonary disease) (Chronic) Medical History Anxiety Depression Hyperlipemia PTSD (post-traumatic stress disorder) Surgical History H/O melanoma excision History of back surgery Lumbar discectomy Status post-operative repair of closed fracture of right hip Social History/Home Situation: Pt resides with his in 1st floor apt with 2 ALLEN with Right rail. He is independent within his home with continuous Oxygen at 2L/Min. He has a long oxygen tubing which he can get to all destinations within the apt. He carries a portable cylinder for outdoor. He drives and showers using a tub seat and hand held shower head. Equipment Owned/DME: FWW, 4WW, cane, Oxygen Concentrator, portable tanks, tub seat, Hand held shower Subjective: Pt reports he would like to go home today. He [facility]. He states he has equipment but only intermittently uses a cane in his left hand intermittently but finds he walks best when he is at the grocery store pushing the cart. Objective: [] General Observation: pt presented seated at EOB with IV infusing right UE and Oxygen via NC at 2L/Min Mental Status: A+Ox4,pleasant, cooperative, able to follow instructions, agreeable to participate in Pain: denied ROM: [] BUE: WNL Right Lower Extremity: WFL Left Lower Extremity: WNL Strength: [] BUE: 4/5 Right Lower Extremity: hip 3-/5, knee >3/5,ankle >3/5 Left Lower Extremity: >4/5 Sensation: intact Bed Mobility/Transfers: [] Supine to sit Independent ( sleeps with HOB at 30 degrees at home) Sit to stand Independent Stand to sit Independent Bed to chair SBA Gait: amb with out AD in room with SBA significant trendelenberg gait RLE and SCHAEFFER with poor pacing amb with FWW 60 feet with stand rest SBA with reduced Trendelenberg and improved breath control Stairs: 3 4 steps? and 2 6 steps with rails SBA with verbal cues for breath control/pacing including exhale as stepping up and lowering down to step Balance: [] Static Sitting: normal Dynamic Sitting:good Static Standing: normal Dynamic Standing:good Special Tests: [] Mobility Limitations Standardized Measure [] [facility] Mob[facility] Inpatient Short Form: [] Raw Score: 23 CMS Score: 11.20 % deficit Informed Consent/Education: Patient instructed in purpose of PT consult. Treatment:[id number]: functional transfers various surfaces without AD . Pt requires 2 attempts to rise from heights under 19 inches Independently and 1 attempt on surfaces >20 Pt requires cues for pacing and breath control to exhalle on exertion ambulation wiht in room with FWW SBA and cues for tubing management. Pt intermittently stepping on tube and getting legs wrapped in tubing. Able to untangle without LOB with SBA Educated on use of BUE support to breath control/ recovery position and using FWW for ambulation long distances for energy conservation and pacing. Assessment: Patient is a 74 yo male who presents with clinical signs and symptoms consistent with current/admitting diagnoses that have resulted to mobility limitations, gait instability, generalized weakness, and impairment of motor control as demonstrated by the following impairment level findings: 1. Decreased strength to BLE/UE major muscle groups , Right>Left 2. Impaired standing balance 3. Impaired Functional activity tolerance 4. Impaired Breath control/ pacing 5. Increased work of breathing Impairments are contributing to the following functional limitations: 1. Inability to safely ambulate without assistive device 2. Increase completion time for mobility ADL performance 3. Increased fall risk 4. difficulty performing stairs without assistive device Patient is assessed as a moderate complexity based on the following: History: 74-year-old male with impairment level findings, functional limitations, and past medical history as indicated above Examination: Demonstrable impairment in strength, balance, and mobility level with underlying impairments and functional limitations as documented above Presentation: evolving Decision Making: moderate Goals: 1. demonstrate breath control/ pacing during all functional mobility as noted by maintaining SaO2 88-92% 2. Modified Independent ambulation 300 feet with FWW or 4WW with standing rests to maintain sats 88-92% 3. perform 2 steps with 1 rail SBA including managing Oxygen tank maintaining sats. Plan of Care/Treatment Plan: 1-2x/day, 7 days/week x 1 week. Plan of care has been reviewed with the SENIOR EDUCATION SPECIALIST providing the service under Physical Therapy direction. Initiate Physical Therapy intervention for strengthening, bed mobility, transfers, gait, stairs, balance training, use of assistive device. DISCHARGE RECOMMENDATIONS: [] TREATMENT CODE/TIME: 04454, [id number] Thank you for the opportunity to participate in the care of this patient. Kelli Swain, PT [facility]
[2025-02-07] MEDS: cefTRIAXone 1 GM/50 ML BAG IVPB (10:20)
--- NOTE | 2025-02-07 10:25 | INITIAL_ITS ---
Date of service: 02/07/25 Time of Service: 10:25 Care Management Initial Assmt Initial Assessment Reason for Hospitalization: COPD exacerbation Functional Status/Living Situation Patient Presentation: Felipe presented to the ED yesterday morning with c/o shortness of breath. He uses 2L of O2 at home, was wearing that when he came in and was noted to have O2 sats in the 80s. He required increased oxygen for a bit, and is now back to his baseline. Felipe was sitting up in the bedside chair, visiting with his Charlette. Both were very pleasant. Felipe stated that he is feeling a lot better, and is hoping to go home tomorrow. He and his stated that they are looking for some help with housework, and Felipe is interested in PT with possible referral to better breather's program. Felipe is a . CM reached out to [facility] today, but had to leave a message, will f/u tomorrow. Felipe is concerned that he will have to pay for services, and would like to clarify this with [facility], also increase his services for sure. 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 Town of Residence: [facility] Resides with: Spouse (Charlette and their adult son) Natural Supports: Charlette and their son - Son helps out a lot with housework and yard work, but he works fruit washer and family feels they could use more help. 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 Also worked in [employer].) Instrumental Activities of Daily Living (ADLs): Independent Medications Medication Management: No Issues/Barriers identified Physical Functioning/Mobility Assistive Device: walker Advance Directives Advance Directives: Do you have an Advance Directive: Y 18, 12:07 AD On File at [facility]: N 1017/14, 07:29 Date Asked 02/06/25 02/06/25, 13:34 AD Date Reviewed COLST On File at [facility] COLST Date Scanned Code Status Resuscitation Status DNR/DNI Insurance Coverage/Financial Issues Insurance: [facility]? Financial Issues: Felipe and Charlette state that money is tight Care Team Visit Care Team Role Provider Type Suzanna Roberts APRN MD [facility] STAFF PHYSICIAN Alvarez Alvarez Primary Care Provider NON-[facility] STAFF PHYSICIAN [facility] Other Providers OTHER Eric Ray Emergency Provider NON-[facility] STAFF PHYSICIAN Ben Brown MD Admit Provider [facility] STAFF PHYSICIAN Attending Provider Other: PCP is Marcelo Baumann at the [facility] - access notified Discharge Potential Discharge Needs: PCP F/U Appt and Other (pulmonology f/u) Anticipated Barriers to Discharge: None Identified Patient/Family Education Needs: Review discharge instructions, discuss Ask Me Three Transportation: Private vehicle Plan: Felipe will likely discharge home tomorrow with new service of PT with request to evaluate for [facility]. He will f/u with his PCP and his pulmonoligist and continue per his plan of care. CM will continue to follow. Social Determinants of Health Screening Social Determinants of health last assessed in clinic: 02/07/25 Will the Patient Participate in the Screening?: Yes Do you worry about having a steady place to live?: no Problems where you live: no known problems In the past 12 months, have you had to go without electric, gas, oil or water in your home?: no 1. Within the past 12 months, we worried whether our food would run out before we got money to buy more.: Sometimes true 2. Within the past 12 months, the food we bought just didn't last and we didn't have money to get more.: Sometimes true Has lack of transportation kept you from medical appointments or from doing things needed for daily living?: no Has anyone in your life made you feel unsafe or unsupported?: no How hard is it for you to pay for the very basics like food, housing, medical care, and heating? Would you say it is:: Not hard at all Do you want help finding or keeping work or a job?: I do not need or want help If for any reason you need help with day-to-day activities such as bathing, preparing meals, shopping, managing finances, etc., do you get the help you need?: I don?t need any help How often do you feel lonely or isolated from those around you?: Never Do you speak a language other than Czech at home?: No Health Related Social Needs Health related social needs: food insecurity (Z59.41) PFSH All Active Problems (Updated 02/06/25 @ 14:30 by Suzanna Roberts APRN) On deep vein thrombosis (DVT) prophylaxis (Acute) Nicotine dependence (Acute) Sepsis (Acute) Acute on chronic hypoxic respiratory failure (Acute) Pneumonia (Acute) Acute respiratory failure with hypoxia (Acute) COVID-19 (Acute) Acute exacerbation of chronic obstructive pulmonary disease (Acute) Intertrochanteric fracture of right hip (Acute) DOS: 07/01/18 Dr. Hooper GERD (gastroesophageal reflux disease) (Chronic) Hyperlipidemia (Acute) Tobacco abuse (Chronic) COPD (chronic obstructive pulmonary disease) (Chronic) Medical History Anxiety Depression Hyperlipemia PTSD (post-traumatic stress disorder) Surgical History H/O melanoma excision History of back surgery Lumbar discectomy Status post-operative repair of closed fracture of right hip Family History Mother , from an [place] in her 70s Heart disease Social History Smoking/Tobacco Use Status: Former Tobacco Use Tobacco: How many years used: 50 Smoking risk assessment performed?: Yes Alcohol Intake: never Drug use: Never Substance use type: does not use Household members: spouse and children Housing: apartment Do you feel safe at home: Yes Do you feel safe in your relationship?: Yes Anticipated HH Services Anticipated HH Services at Discharge [facility] Anticipated Date of Discharge: 02/08/25. Following Provider: Evelia Baumann at the [facility].
--- NOTE | 2025-02-07 10:46 | PGE_ITS ---
Date of Service Date of service: 02/07/25 Time of Service: 12:38 Assessment and Plan Assessment and plan (1) Sepsis: Status: Acute Assessment and plan: Sepsis criteria met with tachycardia HR 91 , tachypnea with RR at 22 no leukocytosis Source most likely respiratory as per CT report And as below (2) Acute on chronic hypoxic respiratory failure: Status: Acute Assessment and plan: Patient w/o chronic O2 requirement at 2l/min via nasal canula at home and pre senting with saturation in the 80's% . Maintains sat at 88-92% on 3l/min of oxygen via nasal canula Pulmonary emboli ruled out on admission imaging negative for pleural effusion Infiltrates on imaging with increased interstitial markings and peribronchial thickening Wean Oxygen for saturation 88-92% Continue Azithromycin, ceftriaxone Blood cultures pending this AM (3) Pneumonia: Status: Acute Assessment and plan: As per HPI and imaging findings And as above Labs in AM (4) Acute exacerbation of chronic obstructive pulmonary disease: Status: Acute Assessment and plan: Exacerbated d/t above - sat goals 88-92% on baseline oxygen of 2l/min Increased cough - secretion production color change Ongoing home therapy with scheduled and PRN nebs Continue acapella- cough and deep breathing , mucinex PRN Tessalon perles Does not smoke anymore but positive passive exposure d/t to spouse nicotine dependence (5) GERD (gastroesophageal reflux disease): Status: Chronic Assessment and plan: On home dose PPI (6) PTSD (post-traumatic stress disorder): Assessment and plan: On home dose sertraline (7) Hyperlipidemia: Status: Acute Assessment and plan: On home dose lipitor (8) On deep vein thrombosis (DVT) prophylaxis: Status: Acute Assessment and plan: Ongoing Low molecular weight heparin Discussed with Dr. Brown Subjective Subjective Patient reports: no new complaints, feels better, tolerating liquids well, tolerating a regular diet, voiding w/o difficulty, flatus, bowel movement, diarrhea and shortness of breath (improved ); denies blood in stool, nausea, vomiting or fever Exam Narrative Exam Narrative: No acute distress, alert oriented x 4, neurologically intact, imporoved dyspnea on exertion, decreased bibasilar breath sounds, S1-S2 regular no murmur, abdomen is nondistended soft nontender and muscles are present, no CVA tenderness, moves all 4 extremities Objective Last Vital Signs Temp 36.5 C 02/07/25 07:28 Pulse 98 H 02/07/25 08:31 Resp 16 02/07/25 08:31 BP 115/61 02/07/25 07:28 Pulse Ox 92 02/07/25 08:39 Laboratory Results - last 24 hr 02/06/25 02/06/25 02/07/25 10:10 10:20 06:15 WBC 9.41 RBC 3.61 L Hgb 11.4 L Hct 33.9 L MCV 94 MCH 31.6 MCHC 33.6 RDW 12.0 Plt Count 184 MPV 9.3 Immature Gran % 0.3 Neutrophils % 90.7 Lymphocytes % 5.6 Monocytes % 3.3 Eosinophils % 0.0 Basophils % 0.1 Nucleated RBC % 0.0 Absolute Neutrophils 8.53 H Absolute Lymphocytes 0.53 L Absolute Monocytes 0.31 Absolute Eosinophils 0.00 Absolute Basophils 0.01 Sodium 138 Potassium 4.3 Chloride 101 Carbon Dioxide 33.7 H Anion Gap 3.3 BUN 20 H Creatinine 0.8 Est GFR (CKD-EPI 2020) 91.72 Glucose 133 H Calcium 9.3 Magnesium 1.8 Troponin I 19 COVID-19 Source Nasopharynx SARS-CoV-2 (PCR) Negative Influenza Type A (PCR) Negative Influenza Type B (PCR) Negative RSV (PCR) Negative PAWSS Have you Been Recently Intoxicated or Drunk Within the Last 30 days?: No Have you Ever Experienced Previous Episodes of Alcohol Withdrawal?: No Have you ever Experienced Withdrawal Seizures?: No Have you ever Experienced Delirium Tremens(DT)s?: No Have you ever undergone Alcohol Rehabilitation Treatment (i.e, inpt ot outpatie nt treatment programs)?: No Have you ever Experienced Blackouts?: No Have you ever Combined Alcohol with other Downers within the last 90 days?: No Have you ever Combined Alcohol with any other Substance of Abuse during the last 90 days?: No Positive Blood Alcohol level on Presentation? [PCS.BAL]: No Evidence of Increased Autonomic Activity (i.e. HR>120, tremor, sweating, agitation, nausea)?: No Result: 0 Time Spent with Patient Time Spent with Patient: >50 minutes Time was spent: preparing to see the patient(eg.review tests), obtaining and/or reviewing [facility], ordering medications,tests, procedures, referring, communicating with other health family day care provider, indepentently interpreting results, counseling the patient, care coordination and other
--- NOTE | 2025-02-07 14:58 | PT.INTREAT ---
PT Notes Visit Reasons: acute on chronic resp failure pneumonia copd exace Date: 02/07/25 PRECAUTIONS: Standard, Oxygen continuous to keep sats 88-92% ( currently at 2 L/min) SUBJECTIVE: pt in bed when approached for therapy this afternoon, agreed to participating with therapy session. OBJECTIVE: ?NC O2 support 2L ? PAIN: denies VITALS: Monitored by nursing Therapeutic Activities 66734: Direct one-on-one instruction in dynamic activities to improve functional performance. ?? BED MOBILITY/TRANSFERS? Rolling L/R: supervision Supine-sit: ? supervision? Sit-supine: ? supervision? Sit-stand: ? supervision? Stand-sit: ?supervision? Bed-Chair:? ?SBA ? Chair-bed: SBA Provided skilled cues and instruction on performance and technique throughout. Gait Training 59202: Direct one-on-one instruction and skilled instruction in: Employing an assistive device Movement sequencing Turning and movement with proper form Provided instruction in gait pattern Patient education regarding pacing and breathing techniques to maximize activity tolerance? GAIT? Assistive Device: ??FWW? Weight bearing: FWB Assist: ? SBA? Distance:?? 300'x1 ? Deviation: ? Low step height short step length over pronounced lateral toe angle on RLE. ? STAIRS:? 3 4 steps? and 2 6 steps with bilateral hand rails SBA with verbal cues for breath control/pacing ? ASSESSMENT:?Pt education on Deep breathing exercise and energy conservation strategies during walking, chores and leisure activity. pt SaO2 monitored during the duration of session and stayed at low 90's during the course of the session. PLAN: Continue with balance training, global strengthening and general conditioning for improved safety, mobility and activity tolerance until pt is ready for DC. TREATMENT CODE/TIME: [id number] 30mins (1:00-1:30pm)
--- NOTE | 2025-02-07 16:40 | CHAPLAIN ---
I had a brief visit with Felipe while he was working on scratch tickets. I explained my role and offered support.
[2025-02-07] MEDS: Lactobacillus Acidophilus CAP 1 CAP PO (20:31)
[2025-02-08 02:05] VITALS: PULSE 66; RESP 18; O2SAT 91
[2025-02-08] MEDS: Albuterol/Ipratropium 3 ML UPD VIAL UPD ×3 (02:05→14:49)
[2025-02-08 02:13] VITALS: PULSE 63
[2025-02-08] MEDS: Pantoprazole 40 MG TABCR PO (05:55)
[2025-02-08 06:25] LABS: Abs Immature Grans 0.06 10^3/uL (0.0-0.06); HCT 34.0 % (40.0-50.0); HGB 11.3 g/dL (13.5-17.5); Immature Grans % 0.5 %; MCH 31.3 pg (27.0-33.0); MCHC 33.2 % (32.0-36.0); MCV 94 fL (80-95); MPV 9.9 fL (8.0-11.0); Platelet Count 229 10^3/uL (130-400); RBC 3.61 10^6/uL (4.36-5.78); RDW 12.0 % (11.8-14.1); RDW-SD 42.1 fL; WBC 11.66 10^3/uL (4.4-10.8)
[2025-02-08 06:49] LABS: Anion Gap 3.9 mmol/L (3-11); BUN 20 mg/dL (7-18); CO2 33.1 mmol/L (21.0-32.0); Calcium 9.3 mg/dL (8.5-10.1); Chloride 102 mmol/L (98-107); Estimated GFR 91.72 (mL/min/1.73m2); Glucose 113 mg/dL (74-106); Potassium 4.0 mmol/L (3.5-5.1); Sodium 139 mmol/L (136-145)
[2025-02-08] MEDS: Loratidine 10 MG TAB PO (06:55)
[2025-02-08 07:22] VITALS: BP 140/79; PULSE 58; RESP 16; TEMP 36.8; O2SAT 95
[2025-02-08 08:46] VITALS: PULSE 83; RESP 18; O2SAT 92
[2025-02-08 08:47] VITALS: O2SAT 92
[2025-02-08] MEDS: Normal Saline Flush 10 ML SYR IVP (09:08)
[2025-02-08] MEDS: AZITHROMYCIN 250 MG in Normal Saline 250 ML IVPB (09:08)
[2025-02-08] MEDS: Enoxaparin 40 MG/0.4 ML SYR SC (09:08)
[2025-02-08] MEDS: Magnesium Gluconate 500 MG TAB PO (09:08)
[2025-02-08] MEDS: Omega-3 Fatty Acids 1000 MG CAP PO (09:09)
[2025-02-08] MEDS: Ascorbic Acid 500 MG TAB 1000 MG PO (09:09)
[2025-02-08] MEDS: Atorvastatin 20 MG TAB 10 MG PO (09:09)
[2025-02-08] MEDS: guaiFENesin 600 MG TABCR PO (09:09)
[2025-02-08] MEDS: Lactobacillus Acidophilus CAP 1 CAP PO ×2 (09:09→14:31)
[2025-02-08] MEDS: Aspirin 81 MG CHEW PO (09:09)
[2025-02-08] MEDS: Zinc Sulfate 220 MG TAB PO (09:10)
[2025-02-08] MEDS: Cholecalciferol (Vitamin D3) 1,000 UNIT TAB 2000 UNITS PO (09:10)
[2025-02-08] MEDS: Sertraline 25 MG TAB PO (09:12)
[2025-02-08] MEDS: predniSONE 20 MG TAB 40 MG PO (09:13)
[2025-02-08] MEDS: cefTRIAXone 1 GM/50 ML BAG IVPB (10:31)
--- NOTE | 2025-02-08 11:46 | PT.INTREAT ---
PT Notes Visit Reasons: Acute on Chronic Resp Failure Pneumonia COPD Exace Date: 02/07/25 PRECAUTIONS: Standard, Oxygen continuous to keep sats 88-92% ( currently at 2 L/min) SUBJECTIVE:Pt reports he is hopeful to be going home today OBJECTIVE: ?pt seated at EOB continuous oxygen 2 L/min via NC ? PAIN: denies VITALS: SaO2 at rest on 2 L 96% with RT present O2 reduced to 1L/min pulsed sat 94% during ambulation 88-92% on 2L/min pulsed Therapeutic Activities 34319: Direct one-on-one instruction in dynamic activities to improve functional performance. ?? BED MOBILITY/TRANSFERS? Rolling L/R: Independent Supine-sit: ? Independent? Sit-supine: ? Independent ? Sit-stand: ? supervision?with cues to push up with hand to enable rise on first attempt otherwise pt requires multiple attempts and bracing of LE against surface he is rising from ? Stand-sit: ?supervision with cues to reach back ? Bed-Chair:? ?SBA with FWW? Chair-bed: SBA with FWW Provided skilled cues and instruction on performance and technique throughout. Gait Training 42190: Direct one-on-one instruction and skilled instruction in: Employing an assistive device Movement sequencing Turning and movement with proper form Provided instruction in gait pattern Patient education regarding pacing and breathing techniques to maximize activity tolerance? GAIT? Assistive Device: ??FWW? Weight bearing: FWB Assist: ? SBA? Distance:??900 feet x 1 with 4 stand rest ? Deviation: ? Low step height ,ER right LE with over pronounced lateral toe angle . ? STAIRS:? 3 4 steps? and 2 6 steps with bilateral hand rails SBA with verbal cues for breath control/pacing ? ASSESSMENT:?Pt able to tolerate 7 min walking for distance of 900 feet with 4 stand rests intermittent cues to stay closer to FWW and to decrease speed of walking. Pt performed ambulation with pulsed oygen concentrator with RT. Pt continues to require cues to push up to stand . PLAN: Continue with balance training, global strengthening and general conditioning for improved safety, mobility and activity tolerance until pt is ready for DC. TREATMENT CODE/TIME: [id number]
--- NOTE | 2025-02-08 12:05 | RESPIRATORY ---
Pt had prescription of 2L O2 on admission to [facility]. RT walked with pt and physical therapy upon discharge, O2 prescription changed to 1L pulse dose at rest, 4L pulse dose with ambulation. Able to maintain SpO2 90% during ambulation on 4L pulse dose, HR was 127, pt walked 900ft with 3 stops in 7.5 minutes. Sent home from hospital with React POC. Serial number [id number]. Battery serial number [id number]. DME: [facility] - [place] patient. Revision to O2 prescription sent through [facility] and accepted.
[2025-02-08 14:49] VITALS: PULSE 86; O2SAT 90; O2SAT 92
--- NOTE | 2025-02-08 15:04 | DSE_ITS ---
Date of service: 02/08/25 Time of Service: 15:04 DS: Diagnosis Discharge Diagnosis (1) Sepsis: Status: Acute (2) Acute on chronic hypoxic respiratory failure: Status: Acute (3) Pneumonia: Status: Acute (4) Acute exacerbation of chronic obstructive pulmonary disease: Status: Acute (5) GERD (gastroesophageal reflux disease): Status: Chronic (6) Hyperlipidemia: Status: Acute (7) On deep vein thrombosis (DVT) prophylaxis: Status: Acute Discharge Plan Disposition Patient Disposition: Home W/Home Health Services Condition: Fair Discharge Details Reason For Visit: Acute on Chronic Resp Failure Pneumonia COPD Exace Admit Date/Time: 02/06/25 13:10 Admit Provider: Ben Brown Attending Provider: Ben Brown Primary Care Provider: Karrie Baumann Hospital Course Hospital Course: The patient is a 74-year-old male with a history of COPD on chronic home oxygen (2 L/min via nasal cannula), GERD, hyperlipidemia, and PTSD who presented with progressive shortness of breath, hypoxia, and increased sputum production over the past two weeks. On arrival to the ED, he was noted to be hypoxic with oxygen saturation in the low 80s on his baseline 2 L/min nasal cannula. Oxygen requirement increased to 3 L/min to maintain a target saturation of 88?92%. He was tachypneic with respiratory rate of 22 and tachycardic with heart rate of 91. Workup revealed new pulmonary infiltrates on chest imaging, consistent with pneumonia. Laboratory findings were notable for absence of leukocytosis. Pulmonary embolism and acute coronary syndrome were ruled out based on clinical features, EKG, and troponin testing. He met sepsis criteria with tachypnea, tachycardia, and hypoxia, with a respiratory source identified. Hospital Course The patient was admitted to the medical floor for management of acute on chronic hypoxic respiratory failure secondary to pneumonia and COPD exacerbation. * Antimicrobial therapy: He was initiated on IV ceftriaxone and azithromycin. * Steroids: Received IV methylprednisolone followed by transition to oral prednisone taper. * Respiratory therapy: Treated with scheduled and PRN bronchodilator nebulizers, mucolytics (guaifenesin), Tessalon perles, Acapella device, and pulmonary hygiene measures. * Oxygen therapy: Required 3 L/min oxygen initially, later weaned toward baseline. At discharge, maintained SpO2 88?92% on 2?3 L/min nasal cannula. * Other: DVT prophylaxis with low molecular weight heparin was provided during hospitalization. No evidence of pleural effusion, pulmonary embolism, or ACS during admission. The patient improved clinically with resolution of acute respiratory distress and stabilization of oxygenation. He tolerated oral intake, was ambulating with baseline functional status, and was deemed safe for discharge with close follow- up. Discharge Condition Stable. Improved respiratory status, oxygen requirement returned to baseline (2?3 L/min NC), afebrile, hemodynamically stable, and tolerating oral therapy. Discharge Medications * Cefpodoxime ? complete 3-day course * Azithromycin ? complete 3-day course * Prednisone ? 5-day course (take in the morning with food) * Continue all home medications: * Breztri Aerosphere inhaler (2 inhalations BID) * Albuterol inhaler PRN * Ipratropium-albuterol nebulizer PRN * Protonix 40 mg daily * Sertraline 25 mg daily * Atorvastatin 20 mg nightly * Coenzyme Q10, magnesium, aspirin, vitamin supplements, and other OTC supplements as prior Discharge Instructions * Oxygen: Continue home oxygen therapy at 2 L/min via NC, may increase to 3 L/min as needed to maintain SpO2 88?92%. * Medications: Complete all antibiotics and prednisone as prescribed. Continue all home medications unless otherwise instructed. * Respiratory therapy: Continue scheduled inhalers and PRN nebulizers. Perform daily pulmonary hygiene with Acapella device, deep breathing, and coughing exercises. * General care: Stay well hydrated, rest as needed, and avoid respiratory irritants. * Follow-up: Primary care provider follow-up within 3?5 days. Consider pulmonary follow-up if ongoing symptoms. * Return precautions: Seek urgent medical care or return to the ED if worsening shortness of breath, chest pain, fever, confusion, inability to maintain SpO2 >88% on oxygen, or other concerning symptoms. Home Meds and New Rx's Prescriptions: New prednisone 20 mg Tablet 40 mg PO DAILY Qty: 10 0RF benzonatate 100 mg Capsule 100 mg PO TID PRN PRNQty: 30 0RF guaifenesin [Mucus Relief ER] 600 mg Tablet Extended Release 12hr 1,200 mg PO BID Qty: 10 0RF azithromycin 500 mg tablet 500 mg PO DAILY 3 Days Qty: 3 0RF cefpodoxime 200 mg tablet 200 mg PO BID Qty: 7 0RF Rx Instructions: must administer with a meal/food Continued atorvastatin [Lipitor] 20 MG tablet 10 mg PO DAILY AM sertraline [Zoloft] 25 MG tablet 25 mg PO DAILY coenzyme Q10 [CoQ-10] 100 MG capsule 100 mg PO DAILY pantoprazole [Protonix] 40 MG tablet,delayed release (DR/EC) 40 mg PO DAILY Qty: 30 0RF Rx Instructions: 1 po QD magnesium 250 mg Tablet 500 mg PO DAILY albuterol sulfate 90 mcg/actuation Hfa Aerosol Inhaler 2 mcg Inhalation PRN PRN ascorbic acid (vitamin C) [Vitamin C] 1,000 mg Tablet 1,000 mg PO DAILY Black Elderberry 1 tab PO DAILY ipratropium-albuterol 0.5 mg-3 mg(2.5 mg base)/3 mL Solution For Nebulization 3 ml UPD Q4H PRN PRNQty: 180 0RF zinc sulfate [Zinc-220] 50 mg zinc (220 mg) Capsule 220 mg PO DAILY Qty: 7 0RF cholecalciferol (vitamin D3) 25 mcg (1,000 unit) Tablet 2,000 units PO DAILY Qty: 14 0RF omega-3 fatty acids-vitamin E 1,000 mg Capsule 1 cap PO DAILY aspirin 81 mg tablet,chewable 81 mg PO DAILY loratadine 10 mg capsule 10 mg PO DAILY Qty: 10 0RF Breztri Aerosphere 160-9-4.8 mcg/actuation HFA aerosol inhaler 2 inh inhalation BID saw palmetto 250 mg capsule 500 mg PO DAILY Discharge Instructions Instructions: Azithromycin (Systemic), Cefpodoxime, Prednisone Additional Instructions: You are being discharged with the following medicines: * Cefpodoxime 200 mg twice a day ? Take as prescribed for 3 days. This is an antibiotic to help fight your infection. Finish all doses, even if you start to feel better. * Azithromycin 500 mg twice a day ? Take as prescribed for 3 days. This is another antibiotic that works with the first one. Do not stop early. * Prednisone 40 mg daily? Take as prescribed for 5 days. This is a steroid that helps reduce inflammation and improve your breathing. Take it in the morning with food to avoid stomach upset and trouble sleeping. * Continue home oxygen Home health will contact you to make arrangements for you to be evaluated in your home. Important reminders: * Take all medications exactly as directed. * Do not skip doses. * If you develop rash, severe diarrhea, trouble breathing, or swelling of the face/lips, call your doctor or go to the ER. * Drink plenty of fluids and rest as needed. * Follow up with your healthcare provider as scheduled. Referrals: Karrie Baumann [Primary Care Provider, Medicine] Referral Note: 1 week post hospitalization follow up Activity:: Activity as Tolerated Equipment/Supplies:: No Equipment Needed Diet:: As Tolerated Discharge Orders Discharge Orders: Discharge Order (Routine); Ordered 02/08/25 Ordered By: Lorri Worthy DS: Summary Time Spent with Patient providing and/or coordinating discharge services: Greater than 30 minutes Status at Discharge Functional status at discharge: uses cane/walker Overall status at discharge: patient is back to baseline Mental Status: mental status grossly normal Speech and Movement: speech and movement normal Mood: congruent mood Affect: normal affect Quality:SDOH Health Related Social Needs: Health related social needs food insecurity Exam Narrative Exam Narrative: General: Alert, well appearing, well nourished, in no acute distress. Head: Normocephalic, atraumatic Neck: Trachea midline, ?Neck supple. ENT: ?MMM.? No oropharygeal lesions or exudate. Cardiac: ?RRR, no murmurs appreciated Resp: No retractions. Lungs clear Abd: ?Soft, non-distended, nontender Extremities: ?No deformities.? No peripheral edema. Neurologic: GCS 15. ? Moves all extremities freely against gravity Psych Mental Status: mental status grossly normal Speech and Movement: speech and movement normal Mood: congruent mood Affect: normal affect DS: Data Vitals/I&O Vitals and I&O: Vital Signs Temperature 36.8 C 02/08/25 07:22 Temperature Source Temporal Artery Scan 02/08/25 07:22 Pulse 86 02/08/25 14:49 Pulse Rhythm Regular 02/06/25 13:45 Respiratory Rate 18 02/08/25 08:46 Respiratory Effort Short of Breath 02/06/25 13:45 Respiratory Depth Normal 02/06/25 13:45 Respiratory Pattern Normal 02/06/25 13:45 Blood Pressure 140/79 02/08/25 07:22 Blood Pressure Mean 99 02/08/25 07:22 Blood Pressure Position Sitting 02/06/25 08:44 Pulse Oximetry 92 02/08/25 14:49 Oxygen Delivery Method Nasal Cannula 02/08/25 14:49 Oxygen Flow Rate 1 02/08/25 14:49 Pain Level 0 02/07/25 07:28 Intake & Output 02/07/25 02/08/25 02/08/25 23:59 11:59 23:59 Intake Total 480 / 1020 258 / 478 220 / 478 Output Total 200 / 400 200 / 200 Balance 280 / 620 58 / 278 220 / 278 Intake: IV 250 / 250 Oral 480 / 720 220 / 228 Output: Urine 200 / 400 200 / 200 Other: Urine Color Yellow Yellow Urine Appearance Clear Clear Urine Odor Normal Comment per pt stated he voided in toilet. Stool Size Moderate Data Completed and Pending Labs on day of discharge: Labs from last 24 hours 02/08/25 05:42 WBC 11.66 H RBC 3.61 L Hgb 11.3 L Hct 34.0 L MCV 94 MCH 31.3 MCHC 33.2 RDW 12.0 Plt Count 229 MPV 9.9 Immature Gran % 0.5 Neutrophils % 87.7 Lymphocytes % 7.2 Monocytes % 4.5 Eosinophils % 0.0 Basophils % 0.1 Nucleated RBC % 0.0 Absolute Neutrophils 10.23 H Absolute Lymphocytes 0.84 L Absolute Monocytes 0.52 Absolute Eosinophils 0.00 Absolute Basophils 0.01 Sodium 139 Potassium 4.0 Chloride 102 Carbon Dioxide 33.1 H Anion Gap 3.9 BUN 20 H Creatinine 0.8 Est GFR (CKD-EPI 2020) 91.72 Glucose 113 H Calcium 9.3 Preliminary micro results at discharge 02/06/25 10:20 Blood Blood Culture - Preliminary NO GROWTH 48 HOURS 02/06/25 10:20 Blood Blood Culture - Preliminary NO GROWTH 48 HOURS PFSH All Active Problems (Updated 02/06/25 @ 14:30 by Suzanna Roberts APRN) On deep vein thrombosis (DVT) prophylaxis (Acute) Nicotine dependence (Acute) Sepsis (Acute) Acute on chronic hypoxic respiratory failure (Acute) Pneumonia (Acute) Acute respiratory failure with hypoxia (Acute) COVID-19 (Acute) Acute exacerbation of chronic obstructive pulmonary disease (Acute) Intertrochanteric fracture of right hip (Acute) DOS: 07/01/18 Dr. Hooper GERD (gastroesophageal reflux disease) (Chronic) Hyperlipidemia (Acute) Tobacco abuse (Chronic) COPD (chronic obstructive pulmonary disease) (Chronic) Medical History Anxiety Depression Hyperlipemia PTSD (post-traumatic stress disorder) Surgical History H/O melanoma excision History of back surgery Lumbar discectomy Status post-operative repair of closed fracture of right hip Family History Mother , from an NH in her 70s Heart disease Social History Smoking/Tobacco Use Status: Former Tobacco Use Tobacco: How many years used: 50 Smoking risk assessment performed?: Yes Alcohol Intake: never Drug use: Never Substance use type: does not use Household members: spouse and children Housing: apartment Do you feel safe at home: Yes Do you feel safe in your relationship?: Yes Time Spent with Patient Time Spent with Patient: 45-69 minutes Time was spent: preparing to see the patient(eg.review tests), ordering medications,tests, procedures, referring, communicating with other health career services director, indepentently interpreting results, counseling the patient and care coordination
--- NOTE | 2025-02-08 15:05 | PDOC.HHF2F_ITS ---
Home Health Referral Home Health Orders Clinical synopsis of why skilled professionals are needed: The patient is a 74-year-old male with a history of COPD on chronic home oxygen (2 L/min via nasal cannula), GERD, hyperlipidemia, and PTSD who presented with progressive shortness of breath, hypoxia, and increased sputum production over the past two weeks. On arrival to the ED, he was noted to be hypoxic with oxygen saturation in the low 80s on his baseline 2 L/min nasal cannula. Oxygen requirement increased to 3 L/min to maintain a target saturation of 88?92%. He was tachypneic with respiratory rate of 22 and tachycardic with heart rate of 91. Workup revealed new pulmonary infiltrates on chest imaging, consistent with pneumonia. Laboratory findings were notable for absence of leukocytosis. Pulmonary embolism and acute coronary syndrome were ruled out based on clinical features, EKG, and troponin testing. He met sepsis criteria with tachypnea, tachycardia, and hypoxia, with a respiratory source identified. Hospital Course The patient was admitted to the medical floor for management of acute on chronic hypoxic respiratory failure secondary to pneumonia and COPD exacerbation. * Antimicrobial therapy: He was initiated on IV ceftriaxone and azithromycin. * Steroids: Received IV methylprednisolone followed by transition to oral prednisone taper. * Respiratory therapy: Treated with scheduled and PRN bronchodilator nebulizers, mucolytics (guaifenesin), Tessalon perles, Acapella device, and pulmonary hygiene measures. * Oxygen therapy: Required 3 L/min oxygen initially, later weaned toward baseline. At discharge, maintained SpO2 88?92% on 2?3 L/min nasal cannula. * Other: DVT prophylaxis with low molecular weight heparin was provided during hospitalization. No evidence of pleural effusion, pulmonary embolism, or ACS during admission. The patient improved clinically with resolution of acute respiratory distress and stabilization of oxygenation. He tolerated oral intake, was ambulating with baseline functional status, and was deemed safe for discharge with close follow- up. Discharge Condition Stable. Improved respiratory status, oxygen requirement returned to baseline (2?3 L/min NC), afebrile, hemodynamically stable, and tolerating oral therapy. Discharge Medications * Cefpodoxime ? complete 3-day course * Azithromycin ? complete 3-day course * Prednisone ? 5-day course (take in the morning with food) * Continue all home medications: * Breztri Aerosphere inhaler (2 inhalations BID) * Albuterol inhaler PRN * Ipratropium-albuterol nebulizer PRN * Protonix 40 mg daily * Sertraline 25 mg daily * Atorvastatin 20 mg nightly * Coenzyme Q10, magnesium, aspirin, vitamin supplements, and other OTC supplements as prior Discharge Instructions * Oxygen: Continue home oxygen therapy at 2 L/min via NC, may increase to 3 L/min as needed to maintain SpO2 88?92%. * Medications: Complete all antibiotics and prednisone as prescribed. Continue all home medications unless otherwise instructed. * Respiratory therapy: Continue scheduled inhalers and PRN nebulizers. Perform daily pulmonary hygiene with Acapella device, deep breathing, and coughing exercises. * General care: Stay well hydrated, rest as needed, and avoid respiratory irritants. * Follow-up: Primary care provider follow-up within 3?5 days. Consider pulmonary follow-up if ongoing symptoms. * Return precautions: Seek urgent medical care or return to the ED if worsening shortness of breath, chest pain, fever, confusion, inability to maintain SpO2 >88% on oxygen, or other concerning symptoms. Medical diagnosis necessitation home health referral: COPD; Acute on chronic hypoxic respiratory failure Registered Nurse: Check all that apply Instruct on new or changed medication(s)/assess compliance: Ordered Assess for exacerbation of medical condition, instruct patient/caregivers on signs and symptoms to report for early detection: Ordered Physical Therapist: Check all that apply Increase strength & endurance for safe mobility at home: Ordered To design/establish home maintenance program: Ordered Fall reduction therapy program for patient with history of frequent falls: Ordered Home safety evaluation and teaching/gait training including stair management (if applicable): Ordered Other: The patient continues to have functional limitations and deconditioning following hospitalization for acute on chronic hypoxic respiratory failure secondary to pneumonia and COPD exacerbation. He requires supplemental oxygen (2?3 L/min NC) and experiences exertional dyspnea with limited activity tolerance. Home Health Physical Therapy is recommended to assist with safe ambulation, strengthening, and energy-conservation strategies to reduce fall risk and improve endurance. Enrollment in the [facility] is indicated to provide disease-specific education, reinforcement of inhaler technique, and pulmonary rehabilitation exercises to optimize respiratory function, secretion clearance, and self-management of COPD. These services will support the patient?s recovery, help prevent readmission, and promote safe transition back to baseline functional status at home. Speech Therapist: Check all that apply Speech/communication disorders: Ordered Speech Therapy Teacher: Assist with community resources: Ordered Assist with fci care planning: Ordered Home Bound Status Requires the aid of supportive device (check all that apply): Cane and Walker Describe why leaving home would require a considerable and taxing effort: Requires frequent rest periods and Oxygen Encounter Date and Reason: I certify that a FTF encounter for this patient was performed on February 08, 2025 and that such encounter was related to the primary reason the patient requires home health services. The encounter was conducted in the following manner: * By me as the certifying physician, INSPECTOR TYPE, PA or * By an inpatient physician, INSPECTOR TYPE or PA during an inpatient stay who communicated findings to me, Certification And Authentication I certify that I composed the above information based on my clinical judgment relating to this patient's medical condition and, if applicable, clinical findings communicated to me by the NPP or inpatient physician who performed the FTF encounter. Name of Provider that will be monitoring home health services: Karrie Baumann
--- NOTE | 2025-02-08 17:08 | PDOC.CMDIS ---
Date of service: 02/08/25 Time of Service: 17:08 LACE Index Scoring Tool Questions: Length of Stay (in days): 2 Was the patient admitted via the E.D.?: Yes Comorbidities: Chronic Pulmonary Disease and Any Tumor E.D. 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 Felipe will also have new homemaking services 6h/week, through his [facility] benefit. Felipe will f/u with his PCP and his scheduler maintenance and continue per his plan of care. He was transported home by his . Patient/Family Education Needs: Review of discharge instructions, activity, limitations and discuss Ask me 3. Services Needed at Discharge: Home Health Care Services (RN, PT, TRANSCRIBING OPERATORS SUPERVISOR, SOLE LEVELER MACHINE) SDOH Health Related Social Needs: Health related social needs food insecurity
--- NOTE | 2025-02-14 08:15 | W.ED.GENAD ---
Discharge Plan Disposition Patient Disposition: Admit to [facility] Discharge Details Clinical Impression: Pneumonia, Acute respiratory failure with hypoxia, COPD (chronic obstructive pulmonary disease) Admit Date/Time: 02/06/25 13:10 Admit Provider: Ben Brown Attending Provider: Ben Brown Primary Care Provider: Karrie Baumann ED Provider: John Rodriguez Discharge Data Discharge Date/Time-TO BE ENTERED AT DEPARTURE: 02/06/25 13:30 HPI General Date/Time Provider Initiated Documentation: 02/06/25 08:46. HPI Narrative: MDM/Narrative: Initial Assessment: 74-year-old male with COPD presenting with worsening exercise tolerance and SCHAEFFER for 2 weeks. Associated cough, no fevers or chest pain. Differential Diagnosis: - ACS: Unlikely, no chest pain. EKGs, troponins, BMP to assess cardiac function. - Pneumonia: Chest x-ray to be obtained. - Pneumothorax: Chest x-ray to be obtained. - COPD exacerbation: Wheezing bilaterally. Treated with azithromycin, Solu-Medrol, DuoNeb. Reassess. - PE: Doubtful, no chest pain or DVT stigmata. Consider CT if workup unremarkable. - Heart failure: Unlikely, no history or fluid overload stigmata. ED Course: Treated with DuoNeb, Solu-Medrol, azithromycin. No significant improvement post-treatment. Chest x-ray showed infiltrates; will add on ceftriaxone for CAP coverage. Ambulatory pulse ox on chronic 2 L O2 revealed hypoxia and increased work of breathing. Final Assessment: Treated with DuoNeb, Solu-Medrol, azithromycin. No significant improvement. Chest x-ray showed infiltrates. Ambulatory pulse ox revealed hypoxia and increased work of breathing on chronic 2 L O2. Clinical Impression: Pneumonia, COPD exacerbation. Disposition: Admit to Dr. Pardo for further management of COPD exacerbation/pneumonia. This document was created with assistance from [employer] The patient consented to its use. HPI: The patient is a 74-year-old male with a known history of chronic obstructive pulmonary disease (COPD), presenting with dyspnea and dyspnea on exertion. The onset of symptoms occurred approximately two weeks ago and has progressively worsened. He reports significant dyspnea on exertion during activities of daily living, necessitating frequent breaks due to breathlessness. The patient denies experiencing chest pain, pyrexia, chills, peripheral edema, rash, or any other new symptoms. He has a mild cough, though the chronicity of this symptom is unclear. ROS: Negative besides as mentioned above Exam: Vital signs: Reviewed. General Appearance: Frail elderly male, no acute distress. HEENT: NCAT, EOMI, not icteric. External ears normal. No rhinorrhea. Moist mucous membranes. Neck: No JVD. Respiratory: Minimal expiratory wheezing bilaterally, no increased work of breathing on 0300 hours O2. Cardiovascular: RRR, no edema. Gastrointestinal: Soft, nondistended, No rebound tenderness. Back: No midline tenderness to palpation or palpable step-offs of the C/T/L spine. Skin: Warm and dry, no rash. Neurological: Normal Gait, Grossly intact. Psychiatric: Appropriate for situation. Rhythm: NSR Rate: 70 BPM Joseph: Leftward axis Intervals: Normal intervals Other findings: RBBB No acute ST segment or T wave changes to suggest acute ischemia. Labs: 02/06/25 10:20 Blood Blood Culture - Final NO GROWTH 120 HOURS 02/06/25 10:20 Blood Blood Culture - Final NO GROWTH 120 HOURS Laboratory Tests Range/Units 02/06/25 02/06/25 02/06/25 09:00 10:10 10:20 WBC (4.4-10.8) 10^3/uL 8.79 RBC (4.36-5.78) 10^6/uL 3.66 L Hgb (13.5-17.5) g/dL 11.2 L Hct (40.0-50.0) % 34.8 L MCV (80-95) fL 95 MCH (27.0-33.0) pg 30.6 MCHC (32.0-36.0) % 32.2 RDW (11.8-14.1) % 12.3 Plt Count (130-400) 10^3/uL 191 MPV (8.0-11.0) fL 9.4 Immature Gran % % 0.7 Neutrophils % % 81.4 Lymphocytes % % 9.4 Monocytes % % 8.2 Eosinophils % % 0.1 Basophils % % 0.2 Nucleated RBC % (0.0-0.3) % 0.0 Absolute Neutrophils (1.2-6.7) 10^3/uL 7.15 H Absolute Lymphocytes (1.2-3.4) 10^3/uL 0.83 L Absolute Monocytes (0.1-0.8) 10^3/uL 0.72 Absolute Eosinophils (0.0-0.7) 10^3/uL 0.01 Absolute Basophils (0.0-0.2) 10^3/uL 0.02 Sodium (136-145) mmol/L 137 Potassium (3.5-5.1) mmol/L 4.2 Chloride (98-107) mmol/L 99 Carbon Dioxide (21.0-32.0) mmol/L 34.0 H Anion Gap (3-11) mmol/L 4.0 BUN (7-18) mg/dL 8 Creatinine (0.70-1.30) mg/dL 0.7 Est GFR (CKD-EPI 2020) (mL/min/1.73m2) 95.49 Glucose (74-106) mg/dL 107 H Calcium (8.5-10.1) mg/dL 9.0 Magnesium (1.8-2.4) mg/dL 1.8 Total Bilirubin (0.2-1.0) mg/dL 0.6 AST (15-37) U/L 25 ALT (16-63) U/L 29 Alkaline Phosphatase (46-116) U/L 85 Troponin I (<or=76) ng/L 18 19 NT-Pro-B Natriuret Pep (<300) pg/mL 226 Total Protein (6.4-8.2) g/dL 6.8 Albumin (3.4-5.0) g/dL 3.3 L COVID-19 Source Nasopharynx SARS-CoV-2 (PCR) (Negative) Negative Influenza Type A (PCR) (Negative) Negative Influenza Type B (PCR) (Negative) Negative RSV (PCR) (Negative) Negative Radiology: Accession No. : [id number] Creator : BEV VERDUGO Dictator : BEV VERDUGO Charge Authorizer : Telephone Order Supervisor : BEV VERDUGO Approver2 : Report Date : 02/06/2025 09:25:38 Exam(s) XR PORTABLE CHEST AP EXAM: XR PORTABLE CHEST AP CLINICAL HISTORY: Chest pain TECHNIQUE: 2D digital imaging was performed. COMPARISON: CR,XR XR CHEST 2V PA LATERAL from 03/13/2024 FINDINGS: LUNGS: There are increased interstitial markings at the lung bases compared with the previous exam. There is some peribronchial thickening. Findings could represent pulmonary edema versus infiltrates. No pleural abnormality seen. HEART: Normal size. AORTA: Tortuous. BONES: Unremarkable for age. Soft tissues: Unremarkable. IMPRESSION: Lower lobe infiltrates versus pulmonary edema. Clinical correlation recommended. DATA REPOSITORY: RADIATION DOSE DELIVERED: Related Data Home Medications ?Medication ?Instructions ?Recorded ?Confirmed atorvastatin 20 mg tablet (Lipitor) 10 mg PO DAILY AM 03/15/14 02/06/25 sertraline 25 mg tablet (Zoloft) 25 mg PO DAILY 03/15/14 02/06/25 coenzyme Q10 100 mg capsule 100 mg PO DAILY 11/16/14 02/06/25 (CoQ-10) pantoprazole 40 mg tablet,delayed 40 mg PO DAILY ##30 08/01/17 02/06/25 release (Protonix) albuterol sulfate 90 mcg/actuation 2 mcg inhalation PRN PRN 07/03/18 02/06/25 aerosol inhaler magnesium 250 mg tablet 500 mg PO DAILY 07/03/18 02/06/25 aspirin 81 mg chewable tablet 81 mg PO DAILY 01/13/21 02/06/25 omega-3 fatty acids-vitamin E 1 cap PO DAILY 01/13/21 02/06/25 1,000 mg capsule loratadine 10 mg capsule 10 mg PO DAILY #10 caps 02/02/21 02/06/25 Black Elderberry 1 tab PO DAILY 10/02/21 02/06/25 ascorbic acid (vitamin C) 1,000 mg 1,000 mg PO DAILY 10/02/21 02/06/25 tablet (Vitamin C) cholecalciferol (vitamin D3) 25 2,000 units PO DAILY #14 tabs 10/07/21 02/06/25 mcg (1,000 unit) tablet ipratropium 0.5 mg-albuterol 3 mg 3 ml UPD Q4H PRN PRN #180 mL 10/07/21 02/06/25 (2.5 mg base)/3 mL nebulization soln zinc sulfate 50 mg zinc (220 mg) 220 mg (4.4 x 50 mg zinc (220 mg)) 10/07/21 02/06/25 capsule (Zinc-220) PO DAILY #7 caps budesonide 160 mcg-glycopyr 9 2 inh inhalation BID 02/06/25 02/06/25 mcg-formot 4.8 mcg/actuation HFA inhaler (Breztri Aerosphere) saw palmetto 250 mg capsule 500 mg PO DAILY 02/06/25 02/06/25 benzonatate 100 mg capsule 100 mg PO TID PRN PRN #30 caps 02/08/25 cefpodoxime 200 mg tablet 200 mg PO BID #7 tabs 02/08/25 guaifenesin 600 mg tablet, 1,200 mg (2 x 600 mg) PO BID #10 02/08/25 extended release 12 hr (Mucus tabs Relief ER) prednisone 20 mg tablet 40 mg (2 x 20 mg) PO DAILY #10 tabs 02/08/25 Previous Rx's ?Medication ?Instructions ?Recorded pantoprazole 40 mg tablet,delayed 40 mg PO DAILY ##30 08/01/17 release (Protonix) loratadine 10 mg capsule 10 mg PO DAILY #10 caps 02/02/21 cholecalciferol (vitamin D3) 25 2,000 units PO DAILY #14 tabs 10/07/21 mcg (1,000 unit) tablet ipratropium 0.5 mg-albuterol 3 mg 3 ml UPD Q4H PRN PRN #180 mL 10/07/21 (2.5 mg base)/3 mL nebulization soln zinc sulfate 50 mg zinc (220 mg) 220 mg (4.4 x 50 mg zinc (220 mg)) 10/07/21 capsule (Zinc-220) PO DAILY #7 caps benzonatate 100 mg capsule 100 mg PO TID PRN PRN #30 caps 02/08/25 cefpodoxime 200 mg tablet 200 mg PO BID #7 tabs 02/08/25 guaifenesin 600 mg tablet, 1,200 mg (2 x 600 mg) PO BID #10 02/08/25 extended release 12 hr (Mucus tabs Relief ER) prednisone 20 mg tablet 40 mg (2 x 20 mg) PO DAILY #10 tabs 02/08/25 Allergies Allergy/AdvReac Type Severity Reaction Status Date / Time No Known Allergies Allergy Unverified 02/06/25 08:47 General Stated Complaint: SOB MARYAN: 3 Course Vital Signs Vital signs: Vital Signs Pulse 85 02/06/25 08:44 Respiratory Rate 22 02/06/25 08:44 Blood Pressure 160/82 H 02/06/25 08:44 Pulse Oximetry 94 02/06/25 08:44 Temperature 36.8 C 02/08/25 07:22 Temperature Source Temporal Artery Scan 02/08/25 07:22 Pulse 86 02/08/25 14:49 Pulse Rhythm Regular 02/06/25 13:45 Respiratory Rate 18 02/08/25 08:46 Respiratory Effort Short of Breath 02/06/25 13:45 Respiratory Depth Normal 02/06/25 13:45 Respiratory Pattern Normal 02/06/25 13:45 Blood Pressure 140/79 02/08/25 07:22 Blood Pressure Mean 99 02/08/25 07:22 Blood Pressure Position Sitting 02/06/25 08:44 Pulse Oximetry 92 02/08/25 14:49 Oxygen Delivery Method Nasal Cannula 02/08/25 14:49 Oxygen Flow Rate 1 02/08/25 14:49 Pain Level 0 02/07/25 07:28 Lab/Test Results Lab/Test Results: 02/06/25 10:20 Blood Blood Culture - Final NO GROWTH 120 HOURS 02/06/25 10:20 Blood Blood Culture - Final NO GROWTH 120 HOURS Laboratory Tests Range/Units 02/06/25 02/06/25 02/06/25 09:00 10:10 10:20 WBC (4.4-10.8) 10^3/uL 8.79 RBC (4.36-5.78) 10^6/uL 3.66 L Hgb (13.5-17.5) g/dL 11.2 L Hct (40.0-50.0) % 34.8 L MCV (80-95) fL 95 MCH (27.0-33.0) pg 30.6 MCHC (32.0-36.0) % 32.2 RDW (11.8-14.1) % 12.3 Plt Count (130-400) 10^3/uL 191 MPV (8.0-11.0) fL 9.4 Immature Gran % % 0.7 Neutrophils % % 81.4 Lymphocytes % % 9.4 Monocytes % % 8.2 Eosinophils % % 0.1 Basophils % % 0.2 Nucleated RBC % (0.0-0.3) % 0.0 Absolute Neutrophils (1.2-6.7) 10^3/uL 7.15 H Absolute Lymphocytes (1.2-3.4) 10^3/uL 0.83 L Absolute Monocytes (0.1-0.8) 10^3/uL 0.72 Absolute Eosinophils (0.0-0.7) 10^3/uL 0.01 Absolute Basophils (0.0-0.2) 10^3/uL 0.02 Sodium (136-145) mmol/L 137 Potassium (3.5-5.1) mmol/L 4.2 Chloride (98-107) mmol/L 99 Carbon Dioxide (21.0-32.0) mmol/L 34.0 H Anion Gap (3-11) mmol/L 4.0 BUN (7-18) mg/dL 8 Creatinine (0.70-1.30) mg/dL 0.7 Est GFR (CKD-EPI 2020) (mL/min/1.73m2) 95.49 Glucose (74-106) mg/dL 107 H Calcium (8.5-10.1) mg/dL 9.0 Magnesium (1.8-2.4) mg/dL 1.8 Total Bilirubin (0.2-1.0) mg/dL 0.6 AST (15-37) U/L 25 ALT (16-63) U/L 29 Alkaline Phosphatase (46-116) U/L 85 Troponin I (<or=76) ng/L 18 19 NT-Pro-B Natriuret Pep (<300) pg/mL 226 Total Protein (6.4-8.2) g/dL 6.8 Albumin (3.4-5.0) g/dL 3.3 L COVID-19 Source Nasopharynx SARS-CoV-2 (PCR) (Negative) Negative Influenza Type A (PCR) (Negative) Negative Influenza Type B (PCR) (Negative) Negative RSV (PCR) (Negative) Negative Medical Decision Making Quality:SDOH Health Related Social Needs: Health related social needs food insecurity PFSH All Active Problems (Updated 02/14/25 @ 08:31 by John Rodriguez MD) Sepsis (Acute) Acute on chronic hypoxic respiratory failure (Acute) Pneumonia (Acute) Acute respiratory failure with hypoxia (Acute) COVID-19 (Acute) Acute exacerbation of chronic obstructive pulmonary disease (Acute) Intertrochanteric fracture of right hip (Acute) DOS: 07/01/18 Dr. Hooper Tobacco abuse (Chronic) COPD (chronic obstructive pulmonary disease) (Chronic) Medical History Anxiety Depression Hyperlipemia PTSD (post-traumatic stress disorder) Surgical History H/O melanoma excision History of back surgery Lumbar discectomy Status post-operative repair of closed fracture of right hip Family History Mother , from an CT in her 70s Heart disease Social History Smoking/Tobacco Use Status: Former Tobacco Use Tobacco: How many years used: 50 Smoking risk assessment performed?: Yes Alcohol Intake: never Drug use: Never Substance use type: does not use Household members: spouse and children Housing: apartment Do you feel safe at home: Yes Do you feel safe in your relationship?: Yes PAWSS Have you Been Recently Intoxicated or Drunk Within the Last 30 days?: No Have you Ever Experienced Previous Episodes of Alcohol Withdrawal?: No Have you ever Experienced Withdrawal Seizures?: No Have you ever Experienced Delirium Tremens(DT)s?: No Have you ever undergone Alcohol Rehabilitation Treatment (i.e, inpt ot outpatient treatment programs)?: No Have you ever Experienced Blackouts?: No Have you ever Combined Alcohol with other Downers within the last 90 days?: No Have you ever Combined Alcohol with any other Substance of Abuse during the last 90 days?: No Positive Blood Alcohol level on Presentation? [PCS.BAL]: No Evidence of Increased Autonomic Activity (i.e. HR>120, tremor, sweating, agitation, nausea)?: No Result: 0
== END 2025-02-08 15:38 | disposition home health service (06) ==
LOC: ER 09:26 → MS 14:23
PROVIDERS: Nurse Practitioner Acute Care; Admitting Provider Family Medicine; Emergency Provider General Practice; PCP Internal Medicine; Responsible Provider Nurse Practitioner Family; Visit Provider Family Medicine
DX: A41.9 Sepsis, unspecified organism (principal); J96.21 Acute and chronic respiratory failure with hypoxia; J18.9 Pneumonia, unspecified organism; J44.0 Chronic obstructive pulmonary disease with (acute) lower respiratory infection; J44.1 Chronic obstructive pulmonary disease with (acute) exacerbation; F43.10 Post-traumatic stress disorder, unspecified; Z79.899 Other long term (current) drug therapy; Z99.81 Dependence on supplemental oxygen; E78.5 Hyperlipidemia, unspecified; K21.9 Gastro-esophageal reflux disease without esophagitis; Z66 Do not resuscitate; F41.9 Anxiety disorder, unspecified; F32.A Depression, unspecified; Z87.891 Personal history of nicotine dependence
CPT/HCPCS: 00123; 36415; 80048; 80053; 87040; 87637; 93005; 94640; 94761; 96365; 96366; 96367; 96372; 96375; 97116; 97162; 97530; 99285; J1650; 71045; 83735; 83880; 84484; 85025; 93010; 94664; 94668; 94760; 99223; 99233; 99239; G0378; J0456; J0696; J2919; J7512; J7620

== ENCOUNTER 2025-05-19 16:22 | Inpatient (IN) | payer OTHER, SELFPAY ==
[2025-05-19] VITALS (29 sets, daily range): BP systolic 102–148; BP diastolic 56–73; PULSE 52–98; RESP 14–25; TEMP 36–36.1; O2SAT 91–100
--- NOTE | 2025-05-19 16:15 | RT.EKG_ITS ---
APPROVED REPORT Exam: Resting ECG Reason for Exam: SOB Patient Location: E HR:66 bpm ECG Measurements Heart Rate 66 AXIS IL 196 P 76 QRSd 160 QRS -83 QT 418 T 37 QTc 439 Conclusion Sinus rhythm...normal P axis, V-rate 60- 99 Multiple ventricular premature complexes...V complexes w/ short R-R intervls RBBB and LAFB...QRSd >120mS, axis(-40,240) No STEMI
[2025-05-19] MEDS: Albuterol/Ipratropium 3 ML UPD VIAL 6 ML UPD (16:43)
--- NOTE | 2025-05-19 16:45 | DI.RAD_ITS ---
Exam(s) XR PORTABLE CHEST AP EXAM: XR PORTABLE CHEST AP CLINICAL HISTORY: dyspnea TECHNIQUE: 2D digital imaging was performed of the chest. Two images were obtained. AP views were obtained. COMPARISON: CR,XR XR CHEST 2V PA LATERAL from 03/13/2024 CR XR PORTABLE CHEST AP from 02/06/2025 FINDINGS: MEDIASTINUM: Normal. HEART: Normal. PULMONARY VASCULATURE: Normal. LUNGS: The lungs are hyperinflated with flattened diaphragms suggesting underlying COPD. There are no focal consolidating infiltrates present. PLEURAL SPACE: No pleural effusion or pneumothorax. BONE:Within normal limits for the patient's age. OTHER FINDINGS:Normal. IMPRESSION: 1. No acute pulmonary findings. 2. The preliminary [facility] report was reviewed. DATA REPOSITORY: RADIATION DOSE DELIVERED:
[2025-05-19 17:01] LABS: BE (Venous) 11 mmol/L (-2-3); HCO3 (Venous) 37 mmol/L (23-28); O2 Sat (Venous) 74 %; TCO2 (Venous) 35 mmol/L (24-29); pO2 (Venous) 41 mmHg
[2025-05-19 17:12] LABS: pCO2 (Venous) 69 mmHg (41-51)
[2025-05-19 17:16] LABS: Abs Immature Grans 0.02 10^3/uL (0.0-0.06); HCT 35.5 % (40.0-50.0); HGB 11.1 g/dL (13.5-17.5); Immature Grans % 0.2 %; MCH 29.9 pg (27.0-33.0); MCHC 31.3 % (32.0-36.0); MCV 96 fL (80-95); MPV 9.6 fL (8.0-11.0); Platelet Count 263 10^3/uL (130-400); RBC 3.71 10^6/uL (4.36-5.78); RDW 12.2 % (11.8-14.1); RDW-SD 42.5 fL; WBC 9.10 10^3/uL (4.4-10.8)
[2025-05-19 17:28] LABS: Troponin I 12 ng/L (<54)
[2025-05-19 17:29] LABS: ALT 15 U/L (10-49); AST 22 U/L (<34); Albumin 4.4 g/dL (3.2-5.0); Alkaline Phosphatase 100 U/L (46-116); Anion Gap 7 mmol/L (3-11); BUN 15 mg/dL (9-23); Bilirubin, Total 0.4 mg/dL (0.2-1.2); CO2 35.8 mmol/L (20.0-31.0); Calcium 9.3 mg/dL (8.3-10.6); Chloride 98 mmol/L (98-107); Glucose 104 mg/dL (74-106); Potassium 4.2 mmol/L (3.5-5.1); Sodium 141 mmol/L (136-145); Total Protein 7.7 g/dL (5.7-8.2)
--- NOTE | 2025-05-19 17:29 | DI.[facility]_ITS ---
PROCEDURE INFORMATION: Exam: XR Chest Exam date and time: 05/19/2025 5:03 PM Age: 74 years old Clinical indication: Shortness of breath TECHNIQUE: Imaging protocol: Radiologic exam of the chest. Views: 1 view. COMPARISON: CR XR PORTABLE CHEST AP 02/06/2025 9:14 AM FINDINGS: Lungs: The lungs are hyperaerated and hyperlucent with flattening of the hemidiaphragms, presumed COPD. No acute infiltrates. Pleural spaces: Unremarkable. No pleural effusion. No pneumothorax. Heart/Mediastinum: Unremarkable. No cardiomegaly. Bones/joints: Unremarkable. IMPRESSION: COPD. No acute abnormality evident in the chest. Dictated and Authenticated by: Jaida Drake MD. Orderin Kimmie Thomas MD
--- NOTE | 2025-05-19 17:30 | DI.CT_ITS ---
Exam(s) CT CHEST PE CTA EXAM: CT CHEST PE CTA CLINICAL HISTORY: dyspnea, elevated ddimer, chest pain. TECHNIQUE: Imaging Protocol: Axial CT angiography was performed with multi- slice acquisition and multi-planar and/or 3D reconstructions. Lung Computer Aided Detection (CAD) was utilized. CONTRAST MATERIAL: Intravenous: Omnipaque 350 contrast volume:70 mL COMPARISON: CT CT THORAX CTA from 01/13/2021 CR,XR XR PORTABLE CHEST AP from 05/19/2025 FINDINGS: Tracheobronchial tree: Patent where visualized. No bronchiectasis. Pulmonary parenchyma: Moderately severe emphysematous changes are present in the lungs. There is a 4 mm nodule in the left upper lobe (series 10, image 84). There is a stable nodule adjacent to the left major fissure (series 10, image 60). There is a stable perifissural nodule associated with the right minor fissure (series 10, image 100). There is a stable nodule in the right upper lobe (series 10, image 84). There are no focal consolidating infiltrates. Pulmonary Arteries: No evidence of filling defect to suggest pulmonary emboli. Mediastinum and Sherice: No dominant adenopathy or fluid collection. The esophagus is unremarkable. Visualized thyroid gland: Unremarkable. Pleura: No effusion or pneumothorax. Heart: The heart is not dilated. Coronary artery calcifications are present. No pericardial effusion. Aorta: Thoracic aorta non-dilated. No evidence of dissection. Atherosclerotic calcification is present. Upper abdomen: Unremarkable. Soft tissues: Unremarkable. Bones: Within normal limits for the patient's age. IMPRESSION: 1. No evidence of pulmonary embolism, thoracic aortic dissection or aneurysm. 2. No acute pulmonary process. 3. Stable pulmonary nodules. 4. Moderately severe emphysematous changes. 5. The preliminary [facility] report was reviewed. RADIATION DOSE DELIVERED: 85.62mGy.cm Total DLP DATA REPOSITORY: All CT scans at this facility are submitted to the National Radiology Data Registry (NRDR) Dose Index Registry (DIR) with the [employer] ([employer]). RADIATION OPTIMIZATION: All CT scans at this facility use at least one of these dose optimization techniques: automated exposure control; mA and/or kV adjustment per patient size (includes targeted exams where dose is matched to clinical indication); or iterative reconstruction.
[2025-05-19 17:40] LABS: D-Dimer 992 ng/mlFEU (<500); Magnesium 1.8 mg/dL (1.6-2.6); TSH (W/Ref FT4) 2.68 uIU/mL (0.55-4.78)
[2025-05-19 18:16] LABS: Troponin I 13 ng/L (<54)
[2025-05-19] MEDS: Normal Saline - Diluent 50 ML VIAL IJ (18:18)
[2025-05-19] MEDS: Omnipaque 350 MG/ML 100 ML BTL IJ (18:18)
[2025-05-19 18:23] LABS: COVID-19 PCR Negative (Negative); RSV PCR Negative (Negative)
--- NOTE | 2025-05-19 18:55 | DI.[facility]_ITS ---
PROCEDURE INFORMATION: Exam: CTA Chest With Contrast Exam date and time: 05/19/2025 6:32 PM Age: 74 years old Clinical indication: Abnormal findings; Abnormal diagnostic tests; Elevated d-dimer; Shortness of breath; Dyspnea, elevated ddimer, chest pain TECHNIQUE: Imaging protocol: Computed tomographic angiography of the chest with contrast. Exam focused on the arteries. 3D rendering (Not supervised by radiologist): MIP and/or 3D reconstructed images were created by the technologist. Radiation optimization: All CT scans at this facility use at least one of these dose optimization techniques: automated exposure control; mA and/or kV adjustment per patient size (includes targeted exams where dose is matched to clinical indication); or iterative reconstruction. Contrast material: OMNIPAQUE 350; Contrast volume: 70 ml; Contrast route: INTRAVENOUS (IV); COMPARISON: CT THORAX CTA 01/13/2021 5:04 AM FINDINGS: Pulmonary arteries: Normal. No pulmonary emboli. Aorta: Unremarkable. No aortic aneurysm. No aortic dissection. Lungs: Fairly severe COPD is unchanged. Pleural spaces: Unremarkable. No pneumothorax. No pleural effusion. Heart: Unremarkable. No cardiomegaly. No pericardial effusion. Lymph nodes: Unremarkable. No enlarged lymph nodes. Bones/joints: Unremarkable. No acute fracture. Soft tissues: Unremarkable. Other findings: Moderate atherosclerotic change noted in the vasculature. IMPRESSION: No evidence for pulmonary embolus. No change COPD. Dictated and Authenticated by: Jaida Drake MD. Orderin Kimmie Thomas MD
[2025-05-19 19:23] LABS: BE (Venous) 11 mmol/L (-2-3); HCO3 (Venous) 37 mmol/L (23-28); O2 Sat (Venous) 38 %; TCO2 (Venous) 35 mmol/L (24-29); pO2 (Venous) 23 mmHg
[2025-05-19] MEDS: DOXYCYCLINE 100 MG in Normal Saline 100 ML IVPB (19:25)
[2025-05-19 19:37] LABS: pCO2 (Venous) 63 mmHg (41-51)
--- NOTE | 2025-05-19 20:12 | W.PM.HP.N ---
Date of service: 05/19/25 Time of Service: 20:12 Assessment and Plan Assessment and plan (1) COPD (chronic obstructive pulmonary disease): Status: Chronic Assessment and plan: Patient is currently on BiPAP will wean as tolerated. Will add prednisone 40 3 times daily as well as doxycycline 100 mg p.o. twice daily. Monitor for improvements. He will continue with his home inhalers which include albuterol, breztri, and DuoNebs. (2) Hyperlipemia: Assessment and plan: Continue with statin (3) PTSD (post-traumatic stress disorder): Assessment and plan: Noted (4) Depression: Assessment and plan: Continue with home medications. History of Present Illness History of Present Illness Chief Complaint: SCHAEFFER Narrative: Mr Tom is a 74-year-old gentleman with a known history of COPD and chronic home oxygen use 2 L nasal cannula. Patient states over the last couple days and worsening dyspnea on exertion to the point where he could not walk more than 5 to 10 feet without getting short of breath. He did have 1 episode of mild chest pain that resolved without intervention besides aspirin. Patient denies history of coronary artery disease. Patient states he been taking his medication and using his home oxygen as prescribed. Patient is no longer use tobacco. Other medical problems include PTSD major depression disorder dyslipidemia hypertension. Patient used to be a DNR/DNI at this time. Regards to his workup he had multiple studies done including labs, radiographs, CT of the chest, EKG and VBG. Patient's D-dimer was elevated at [address] chest with contrast did not show PE. EKG did show right axis deviation as well as a right bundle branch block. Patient was last admission was 02/06/2025 through 02/08/2025. Patient is currently on BiPAP with much improvement in regards to his symptomology. Viral respiratory panel was negative. Patient will be admitted for COPD exacerbation Review of Systems All systems reviewed & are unremarkable except as noted in HPI and below PFSH All Active Problems (Updated 02/14/25 @ 08:31 by John Rodriguez MD) Sepsis (Acute) Acute on chronic hypoxic respiratory failure (Acute) Pneumonia (Acute) Acute respiratory failure with hypoxia (Acute) COVID-19 (Acute) Acute exacerbation of chronic obstructive pulmonary disease (Acute) Intertrochanteric fracture of right hip (Acute) DOS: 07/01/18 Dr. Hooper Tobacco abuse (Chronic) COPD (chronic obstructive pulmonary disease) (Chronic) Medical History Anxiety Depression Hyperlipemia PTSD (post-traumatic stress disorder) Surgical History H/O melanoma excision History of back surgery Lumbar discectomy Status post-operative repair of closed fracture of right hip Family History Mother , from an [place] in her 70s Heart disease Social History Smoking/Tobacco Use Status: Former Tobacco Use Tobacco: How many years used: 50 Smoking risk assessment performed?: Yes Alcohol Intake: never Drug use: Never Substance use type: does not use Household members: spouse and children Housing: apartment Do you feel safe at home: Yes Do you feel safe in your relationship?: Yes Meds Allergies and Home Medications Allergies Allergy/AdvReac Type Severity Reaction Status Date / Time No Known Allergies Allergy Unverified 05/19/25 19:17 Home Medications ?Medication ?Instructions ?Recorded ?Confirmed ?Type atorvastatin 20 mg tablet (Lipitor) 10 mg PO DAILY AM 03/15/14 05/19/25 History sertraline 25 mg tablet (Zoloft) 25 mg PO DAILY 03/15/14 05/19/25 History coenzyme Q10 100 mg capsule 100 mg PO DAILY 11/16/14 05/19/25 History (CoQ-10) pantoprazole 40 mg tablet,delayed 40 mg PO DAILY ##30 08/01/17 05/19/25 Rx release (Protonix) albuterol sulfate 90 mcg/actuation 2 mcg inhalation PRN PRN 07/03/18 05/19/25 History aerosol inhaler magnesium 250 mg tablet 500 mg PO DAILY 07/03/18 05/19/25 History aspirin 81 mg chewable tablet 81 mg PO DAILY 01/13/21 05/19/25 History omega-3 fatty acids-vitamin E 1 cap PO DAILY 01/13/21 05/19/25 History 1,000 mg capsule loratadine 10 mg capsule 10 mg PO DAILY #10 caps 02/02/21 05/19/25 Rx Black Elderberry 1 tab PO DAILY 10/02/21 05/19/25 History ascorbic acid (vitamin C) 1,000 mg 1,000 mg PO DAILY 10/02/21 05/19/25 History tablet (Vitamin C) cholecalciferol (vitamin D3) 25 2,000 units PO DAILY #14 tabs 10/07/21 05/19/25 Rx mcg (1,000 unit) tablet ipratropium 0.5 mg-albuterol 3 mg 3 ml UPD Q4H PRN PRN #180 mL 10/07/21 05/19/25 Rx (2.5 mg base)/3 mL nebulization soln zinc sulfate 50 mg zinc (220 mg) 220 mg (4.4 x 50 mg zinc (220 mg)) 10/07/21 05/19/25 Rx capsule (Zinc-220) PO DAILY #7 caps budesonide 160 mcg-glycopyr 9 2 inh inhalation BID 02/06/25 05/19/25 History mcg-formot 4.8 mcg/actuation HFA inhaler (Thumb Friendly) saw palmetto 250 mg capsule 500 mg PO DAILY 02/06/25 05/19/25 History benzonatate 100 mg capsule 100 mg PO TID PRN PRN #30 caps 02/08/25 05/19/25 Rx guaifenesin 600 mg tablet, 1,200 mg (2 x 600 mg) PO BID #10 02/08/25 05/19/25 Rx extended release 12 hr (Mucus tabs Relief ER) prednisone 20 mg tablet 40 mg (2 x 20 mg) PO DAILY #10 tabs 02/08/25 05/19/25 Rx amlodipine 5 mg tablet 5 mg PO DAILY 05/19/25 05/19/25 History Exam Narrative Exam Narrative: HEENT normocephalic atraumatic mucous membranes moist facemask in place. Neck no lymphadenopathy no JVD Cardiovascular distant but no murmur rubs or gallops Lungs bilateral expiratory wheeze speaking in complete sentences no accessory muscle use Abdomen scaphoid bowel sounds active Extremities no sinus clubbing or edema Neurologic nonfocal Psych alert and oriented x 3 Results Labs 05/19/25 16:52 05/19/25 16:52 Labs: Laboratory Results - last 24 hr 05/19/25 05/19/25 05/19/25 16:52 16:56 17:50 WBC 9.10 RBC 3.71 L Hgb 11.1 L Hct 35.5 L MCV 96 H MCH 29.9 MCHC 31.3 L RDW 12.2 Plt Count 263 MPV 9.6 Immature Gran % 0.2 Neutrophils % 70.7 Lymphocytes % 17.5 Monocytes % 10.2 Eosinophils % 0.9 Basophils % 0.5 Nucleated RBC % 0.0 Absolute Neutrophils 6.43 Absolute Lymphocytes 1.59 Absolute Monocytes 0.93 H Absolute Eosinophils 0.08 Absolute Basophils 0.05 D-Dimer 992 H VBG pH 7.34 VBG pCO2 69 H* VBG pO2 41 VBG HCO3 37 H VBG Total CO2 35 H VBG O2 Saturation 74 VBG Base Excess 11 H VBG Lactate 0.8 Sodium 141 Potassium 4.2 Chloride 98 Carbon Dioxide 35.8 H Anion Gap 7 BUN 15 Creatinine 0.65 L Est GFR (CKD-EPI 2020) 119.23 Glucose 104 Calcium 9.3 Magnesium 1.8 Total Bilirubin 0.4 AST 22 ALT 15 Alkaline Phosphatase 100 Troponin I 12 13 NT-Pro-B Natriuret Pep 289 Total Protein 7.7 Albumin 4.4 TSH 2.68 COVID-19 Source Nasopharynx SARS-CoV-2 (PCR) Negative Influenza Type A (PCR) Negative Influenza Type B (PCR) Negative RSV (PCR) Negative 05/19/25 19:16 WBC RBC Hgb Hct MCV MCH MCHC RDW Plt Count MPV Immature Gran % Neutrophils % Lymphocytes % Monocytes % Eosinophils % Basophils % Nucleated RBC % Absolute Neutrophils Absolute Lymphocytes Absolute Monocytes Absolute Eosinophils Absolute Basophils D-Dimer VBG pH 7.37 VBG pCO2 63 H* VBG pO2 23 VBG HCO3 37 H VBG Total CO2 35 H VBG O2 Saturation 38 VBG Base Excess 11 H VBG Lactate Sodium Potassium Chloride Carbon Dioxide Anion Gap BUN Creatinine Est GFR (CKD-EPI 2020) Glucose Calcium Magnesium Total Bilirubin AST ALT Alkaline Phosphatase Troponin I NT-Pro-B Natriuret Pep Total Protein Albumin TSH COVID-19 Source SARS-CoV-2 (PCR) Influenza Type A (PCR) Influenza Type B (PCR) RSV (PCR) Last Vital Signs Temp 36.0 C L 05/19/25 17:17 Pulse 66 05/19/25 19:20 Resp 17 05/19/25 19:20 BP 145/73 H 12/21/25 19:16 Pulse Ox 94 05/19/25 19:20 VTE Prohylaxis Risk Level: Moderate/High Risk Contraindications: None Prophylaxis: Pharmacologic Time Spent Time spent with Patient: 40-54 minutes Time was spent: preparing to see the patient(eg.review tests), obtaining and/or reviewing separately otained hiistory, ordering medications,tests, procedures, referring, communicating with other health child care associate teacher, indepentently interpreting results, counseling the patient and care coordination
[2025-05-19 20:45] LABS: Troponin I 13 ng/L (<54)
[2025-05-19] MEDS: Enoxaparin 40 MG/0.4 ML SYR SC (21:44)
[2025-05-19] MEDS: guaiFENesin 600 MG TABCR 1200 MG PO (22:11)
[2025-05-20 02:50] VITALS: PULSE 80; RESP 26; O2SAT 90
--- NOTE | 2025-05-20 02:52 | W.PC.ACHO ---
Registration Status: ADM IN Primary Language: Preferred Language: Mohawk ED Information & Data Chief Complaint SOB 05/19/25 16:34 Chief Complaint SOB 05/19/25 16:26 Triage Note sob x 4 days pt on 3l was 88 05/19/25 16:26 % ems placed pt on cipap, ems gave dubneb, 325mg aspirin, nitro x1, solumedrol Medical / Surgical History (Last Reviewed 02/05/22 @ 06:24 by James Lee DO) Nicotine dependence GERD (gastroesophageal reflux disease) Hyperlipidemia Anxiety Depression Hyperlipemia PTSD (post-traumatic stress disorder) (Last Reviewed 02/05/22 @ 06:24 by James Lee DO) H/O melanoma excision Status post-operative repair of closed fracture of right hip History of back surgery Most Recent Vital Signs Temperature 36.1 C L 05/19/25 21:48 Temperature Source Temporal Artery Scan 05/19/25 21:13 Pulse 63 05/19/25 21:48 Pulse Rhythm Regular 05/19/25 21:48 Pulse 67 05/19/25 19:20 Respiratory Rate 17 05/19/25 21:48 Respiratory Effort Short of Breath 05/19/25 21:48 Respiratory Depth Normal 05/19/25 21:48 Respiratory Pattern Normal 05/19/25 21:48 Blood Pressure 122/69 05/19/25 21:48 Blood Pressure Mean 86 05/19/25 21:13 Blood Pressure Position Sitting 05/19/25 16:26 Pulse Oximetry 95 05/19/25 21:48 Oxygen Delivery Method Bi-pap 05/19/25 21:48 Oxygen Flow Rate 8 05/19/25 17:19 Fraction of Inspired Oxygen (FIO2) 28 05/19/25 20:40 Pain Level 0 05/19/25 21:48 Comment the pt is on continuous Bi-pap. nurse was notified about the low temp. the pt is laying in bed in the low sullivan's position. the pt call light is in reach and the bed alarms are on. 05/19/25 21:13 Allergies No Known Allergies Allergy (Unverified 05/19/25 19:17) Active Medications Generic Name Dose Route Start Last Admin Trade Name Freq PRN Reason Stop Dose Admin Enoxaparin Sodium 40 mg 05/19/25 20:00 05/19/25 21:44 Enoxaparin 40 Mg/0.4 Ml Syr SC 40 mg Q24H DELL Administration Guaifenesin 1,200 mg 05/19/25 21:43 05/19/25 22:11 Guaifenesin 600 Mg Tabcr PO 1,200 mg BID DELL Administration Iohexol 100 ml 05/19/25 18:30 05/19/25 18:18 Omnipaque 350 Mg/Ml 100 Ml Btl IJ 06/18/25 23:59 70 ml DIRECTED DELL Administration Sodium Chloride 50 ml 05/19/25 18:30 05/19/25 18:18 Normal Saline - Diluent 50 Ml Vial IJ 50 ml DIRECTED DELL Administration IV IV Catheter Type [Left Hand] Peripheral IV IV Catheter Type [Right Peripheral IV Forearm] IV Catheter Gauge [Left Hand] 20 IV Catheter Gauge [Right 18 Forearm] Diet Orders Category Date Time Status DIET [Regular/Normal] [DIET] Nutrition 05/20/25 Breakfast Active Diagnostics 05/20/25 05/19/25 05/19/25 Range/Units 05:35 20:13 19:16 WBC Pending (4.4-10.8) 10^3/uL RBC Pending (4.36-5.78) 10^6/uL Hgb Pending (13.5-17.5) g/dL Hct Pending (40.0-50.0) % MCV Pending (80-95) fL MCH Pending (27.0-33.0) pg MCHC Pending (32.0-36.0) % RDW Pending (11.8-14.1) % Plt Count Pending (130-400) 10^3/uL MPV Pending (8.0-11.0) fL Immature Gran % Pending % Neutrophils % Pending % Lymphocytes % Pending % Monocytes % Pending % Eosinophils % Pending % Basophils % Pending % Nucleated RBC % (0.0-0.3) % Absolute Neutrophils Pending (1.2-6.7) 10^3/uL Absolute Lymphocytes Pending (1.2-3.4) 10^3/uL Absolute Monocytes Pending (0.1-0.8) 10^3/uL Absolute Eosinophils Pending (0.0-0.7) 10^3/uL Absolute Basophils Pending (0.0-0.2) 10^3/uL D-Dimer (<500) ng/mlFEU VBG pH 7.37 (7.31-7.41) VBG pCO2 63 H* (41-51) mmHg VBG pO2 23 mmHg VBG HCO3 37 H (23-28) mmol/L VBG Total CO2 35 H (24-29) mmol/L VBG O2 Saturation 38 % VBG Base Excess 11 H (-2-3) mmol/L VBG Lactate (<or=2.0) mmol/L Sodium Pending (136-145) mmol/L Potassium Pending (3.5-5.1) mmol/L Chloride Pending (98-107) mmol/L Carbon Dioxide Pending (20.0-31.0) mmol/L Anion Gap Pending (3-11) mmol/L BUN Pending (9-23) mg/dL Creatinine Pending (0.73-1.18) mg/dL Est GFR (CKD-EPI 2020) Pending (mL/min/1.73m2) Glucose Pending (74-106) mg/dL Calcium Pending (8.3-10.6) mg/dL Magnesium (1.6-2.6) mg/dL Total Bilirubin Pending (0.2-1.2) mg/dL AST Pending (<34) U/L ALT Pending (10-49) U/L Alkaline Phosphatase Pending (46-116) U/L Troponin I 13 (<54) ng/L NT-Pro-B Natriuret Pep (<300) pg/mL Total Protein Pending (5.7-8.2) g/dL Albumin Pending (3.2-5.0) g/dL TSH (0.55-4.78) uIU/mL COVID-19 Source SARS-CoV-2 (PCR) (Negative) Influenza Type A (PCR) (Negative) Influenza Type B (PCR) (Negative) RSV (PCR) (Negative) 05/19/25 05/19/25 05/19/25 Range/Units 17:50 16:56 16:52 WBC 9.10 (4.4-10.8) 10^3/uL RBC 3.71 L (4.36-5.78) 10^6/uL Hgb 11.1 L (13.5-17.5) g/dL Hct 35.5 L (40.0-50.0) % MCV 96 H (80-95) fL MCH 29.9 (27.0-33.0) pg MCHC 31.3 L (32.0-36.0) % RDW 12.2 (11.8-14.1) % Plt Count 263 (130-400) 10^3/uL MPV 9.6 (8.0-11.0) fL Immature Gran % 0.2 % Neutrophils % 70.7 % Lymphocytes % 17.5 % Monocytes % 10.2 % Eosinophils % 0.9 % Basophils % 0.5 % Nucleated RBC % 0.0 (0.0-0.3) % Absolute Neutrophils 6.43 (1.2-6.7) 10^3/uL Absolute Lymphocytes 1.59 (1.2-3.4) 10^3/uL Absolute Monocytes 0.93 H (0.1-0.8) 10^3/uL Absolute Eosinophils 0.08 (0.0-0.7) 10^3/uL Absolute Basophils 0.05 (0.0-0.2) 10^3/uL D-Dimer 992 H (<500) ng/mlFEU VBG pH 7.34 (7.31-7.41) VBG pCO2 69 H* (41-51) mmHg VBG pO2 41 mmHg VBG HCO3 37 H (23-28) mmol/L VBG Total CO2 35 H (24-29) mmol/L VBG O2 Saturation 74 % VBG Base Excess 11 H (-2-3) mmol/L VBG Lactate 0.8 (<or=2.0) mmol/L Sodium 141 (136-145) mmol/L Potassium 4.2 (3.5-5.1) mmol/L Chloride 98 (98-107) mmol/L Carbon Dioxide 35.8 H (20.0-31.0) mmol/L Anion Gap 7 (3-11) mmol/L BUN 15 (9-23) mg/dL Creatinine 0.65 L (0.73-1.18) mg/dL Est GFR (CKD-EPI 2020) 119.23 (mL/min/1.73m2) Glucose 104 (74-106) mg/dL Calcium 9.3 (8.3-10.6) mg/dL Magnesium 1.8 (1.6-2.6) mg/dL Total Bilirubin 0.4 (0.2-1.2) mg/dL AST 22 (<34) U/L ALT 15 (10-49) U/L Alkaline Phosphatase 100 (46-116) U/L Troponin I 13 12 (<54) ng/L NT-Pro-B Natriuret Pep 289 (<300) pg/mL Total Protein 7.7 (5.7-8.2) g/dL Albumin 4.4 (3.2-5.0) g/dL TSH 2.68 (0.55-4.78) uIU/mL COVID-19 Source Nasopharynx SARS-CoV-2 (PCR) Negative (Negative) Influenza Type A (PCR) Negative (Negative) Influenza Type B (PCR) Negative (Negative) RSV (PCR) Negative (Negative) 05/19/25 17:10 Blood Culture - Pending Blood 05/19/25 16:52 Blood Culture - Pending Blood Intake and Output - 24 Hour Total 05/19/25 16:16 thru 05/19/25 21:48 Intake Total 100 Balance 100 Weight 76.657 kg Intake: IV 100 Other: Urine Appearance Clear Falls Risk Assessment History of Falls No History 05/19/25 21:48 Contributing Factors Impairments 05/19/25 21:48 Ambulatory Aids Uses ambulatory device 05/19/25 21:48 Tubes/Lines With any additional score 05/19/25 21:48 Gait Evaluation W/any additional score 05/19/25 21:48 Cognition No cognitive impairment 05/19/25 21:48 Fall Total Score 58 05/19/25 21:48 Level of Risk High Risk 05/19/25 21:48 Problems (Last Reviewed 02/05/22 @ 06:24 by James Lee DO) COPD (chronic obstructive pulmonary disease) (Chronic) Attestation Statement: By documenting the first initial, last name, and credentials of the reporting nurse below, both parties acknowledge that all relevant information regarding the patient handoff has been communicated, and that all questions have been addressed to ensure continuity and safety of care. Additional Patient Information/Comments: Pt admitted for COPD exacerbation. On BiPAP, alert and oriented. Pt brought his home O2 with him and Brezi inhaler. Pt oriented to room and call light. Fall precautions in place. Report Received From: HORTENCIA Guerrero
[2025-05-20] MEDS: Pantoprazole 40 MG TABCR PO (06:35)
[2025-05-20 07:04] LABS: Abs Immature Grans 0.01 10^3/uL (0.0-0.06); HCT 33.9 % (40.0-50.0); HGB 10.9 g/dL (13.5-17.5); Immature Grans % 0.3 %; MCH 29.9 pg (27.0-33.0); MCHC 32.2 % (32.0-36.0); MCV 93 fL (80-95); MPV 10.2 fL (8.0-11.0); Platelet Count 235 10^3/uL (130-400); RBC 3.65 10^6/uL (4.36-5.78); RDW 11.8 % (11.8-14.1); RDW-SD 39.8 fL; WBC 3.83 10^3/uL (4.4-10.8)
[2025-05-20 07:11] VITALS: BP 148/76; PULSE 70; RESP 16; TEMP 36.6; O2SAT 92
[2025-05-20 07:21] LABS: ALT 15 U/L (10-49); AST 22 U/L (<34); Albumin 4.3 g/dL (3.2-5.0); Alkaline Phosphatase 99 U/L (46-116); Anion Gap 9.3 mmol/L (3-11); BUN 20 mg/dL (9-23); Bilirubin, Total 0.4 mg/dL (0.2-1.2); CO2 32.7 mmol/L (20.0-31.0); Calcium 9.7 mg/dL (8.3-10.6); Chloride 101 mmol/L (98-107); Glucose 125 mg/dL (74-106); Potassium 4.6 mmol/L (3.5-5.1); Sodium 143 mmol/L (136-145); Total Protein 7.5 g/dL (5.7-8.2)
--- NOTE | 2025-05-20 08:32 | INITIAL_ITS ---
Care Management Initial Assmt Initial Assessment Reason for Hospitalization: COPD Functional Status/Living Situation Patient Presentation: Felipe was awake and lying in bed when CM met with him. He is pleasant and easy to engage in conversation. He resides in [facility] with his Charlette and her adult son. Felipe has 2 children from a previous marriage, whom he is estranged. He expressed distress related to the belief that they will never know him. 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 He drives and is active and independent at baseline. He has home O2 through [employer]. Town of Residence: [facility] Resides with: Spouse (Charlette and their adult son) Significant Other/Family: Local [employer]: Charlette and their son - Son helps out a lot with housework and yard work, but he works time study technician and family feels they could use more help. 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 Also worked in [employer].) Instrumental Activities of Daily Living (ADLs): Independent Medications Medication Management: No Issues/Barriers identified Physical Functioning/Mobility Assistive Device: walker Advance Directives Advance Directives: Do you have an Advance Directive: Y 18, 12:07 AD On File at [facility]: N 1014, 07:29 Date Asked 05/19/25 Today, 10:45 AD Date Reviewed COLST On File at [facility] COLST Date Scanned Code Status Resuscitation Status DNR/DNI Insurance Coverage/Financial Issues [place]: [place] - [id number] Care Team Visit Care Team Role Provider Type Karrie Baumann Primary Care Provider NON-[facility] STAFF PHYSICIAN InPatient Schuyler Munson Other Providers OTHER DARLING Guzmán Emergency Provider PHYSICIANS SENIOR UI WEB DEVELOPER Eric Winkler MD Admit Provider [facility] STAFF PHYSICIAN Attending Provider Discharge Potential Discharge Needs: PCP F/U Appt Anticipated Barriers to Discharge: None Identified Patient/Family Education Needs: Review discharge instructions, discuss Ask Me Three Transportation: Private vehicle Plan: Anticipate, Felipe will discharge home via private vehicle with once medically ready. PT consult is pending. He is agreeable to new [facility] services, if indicated. Patient will follow up with community providers and continue per his discharge plan of care. CM will follow. Social Determinants of Health Screening Social Determinants of health last assessed in clinic: 05/20/25 Will the Patient Participate in the Screening?: Yes Do you worry about having a steady place to live?: no Problems where you live: no known problems In the past 12 months, have you had to go without electric, gas, oil or water in your home?: no 1. Within the past 12 months, we worried whether our food would run out before we got money to buy more.: Never true 2. Within the past 12 months, the food we bought just didn't last and we didn't have money to get more.: Never true Has lack of transportation kept you from medical appointments or from doing things needed for daily living?: no Has anyone in your life made you feel unsafe or unsupported?: no How hard is it for you to pay for the very basics like food, housing, medical care, and heating? Would you say it is:: Not hard at all Do you want help finding or keeping work or a job?: I do not need or want help If for any reason you need help with day-to-day activities such as bathing, preparing meals, shopping, managing finances, etc., do you get the help you need?: I get all the help I need How often do you feel lonely or isolated from those around you?: Rarely Do you speak a language other than Malagasy at home?: No Does the patient want assistance with any of the above?: No Health Related Social Needs Health related social needs: feeling lonely/isolated (Z60.8) PFSH All Active Problems (Updated 02/14/25 @ 08:31 by John Rodriguez MD) Sepsis (Acute) Acute on chronic hypoxic respiratory failure (Acute) Pneumonia (Acute) Acute respiratory failure with hypoxia (Acute) COVID-19 (Acute) Acute exacerbation of chronic obstructive pulmonary disease (Acute) Intertrochanteric fracture of right hip (Acute) DOS: 07/01/18 Dr. Hooper Tobacco abuse (Chronic) COPD (chronic obstructive pulmonary disease) (Chronic) Medical History Anxiety Depression Hyperlipemia PTSD (post-traumatic stress disorder) Surgical History H/O melanoma excision History of back surgery Lumbar discectomy Status post-operative repair of closed fracture of right hip Family History Mother , from an [place] in her 70s Heart disease Social History Smoking/Tobacco Use Status: Former Tobacco Use Tobacco: How many years used: 50 Smoking risk assessment performed?: Yes Alcohol Intake: never Drug use: Never Substance use type: does not use Household members: spouse and children Housing: apartment Do you feel safe at home: Yes Do you feel safe in your relationship?: Yes
[2025-05-20] MEDS: guaiFENesin 600 MG TABCR 1200 MG PO ×2 (09:00→21:39)
[2025-05-20] MEDS: Doxycycline Hyclate 100 MG CAP PO ×2 (09:00→21:40)
[2025-05-20] MEDS: Ascorbic Acid 500 MG TAB 1000 MG PO (09:00)
[2025-05-20] MEDS: Aspirin 81 MG CHEW PO (09:01)
[2025-05-20] MEDS: Atorvastatin 20 MG TAB 10 MG PO (09:01)
[2025-05-20] MEDS: Loratidine 10 MG TAB PO (09:01)
[2025-05-20] MEDS: amLODIPine 5 MG TAB PO (09:01)
[2025-05-20] MEDS: Zinc Sulfate 220 MG TAB PO (09:01)
[2025-05-20] MEDS: Cholecalciferol (Vitamin D3) 1,000 UNIT TAB 2000 UNITS PO (09:02)
[2025-05-20] MEDS: predniSONE 20 MG TAB 40 MG PO ×3 (09:02→21:39)
[2025-05-20] MEDS: Sertraline 25 MG TAB PO (09:02)
[2025-05-20 09:14] VITALS: O2SAT 93
--- NOTE | 2025-05-20 09:16 | RESPIRATORY ---
Patient's baseline is 1-2L at rest / 4L with ambulation. DME: [employer] [facility]. Patient has [facility] POC at bedside ready for discharge. Battery currently at 80%.
--- NOTE | 2025-05-20 10:11 | PGE_ITS ---
Date of Service Date of service: 05/20/25 Time of Service: 10:11 Assessment and Plan Assessment and plan (1) Acute on chronic hypoxic respiratory failure: Status: Acute Assessment and plan: Patient w/o chronic O2 requirement at 2l/min via nasal canula at home and presenting with saturation in the 80's% . Maintains sat at 88-92% on 8l/min of oxygen via nasal canula and BIPAP overnight for PCO2 at 69 with PH 7.34, HCO3 37 Pulmonary emboli ruled out on admission despite D-dimer 992 imaging negative for pleural effusion Infiltrates on imaging with increased interstitial markings and peribronchial thickening Wean Oxygen for saturation 88-92% Continue doxycycline and oral prednisone Blood cultures pending this AM (2) Acute on chronic respiratory failure with hypercapnia: Status: Acute Assessment and plan: As above point 2 (3) Acute exacerbation of chronic obstructive pulmonary disease: Status: Acute Assessment and plan: 2nd episode since January Considered a pulmonology consult but mot available today Exacerbated d/t above - sat goals 88-92% on baseline oxygen of 2l/min resumed at this time Increased cough - secretion more copious w/o change in color , unable to ambulate 50 feet w/o distress PT consult Ongoing home therapy with scheduled and PRN nebs Continue acapella- cough and deep breathing , mucinex PRN Tessalon perles Does not smoke anymore but positive passive exposure d/t to spouse nicotine dependence (4) GERD (gastroesophageal reflux disease): Assessment and plan: On home dose PPI (5) PTSD (post-traumatic stress disorder): Assessment and plan: On home dose sertraline (6) Hyperlipidemia: Assessment and plan: On home dose lipitor (7) On deep vein thrombosis (DVT) prophylaxis: Status: Deleted Assessment and plan: Low molecular weight heparin Discussed with Dr. Marin Subjective Subjective Patient reports: feels better, tolerating liquids well, tolerating a regular diet, voiding w/o difficulty, flatus, bowel movement and shortness of breath; denies diarrhea, nausea, vomiting or fever Exam Narrative Exam Narrative: No acute distress, alert oriented x 4, neurologically intact,ongoing d dyspnea on exertion, decreased breath sounds bilaterally, S1-S2 regular no murmur no edmea , abdomen is nondistended soft nontender and muscles are present, no bladder distention,. moves all 4 extremities Objective Last Vital Signs Temp 36.6 C 12/22/25 07:11 Pulse 70 05/20/25 07:11 Resp 16 05/20/25 07:11 BP 148/76 H 05/20/25 07:11 Pulse Ox 93 05/20/25 09:14 Laboratory Results - last 24 hr 05/19/25 05/19/25 05/19/25 16:52 16:56 17:50 WBC 9.10 RBC 3.71 L Hgb 11.1 L Hct 35.5 L MCV 96 H MCH 29.9 MCHC 31.3 L RDW 12.2 Plt Count 263 MPV 9.6 Immature Gran % 0.2 Neutrophils % 70.7 Lymphocytes % 17.5 Monocytes % 10.2 Eosinophils % 0.9 Basophils % 0.5 Nucleated RBC % 0.0 Absolute Neutrophils 6.43 Absolute Lymphocytes 1.59 Absolute Monocytes 0.93 H Absolute Eosinophils 0.08 Absolute Basophils 0.05 D-Dimer 992 H VBG pH 7.34 VBG pCO2 69 H* VBG pO2 41 VBG HCO3 37 H VBG Total CO2 35 H VBG O2 Saturation 74 VBG Base Excess 11 H VBG Lactate 0.8 Sodium 141 Potassium 4.2 Chloride 98 Carbon Dioxide 35.8 H Anion Gap 7 BUN 15 Creatinine 0.65 L Est GFR (CKD-EPI 2020) 119.23 Glucose 104 Calcium 9.3 Magnesium 1.8 Total Bilirubin 0.4 AST 22 ALT 15 Alkaline Phosphatase 100 Troponin I 12 13 NT-Pro-B Natriuret Pep 289 Total Protein 7.7 Albumin 4.4 TSH 2.68 COVID-19 Source Nasopharynx SARS-CoV-2 (PCR) Negative Influenza Type A (PCR) Negative Influenza Type B (PCR) Negative RSV (PCR) Negative 05/19/25 05/19/25 05/20/25 19:16 20:13 06:10 WBC 3.83 L RBC 3.65 L Hgb 10.9 L Hct 33.9 L MCV 93 MCH 29.9 MCHC 32.2 RDW 11.8 Plt Count 235 MPV 10.2 Immature Gran % 0.3 Neutrophils % 87.7 Lymphocytes % 10.4 Monocytes % 1.3 Eosinophils % 0.0 Basophils % 0.3 Nucleated RBC % 0.0 Absolute Neutrophils 3.36 Absolute Lymphocytes 0.40 L Absolute Monocytes 0.05 L Absolute Eosinophils 0.00 Absolute Basophils 0.01 D-Dimer VBG pH 7.37 VBG pCO2 63 H* VBG pO2 23 VBG HCO3 37 H VBG Total CO2 35 H VBG O2 Saturation 38 VBG Base Excess 11 H VBG Lactate Sodium 143 Potassium 4.6 Chloride 101 Carbon Dioxide 32.7 H Anion Gap 9.3 BUN 20 Creatinine 0.58 L Est GFR (CKD-EPI 2020) 135.99 Glucose 125 H Calcium 9.7 Magnesium Total Bilirubin 0.4 AST 22 ALT 15 Alkaline Phosphatase 99 Troponin I 13 NT-Pro-B Natriuret Pep Total Protein 7.5 Albumin 4.3 TSH COVID-19 Source SARS-CoV-2 (PCR) Influenza Type A (PCR) Influenza Type B (PCR) RSV (PCR) VTE Prohylaxis Risk Level: Moderate/High Risk Contraindications: None Prophylaxis: Pharmacologic Time Spent with Patient Time Spent with Patient: >50 minutes Time was spent: preparing to see the patient(eg.review tests), obtaining and/or reviewing separately otained hiistory, ordering medications,tests, procedures, referring, communicating with other health social worker palliative care, indepentently interpreting results, counseling the patient, care coordination and other
[2025-05-20] MEDS: Pt's Own Budesonide-Glycopyr-Formoterol [Breztri Aerosphere] Inhaler 1 EACH IH ×2 (11:51→20:13)
--- NOTE | 2025-05-20 13:51 | PHA.REVIEW2 ---
Pharmacy Admission Review Admission Clinical Review Admission Pharmacy Review: Sepsis (Acute) Acute on chronic hypoxic respiratory failure (Acute) Acute exacerbation of chronic obstructive pulmonary disease (Acute) No Known Allergies Allergy (Unverified 05/19/25 19:17) Resuscitation Status DNR/DNI Height 5 ft 7 in Weight 77.111 kg Pharmacy Admission Review Renal Dosing Renal Dosing: BUN 20 mg/dL (9-23) 05/20/25 06:10 Creatinine 0.58 mg/dL (0.73-1.18) L 05/20/25 06:10 Medications needing adjustments: Reviewed (CrCl 68.54 mL/min) List of meds needing interventions: Current medications are okay Anticoagulation Anticoagulation: Hgb 10.9 g/dL (13.5-17.5) L 05/20/25 06:10 Hct 33.9 % (40.0-50.0) L 05/20/25 06:10 Plt Count 235 10^3/uL (130-400) 05/20/25 06:10 Creatinine 0.58 mg/dL (0.73-1.18) L 05/20/25 06:10 DVT Prophylaxis: Reviewed Medications: Enoxaparin (40mg daily) Relevant Labs Relevant Labs: Sodium 143 mmol/L (136-145) 05/20/25 06:10 Potassium 4.6 mmol/L (3.5-5.1) 05/20/25 06:10 Chloride 101 mmol/L (98-107) 05/20/25 06:10 Magnesium 1.8 mg/dL (1.6-2.6) 05/19/25 16:52 Electrolytes, C-Reactive P, ESR: Reviewed Cardiac Review Cardiac Review: Troponin I 13 ng/L (<54) 05/19/25 20:13 NT-Pro-B Natriuret Pep 289 pg/mL (<300) 05/19/25 16:52 BP, HR, EF%: Reviewed (BP 148/76, HR WNL, oxygen flow rate = 2) List meds needing interventions: Has order for amlodipine 5mg daily QTc Review QTc: Reviewed (439 from 05/19/25) IV to PO Switch IV Medications: Reviewed Home Meds Home Med List reviewed: Intervened Relevent Home Meds Not ordered & why?: Changed Breztri to patients own order (non-formulary). Nurse brought down inhaler that was brought in from home. Verified, labeled and sent back to floor. Current Meds Current Medication Order Review: Reviewed Pharmacy Antibiotic Review Relevant Labs: WBC 3.83 10^3/uL (4.4-10.8) L 05/20/25 06:10 Temperature 36.6 C Pharmacy Antibiotic Activity: C/S review and Reviewed, no change Comments: Patient is on doxycycline PO, day 1, for COPD exacerbation. Blood cultures pending.
--- NOTE | 2025-05-20 18:13 | W.ED.GENAD ---
Discharge Plan Disposition Patient Disposition: Admit to [facility] Condition: Critical Discharge Details Clinical Impression: Acute on chronic hypoxic respiratory failure, COPD (chronic obstructive pulmonary disease) Admit Date/Time: 05/19/25 19:58 Admit Provider: Eric Winkler Attending Provider: Eric Winkler Primary Care Provider: Karrie Baumann ED Provider: Martha Burks Discharge Data Discharge Date/Time-TO BE ENTERED AT DEPARTURE: 05/19/25 20:50 HPI General Date/Time Provider Initiated Documentation: 05/19/25 16:24. HPI Narrative: This 74-year-old male presents with EMS with report of worsening dyspnea and increasing oxygen requirement at home. On 3 L per EMS patient was 88% so was placed on CPAP DuoNeb aspirin secondary to an episode of chest pain nitro, and 125 of Solu-Medrol were administered. Patient is feeling improvement on CPAP upon arrival. His chest pain has completely resolved. He states the pain was on the left side of his chest and he was coughing when the pain began. He denies history of coronary artery disease. Denies any calf pain or swelling or history of PE, recent flights, surgeries, long drives. States his symptoms are consistent with COPD exacerbation states he has been having upper respiratory symptoms for the last several days. Denies additional known sick contacts. Has been sober from tobacco over the past 3 years. Compliant with medications at home. Related Data Home Medications ?Medication ?Instructions ?Recorded ?Confirmed atorvastatin 20 mg tablet (Lipitor) 10 mg PO DAILY AM 03/15/14 05/19/25 sertraline 25 mg tablet (Zoloft) 25 mg PO DAILY 03/15/14 05/19/25 coenzyme Q10 100 mg capsule 100 mg PO DAILY 11/16/14 05/19/25 (CoQ-10) pantoprazole 40 mg tablet,delayed 40 mg PO DAILY ##30 08/01/17 05/19/25 release (Protonix) albuterol sulfate 90 mcg/actuation 2 mcg inhalation PRN PRN 07/03/18 05/19/25 aerosol inhaler magnesium 250 mg tablet 500 mg PO DAILY 07/03/18 05/19/25 aspirin 81 mg chewable tablet 81 mg PO DAILY 01/13/21 05/19/25 omega-3 fatty acids-vitamin E 1 cap PO DAILY 01/13/21 05/19/25 1,000 mg capsule loratadine 10 mg capsule 10 mg PO DAILY #10 caps 02/02/21 05/19/25 Black Elderberry 1 tab PO DAILY 10/02/21 05/19/25 ascorbic acid (vitamin C) 1,000 mg 1,000 mg PO DAILY 10/02/21 05/19/25 tablet (Vitamin C) cholecalciferol (vitamin D3) 25 2,000 units PO DAILY #14 tabs 10/07/21 05/19/25 mcg (1,000 unit) tablet ipratropium 0.5 mg-albuterol 3 mg 3 ml UPD Q4H PRN PRN #180 mL 10/07/21 05/19/25 (2.5 mg base)/3 mL nebulization soln zinc sulfate 50 mg zinc (220 mg) 220 mg (4.4 x 50 mg zinc (220 mg)) 10/07/21 05/19/25 capsule (Zinc-220) PO DAILY #7 caps budesonide 160 mcg-glycopyr 9 2 inh inhalation BID 02/06/25 05/19/25 mcg-formot 4.8 mcg/actuation HFA inhaler (Breztri Aerosphere) saw palmetto 250 mg capsule 500 mg PO DAILY 02/06/25 05/19/25 benzonatate 100 mg capsule 100 mg PO TID PRN PRN #30 caps 02/08/25 05/19/25 guaifenesin 600 mg tablet, 1,200 mg (2 x 600 mg) PO BID #10 02/08/25 05/19/25 extended release 12 hr (Mucus tabs Relief ER) prednisone 20 mg tablet 40 mg (2 x 20 mg) PO DAILY #10 tabs 02/08/25 05/19/25 amlodipine 5 mg tablet 5 mg PO DAILY 05/19/25 05/19/25 Previous Rx's ?Medication ?Instructions ?Recorded pantoprazole 40 mg tablet,delayed 40 mg PO DAILY ##30 08/01/17 release (Protonix) loratadine 10 mg capsule 10 mg PO DAILY #10 caps 02/02/21 cholecalciferol (vitamin D3) 25 2,000 units PO DAILY #14 tabs 10/07/21 mcg (1,000 unit) tablet ipratropium 0.5 mg-albuterol 3 mg 3 ml UPD Q4H PRN PRN #180 mL 10/07/21 (2.5 mg base)/3 mL nebulization soln zinc sulfate 50 mg zinc (220 mg) 220 mg (4.4 x 50 mg zinc (220 mg)) 10/07/21 capsule (Zinc-220) PO DAILY #7 caps benzonatate 100 mg capsule 100 mg PO TID PRN PRN #30 caps 02/08/25 guaifenesin 600 mg tablet, 1,200 mg (2 x 600 mg) PO BID #10 02/08/25 extended release 12 hr (Mucus tabs Relief ER) prednisone 20 mg tablet 40 mg (2 x 20 mg) PO DAILY #10 tabs 02/08/25 Allergies Allergy/AdvReac Type Severity Reaction Status Date / Time No Known Allergies Allergy Unverified 05/19/25 19:17 General Stated Complaint: SOB MARYAN: 3 Exam Narrative Exam Narrative: Alert and oriented 74-year-old male in acute distress, diminished lung sounds with scant scattered wheezes, retractions noted, cardiac rate rhythm regular no peripheral edema alert and oriented x 4 speaking in 2-3 word sentences no abdominal tenderness Course Vital Signs Vital signs: Vital Signs Temperature 36.0 C L 05/19/25 16:26 Pulse 66 05/19/25 16:26 Respiratory Rate 18 05/19/25 16:26 Pulse Oximetry 100 05/19/25 16:26 Temperature 36.6 C 05/20/25 07:11 Temperature Source Temporal Artery Scan 05/20/25 07:11 Pulse 70 05/20/25 07:11 Pulse Rhythm Regular 05/19/25 21:48 Pulse 67 05/19/25 19:20 Respiratory Rate 16 05/20/25 07:11 Respiratory Effort Short of Breath 05/19/25 21:48 Respiratory Depth Normal 05/19/25 21:48 Respiratory Pattern Normal 05/19/25 21:48 Blood Pressure 148/76 H 05/20/25 07:11 Blood Pressure Mean 100 05/20/25 07:11 Blood Pressure Position Sitting 05/19/25 16:26 Pulse Oximetry 93 05/20/25 09:14 Oxygen Delivery Method Nasal Cannula 05/20/25 09:14 Oxygen Flow Rate 2 05/20/25 09:14 Fraction of Inspired Oxygen (FIO2) 28 05/20/25 09:14 Pain Level 0 05/19/25 21:48 Comment the pt is on continuous Bi-pap. nurse was notified about the low temp. the pt is laying in bed in the low sullivan's position. the pt call light is in reach and the bed alarms are on. 05/19/25 21:13 Lab/Test Results Lab/Test Results: 05/19/25 17:10 Blood Blood Culture - Pending 05/19/25 16:52 Blood Blood Culture - Pending Laboratory Tests Range/Units 05/19/25 05/19/25 05/19/25 16:52 16:56 17:50 WBC (4.4-10.8) 10^3/uL 9.10 RBC (4.36-5.78) 10^6/uL 3.71 L Hgb (13.5-17.5) g/dL 11.1 L Hct (40.0-50.0) % 35.5 L MCV (80-95) fL 96 H MCH (27.0-33.0) pg 29.9 MCHC (32.0-36.0) % 31.3 L RDW (11.8-14.1) % 12.2 Plt Count (130-400) 10^3/uL 263 MPV (8.0-11.0) fL 9.6 Immature Gran % % 0.2 Neutrophils % % 70.7 Lymphocytes % % 17.5 Monocytes % % 10.2 Eosinophils % % 0.9 Basophils % % 0.5 Nucleated RBC % (0.0-0.3) % 0.0 Absolute Neutrophils (1.2-6.7) 10^3/uL 6.43 Absolute Lymphocytes (1.2-3.4) 10^3/uL 1.59 Absolute Monocytes (0.1-0.8) 10^3/uL 0.93 H Absolute Eosinophils (0.0-0.7) 10^3/uL 0.08 Absolute Basophils (0.0-0.2) 10^3/uL 0.05 D-Dimer (<500) ng/mlFEU 992 H VBG pH (7.31-7.41) 7.34 VBG pCO2 (41-51) mmHg 69 H* VBG pO2 mmHg 41 VBG HCO3 (23-28) mmol/L 37 H VBG Total CO2 (24-29) mmol/L 35 H VBG O2 Saturation % 74 VBG Base Excess (-2-3) mmol/L 11 H VBG Lactate (<or=2.0) mmol/L 0.8 Sodium (136-145) mmol/L 141 Potassium (3.5-5.1) mmol/L 4.2 Chloride (98-107) mmol/L 98 Carbon Dioxide (20.0-31.0) mmol/L 35.8 H Anion Gap (3-11) mmol/L 7 BUN (9-23) mg/dL 15 Creatinine (0.73-1.18) mg/dL 0.65 L Est GFR (CKD-EPI 2020) (mL/min/1.73m2) 119.23 Glucose (74-106) mg/dL 104 Calcium (8.3-10.6) mg/dL 9.3 Magnesium (1.6-2.6) mg/dL 1.8 Total Bilirubin (0.2-1.2) mg/dL 0.4 AST (<34) U/L 22 ALT (10-49) U/L 15 Alkaline Phosphatase (46-116) U/L 100 Troponin I (<54) ng/L 12 13 NT-Pro-B Natriuret Pep (<300) pg/mL 289 Total Protein (5.7-8.2) g/dL 7.7 Albumin (3.2-5.0) g/dL 4.4 TSH (0.55-4.78) uIU/mL 2.68 COVID-19 Source Nasopharynx SARS-CoV-2 (PCR) (Negative) Negative Influenza Type A (PCR) (Negative) Negative Influenza Type B (PCR) (Negative) Negative RSV (PCR) (Negative) Negative Range/Units 05/19/25 19:16 WBC (4.4-10.8) 10^3/uL RBC (4.36-5.78) 10^6/uL Hgb (13.5-17.5) g/dL Hct (40.0-50.0) % MCV (80-95) fL MCH (27.0-33.0) pg MCHC (32.0-36.0) % RDW (11.8-14.1) % Plt Count (130-400) 10^3/uL MPV (8.0-11.0) fL Immature Gran % % Neutrophils % % Lymphocytes % % Monocytes % % Eosinophils % % Basophils % % Nucleated RBC % (0.0-0.3) % Absolute Neutrophils (1.2-6.7) 10^3/uL Absolute Lymphocytes (1.2-3.4) 10^3/uL Absolute Monocytes (0.1-0.8) 10^3/uL Absolute Eosinophils (0.0-0.7) 10^3/uL Absolute Basophils (0.0-0.2) 10^3/uL D-Dimer (<500) ng/mlFEU VBG pH (7.31-7.41) 7.37 VBG pCO2 (41-51) mmHg 63 H* VBG pO2 mmHg 23 VBG HCO3 (23-28) mmol/L 37 H VBG Total CO2 (24-29) mmol/L 35 H VBG O2 Saturation % 38 VBG Base Excess (-2-3) mmol/L 11 H VBG Lactate (<or=2.0) mmol/L Sodium (136-145) mmol/L Potassium (3.5-5.1) mmol/L Chloride (98-107) mmol/L Carbon Dioxide (20.0-31.0) mmol/L Anion Gap (3-11) mmol/L BUN (9-23) mg/dL Creatinine (0.73-1.18) mg/dL Est GFR (CKD-EPI 2020) (mL/min/1.73m2) Glucose (74-106) mg/dL Calcium (8.3-10.6) mg/dL Magnesium (1.6-2.6) mg/dL Total Bilirubin (0.2-1.2) mg/dL AST (<34) U/L ALT (10-49) U/L Alkaline Phosphatase (46-116) U/L Troponin I (<54) ng/L NT-Pro-B Natriuret Pep (<300) pg/mL Total Protein (5.7-8.2) g/dL Albumin (3.2-5.0) g/dL TSH (0.55-4.78) uIU/mL COVID-19 Source SARS-CoV-2 (PCR) (Negative) Influenza Type A (PCR) (Negative) Influenza Type B (PCR) (Negative) RSV (PCR) (Negative) Medical Decision Making Results/a+P: CT chest does not show evidence of acute abnormality, pulmonary nodules per radiology interpretation on my review, CBC does not show leukocytosis, lactate within normal limits, BMP within normal limits, patient does have an elevated pCO2 at 69 and he was transition from CPAP to BiPAP. Repeat VBG pCO2 of 63, will continue BiPAP administration. Given history of COPD and current respiratory distress, I will treat patient empirically for COPD exacerbation with doxycycline 100 mg IV, IV fluids, 3 DuoNeb treatments, received 125 of Solu-Medrol by EMS and given persistent oxygen and BiPAP requirement and hypercapnic respiratory failure, patient will be admitted to the hospital service. Case discussed with Dr. Winkler who is excepted this patient to his service. Critical care time, 45 minutes of critical care time secondary to acute hypoxic hypercapnic respiratory failure requiring BiPAP administration oxygen supplementation, diagnostic imaging interpretation review, diagnostic lab interpretation and review, and admission to the hospital, IV antibiotics, IV fluids, IV steroids multiple DuoNeb treatments x 3 Quality:SDOH Health Related Social Needs: Health related social needs lonely/isolated PFSH All Active Problems (Updated 05/20/25 @ 18:18 by DARLING Guzmán) Sepsis (Acute) Acute on chronic hypoxic respiratory failure (Acute) Pneumonia (Acute) Acute respiratory failure with hypoxia (Acute) COVID-19 (Acute) Acute exacerbation of chronic obstructive pulmonary disease (Acute) Intertrochanteric fracture of right hip (Acute) DOS: 07/01/18 Dr. Hooper Tobacco abuse (Chronic) COPD (chronic obstructive pulmonary disease) (Chronic) Medical History Anxiety Depression Hyperlipemia PTSD (post-traumatic stress disorder) Surgical History H/O melanoma excision History of back surgery Lumbar discectomy Status post-operative repair of closed fracture of right hip Family History Mother , from an [place] in her 70s Heart disease Social History Smoking/Tobacco Use Status: Former Tobacco Use Tobacco: How many years used: 50 Smoking risk assessment performed?: Yes Alcohol Intake: never Drug use: Never Substance use type: does not use Household members: spouse and children Housing: apartment Do you feel safe at home: Yes Do you feel safe in your relationship?: Yes
[2025-05-20 19:59] VITALS: BP 136/79; PULSE 71; RESP 18; TEMP 36.5; O2SAT 95
[2025-05-20] MEDS: Enoxaparin 40 MG/0.4 ML SYR SC (21:39)
[2025-05-21 06:44] VITALS: BP 133/72; PULSE 58; RESP 18; TEMP 36.8; O2SAT 94
--- NOTE | 2025-05-21 07:50 | PT.INIE ---
PT Notes Visit Reasons: COPD Exacerbation Physical Therapy Inpatient Initial Evaluation Date: 05/21/2025 Referring Doctor: Suzanna Roberts NP PT Orders: PT CONSULT: Safety Consult for D/C Precautions: As of 05/20/2025 at 22:39 PM patient scored 45/125 (moderate fall risk) on the Kumari Fall Scale . Standard. Activity as tolerated. Patient Profile/Admitting Diagnosis: Felipe is a 74-year-old male who brought to the ED on 05/20/2025 via EMS due to worsening shortness of breath and increased oxygen requirement. Patient is a for management COPD, hyperlipidemia, and depression. PMHX: All Active Problems (Updated 02/14/25 @ 08:31 by John Rodriguez MD) Sepsis (Acute) Acute on chronic hypoxic respiratory failure (Acute) Pneumonia (Acute) Acute respiratory failure with hypoxia (Acute) COVID-19 (Acute) Acute exacerbation of chronic obstructive pulmonary disease (Acute) Intertrochanteric fracture of right hip (Acute) DOS: 07/01/18 Dr. Hooper Tobacco abuse (Chronic) COPD (chronic obstructive pulmonary disease) (Chronic) Medical History Anxiety Depression Hyperlipemia PTSD (post-traumatic stress disorder) Surgical History H/O melanoma excision History of back surgery Lumbar discectomy Status post-operative repair of closed fracture of right hip Social History/Home Situation: Lives with in a private home with 2 steps to enter with rail on the R side. ON 1 L of O2 at rest and 2 L with activity at baseline. Able to navigate indoors with his cane as he stated that his home is not that walker accessible. Still able to drive. Equipment Owned/DME: FWW, SPC, oxygen concentrator, portable O2 tank Subjective: Has had no falls in the past year. Minimally short of breath during level surface walking and stair negotiation. Denied headache, chest pain, and lightheadedness throughout session. Objective: General Observation: In NAD. O2 supp in place. Telemetry monitoring in place. Seated on bedside recliner. Mental Status: Alert and oriented as to person, place, time, and purpose. Able to pay attention, focus, and respond appropriately. Pain: None reported Vital Signs: SaO2 at rest 94% on 2L; SaO2 immediately after walking about 175 feet 87% on 2 L, resaturated back up to 90% after 2 minutes of seated rest; SaO2 after stair negotiation 88% on 2 L; SaO2 after walking from therapy room back to room 207 81% on 2 L with quick resatruation back to 88% after 2-3 minutes ROM: Right Upper Extremity: Shoulder Flexion allowed up to about 120 degrees. Shoulder abduction allowed up to about 100 degrees. Elbow flexion WFL. Wrist flexion WFL. Functional opening and closing of hand WFL. Left Upper Extremity: Shoulder Flexion allowed up to about 120 degrees. Shoulder abduction allowed up to about 100 degrees. Elbow flexion WFL. Wrist flexion WFL. Functional opening and closing of hand WFL. Right Lower Extremity: Hip flexion allowed up to about 110 degrees. Hip abduction WFL. Knee flexion 20 degrees to 90 degrees. Knee extension -20 degrees. Ankle dorsiflexion to neutral only. Ankle plantarflexion WFL. Left Lower Extremity: Hip flexion allowed up to about 110 degrees. Hip abduction WFL. Knee flexion 20 degrees to 90 degrees. Knee extension -20 degrees. Ankle dorsiflexion to neutral only. Ankle plantarflexion WFL. Strength: Right Upper Extremity: Shoulder flexors 3-/5. Shoulder abductors 3-/5. Elbow flexors 4-/5. Elbow extensors 4-/5. Heel Builder strong. Left Upper Extremity: Shoulder flexors 3-/5. Shoulder abductors 3-/5. Elbow flexors 4-/5. Elbow extensors 4-/5. Heel Builder strong. Right Lower Extremity: Hip flexors 3-/5. Hip abductors 3-/5. Knee flexors 3-/5. Knee extensors 3-/5. Ankle dorsiflexors 3-/5. Ankle plantarflexors 4-/5. Left Lower Extremity: Hip flexors 3-/5. Hip abductors 3-/5. Knee flexors 3-/5. Knee extensors 3-/5. Ankle dorsiflexors 3-/5. Ankle plantarflexors 4-/5. Bed Mobility/Transfers: Minimal cueing provided for use of B hands as needed for support, movement sequence, AD management, and posture to reduce fall risk and minimize pain report Sit to stand supervision with FWW Stand to sit supervision with FWW Bed to reclining chair supervision with FWW Reclining chair to bed supervision with FWW Gait: Facilitate safe and correct performance of patient, and 75 feet plus feet using oxygen supplementation 2 L/min female seen with SaO2 fluctuation as above. Standby assist only. Shortness of breath observed subsided with rest. Step height and length. Decreased shavon. No LOB. Minimal verbal cueing provided for AD management and self pacing. Stairs: Gait patient is safe and correct negotiation 6 x 4 inch steps and 4 x 6 inch steps while holding onto 1 rail standby assist on with step over step gait pattern. Minimal verbal cueing provided for pacing to offset shortness of breath and for safe technique. Balance: Static Sitting: Normal Dynamic Sitting: Normal Static Standing: Good Dynamic Standing: Fair Special Tests: Mobility Limitations Standardized Measure [facility] AM-PAC 6 clicks Basic Mobility Inpatient Short Form: Raw Score: 23 CMS Score: 11% deficit Informed Consent/Education: Patient was instructed in purpose of PT consult and plan of care. Agreeable to proceed with established PT POC to achieve personal goals. Assessment: Patient is able to recover back up to WNL oxygen saturation within 2-3 minutes of low intensity and inorr distances coverages of 150 feet at a time with FWW. Will assess how his oxygen level responds with trial of levle surface ambulation using the SPC n the next sesison. Patient presents with clinical signs and symptoms consistent with current/admitting diagnoses that have resulted to mobility limitations, gait instability, generalized weakness, and overall ADL decline as demonstrated by the following impairment level findings: 1. Decreased strength to B UE/LE major muscle groups 2. Impaired standing balance 3. Impaired activity tolerance 4. Limitation of joint range of motion in B shoulders, hips, and knees 5. Shortness of breath Impairments are contributing to the following functional limitations: 1. Decline in bed mobility skills 2. Decline in transfer skills 3. Difficulty with ambulation without assistive device and physical assistance 4. Increased completion time for mobility ADL performance 5. Increased risk for falls 6. Difficulty with managing steps alone safely Patient is [place] a 95117 moderate complexity based on the following: History: 74-year-old male with past medical history as indicated above Examination: Demonstrable impairment in strength, balance, and mobility level with underlying impairments and functional limitations as exhibited above as well as deficit score of 11% utilizing the [facility] Mobility Inpatient Short Form Presentation: Evolving Decision Makin moderate complexity Goals: Goals X1 week 1. Supine-Sit independent 2. Sit-Supine independent 3. Sit-Stand independent 4. Stand-Sit independent with SPC 5. Bed-Chair independent with SPC 6. Chair-Bed independent with SPC 7. Independent gait on level surface with use of SPC for at least 300 feet without report of pain nor dyspnea 8. Independent stair negotiation while holding onto 1 rail for at least 3 steps without report of pain nor dyspnea 9. Independent with home exercise program 10. Good static and dynamic standing balance/tolerance Plan of Care/Treatment Plan: 1-2x/day, 7 days/week x 1 week. Plan of care has been reviewed with the LEAD LOADER providing the service under Physical Therapy direction. Initiate Physical Therapy intervention for pain management as needed, strengthening, bed mobility, transfers, gait, stairs, balance training, and use of assistive device. DISCHARGE RECOMMENDATIONS: PT for continued rehabilitation to address ventilatory compromise and regain independent PLOF with SPC TREATMENT CODE/TIME: 93912 x 20 minutes for 1 unit, 30103 x 10 minutes for 1 unit (7:50-8:20). Thank you for the opportunity to participate in the care of this patient. Fani Schwartz PT, DPT, CLT [facility] [place], [place]
--- NOTE | 2025-05-21 08:24 | PDOC.CMDIS ---
Date of service: 05/21/25 Time of Service: 08:24 LACE Index Scoring Tool Questions: Length of Stay (in days): 2 Was the patient admitted via the E.D.?: Yes Comorbidities: Chronic Pulmonary Disease E.D. Visits: 2 Answers: Total Score: 9 Risk of Readmission: Low Risk Care Management Discharge Plan Reason for Hospitalization: COPD Discharge Plan: Felipe is being discharged home with new [facility] RN/PT via private vehicle with family. He will follow up with community providers and continue per his discharge plan of care. Patient/Family Education Needs: Review discharge instructions and plan to follow up after discharge. Discuss ask me three. Services Needed at Discharge: Home Health Care Services (New [facility] RN/PT) SDOH Health Related Social Needs: Health related social needs lonely/isolated
[2025-05-21 08:43] VITALS: O2SAT 93
[2025-05-21] MEDS: Pt's Own Budesonide-Glycopyr-Formoterol [Breztri Aerosphere] Inhaler 1 EACH IH (08:45)
[2025-05-21] MEDS: predniSONE 20 MG TAB 40 MG PO ×2 (09:07→16:02)
[2025-05-21] MEDS: Sertraline 25 MG TAB PO (09:07)
[2025-05-21] MEDS: Normal Saline Flush 10 ML SYR IVP ×2 (09:07→19:38)
[2025-05-21] MEDS: Omega-3 Fatty Acids 1000 MG CAP PO (09:08)
[2025-05-21] MEDS: Ascorbic Acid 500 MG TAB 1000 MG PO (09:08)
[2025-05-21] MEDS: Pantoprazole 40 MG TABCR PO (09:08)
[2025-05-21] MEDS: guaiFENesin 600 MG TABCR 1200 MG PO ×2 (09:08→19:37)
[2025-05-21] MEDS: Cholecalciferol (Vitamin D3) 1,000 UNIT TAB 2000 UNITS PO (09:08)
[2025-05-21] MEDS: Benzonatate 100 MG CAP PO (09:08)
[2025-05-21] MEDS: Aspirin 81 MG CHEW PO (09:08)
[2025-05-21] MEDS: amLODIPine 5 MG TAB PO (09:08)
[2025-05-21] MEDS: Magnesium Gluconate 500 MG TAB PO (09:09)
[2025-05-21] MEDS: Doxycycline Hyclate 100 MG CAP PO ×2 (09:09→19:37)
[2025-05-21] MEDS: Zinc Sulfate 220 MG TAB PO (09:09)
[2025-05-21] MEDS: Atorvastatin 20 MG TAB 10 MG PO (09:09)
[2025-05-21] MEDS: Loratidine 10 MG TAB PO (09:09)
--- NOTE | 2025-05-21 09:52 | W.NUTRFU ---
Date of service: 05/21/25 Time of Service: 09:52 Nutrition Note NOTE: Mr Tom being treated for acute resp failure/sepsis/PNA. Weight is stable per weight history and per patient interview -reports healthy UBW of ~170lbs. Fair to good appetite and intake with meals - little lower appetite with being in the hospital but shares the quality of the food has been exceptional. tolerating regular diet with normal consistencies. Denies concerns with chewing/swallowing. Slightly elevated glucose with steroids this admission but not concerning at this time. Denies need/desire for ONS this admission. NFPE: not completed - pt declined at this time. No acute nutrition dx at this time. Will continue to monitor intake, weight, nutrition-related labs. Time Spent in Nutritional Counseling and Treatment: 10 min
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
--- NOTE | 2025-05-21 12:54 | PGE_ITS ---
Date of Service Date of service: 05/21/25 Time of Service: 12:54 Assessment and Plan Assessment and plan (1) Acute on chronic respiratory failure with hypercapnia: Start date: 05/21/25 Start time: 13:07 Status: Acute Assessment and plan: Patient w/o chronic O2 requirement at 2l/min via nasal canula at home and presenting with saturation in the 80's% . Maintains sat at 88-92% on 8l/min of oxygen via nasal canula and BIPAP overnight for PCO2 at 69 with PH 7.34, HCO3 37 Now at baseline- but SOB and increased WOB with PT -= sat dropped to 81% on 2 liter of oxygen D-dimer 992 on admission -Pulmonary emboli ruled out No pleural effusion Moderately severe emphysematous changes.on imaging Wean Oxygen for saturation 88-92% Continue doxycycline Was on higher dose oral prednisone- will start taper today Blood cultures negative (2) Acute exacerbation of chronic obstructive pulmonary disease: Start time: 13:07 Status: Acute Assessment and plan: 2nd episode since January Considered a pulmonology consult but mot available today Exacerbated d/t above - sat goals 88-92% on baseline oxygen of 2l/min resumed at this time Increased cough - secretion more copious w/o change in color , unable to ambulate 50 feet w/o distress PT consult Ongoing home therapy with scheduled and PRN nebs Continue acapella- cough and deep breathing , mucinex PRN Tessalon perles Does not smoke anymore but positive passive exposure d/t to spouse nicotine dependence (3) GERD (gastroesophageal reflux disease): Start time: 13:07 Assessment and plan: C/w home dose PPI (4) PTSD (post-traumatic stress disorder): Assessment and plan: C/w home sertraline (5) Hyperlipidemia: Assessment and plan: Ongoing home dose statin (6) On deep vein thrombosis (DVT) prophylaxis: Status: Deleted Assessment and plan: On LMWH Discussed with Dr. Marin Discharge Planning Discharge Plannin05/22/25 Subjective Subjective Patient reports: feels better, tolerating liquids well, tolerating a regular diet, voiding w/o difficulty, flatus, bowel movement and shortness of breath (improving but still SOB with ambulation with PT and desturation with oxygen - feels not ready to be discharge and concerns about immediate d/c period re- admission mentioned ); denies diarrhea, nausea, vomiting or fever Exam Narrative Exam Narrative: Alert and oriented 74-year-old male in no acute distress while sitting in chair , improved air-flow to both lungs, no wheezing or accessory muscle use seen today , cardiac rate rhythm regular, S1 S2 no murmur abdomen is non-acute , no CVA tenderness Objective Last Vital Signs Temp 36.8 C 05/21/25 06:44 Pulse 58 L 05/21/25 06:44 Resp 18 05/21/25 06:44 BP 133/72 05/21/25 06:44 Pulse Ox 93 05/21/25 08:43 VTE Prohylaxis Risk Level: Moderate/High Risk Contraindications: None Prophylaxis: Pharmacologic Time Spent with Patient Time Spent with Patient: >50 minutes Time was spent: preparing to see the patient(eg.review tests), obtaining and/or reviewing separately otained hiistory, ordering medications,tests, procedures, referring, communicating with other health respiratory care practitioner, indepentently interpreting results, counseling the patient, care coordination and other
--- NOTE | 2025-05-21 13:29 | PT.INTREAT ---
PT Notes Visit Reasons: COPD Exacerbation Physical Therapy Inpatient Treatment Note Date: 05/21/2025 Precautions: As of 05/20/2025 at 22:39 PM patient scored 45/125 (moderate fall risk) on the Kumari Fall Scale . Standard. Activity as tolerated. Subjective: Violet much better this afternoon. Objective: General Observation: In NAD. O2 supp in place. Telemetry monitoring in place. Seated on bedside recliner. Mental Status: Alert and oriented as to person, place, time, and purpose. Able to pay attention, focus, and respond appropriately. Pain: None reported Vital Signs: SaO2 at rest 94% on 2L; SaO2 immediately after walking about 175 feet 87% on 2 L, resaturated back up to 90% after 2 minutes of seated rest; SaO2 after stair negotiation 88% on 2 L; SaO2 after walking from therapy room back to room 207 81% on 2 L with quick resatruation back to 88% after 2-3 minutes ROM: Right Upper Extremity: Shoulder Flexion allowed up to about 120 degrees. Shoulder abduction allowed up to about 100 degrees. Elbow flexion WFL. Wrist flexion WFL. Functional opening and closing of hand WFL. Left Upper Extremity: Shoulder Flexion allowed up to about 120 degrees. Shoulder abduction allowed up to about 100 degrees. Elbow flexion WFL. Wrist flexion WFL. Functional opening and closing of hand WFL. Right Lower Extremity: Hip flexion allowed up to about 110 degrees. Hip abduction WFL. Knee flexion 20 degrees to 90 degrees. Knee extension -20 degrees. Ankle dorsiflexion to neutral only. Ankle plantarflexion WFL. Left Lower Extremity: Hip flexion allowed up to about 110 degrees. Hip abduction WFL. Knee flexion 20 degrees to 90 degrees. Knee extension -20 degrees. Ankle dorsiflexion to neutral only. Ankle plantarflexion WFL. Strength: Right Upper Extremity: Shoulder flexors 3-/5. Shoulder abductors 3-/5. Elbow flexors 4-/5. Elbow extensors 4-/5. Electric Blanket Packer strong. Left Upper Extremity: Shoulder flexors 3-/5. Shoulder abductors 3-/5. Elbow flexors 4-/5. Elbow extensors 4-/5. Electric Blanket Packer strong. Right Lower Extremity: Hip flexors 3-/5. Hip abductors 3-/5. Knee flexors 3-/5. Knee extensors 3-/5. Ankle dorsiflexors 3-/5. Ankle plantarflexors 4-/5. Left Lower Extremity: Hip flexors 3-/5. Hip abductors 3-/5. Knee flexors 3-/5. Knee extensors 3-/5. Ankle dorsiflexors 3-/5. Ankle plantarflexors 4-/5. Bed Mobility/Transfers: Minimal cueing provided for use of B hands as needed for support, movement sequence, AD management, and posture to reduce fall risk and minimize pain report Sit to stand supervision with FWW Stand to sit supervision with FWW Bed to reclining chair supervision with FWW Reclining chair to bed supervision with FWW Gait: Facilitate safe and correct performance of patient, and 75 feet plus feet using oxygen supplementation 2 L/min female seen with SaO2 fluctuation as above. Standby assist only. Shortness of breath observed subsided with rest. Step height and length. Decreased shavon. No LOB. Minimal verbal cueing provided for AD management and self pacing. Stairs: Gait patient is safe and correct negotiation 6 x 4 inch steps and 4 x 6 inch steps while holding onto 1 rail standby assist on with step over step gait pattern. Minimal verbal cueing provided for pacing to offset shortness of breath and for safe technique. Balance: Static Sitting: Normal Dynamic Sitting: Normal Static Standing: Good Dynamic Standing: Fair Special Tests: Mobility Limitations Standardized Measure [facility] AM-PAC 6 clicks Basic Mobility Inpatient Short Form: Raw Score: 23 CMS Score: 11% deficit Informed Consent/Education: Patient was instructed in purpose of PT consult and plan of care. Agreeable to proceed with established PT POC to achieve personal goals. Assessment: Patient is able to recover back up to WNL oxygen saturation within 2-3 minutes of low intensity and inorr distances coverages of 150 feet at a time with FWW. Will assess how his oxygen level responds with trial of levle surface ambulation using the SPC n the next sesison. Patient presents with clinical signs and symptoms consistent with current/admitting diagnoses that have resulted to mobility limitations, gait instability, generalized weakness, and overall ADL decline as demonstrated by the following impairment level findings: 1. Decreased strength to B UE/LE major muscle groups 2. Impaired standing balance 3. Impaired activity tolerance 4. Limitation of joint range of motion in B shoulders, hips, and knees 5. Shortness of breath Impairments are contributing to the following functional limitations: 1. Decline in bed mobility skills 2. Decline in transfer skills 3. Difficulty with ambulation without assistive device and physical assistance 4. Increased completion time for mobility ADL performance 5. Increased risk for falls 6. Difficulty with managing steps alone safely Patient is assessed as a 61869 moderate complexity based on the following: History: 74-year-old male with past medical history as indicated above Examination: Demonstrable impairment in strength, balance, and mobility level with underlying impairments and functional limitations as exhibited above as well as deficit score of 11% utilizing the [facility] Mobility Inpatient Short Form Presentation: Evolving Decision Makin moderate complexity Goals: Goals X1 week 1. Supine-Sit independent 2. Sit-Supine independent 3. Sit-Stand independent 4. Stand-Sit independent with SPC 5. Bed-Chair independent with SPC 6. Chair-Bed independent with SPC 7. Independent gait on level surface with use of SPC for at least 300 feet without report of pain nor dyspnea 8. Independent stair negotiation while holding onto 1 rail for at least 3 steps without report of pain nor dyspnea 9. Independent with home exercise program 10. Good static and dynamic standing balance/tolerance Plan of Care/Treatment Plan: 1-2x/day, 7 days/week x 1 week. Plan of care has been reviewed with the POWER EQUIPMENT MECHANICS INSTRUCTOR providing the service under Physical Therapy direction. Initiate Physical Therapy intervention for pain management as needed, strengthening, bed mobility, transfers, gait, stairs, balance training, and use of assistive device. DISCHARGE RECOMMENDATIONS: PT for continued rehabilitation to address ventilatory compromise and regain independent PLOF with SPC TREATMENT CODE/TIME: 28998 x 20 minutes for 1 unit, 09239 x 10 minutes for 1 unit (7:50-8:20).
--- NOTE | 2025-05-21 13:29 | PTTR_ITS ---
PT Notes Visit Reasons: COPD Exacerbation Physical Therapy Inpatient Initial Evaluation Date: 05/21/2025 Precautions: As of 05/20/2025 at 22:39 PM patient scored 45/125 (moderate fall risk) on the Kumari Fall Scale . Standard. Activity as tolerated. Subjective: Happy that he could stay one night more to feel better. 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 Okay with going straight ot bed after session so he could rest. Objective: General Observation: In NAD. O2 supp in place. Telemetry monitoring in place. Seated on bedside recliner. Mental Status: Alert and oriented as to person, place, time, and purpose. Able to pay attention, focus, and respond appropriately. Pain: None reported Vital Signs: SaO2 after walking from room to therapy room for about 200 feet 84% on 2 L recovered to 89% in less than a minute, 96 bpm from 103 bpm in less than a minute After doing stepping ex x 10 patient had a quick desaturation to 87% than jumped up to 96% then went back down to 87% and finally back up to 88% aft er a quick second Bed Mobility/Transfers: Minimal cueing provided for use of B hands as needed for support, movement sequence, AD management, and posture to reduce fall risk and minimize pain re port Sit to stand supervision with FWW Stand to sit supervision with FWW Bed to reclining chair supervision with FWW Reclining chair to bed supervision with FWW Gait: Facilitate safe and correct performance of patient, and 200 feet plus feet using oxygen supplementation 2 L/min female seen with SaO2 fluctuation as above. Standby assist only. Shortness of breath observed subsided with rest. Step height and length. Decreased shavon. No LOB. Minimal verbal cueing provided for AD management and self pacing. Stairs: Patient was able to tolerate x 10 of stepping exercises over 6-inch step height while holding onto B rails with desaturation to 87% and a quick recovery to 88% in less than a minute Balance: Static Sitting: Normal Dynamic Sitting: Normal Static Standing: Good Dynamic Standing: Fair Assessment: Recovery time after performing mobility tasks less than a minute, a lot faster than how he did this morning. Patient was given a long-hanled shoe hor and a sock aid that can help him with SOB reduction with lower body dressing. Will benefit from HH PT and OT to increase strength, balance, and mobiity level to regain PLOF. Plan of Care/Treatment Plan: 1-2x/day, 7 days/week x 1 week. Plan of care has been reviewed with the ROLL MECHANIC providing the service under Physical Therapy direction. Initiate Physical Therapy intervention for pain management as needed, strengthening, bed mobility, transfers, gait, stairs, balance training, and use of assistive device. DISCHARGE RECOMMENDATIONS: HH PT for continued rehabilitation to address ventilatory compromise and regain independent PLOF with SPC TREATMENT CODE/TIME: 21305 x 35 minutes for 2 units (13:29-14:04).
--- NOTE | 2025-05-21 16:07 | CHAPLAIN ---
Felipe was sitting up in bed, watching tv when I visited. 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 Felipe said he is well supported by the [place]. He also talked about facing the challenges of getting older and being surprised that he now needs more help, and is continent, as being very independent his whole life. He is a member of the [employer] of the [employer] [facility] but has not attended the anabaptism regularly. He said he believes that many faiths follow the same basic principles. Felipe expects to go home tomorrow.
[2025-05-21 19:15] VITALS: BP 139/81; PULSE 64; RESP 18; TEMP 36.8; O2SAT 93
[2025-05-21] MEDS: Enoxaparin 40 MG/0.4 ML SYR SC (19:38)
[2025-05-21] MEDS: Pt's Own Budesonide-Glycopyr-Formoterol [Breztri Aerosphere] Inhaler 2 EACH IH (20:39)
[2025-05-21 20:40] VITALS: O2SAT 95
--- NOTE | 2025-05-21 23:43 | NUR.NOTE ---
White pustules reported by Pt's RN to MD stat POC swab of back of throat done and POC tested neg. Order written as tonsil but whole back of throat swabbed. Nursing Note:
[2025-05-22 03:09] VITALS: BP 119/69; PULSE 53; O2SAT 94
[2025-05-22 06:53] LABS: Abs Immature Grans 0.04 10^3/uL (0.0-0.06); HCT 34.3 % (40.0-50.0); HGB 11.0 g/dL (13.5-17.5); Immature Grans % 0.4 %; MCH 29.8 pg (27.0-33.0); MCHC 32.1 % (32.0-36.0); MCV 93 fL (80-95); MPV 10.0 fL (8.0-11.0); Platelet Count 321 10^3/uL (130-400); RBC 3.69 10^6/uL (4.36-5.78); RDW 11.9 % (11.8-14.1); RDW-SD 40.4 fL; WBC 9.13 10^3/uL (4.4-10.8)
[2025-05-22 07:08] LABS: Anion Gap 8.2 mmol/L (3-11); BUN 32 mg/dL (9-23); CO2 34.8 mmol/L (20.0-31.0); Calcium 9.6 mg/dL (8.3-10.6); Chloride 103 mmol/L (98-107); Glucose 107 mg/dL (74-106); Potassium 4.0 mmol/L (3.5-5.1); Sodium 146 mmol/L (136-145)
[2025-05-22 07:10] LABS: Magnesium 1.9 mg/dL (1.6-2.6)
[2025-05-22 07:32] VITALS: BP 120/63; PULSE 56; RESP 17; TEMP 36.6; O2SAT 95
[2025-05-22 08:00] VITALS: BP 146/79; PULSE 83; RESP 18; TEMP 36.8
[2025-05-22 08:05] VITALS: O2SAT 90
[2025-05-22] MEDS: Pt's Own Budesonide-Glycopyr-Formoterol [Breztri Aerosphere] Inhaler 2 EACH IH (08:45)
[2025-05-22 08:46] VITALS: O2SAT 87
[2025-05-22 08:47] VITALS: O2SAT 92
[2025-05-22] MEDS: predniSONE 20 MG TAB 40 MG PO (09:01)
[2025-05-22] MEDS: Aspirin 81 MG CHEW PO (09:02)
[2025-05-22] MEDS: Atorvastatin 10 MG TAB PO (09:02)
[2025-05-22] MEDS: Omega-3 Fatty Acids 1000 MG CAP PO (09:03)
[2025-05-22] MEDS: Ascorbic Acid 500 MG TAB 1000 MG PO (09:03)
[2025-05-22] MEDS: Cholecalciferol (Vitamin D3) 1,000 UNIT TAB 2000 UNITS PO (09:03)
[2025-05-22] MEDS: Sertraline 25 MG TAB PO (09:03)
[2025-05-22] MEDS: guaiFENesin 600 MG TABCR 1200 MG PO (09:04)
[2025-05-22] MEDS: Magnesium Gluconate 500 MG TAB PO (09:04)
[2025-05-22] MEDS: amLODIPine 5 MG TAB PO (09:05)
[2025-05-22] MEDS: Doxycycline Hyclate 100 MG CAP PO (09:05)
[2025-05-22] MEDS: Zinc Sulfate 220 MG TAB PO (09:05)
[2025-05-22] MEDS: Pantoprazole 40 MG TABCR PO (09:05)
[2025-05-22] MEDS: Loratidine 10 MG TAB PO (09:06)
[2025-05-22] MEDS: Nystatin 500000 UNITS/5 ML SUSP 5ML CUP PO ×2 (09:06→12:46)
--- NOTE | 2025-05-22 09:08 | PTTR_ITS ---
PT Notes Visit Reasons: COPD Exacerbation Physical Therapy Inpatient Treatment Note Date: 05/22/2025 Precautions: As of 05/20/2025 at 22:39 PM patient scored 45/125 (moderate fall risk) on the Kumari Fall Scale . Standard. Activity as tolerated. Subjective: Looking forward to going home. Agreeable to doing HH PT upon discharge. Per Nurse Stephon, patient has been just on 1L O2 at rest. Objective: General Observation: In NAD. O2 supp in place. Telemetry monitoring in place. Seated on bedside recliner. Mental Status: Alert and oriented as to person, place, time, and purpose. Able to pay attention, focus, and respond appropriately. Pain: None reported Vital Signs: Oxygen saturation of above 90% on 2 L throughout Bed Mobility/Transfers: Minimal cueing provided for use of B hands as needed for support, movement sequence, AD management, and posture to reduce fall risk and minimize pain report Sit to stand independent with FWW Stand to sit independent with FWW Bed to reclining chair independent with FWW Reclining chair to bed independent with FWW Gait: 200 feet + 200 feet + 200 feet. First two walks with FWW, third one with SPC. Stand by assist for all. Minimal cueing needed for safety and AD management. Oxygen saturation increased back up from 87% in less than a minute on 2 L. Balance: Static Sitting: Normal Dynamic Sitting: Normal Static Standing: Good Dynamic Standing: Fair Assessment: Recovery time after performing mobility tasks continue to take less than a minute. Patient will benefit from continued HH PT to regain prior level of independent function with SPC. Plan of Care/Treatment Plan: 1-2x/day, 7 days/week x 1 week. Plan of care has been reviewed with the ENVIRONMENTAL EDUCATOR providing the service under Physical Therapy direction. Initiate Physical Therapy intervention for pain management as needed, strengthening, bed mobility, transfers, gait, stairs, balance training, and use of assistive device. DISCHARGE RECOMMENDATIONS: HH PT for continued rehabilitation to address ventilatory compromise and regain independent PLOF with SPC TREATMENT CODE/TIME: 53134 x 39 minutes for 3 units (09:08-09:47).
--- NOTE | 2025-05-22 09:30 | RT.EKG_ITS ---
APPROVED REPORT Exam: Resting ECG Reason for Exam: new rhythm Patient Location: I HR:64 bpm ECG Measurements Heart Rate 64 AXIS CA 158 P 61 QRSd 158 QRS -90 QT 429 T 50 QTc 443 Conclusion Sinus rhythm...normal P axis, V-rate 50- 99 RBBB and LAFB...QRSd >120mS, axis(-40,240)
--- NOTE | 2025-05-22 09:40 | W.PM.PROGNOT ---
Date of Service Date of service: 05/22/25 Time of Service: 09:40 Objective Last Vital Signs Temp 36.8 C 05/22/25 08:00 Pulse 83 05/22/25 08:00 Resp 18 05/22/25 08:00 BP 146/79 H 05/22/25 08:00 Pulse Ox 92 05/22/25 08:47 Laboratory Results - last 24 hr 05/22/25 06:16 WBC 9.13 RBC 3.69 L Hgb 11.0 L Hct 34.3 L MCV 93 MCH 29.8 MCHC 32.1 RDW 11.9 Plt Count 321 MPV 10.0 Immature Gran % 0.4 Neutrophils % 82.7 Lymphocytes % 11.1 Monocytes % 5.7 Eosinophils % 0.0 Basophils % 0.1 Nucleated RBC % 0.0 Absolute Neutrophils 7.55 H Absolute Lymphocytes 1.01 L Absolute Monocytes 0.52 Absolute Eosinophils 0.00 Absolute Basophils 0.01 Sodium 146 H Potassium 4.0 Chloride 103 Carbon Dioxide 34.8 H Anion Gap 8.2 BUN 32 H Creatinine 0.81 Est GFR (CKD-EPI 2020) 92.49 Glucose 107 H Calcium 9.6 Magnesium 1.9 VTE Prohylaxis Risk Level: Moderate/High Risk Contraindications: None Prophylaxis: Pharmacologic
--- NOTE | 2025-05-22 10:01 | PDOC.CMPRO ---
Date of service: 05/22/25 Time of Service: 10:01 Care Management Progress Note Discharge Potential Discharge Needs: PCP F/U Appt Anticipated Barriers to Discharge: None Identified Patient/Family Education Needs: Review discharge instructions, discuss Ask Me Three Transportation: Private vehicle Plan: Felipe will discharge home with New [facility] RN/PT via private vehicle with once medically ready. [facility] with [facility] and continue per his discharge plan of care. CM will follow. Social Determinants of Health Screening Social Determinants of health last assessed in clinic: 05/21/25 Will the Patient Participate in the Screening?: Yes Do you worry about having a steady place to live?: no Problems where you live: no known problems In the past 12 months, have you had to go without electric, gas, oil or water in your home?: no Has lack of transportation kept you from medical appointments or from doing things needed for daily living?: no Has anyone in your life made you feel unsafe or unsupported?: no How hard is it for you to pay for the very basics like food, housing, medical care, and heating? Would you say it is:: Not hard at all Do you want help finding or keeping work or a job?: I do not need or want help If for any reason you need help with day-to-day activities such as bathing, preparing meals, shopping, managing finances, etc., do you get the help you need?: I get all the help I need How often do you feel lonely or isolated from those around you?: Rarely Do you speak a language other than Emirati at home?: No Does the patient want assistance with any of the above?: No Health Related Social Needs Health related social needs: feeling lonely/isolated (Z60.8)
[2025-05-22 10:48] LABS: Troponin I 20 ng/L (<54)
--- NOTE | 2025-05-22 14:11 | PDOC.CMDIS ---
Date of service: 05/22/25 Time of Service: 14:11 LACE Index Scoring Tool Questions: Length of Stay (in days): 3 Was the patient admitted via the E.D.?: Yes Comorbidities: Chronic Pulmonary Disease E.D. Visits: 1 Answers: Total Score: 9 Risk of Readmission: Low Risk Care Management Discharge Plan Reason for Hospitalization: COPD exacerbation Discharge Plan: Felipe will return home with new orders for HH RN, PT. [facility], informing of [facility] discharge and requesting that they [facility] HH services. Due to the holiday, his HH start of care may be delayed. CM explained this to Felipe, who stated that he is comfortable with the support he has at home, as his adult son and DIL are there to provide help. HH reported that they may be able to use his MCR benefit to start his care sooner, and will communicate with the [facility]. Felipe will transport home via private vehicle by his son. He will follow up with his PCP and discharge plan of care. He is happy to be going home in time for Mary[place]. Patient/Family Education Needs: Review discharge instructions and limitations, discussion of self care needs including ask me three. Services Needed at Discharge: Home Health Care Services (new HH RN, PT) SDOH Health Related Social Needs: Health related social needs food insecurity
--- NOTE | 2025-05-22 14:17 | DSE_ITS ---
Date of service: 05/22/25 Time of Service: 14:17 DS: Diagnosis Discharge Diagnosis (1) Acute on chronic respiratory failure with hypercapnia: Status: Acute (2) Acute exacerbation of chronic obstructive pulmonary disease: Status: Acute (3) GERD (gastroesophageal reflux disease): (4) PTSD (post-traumatic stress disorder): (5) Hyperlipidemia: (6) On deep vein thrombosis (DVT) prophylaxis: Status: Deleted Discharge Plan Disposition Patient Disposition: Home W/Home Health Services Home Health Services: New Referral Anticipated Discharge Date/Time: 05/22/25 12:00 Condition: Improving Discharge Details Reason For Visit: COPD Exacerbation Admit Date/Time: 05/19/25 19:58 Admit Provider: Eric Winkler Attending Provider: Eric Winkler Primary Care Provider: Karrie Baumann Hospital Course Hospital Course: Mr Tom is a 74-year-old gentleman with a known history of COPD and chronic home oxygen use 2 L nasal cannula, COPD, chronic hypoxia on home oxygen at 2 L, GERD, hyperlipidemia, PTSD who presented to the ED on 05/19/25 for evaluation of worsening dyspnea and increased cough over the last couple days to the point where he could not walk more than 5 to 10 feet without getting short of breath. He did have 1 episode of mild chest pain that resolved without intervention besides aspirin. Regards to his workup he had multiple studies done including labs, radiographs, CT of the chest, EKG and VBG. Patient's D-dimer was elevated at [address] chest with contrast did not show PE. EKG did show right axis deviation as well as a right bundle branch block. As per VBG showing hypoxia and hypercapnia oxygen. NIV/BIPAP was initiated with much improvement in regards to his symptomology. Viral respiratory panel was negative. Patient was admitted for COPD exacerbation, acute on chronic hypoxic respiratory failure w hypercabia. Prednisone burst and doxycycline were initiated with continuous improvement.PRN and scheduled nebulizer treatment administered with ongoing home Breztri. Previously on Tiotropium; restarting discussed with patient and not proven to have extra benefits while on Breztri, recommendation made to discuss adequacy of roflumilast, chronic antibiotic or surgical lung reduction procedures. Patient mentioning difficulty to make it to [facility] to see pulmonary providers. [facility] pulmonary referral completed. ACS work-up was negative. The patient will be discharged home with home health PT, nursing. The patient is afebrile, hemodynamically stable and will be on a prdenisone taper and a short course of antibiotic. Discussed with Kevin Lloyd Recommendations for Follow Up Recommended tests to be ordered by follow up provider: Pulmonary rehabilitation referral needed from [facility] provider, RN PT referral also needed Home Meds and New Rx's Prescriptions: New acetaminophen 325 mg Tablet 650 mg PO Q6H PRNQty: 30 0RF benzonatate 100 mg Capsule 100 mg PO TID PRN PRNQty: 30 0RF docusate sodium [Colace] 100 mg Capsule 100 mg PO TID PRN PRNQty: 30 0RF guaifenesin [Mucus Relief ER] 600 mg Tablet Extended Release 12hr 1,200 mg PO BID Qty: 10 0RF prednisone 20 mg Tablet 60 mg PO DAILY Qty: 20 0RF Rx Instructions: Take 60 mg for 3 days, then 40 mg X3 days, then 20 mg X3 days then 10 mg X3 days doxycycline hyclate 100 mg tablet 100 mg PO BID Qty: 8 0RF Continued atorvastatin [Lipitor] 20 MG tablet 10 mg PO DAILY AM sertraline [Zoloft] 25 MG tablet 25 mg PO DAILY coenzyme Q10 [CoQ-10] 100 MG capsule 100 mg PO DAILY pantoprazole [Protonix] 40 MG tablet,delayed release (DR/EC) 40 mg PO DAILY Qty: 30 0RF Rx Instructions: 1 po QD magnesium 250 mg Tablet 500 mg PO DAILY albuterol sulfate 90 mcg/actuation Hfa Aerosol Inhaler 2 mcg Inhalation PRN PRN ascorbic acid (vitamin C) [Vitamin C] 1,000 mg Tablet 1,000 mg PO DAILY Black Elderberry 1 tab PO DAILY ipratropium-albuterol 0.5 mg-3 mg(2.5 mg base)/3 mL Solution For Nebulization 3 ml UPD Q4H PRN PRNQty: 180 0RF zinc sulfate [Zinc-220] 50 mg zinc (220 mg) Capsule 220 mg PO DAILY Qty: 7 0RF cholecalciferol (vitamin D3) 25 mcg (1,000 unit) Tablet 2,000 units PO DAILY Qty: 14 0RF amlodipine 5 mg tablet 5 mg PO DAILY omega-3 fatty acids-vitamin E 1,000 mg Capsule 1 cap PO DAILY aspirin 81 mg tablet,chewable 81 mg PO DAILY loratadine 10 mg capsule 10 mg PO DAILY Qty: 10 0RF Breztri Aerosphere 160-9-4.8 mcg/actuation HFA aerosol inhaler 2 inh inhalation BID silvestre goss 250 mg capsule 500 mg PO DAILY prednisone 20 mg Tablet 40 mg PO DAILY Qty: 10 0RF benzonatate 100 mg Capsule 100 mg PO TID PRN PRNQty: 30 0RF Discontinued guaifenesin [Mucus Relief ER] 600 mg Tablet Extended Release 12hr 1,200 mg PO BID Qty: 10 0RF Discharge Instructions Stand Alone Forms: Portal Information Referrals: Karrie Baumann [Primary Care Provider, Medicine] Referral Note: Follow-up with PCP within 7 days of discharge - Needs chemical process operator Darwin Garduno MD [ [facility] STAFF PHYSICIAN, Pulmonology] Referral Note: Advanced COPD emphysema - multiple admissions/12 months - Cannot make it to [facility] where he is seen Activity:: Activity as Tolerated Equipment/Supplies:: No Equipment Needed Diet:: As per FIELD MARKETING ASSOCIATE DS: Summary Time Spent with Patient providing and/or coordinating discharge services: Greater than 30 minutes Status at Discharge Functional status at discharge: uses cane/walker Overall status at discharge: patient is progressing back to baseline Mental Status: mental status grossly normal Speech and Movement: speech and movement normal Mood: congruent mood Affect: normal affect Quality:SDOH Health Related Social Needs: Health related social needs food insecurity Exam Narrative Exam Narrative: Alert and oriented 74-year-old male patient w/o acute distress while sitting on the side , improved air-flow to both lungs, no wheezing or accessory muscle use seen , cardiac rate rhythm regular, S1 S2- SR as per EKG w/o signs coronary occlusion no murmur abdomen is non-acute , no CVA tenderness- ambulates in room with baseline O2 w/o persistent exacerbation. Psych Mental Status: mental status grossly normal Speech and Movement: speech and movement normal Mood: congruent mood Affect: normal affect DS: Data Vitals/I&O Vitals and I&O: Vital Signs Temperature 36.8 C 05/22/25 08:00 Temperature Source Temporal Artery Scan 05/22/25 08:00 Pulse 83 05/22/25 08:00 Pulse Rhythm Regular 05/19/25 21:48 Pulse 67 05/19/25 19:20 Respiratory Rate 18 05/22/25 08:00 Respiratory Effort Short of Breath 05/19/25 21:48 Respiratory Depth Normal 05/19/25 21:48 Respiratory Pattern Normal 05/19/25 21:48 Blood Pressure 146/79 H 05/22/25 08:00 Blood Pressure Mean 101 05/22/25 08:00 Blood Pressure Position Sitting 05/19/25 16:26 Pulse Oximetry 92 05/22/25 08:47 Oxygen Delivery Method Nasal Cannula 05/22/25 08:47 Oxygen Flow Rate 1 05/22/25 08:47 Fraction of Inspired Oxygen (FIO2) 28 05/20/25 09:14 Pain Level 0 05/20/25 19:59 Comment at rest 05/22/25 08:05 Intake & Output 05/21/25 05/22/25 05/22/25 23:59 11:59 23:59 Intake Total 370 / 880 440 / 440 Output Total 425 / 975 300 / 300 Balance -55 / -95 140 / 140 Weight 75.2 kg Intake: IV Oral 360 / 870 440 / 440 Output: Urine 425 / 975 300 / 300 Other: Urine Color Yellow Yellow Urine Appearance Cloudy Cloudy Urine Odor Strong Strong Data Completed and Pending Pending Labs at Discharge: 05/19/25 05/19/25 05/19/25 16:52 16:56 17:50 WBC 9.10 RBC 3.71 L Hgb 11.1 L Hct 35.5 L MCV 96 H MCH 29.9 MCHC 31.3 L RDW 12.2 Plt Count 263 MPV 9.6 Immature Gran % 0.2 Neutrophils % 70.7 Lymphocytes % 17.5 Monocytes % 10.2 Eosinophils % 0.9 Basophils % 0.5 Nucleated RBC % 0.0 Absolute Neutrophils 6.43 Absolute Lymphocytes 1.59 Absolute Monocytes 0.93 H Absolute Eosinophils 0.08 Absolute Basophils 0.05 D-Dimer 992 H VBG pH 7.34 VBG pCO2 69 H* VBG pO2 41 VBG HCO3 37 H VBG Total CO2 35 H VBG O2 Saturation 74 VBG Base Excess 11 H VBG Lactate 0.8 Sodium 141 Potassium 4.2 Chloride 98 Carbon Dioxide 35.8 H Anion Gap 7 BUN 15 Creatinine 0.65 L Est GFR (CKD-EPI 2020) 119.23 Glucose 104 Calcium 9.3 Magnesium 1.8 Total Bilirubin 0.4 AST 22 ALT 15 Alkaline Phosphatase 100 Troponin I 12 13 NT-Pro-B Natriuret Pep 289 Total Protein 7.7 Albumin 4.4 TSH 2.68 COVID-19 Source Nasopharynx SARS-CoV-2 (PCR) Negative Influenza Type A (PCR) Negative Influenza Type B (PCR) Negative RSV (PCR) Negative 05/19/25 05/19/25 05/20/25 19:16 20:13 06:10 WBC 3.83 L RBC 3.65 L Hgb 10.9 L Hct 33.9 L MCV 93 MCH 29.9 MCHC 32.2 RDW 11.8 Plt Count 235 MPV 10.2 Immature Gran % 0.3 Neutrophils % 87.7 Lymphocytes % 10.4 Monocytes % 1.3 Eosinophils % 0.0 Basophils % 0.3 Nucleated RBC % 0.0 Absolute Neutrophils 3.36 Absolute Lymphocytes 0.40 L Absolute Monocytes 0.05 L Absolute Eosinophils 0.00 Absolute Basophils 0.01 D-Dimer VBG pH 7.37 VBG pCO2 63 H* VBG pO2 23 VBG HCO3 37 H VBG Total CO2 35 H VBG O2 Saturation 38 VBG Base Excess 11 H VBG Lactate Sodium 143 Potassium 4.6 Chloride 101 Carbon Dioxide 32.7 H Anion Gap 9.3 BUN 20 Creatinine 0.58 L Est GFR (CKD-EPI 2020) 135.99 Glucose 125 H Calcium 9.7 Magnesium Total Bilirubin 0.4 AST 22 ALT 15 Alkaline Phosphatase 99 Troponin I 13 NT-Pro-B Natriuret Pep Total Protein 7.5 Albumin 4.3 TSH COVID-19 Source SARS-CoV-2 (PCR) Influenza Type A (PCR) Influenza Type B (PCR) RSV (PCR) 05/22/25 06:16 WBC 9.13 RBC 3.69 L Hgb 11.0 L Hct 34.3 L MCV 93 MCH 29.8 MCHC 32.1 RDW 11.9 Plt Count 321 MPV 10.0 Immature Gran % 0.4 Neutrophils % 82.7 Lymphocytes % 11.1 Monocytes % 5.7 Eosinophils % 0.0 Basophils % 0.1 Nucleated RBC % 0.0 Absolute Neutrophils 7.55 H Absolute Lymphocytes 1.01 L Absolute Monocytes 0.52 Absolute Eosinophils 0.00 Absolute Basophils 0.01 D-Dimer VBG pH VBG pCO2 VBG pO2 VBG HCO3 VBG Total CO2 VBG O2 Saturation VBG Base Excess VBG Lactate Sodium 146 H Potassium 4.0 Chloride 103 Carbon Dioxide 34.8 H Anion Gap 8.2 BUN 32 H Creatinine 0.81 Est GFR (CKD-EPI 2020) 92.49 Glucose 107 H Calcium 9.6 Magnesium 1.9 Total Bilirubin AST ALT Alkaline Phosphatase Troponin I 20 NT-Pro-B Natriuret Pep Total Protein Albumin TSH COVID-19 Source SARS-CoV-2 (PCR) Influenza Type A (PCR) Influenza Type B (PCR) RSV (PCR) Preliminary micro results at discharge 05/21/25 21:15 Tonsil - Not Specified Group A Streptococcus Culture - Pending 05/19/25 17:10 Blood Blood Culture - Preliminary NO GROWTH 48 HOURS 05/19/25 16:52 Blood Blood Culture - Preliminary NO GROWTH 48 HOURS PFSH All Active Problems (Updated 05/20/25 @ 18:57 by Suzanna Roberts APRN) Acute on chronic respiratory failure with hypercapnia (Acute) Sepsis (Acute) Acute on chronic hypoxic respiratory failure (Acute) Pneumonia (Acute) Acute respiratory failure with hypoxia (Acute) COVID-19 (Acute) Acute exacerbation of chronic obstructive pulmonary disease (Acute) Intertrochanteric fracture of right hip (Acute) DOS: 07/01/18 Dr. Hooper Tobacco abuse (Chronic) COPD (chronic obstructive pulmonary disease) (Chronic) Medical History Anxiety Depression Hyperlipemia PTSD (post-traumatic stress disorder) Surgical History H/O melanoma excision History of back surgery Lumbar discectomy Status post-operative repair of closed fracture of right hip Family History Mother , from an [place] in her 70s Heart disease Social History Smoking/Tobacco Use Status: Former Tobacco Use Tobacco: How many years used: 50 Smoking risk assessment performed?: Yes Alcohol Intake: never Drug use: Never Substance use type: does not use Household members: spouse and children Housing: apartment Do you feel safe at home: Yes Do you feel safe in your relationship?: Yes Time Spent with Patient Time Spent with Patient: >85 minutes Time was spent: preparing to see the patient(eg.review tests)
--- NOTE | 2025-05-22 15:37 | PDOC.HHF2F ---
Date of service: 05/22/25 Time of Service: 15:38 Home Health Referral Home Health Orders Clinical synopsis of why skilled professionals are needed: Mr Tom is a 74-year-old gentleman with a known history of COPD and chronic home oxygen use 2 L nasal cannula, COPD, chronic hypoxia on home oxygen at 2 L, GERD, hyperlipidemia, PTSD who presented to the ED on 05/19/25 for evaluation of worsening dyspnea and increased cough over the last couple days to the point where he could not walk more than 5 to 10 feet without getting short of breath. He did have 1 episode of mild chest pain that resolved without intervention besides aspirin. Regards to his workup he had multiple studies done including labs, radiographs, CT of the chest, EKG and VBG. Patient's D-dimer was elevated at [address] chest with contrast did not show PE. EKG did show right axis deviation as well as a right bundle branch block. As per VBG showing hypoxia and hypercapnia oxygen. NIV/BIPAP was initiated with much improvement in regards to his symptomology. Viral respiratory panel was negative. Patient was admitted for COPD exacerbation, acute on chronic hypoxic respiratory failure w hypercabia. Prednisone burst and doxycycline were initiated with continuous improvement.PRN and scheduled nebulizer treatment administered with ongoing home Breztri. Previously on Tiotropium; restarting discussed with patient and not proven to have extra benefits while on Breztri, recommendation made to discuss adequacy of roflumilast, chronic antibiotic or surgical lung reduction procedures. Patient mentioning difficulty to make it to [facility] to see pulmonary providers. [facility] pulmonary referral completed. ACS work-up was negative. The patient will be discharged home with home health PT, nursing. The patient is afebrile, hemodynamically stable and will be on a prdenisone taper and a short course of antibiotic. Discussed with Kevin Lloyd Registered Nurse: Check all that apply Instruct on new or changed medication(s)/assess compliance: Ordered Assess for exacerbation of medical condition, instruct patient/caregivers on signs and symptoms to report for early detection: Ordered Physical Therapist: Check all that apply Increase strength & endurance for safe mobility at home: Ordered To design/establish home maintenance program: Ordered Fall reduction therapy program for patient with history of frequent falls: Ordered Home safety evaluation and teaching/gait training including stair management (if applicable): Ordered Other: Pulmonary rehabilitation needed Tableau Report Developer: Assist with community resources: Ordered Assist with long-term care planning: Ordered Home Bound Status Requires the aid of supportive device (check all that apply): Cane and Walker Encounter Date and Reason: I certify that a FTF encounter for this patient was performed on May 22, 2025 and that such encounter was related to the primary reason the patient requires home health services. The encounter was conducted in the following manner: By me as the certifying physician, DOUGHNUT MACHINE OPERATOR, PA or By an inpatient physician, DOUGHNUT MACHINE OPERATOR or PA during an inpatient stay who communicated findings to me, Certification And Authentication Name of Provider that will be monitoring home health services: Ryan Marin
== END 2025-05-22 16:41 | disposition home health service (06) | DRG 190 ==
LOC: ER 20:18 → MS 20:19
PROVIDERS: Admitting Provider Hospitalist; Emergency Provider Physician Assistant; PCP Internal Medicine; Responsible Provider Nurse Practitioner Acute Care; Visit Provider Hospitalist
DX: J44.1 Chronic obstructive pulmonary disease with (acute) exacerbation (principal); J96.21 Acute and chronic respiratory failure with hypoxia; J96.22 Acute and chronic respiratory failure with hypercapnia; E78.5 Hyperlipidemia, unspecified; F41.9 Anxiety disorder, unspecified; F32.A Depression, unspecified; F43.10 Post-traumatic stress disorder, unspecified; K21.9 Gastro-esophageal reflux disease without esophagitis; Z59.41 Food insecurity; Z99.81 Dependence on supplemental oxygen; Z87.891 Personal history of nicotine dependence; Z79.899 Other long term (current) drug therapy
CPT/HCPCS: 00123; 36415; 71275; 80048; 80053; 82805; 87040; 87637; 93005; 94640; 96365; 97162; 97530; 99291; J1650; 71045; 83605; 83735; 83880; 84443; 84484; 85025; 85379; 87081; 93010; 94660; 94664; 94760; 99222; 99233; 99239; J3490; J7512; J7620